=== PATIENT | female | born 1950 | race Caucasian/White ===

== ENCOUNTER 2019-01-27 13:35 | Inpatient (IN) | payer MEDICARE ==
[2019-01-27] MEDS ORDERED: SODIUM CHLORIDE 0.9% 1,000 ML IV STA (14:01)
[2019-01-27 14:17] LABS: Basophils # (A) 0.1 k/uL (0-0.2); Basophils % (A) 1 %; Eosinophils # (A) 0.4 k/uL (0-0.7); Eosinophils % (A) 3 %; HCT 45.7 % (34.0-46.0); HGB 14.5 gm/dL (11.4-16.0); Lymphocytes # (A) 3.1 k/uL (1.0-4.8); Lymphocytes % (A) 22 %; MCH 29.6 pg (25.0-35.0); MCHC 31.6 g/dL (31.0-37.0); MCV 93.7 fL (80.0-100.0); Mean Platelet Volume 7.3; Monocytes # (A) 0.9 k/uL (0-1.0); Monocytes % (A) 6 %; Neutrophils # (A) 9.3 k/uL (1.3-7.7); Neutrophils % (A) 65 %; Platelet Count 278 k/uL (150-450); RBC 4.88 m/uL (3.80-5.40); RDW 12.4 % (11.5-15.5); WBC 14.2 k/uL (3.8-10.6)
[2019-01-27 14:27] LABS: INR 0.9 (<1.2); Partial Thromboplastin Time 24.7 sec (22.0-30.0); Prothrombin Time 9.7 sec (9.0-12.0)
[2019-01-27 14:30] LABS: Calcium 9.7 mg/dL (8.4-10.2); Potassium 4.4 mmol/L (3.5-5.1); Total Bilirubin 0.5 mg/dL (0.2-1.3); Total Protein 6.7 g/dL (6.3-8.2)
--- NOTE | 2019-01-27 15:03 | CT ---
EXAMINATION TYPE: CT brain katty vázquez DATE OF EXAM: 01/27/2019 COMPARISON: None HISTORY: 68-year-old female fall with blow to head CT DLP: 2597.5 mGycm Automated exposure control for dose reduction was used. Technique: Examination of the head was done in axial plane without intravenous contrast. Coronal and sagittal reconstructions performed. CT of the cervical spine was obtained in axial plane without intravenous injection of contrast mater ial. Coronal and sagittal reformatted images were obtained from the axial views for evaluation of f ractures, spinal alignment and canal. FINDINGS: Head: There is no evidence of acute intracranial hemorrhage, acute ischemic changes, mass effect, or extra -axial fluid collection. There is no effacement of cerebral sulci or basal subarachnoid cisterns. T here is no hydrocephalus. There is no midline shift. Stanford-white matter distinction is preserved. 9 mm calcified extra-axial lesion anterior left frontal convexity, either inner table osteoma versus meningioma. Mild generalized supratentorial volume loss. Paranasal sinuses and mastoid air cells are well pneumatized. Orbits and globes are intact. Cervical spine: No craniocervical junction abnormality, predental space widening, or prevertebral soft tissue swellin g. Degenerative changes at the C1 dens articulation. Multilevel hypertrophic facet and uncovertebral joint arthropathy. Reversal of the normal cervical lordosis. Grade 1 anterolisthesis at C4-C5 and grade 1 retrolisthesis at C5-C6 and C6-C7. Disc osteophyte complex may result in moderate spinal canal stenosis at C6-C7. Assessment limited due to artifact from the patient's shoulders. Moderate to advanced discogenic degenerative change from C5 through C7 levels. No acute fracture seen of the cervical spine. Severe left neuroforaminal stenosis at C2-C3 and moderate to severe on the right at C3-C4. Moderate o n both sides at C5-C6 and severe on both sides at C6-C7. Sagittal and coronal reformatted images confirm above findings. COMBINED IMPRESSION: 1. Mild generalized atrophy. Either a 9 mm inner table calvarial osteoma versus a small meningioma al jillian the anterior left frontal convexity. No acute intracranial abnormality seen. 2. No acute fracture of the cervical spine. Moderate to advanced spondylotic change with grade 1 list hesis at C4-C7 levels. 3. Possible moderate spinal canal stenosis at C6-C7. Variable moderate to severe bilateral neuroforam inal stenoses as outlined above.
--- NOTE | 2019-01-27 15:03 | XR ---
EXAMINATION TYPE: XR chest 2V DATE OF EXAM: 01/27/2019 COMPARISON: NONE TECHNIQUE: PA and lateral views submitted. HISTORY: Pain FINDINGS: The lungs are clear and there is no pneumothorax, pleural effusion, or focal pneumonia. Previous rot ator cuff surgery in the right noted. Arthropathy of the shoulders. No overt failure. Surgical clips in the abdomen. Degenerative change of the spine. IMPRESSION: 1. No acute process.
--- NOTE | 2019-01-27 15:15 | CT ---
EXAMINATION TYPE: CT abdomen pelvis wo con DATE OF EXAM: 01/27/2019 COMPARISON: None HISTORY: 68-year-old female dysuria, recent fall CT DLP: 1391 mGycm. Automated exposure control for dose reduction was used. TECHNIQUE: Contiguous axial scanning of the abdomen and pelvis without IV contrast. Coronal and sagit freddie reconstructions performed. FINDINGS: Heart normal size without pericardial effusion. Mild dependent atelectasis posterior lung bases witho ut pleural effusion. Liver enlarged at 20.0 cm with low-attenuation ingesting underlying fatty infiltration. Cholecystectomy clips. Right adrenal gland, left kidney, spleen, and pancreas appear within normal limits. 1.2 cm nodularity left adrenal gland is indeterminate. 3.1 cm cyst partially exophytic lateral right kidney. No dilated small bowel, free fluid, or free air. No mesenteric or retroperitoneal lymphadenopathy. Sigmoid diverticulosis. No pericolic inflammatory change. Bladder is completely collapsed. Uterus surgically absent. No abnormal fluid collection in the pelvis or pelvic lymphadenopathy seen. Bones: Moderate degenerative change of both hips. Degenerated levoconvex scoliosis of the lumbar spin e. IMPRESSION: 1. Hepatomegaly (20.0 cm) with suggestion of underlying mild fatty infiltration. 2. 1.2 cm indeterminate nodularity left adrenal gland. Statistically, this represents a benign adren al adenoma. Consider one-year follow-up to reassess. 3. Sigmoid diverticulosis without acute diverticulitis. 4. Degenerated levoconvex scoliosis of the lumbar spine.
--- NOTE | 2019-01-27 15:18 | ED ---
General Adult HPI - General Chief complaint: Abdominal Pain Stated complaint: Trouble urinating Time Seen by Provider: 01/27/19 13:40 Source: patient Mode of arrival: wheelchair Limitations: no limitations - History of Present Illness Initial comments: The patient is a 68-year-old female who presents to the emergency room with reported difficulty urinating. Patient reports that she sustained a fall on Thursday. Reports that it was a mechanical fall where she fell backwards into her bathtub. She had a prolonged downtime of greater than 36 hours. Reports that she screamed loud enough to where someone heard her. They did perform a lift assist and the patient refused to be seen. She does report to blunt head trauma. Has been complaining of neck pain. She followed up in her primary care office yesterday. They performed laboratory studies and a urine. Today the patient got a call stating that her labs are markedly abnormal. She also stoppe d urinating and therefore came into the emergency room for evaluation. Upon review of the patient's blood work at bedside does report that her kidney function was previously normal earlier this year and is now 2.5. She reports that she's had multiple episodes of loose, watery, black stool. No history of peptic ulcer disease, NSAID use or alcohol use. Denies any extremity pain secondary to her fall. No headaches or visual changes. Denies any chest pain or shortness of breath. No recent fevers or chills. She does think that she may have taken an extra dose of her blood pressure medication today. There are no other alleviating, precipitating or modifying factors - Related Data Home Medications Medication Instructions Recorded Confirmed Anastrozole [Arimidex] 1 mg PO DAILY 01/27/19 01/27/19 Aspirin EC [Ecotrin Low Dose] 81 mg PO HS 01/27/19 01/27/19 Calcium/Magnesium/Zinc 1 tab PO BID 01/27/19 01/27/19 [Rlirhwz-Expivnngi-Gjsb Tablet] Cholecalciferol (Vitamin D3) 2,000 unit PO BID 01/27/19 01/27/19 [Vitamin D3] Cinnamon Bark [Cinnamon] 1,000 mg PO BID 01/27/19 01/27/19 Cranberry 4,200 mg PO BID 01/27/19 01/27/19 Glucosamine/Chondr [place] A Sod [Osteo 1 tab PO BID 01/27/19 01/27/19 Bi-Flex Caplet] Pantoprazole Sodium [Protonix] 40 mg PO BID 01/27/19 01/27/19 Vit C/E/Zn/Coppr/Lutein/Zeaxan 1 cap PO BID 01/27/19 01/27/19 [Preservision Areds 2 Softgel] Previous Rx's Medication Instructions Recorded sitaGLIPtin PHOSPHATE [Januvia] 50 mg PO DAILY #30 tab 01/30/19 Gabapentin 300 mg PO BID 30 Days #60 tab 01/31/19 Metoprolol Succinate (ER) [Toprol 12.5 mg PO DAILY 30 Days #30 01/31/19 XL] tab.er.24h Allergies Allergy/AdvReac Type Severity Reaction Status Date / Time No Known Allergies Allergy Verified 01/27/19 14:26 Review of Systems ROS Statement: Those systems with pertinent positive or pertinent negative responses have been documented in the HPI. ROS Other: All systems not noted in ROS Statement are negative. Past Medical History Past Medical History: Hypertension History of Any Multi-Drug Resistant Organisms: None Reported Past Surgical History: Cholecystectomy, Hysterectomy Additional Past Surgical History / Comment(s): Intestinal Past Psychological History: No Psychological Hx Reported Smoking Status: Never smoker Past Alcohol Use History: Occasional Past Drug Use History: None Reported - Past Family History Father Additional Family Medical History / Comment(s): aneurysm Mother Family Medical History: CVA/TIA General Exam Limitations: no limitations General appearance: alert, in no apparent distress Head exam: Present: atraumatic, normocephalic, normal inspection Eye exam: Present: normal appearance, PERRL, EOMI. Absent: scleral icterus, conjunctival injection, periorbital swelling ENT exam: Present: normal exam, mucous membranes moist Neck exam: Present: normal inspection, tenderness. Absent: meningismus, lymphadenopathy Respiratory exam: Present: normal lung sounds bilaterally. Absent: respiratory distress, wheezes, rales, rhonchi, stridor Cardiovascular Exam: Present: regular rate, normal rhythm, normal heart sounds. Absent: systolic murmur, diastolic murmur, rubs, gallop, clicks GI/Abdominal exam: Present: soft, normal bowel sounds. Absent: distended, tenderness, guarding, rebound, rigid Extremities exam: Present: normal inspection, full ROM, normal capillary refill. Absent: tenderness, pedal edema, joint swelling, calf tenderness Back exam: Present: normal inspection, full ROM Neurological exam: Present: alert, oriented X3, CN II-XII intact Psychiatric exam: Present: normal affect, normal mood Skin exam: Present: warm, dry, intact, normal color. Absent: rash Course Vital Signs 01/27/19 01/27/19 01/27/19 13:39 13:55 14:00 Temperature 97.4 F L Pulse Rate 67 62 Respiratory 22 17 Rate Blood Pressure 82/28 111/84 111/84 O2 Sat by Pulse 96 94 L 96 Oximetry 01/27/19 01/27/19 01/27/19 14:15 14:30 14:45 Temperature Pulse Rate 61 Respiratory 34 H 26 H Rate Blood Pressure 44/27 113/68 114/59 O2 Sat by Pulse 95 98 Oximetry 01/27/19 01/27/19 01/27/19 15:00 15:15 15:30 Temperature Pulse Rate 69 Respiratory Rate Blood Pressure 104/91 121/66 O2 Sat by Pulse 54 L 100 98 Oximetry 01/27/19 01/27/19 01/27/19 15:45 16:00 16:30 Temperature Pulse Rate 64 60 Respiratory Rate Blood Pressure 100/87 129/95 133/77 O2 Sat by Pulse 93 L 98 98 Oximetry 01/27/19 01/27/19 17:30 18:00 Temperature Pulse Rate 58 L 62 Respiratory Rate Blood Pressure 105/93 107/55 O2 Sat by Pulse 100 97 Oximetry EKG Findings - EKG Comments: EKG Findings:: EKG demonstrates a sinus bradycardia with a ventricular rate of 59. HI interval 152. QRS 114. QTC 455. There are no acute ST segment elevations or depressions concerning for ischemic changes Medical Decision Making - Medical Decision Making Upon arrival the patient is placed into room 2. She is hooked up to continuous pulse ox and cardiac monitoring. A 12-lead EKG is performed on the patient. We did establish peripheral IV. The patient was given a liter bolus of normal saline. Bladder scan was performed and demonstrated 138 in the patient's bladder. She was straight cathed and it revealed no urine. I did recommend laboratory studies and a CT of the patient's brain and cervical spine. I also recommended a CT without contrast of the patient's abdomen. With blood cell count is 14.2. Glucose of 120, AST 91, ALT 86, CK of 966, lipase 330. Fecal occult is positive. Chest x-ray is negative. CT of the brain and cervical spine demonstrates mild generalized atrophy. 9 mm inner table calvarial osteoma versus a small meningioma. No acute fractures of the cervical spine area possible moderate spinal canal stenosis at C6-C7. CT of the abdomen and pelvis without contrast demonstrates hepatomegaly, left adrenal gland nodularity, sigmoid diverticulosis and degenerative scoliosis of the lumbar spine. I discussed these results with the patient. I did recommend hospital admission for which the patient did agree. I called and discussed the case with Dr. Gandhi who accepted admission for the patient. I did call and discuss the case with Dr. Cao who recommended a bicarb drip. I am currently awaiting a urinalysis. The patient will receive fluids at 120 mL per hour. I ordered a myoglobin. The patient remained in stable condition and was transported to the floor. Upon reevaluation of the patient's studies, it does reveal that she had a urinalysis that was sent to lab. Does note multiple blood cells and white blood cell clumps. Therefore I ordered a gram of Rocephin on the patient - Lab Data Result diagrams: 01/28/19 07:27 01/31/19 06:34 Lab Results 01/27/19 01/27/19 01/27/19 Range/Units 14:03 14:03 14:03 WBC 14.2 H (3.8-10.6) k/uL RBC 4.88 (3.80-5.40) m/uL Hgb 14.5 (11.4-16.0) gm/dL Hct 45.7 (34.0-46.0) % MCV 93.7 (80.0-100.0) fL MCH 29.6 (25.0-35.0) pg MCHC 31.6 (31.0-37.0) g/dL RDW 12.4 (11.5-15.5) % Plt Count 278 (150-450) k/uL Neutrophils % 65 % Lymphocytes % 22 % Monocytes % 6 % Eosinophils % 3 % Basophils % 1 % Neutrophils # 9.3 H (1.3-7.7) k/uL Lymphocytes # 3.1 (1.0-4.8) k/uL Monocytes # 0.9 (0-1.0) k/uL Eosinophils # 0.4 (0-0.7) k/uL Basophils # 0.1 (0-0.2) k/uL PT (9.0-12.0) sec INR (<1.2) APTT (22.0-30.0) sec Sodium 133 L (137-145) mmol/L Potassium 4.4 (3.5-5.1) mmol/L Chloride 96 L (98-107) mmol/L Carbon Dioxide 20 L (22-30) mmol/L Anion Gap 17 mmol/L BUN 63 H (7-17) mg/dL Creatinine 4.73 H (0.52-1.04) mg/dL Est GFR (CKD-EPI)AfAm 10 (>60 ml/min/1.73 sqM) Est GFR (CKD-EPI)NonAf 9 (>60 ml/min/1.73 sqM) Glucose 120 H (74-99) mg/dL Plasma Lactic Acid Irvin 2.0 (0.7-2.0) mmol/L Calcium 9.7 (8.4-10.2) mg/dL Total Bilirubin 0.5 (0.2-1.3) mg/dL AST 91 H (14-36) U/L ALT 86 H (9-52) U/L Alkaline Phosphatase 96 (38-126) U/L Creatine Kinase 966 H (30-135) U/L Myoglobin (25-58) ng/mL Total Protein 6.7 (6.3-8.2) g/dL Albumin 4.0 (3.5-5.0) g/dL Lipase 333 H (23-300) U/L Stool Occult Blood (Negative) 01/27/19 01/27/19 01/27/19 Range/Units 14:03 14:03 15:30 WBC (3.8-10.6) k/uL RBC (3.80-5.40) m/uL Hgb (11.4-16.0) gm/dL Hct (34.0-46.0) % MCV (80.0-100.0) fL MCH (25.0-35.0) pg MCHC (31.0-37.0) g/dL RDW (11.5-15.5) % Plt Count (150-450) k/uL Neutrophils % % Lymphocytes % % Monocytes % % Eosinophils % % Basophils % % Neutrophils # (1.3-7.7) k/uL Lymphocytes # (1.0-4.8) k/uL Monocytes # (0-1.0) k/uL Eosinophils # (0-0.7) k/uL Basophils # (0-0.2) k/uL PT 9.7 (9.0-12.0) sec INR 0.9 (<1.2) APTT 24.7 (22.0-30.0) sec Sodium (137-145) mmol/L Potassium (3.5-5.1) mmol/L Chloride (98-107) mmol/L Carbon Dioxide (22-30) mmol/L Anion Gap mmol/L BUN (7-17) mg/dL Creatinine (0.52-1.04) mg/dL Est GFR (CKD-EPI)AfAm (>60 ml/min/1.73 sqM) Est GFR (CKD-EPI)NonAf (>60 ml/min/1.73 sqM) Glucose (74-99) mg/dL Plasma Lactic Acid Irvin (0.7-2.0) mmol/L Calcium (8.4-10.2) mg/dL Total Bilirubin (0.2-1.3) mg/dL AST (14-36) U/L ALT (9-52) U/L Alkaline Phosphatase (38-126) U/L Creatine Kinase (30-135) U/L Myoglobin 2028 H (25-58) ng/mL Total Protein (6.3-8.2) g/dL Albumin (3.5-5.0) g/dL Lipase (23-300) U/L Stool Occult Blood Positive H (Negative) Disposition Clinical Impression: Acute kidney injury, Fall, Blunt head trauma Disposition: ADMITTED IP TO THIS [facility] Condition: Fair Is patient prescribed a controlled substance at d/c from ED?: No Decision to Admit Reason: Admit from EC Decision Date: 01/27/19 Decision Time: 16:54
[2019-01-27] MEDS ORDERED: NALOXONE 0.4 MG/ML 1 ML VIAL IV PRN (16:04)
[2019-01-27] MEDS ORDERED: SODIUM CHLORIDE 0.9% 1,000 ML IV SCH (16:15)
[2019-01-27 17:00] LABS: Amorphous Sediment,Urine Moderate /hpf; Appearance,Urine Turbid (Clear); Bilirubin,Urine Negative (Negative); Blood,Urine Moderate (Negative); Color,Urine Yellow; Glucose,Urine (UA) Negative (Negative); Granular Casts,Urine 194 /lpf (0); Ketones,Urine Negative (Negative); Leukocyte Esterase,Urine Large (Negative); Nitrite,Urine Negative (Negative); Protein,Urine 2+ (Negative); RBC,Urine 46 /hpf (0-5); Specific Gravity,Urine 1.014 (1.001-1.035); Urobilinogen,Urine <2.0 mg/dL (<2.0); WBC,Urine >182 /hpf (0-5)
[2019-01-27] MEDS ORDERED: DEXTROSE 5% IN WATER 1,000 ML with SODIUM BICARB (1 MEQ/ML) 150 ML IV ONE (17:30)
[2019-01-27] MEDS: INSULIN ASPART (NovoLOG) 100 UNIT/ML VIAL SQ SCH ×2 (18:06→21:16)
[2019-01-27 18:08] LABS: Glucose,Whole Blood 97 mg/dL (75-99)
[2019-01-27 20:08] VITALS: BMI 44.2
[2019-01-27 20:43] LABS: Glucose,Whole Blood 171 mg/dL (75-99)
[2019-01-27] MEDS ORDERED: ATORVASTATIN 40 MG TAB PO SCH (21:00)
[2019-01-27] MEDS: PANTOPRAZOLE 40 MG TABLET PO SCH (21:16)
[2019-01-27] MEDS: ASPIRIN 81 MG PO SCH (21:16)
[2019-01-27] MEDS: NON FORMULARY DRUG (Calcium/Magnesium/Zinc [Calcium-Magnesium-Zinc Tablet] 1 TAB) PO SCH (21:25)
[2019-01-27] MEDS ORDERED: cefTRIAXone IN SWFI 1,000 MG/10 ML SYRINGE IVP STA (23:37)
[2019-01-28] MEDS: DEXTROSE 5% IN WATER 1,000 ML with SODIUM BICARB (1 MEQ/ML) 150 ML IV SCH ×2 (05:52→17:10)
[2019-01-28 07:47] LABS: Glucose,Whole Blood 181 mg/dL (75-99)
[2019-01-28] MEDS: PANTOPRAZOLE 40 MG TABLET PO SCH ×2 (07:49→22:48)
[2019-01-28] MEDS: ANASTROZOLE 1 MG TAB PO SCH (07:49)
[2019-01-28] MEDS: INSULIN ASPART (NovoLOG) 100 UNIT/ML VIAL SQ SCH ×4 (07:50→22:53)
[2019-01-28] MEDS: NON FORMULARY DRUG (Calcium/Magnesium/Zinc [Calcium-Magnesium-Zinc Tablet] 1 TAB) PO SCH (07:50)
[2019-01-28 08:37] LABS: Basophils # (A) 0.1 k/uL (0-0.2); Basophils % (A) 1 %; Eosinophils # (A) 0.4 k/uL (0-0.7); Eosinophils % (A) 4 %; HCT 40.2 % (34.0-46.0); HGB 13.5 gm/dL (11.4-16.0); Lymphocytes # (A) 1.9 k/uL (1.0-4.8); Lymphocytes % (A) 20 %; MCH 31.5 pg (25.0-35.0); MCHC 33.5 g/dL (31.0-37.0); MCV 94.1 fL (80.0-100.0); Mean Platelet Volume 6.9; Monocytes # (A) 0.7 k/uL (0-1.0); Monocytes % (A) 7 %; Neutrophils # (A) 6.3 k/uL (1.3-7.7); Neutrophils % (A) 66 %; Platelet Count 203 k/uL (150-450); RBC 4.28 m/uL (3.80-5.40); RDW 12.2 % (11.5-15.5); WBC 9.6 k/uL (3.8-10.6)
[2019-01-28 08:54] LABS: Calcium 8.5 mg/dL (8.4-10.2); Potassium 4.3 mmol/L (3.5-5.1)
[2019-01-28] MEDS ORDERED: METOPROLOL SUCCINATE (ER) 25 MG TAB.ER.24H PO SCH (09:00)
[2019-01-28] MEDS ORDERED: SODIUM CHLORIDE 0.9% 500 ML 500 ML IV ONE (10:24)
[2019-01-28 11:56] LABS: Glucose,Whole Blood 124 mg/dL (75-99)
--- NOTE | 2019-01-28 15:36 | P.HPIM ---
History of Present Illness Patient is a pleasant 68-year-old female came in because she was sent in from PCPs office because of elevated serum creatinine. Patient has decreased urine output for last to 3 days. Patient had a fall in the bathtub about 34 days ago and was in the bathtub by herself for about 30 hours. After that patient started having: Probably related and then many brown urine which is typical of acute urinary necrosis from myoglobinuria. Patient's serum creatinine is within normal limits at baseline now around 5. Patient denied any fever chills nausea vomiting. Patient had bowel movements as well in the past. But patient is on multiple medications that can affect the kidney including lisinopril, meloxicam, metformin all of which are being held presently. Nephrology evaluated the patient and they're obtaining urine is now for levels and patient was started on IV fluids to being continued at this time. Patient still remains oliguric with clear urine at this time. Abdominal and pelvic CT and had cervicals spine CTand abnormality was appreciated except for possible adrenal adenoma for which patient will need a repeat CAT scan in about a year Review of Systems REVIEW OF SYSTEMS: CONSTITUTIONAL: No fever, no malaise, no fatigue. HEENT: No recent visual problems or hearing problems. Denied any sore throat. CARDIOVASCULAR: No chest pain, orthopnea, PND, no palpitations, no syncope. PULMONARY: No shortness of breath, no cough, no hemoptysis. GASTROINTESTINAL: No diarrhea, no nausea, no vomiting, no abdominal pain. NEUROLOGICAL: No headaches, no weakness, no numbness. HEMATOLOGICAL: Denies any bleeding or petechiae. GENITOURINARY: Denies any burning micturition, frequency, or urgency. MUSCULOSKELETAL/RHEUMATOLOGICAL: Denies any joint pain, swelling, or any muscle pain. ENDOCRINE: Denies any polyuria or polydipsia. The rest of the 14-point review of systems is negative. Past Medical History Past Medical History: Hypertension Additional Past Medical History / Comment(s): states cancer of left breast 2016. lumpectomy 2016. DM type 2 2007. History of Any Multi-Drug Resistant Organisms: None Reported Past Surgical History: Cholecystectomy, Hysterectomy Additional Past Surgical History / Comment(s): Intestinal Past Anesthesia/Blood Transfusion Reactions: No Reported Reaction Past Psychological History: No Psychological Hx Reported Smoking Status: Never smoker Past Alcohol Use History: Occasional Past Drug Use History: None Reported - Past Family History Father Additional Family Medical History / Comment(s): aneurysm Mother Family Medical History: CVA/TIA Medications and Allergies Home Medications Medication Instructions Recorded Confirmed Type Anastrozole [Arimidex] 1 mg PO DAILY 01/27/19 01/27/19 History Aspirin EC [Ecotrin Low Dose] 81 mg PO HS 01/27/19 01/27/19 History Atorvastatin [Lipitor] 40 mg PO HS 01/27/19 01/27/19 History Calcium/Magnesium/Zinc 1 tab PO BID 01/27/19 01/27/19 History [Igwgikw-Bwrjvdsbg-Nfmz Tablet] Cholecalciferol (Vitamin D3) 2,000 unit PO BID 01/27/19 01/27/19 History [Vitamin D3] Cinnamon Bark [Cinnamon] 1,000 mg PO BID 01/27/19 01/27/19 History Cranberry 4,200 mg PO BID 01/27/19 01/27/19 History Gabapentin 600 mg PO BID 01/27/19 01/27/19 History Glucosamine/Chondr [place] A Sod [Osteo 1 tab PO BID 01/27/19 01/27/19 History Bi-Flex Caplet] Lisinopril 30 mg PO DAILY 01/27/19 01/27/19 History Meloxicam [Mobic] 15 mg PO DAILY 01/27/19 01/27/19 History Metoprolol Succinate [Toprol XL] 25 mg PO DAILY 01/27/19 01/27/19 History Pantoprazole Sodium [Protonix] 40 mg PO BID 01/27/19 01/27/19 History Vit C/E/Zn/Coppr/Lutein/Zeaxan 1 cap PO BID 01/27/19 01/27/19 History [Preservision Areds 2 Softgel] metFORMIN HCL 1,000 mg PO BID 01/27/19 01/27/19 History Allergies Allergy/AdvReac Type Severity Reaction Status Date / Time No Known Allergies Allergy Verified 01/27/19 14:26 Physical Exam Vitals: Vital Signs Temp Pulse Pulse Resp BP BP Pulse Ox 01/28/19 15:00 98.0 F 73 20 137/68 93 L 01/28/19 08:00 20 01/28/19 07:00 97.9 F 69 20 107/64 96 01/28/19 01:30 97.8 F 66 15 96/62 92 L 01/28/19 00:00 16 01/27/19 19:18 97.7 F 69 15 119/64 96 01/27/19 18:00 62 107/55 97 01/27/19 17:30 58 L 105/93 100 01/27/19 16:30 60 133/77 98 01/27/19 16:00 64 129/95 98 01/27/19 15:45 100/87 93 L 01/27/19 15:30 69 121/66 98 Intake and Output 01/28/19 01/28/19 01/28/19 06:59 14:59 22:59 Intake Total 200 Output Total 15 Balance -15 200 Intake: Oral 200 Output: Urine 15 Other: Voiding Method Indwelling Catheter PHYSICAL EXAMINATION: GENERAL: The patient is alert and oriented x3, not in any acute distress. Well developed, well nourished. HEENT: Pupils are round and equally reacting to light. EOMI. No scleral icterus. No conjunctival pallor. Normocephalic, atraumatic. No pharyngeal erythema. No thyromegaly. CARDIOVASCULAR: S1 and S2 present. No murmurs, rubs, or gallops. PULMONARY: Chest is clear to auscultation, no wheezing or crackles. ABDOMEN: Soft, nontender, nondistended, normoactive bowel sounds. No palpable organomegaly. MUSCULOSKELETAL: No joint swelling or deformity. EXTREMITIES: No cyanosis, clubbing, or pedal edema. NEUROLOGICAL: Gross neurological examination did not reveal any focal deficits. SKIN: No rashes. Results CBC & Chem 7: 01/28/19 07:27 01/28/19 07:27 Labs: Abnormal Lab Results - Last 24 Hours (Table) 01/27/19 01/27/19 01/27/19 Range/Units 15:30 16:47 20:32 Sodium (137-145) mmol/L Chloride (98-107) mmol/L Carbon Dioxide (22-30) mmol/L BUN (7-17) mg/dL Creatinine (0.52-1.04) mg/dL Glucose (74-99) mg/dL POC Glucose (mg/dL) 171 H (75-99) mg/dL Creatine Kinase (30-135) U/L Urine Appearance Turbid H (Clear) Urine Protein 2+ H (Negative) Urine Blood Moderate H (Negative) Ur Leukocyte Esterase Large H (Negative) Urine RBC 46 H (0-5) /hpf Urine WBC >182 H (0-5) /hpf Amorphous Sediment Moderate H (None) /hpf Stool Occult Blood Positive H (Negative) 01/28/19 01/28/19 01/28/19 Range/Units 07:27 07:27 07:45 Sodium 132 L (137-145) mmol/L Chloride 93 L (98-107) mmol/L Carbon Dioxide 21 L (22-30) mmol/L BUN 78 H (7-17) mg/dL Creatinine 5.46 H (0.52-1.04) mg/dL Glucose 146 H (74-99) mg/dL POC Glucose (mg/dL) 181 H (75-99) mg/dL Creatine Kinase 478 H (30-135) U/L Urine Appearance (Clear) Urine Protein (Negative) Urine Blood (Negative) Ur Leukocyte Esterase (Negative) Urine RBC (0-5) /hpf Urine WBC (0-5) /hpf Amorphous Sediment (None) /hpf Stool Occult Blood (Negative) 01/28/19 Range/Units 11:45 Sodium (137-145) mmol/L Chloride (98-107) mmol/L Carbon Dioxide (22-30) mmol/L BUN (7-17) mg/dL Creatinine (0.52-1.04) mg/dL Glucose (74-99) mg/dL POC Glucose (mg/dL) 124 H (75-99) mg/dL Creatine Kinase (30-135) U/L Urine Appearance (Clear) Urine Protein (Negative) Urine Blood (Negative) Ur Leukocyte Esterase (Negative) Urine RBC (0-5) /hpf Urine WBC (0-5) /hpf Amorphous Sediment (None) /hpf Stool Occult Blood (Negative) Thrombosis Risk Factor Assmnt - Choose All That Apply Any of the Below Risk Factors Present?: No Assessment and Plan Plan: -Acute renal failure: Possibly multifactorial along with prerenal azotemia i ntravascularly depletion contributing to her acute renal failure patient is being continued on IV fluids patient most probably has myoglobin-induced acute tubular necrosis or ALLERGIC interstitial nephritis urine is now arteaga are being obtained. Nephrology evaluated the patient. Repeat basic metabolic profile tomorrow -Hyponatremia hypervolemic hyponatremia any with IV fluids as mentioned above -Metabolic acidosis secondary to uremia patient is on bicarbonate as per nephrology -Hypertension hold off on lisinopril because of above-mentioned reasons -History of breast cancer with lumpectomy in 2016 -Type 2 diabetes mellitus hold off on metformin due to acute renal failure. continue with sliding scale. Hyperlipidemia, neuropathy: Gabapentin is being held because of acute renal failure -Hyperlipidemia -DVT prophylaxis with subcutaneous heparin
[2019-01-28 17:03] LABS: Glucose,Whole Blood 206 mg/dL (75-99)
--- NOTE | 2019-01-28 21:50 | CONS ---
CONSULTATION REASON FOR CONSULT: Renal failure. HISTORY OF PRESENT ILLNESS: Patient is a 68-year-old female who was admitted to the hospital post fall. She fell in her bathtub but was there for more than 36 hours. She did hit her head; it was blunt trauma. Patient saw her primary care physician and had labs drawn. She was called and asked to go to the ER, as her serum creatinine was significantly elevated. Patient did admit to having loose watery stools for a few days prior to admission. Her CK was elevated at 900 on admission and serum creatinine was 4.73. Supposedly a previous creatinine was about 1 mg/dL, but I do not have that in the system here. Patient has an indwelling Medina catheter which was placed in the ER. Urine output since this morning was documented at about 200 mL. Patient is maintained on bicarb drip at about 100 mL/hour. Blood pressure remains on the lower side. Currently she is not on any nephrotoxic medications. Patient was on RHONDA inhibitors at home, which is currently on hold. She was also taking Mobic regularly, and patient is advised to avoid that as well. PAST MEDICAL HISTORY: 1. Hypertension. 2. Osteoarthritis. 3. Gastroesophageal reflux disease. 4. Type 2 diabetes. PAST SURGICAL HISTORY: 1. Cholecystectomy. 2. Hysterectomy. SOCIAL HISTORY: Negative for smoking, drug abuse or alcohol abuse. MEDICATIONS: Medications prior to admission included: 1. Arimidex. 2. Lipitor. 3. Aspirin. 4. Zinc. 5. Vitamin D3. 6. Gabapentin. 7. Lisinopril. 8. Mobic. 9. Toprol. 10.Protonix. 11.Metformin. ALLERGIES: NONE. REVIEW OF SYSTEMS: As per HPI. Other systems negative. PHYSICAL EXAMINATION: Patient is currently comfortable, awake, alert, oriented x3, not in any acute distress. Blood pressure is 107/64, heart rate 69 per minute. She is afebrile. EXAMINATION OF THE HEART: S1 and S2. EXAMINATION OF LUNGS: Bilateral breath sounds are heard. ABDOMEN: Soft, non-tender, obese. Examination of lower extremities shows no significant edema. LABS: Sodium 132, potassium 4.3, BUN of 78, serum creatinine 5.46, hemoglobin 13.5 g/dL. UA shows 2+ protein, large leukocyte esterase, WBCs more than 182. Granular casts were seen. Moderate blood was noted. Stool for occult blood was positive. Hemoglobin was 13.5. ASSESSMENT: 1. Acute kidney injury, acute tubular necrosis, currently nonoliguric; however, urine output is slightly on the lower side. Continue with indwelling Medina catheter. Continue with IV hydration. If urine output drops, we will try a dose of Lasix. Repeat CK level today. Continue to hold off on NSAIDs and RHONDA inhibitors. I will check urine for eosinophiles as well. Rule out underlying acute interstitial nephritis. 2. Rhabdomyolysis, currently improving, secondary to fall. 3. Dyslipidemia, maintained on Lipitor, which I will discontinue, given the rhabdomyolysis. 4. Hypertension. Blood pressure is low. Hold off on the RHONDA inhibitors. Decrease metoprolol to 12.5 mg. PLAN: Discontinue Lipitor. Continue bicarb. Repeat labs in a.m. and use Lasix if urine output drops. Check urine for eosinophiles. Thank you for this consultation. Will continue to follow the patient with you during her hospitalization. MMODL / IJN: [id number] /
[2019-01-28] MEDS: HEPARIN SODIUM,PORCINE 5,000 UNIT/ML 1 ML VIAL SQ SCH (22:48)
[2019-01-28] MEDS: ASPIRIN 81 MG PO SCH (22:48)
[2019-01-28 23:03] LABS: Glucose,Whole Blood 115 mg/dL (75-99)
[2019-01-29] MEDS: DEXTROSE 5% IN WATER 1,000 ML with SODIUM BICARB (1 MEQ/ML) 150 ML IV SCH ×2 (01:13→07:04)
[2019-01-29] MEDS: NON FORMULARY DRUG (Calcium/Magnesium/Zinc [Calcium-Magnesium-Zinc Tablet] 1 TAB) PO SCH ×3 (01:13→20:38)
[2019-01-29 07:29] LABS: Glucose,Whole Blood 161 mg/dL (75-99)
[2019-01-29] MEDS: INSULIN ASPART (NovoLOG) 100 UNIT/ML VIAL SQ SCH ×4 (07:59→20:41)
[2019-01-29] MEDS: HEPARIN SODIUM,PORCINE 5,000 UNIT/ML 1 ML VIAL SQ SCH ×2 (07:59→20:41)
[2019-01-29] MEDS: METOPROLOL SUCCINATE (ER) 25 MG TAB.ER.24H PO SCH (08:02)
[2019-01-29] MEDS: ANASTROZOLE 1 MG TAB PO SCH (08:03)
--- NOTE | 2019-01-29 09:18 | P.PN ---
Subjective 68-year-old female was admitted for possible myoglobinuria induced or ALLERGIC interstitial nephritis or acute tubular necrosis. Patient urine output improved. He is to be in polyuric phase. Cutdown the IV FLUIDS TO 75 ML PER HOUR PATIENT IS ON IV SODIUM BICARBONATE DRIP. DO NOT HAVE ANY REPEAT BASIC METABOLIC PROFILE AVAILABLE FOR TODAY. Patient was advised to ambulate. Constitutional: Denied any fatigue denied any fever. Cardio vascular: denied any chest pain, palpitations Gastrointestinal denied any nausea vomiting Pulmonary: Denied any shortness of breath cough Neurologic denied any new focal deficits All inpatient medications were reviewed and appropriate changes in these medications as dictated in the interval history and assessment and plan. Objective - Vital Signs Vital signs: Vital Signs Temp 97.4 F L 01/29/19 07:00 Pulse 63 01/29/19 07:00 Resp 16 01/29/19 07:00 BP 119/67 01/29/19 07:00 Pulse Ox 90 L 01/29/19 07:00 Intake & Output 01/28/19 01/29/19 01/29/19 18:59 06:59 18:59 Intake Total 200 Output Total 350 3600 Balance -150 -3600 Intake: Oral 200 Output: Urine 350 3600 Other: Voiding Method Indwelling Catheter Indwelling Catheter # Bowel Movements 1 - Exam PHYSICAL EXAMINATION: GENERAL: The patient is alert and oriented x3, not in any acute distress. Well developed, well nourished. HEENT: Pupils are round and equally reacting to light. EOMI. No scleral icterus. No conjunctival pallor. Normocephalic, atraumatic. No pharyngeal erythema. No thyromegaly. CARDIOVASCULAR: S1 and S2 present. No murmurs, rubs, or gallops. PULMONARY: Chest is clear to auscultation, no wheezing or crackles. ABDOMEN: Soft, nontender, nondistended, normoactive bowel sounds. No palpable organomegaly. MUSCULOSKELETAL: No joint swelling or deformity. EXTREMITIES: No cyanosis, clubbing, or pedal edema. NEUROLOGICAL: Gross neurological examination did not reveal any focal deficits. SKIN: No rashes. - Labs CBC & Chem 7: 01/28/19 07:27 01/28/19 07:27 Labs: Abnormal Lab Results - Last 24 Hours (Table) 01/28/19 01/28/19 01/28/19 Range/Units 07:27 11:45 16:49 POC Glucose (mg/dL) 124 H 206 H (75-99) mg/dL Creatine Kinase 478 H (30-135) U/L 01/28/19 01/29/19 Range/Units 22:52 07:01 POC Glucose (mg/dL) 115 H 161 H (75-99) mg/dL Creatine Kinase (30-135) U/L Assessment and Plan Plan: -Acute renal failure: Possibly multifactorial along with prerenal azotemia intravascularly depletion contributing to her acute renal failure patient is being continued on IV fluids patient most probably has myoglobin-induced acute tubular necrosis or ALLERGIC interstitial nephritis urine is now arteaga are being obtained. Nephrology evaluated the patient. It is significant for increased white blood cell count urine is now arteaga are still not available at this time urine output is improving -Hyponatremia hypervolemic hyponatremia any with IV fluids as mentioned above, repeat basic metabolic profile is pending -Metabolic acidosis secondary to uremia patient is on bicarbonate as per nephro logy -Hypertension hold off on lisinopril because of above-mentioned reasons -History of breast cancer with lumpectomy in 2016 -Type 2 diabetes mellitus hold off on metformin due to acute renal failure. continue with sliding scale. Blood sugars are fairly controlled Hyperlipidemia, neuropathy: Gabapentin is being held because of acute renal failure -Hyperlipidemia -DVT prophylaxis with subcutaneous heparin
[2019-01-29 10:29] LABS: Calcium 8.5 mg/dL (8.4-10.2); Potassium 3.8 mmol/L (3.5-5.1)
[2019-01-29] MEDS: PANTOPRAZOLE 40 MG TABLET PO SCH ×2 (11:32→20:41)
[2019-01-29 12:31] LABS: Glucose,Whole Blood 124 mg/dL (75-99)
--- NOTE | 2019-01-29 14:36 | PN ---
PROGRESS NOTE The patient is seen for followup for acute kidney injury. She was admitted to the hospital after a fall. The patient is maintained on IV fluids. She had rhabdomyolysis. Creatinine had gone up to 5.4 from 4.7 on initial admission. Urine output had been on the lower side currently significantly improved. Creatinine is also improved to 4.2 this morning. Overall, patient states she is feeling better. PHYSICAL EXAMINATION: On examination this morning, blood pressure was 119/67, heart rate 63 per minute. She is afebrile. EXAMINATION OF THE HEART: S1, S2. EXAMINATION OF THE LUNGS: Bilateral breath sounds are heard. Abdomen is soft, nontender, obese. Examination of lower extremities shows no evidence of edema. 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 LABS: Labs show sodium 135, potassium 3.8, BUN 81, creatinine 4.2. Calcium 8.5 mg/dL. ASSESSMENT: 1. Acute kidney injury, acute tubular necrosis, secondary to hypotension hypoperfusion as well as rhabdomyolysis, currently improving. Continue with indwelling Medina catheter for one more day. Continue IV fluids. 2. Mild metabolic acidosis secondary to renal failure, maintained on bicarb drip. We can switch to saline. 3. Rhabdomyolysis, improving. 4. Status post fall. 5. Hypertension, controlled. 6. Gastroesophageal reflux disease, maintained on proton pump inhibitors. PLAN: Discontinue IV bicarb, switch to normal saline. Repeat labs in a.m. MMODL / IJN: [id number] /
[2019-01-29] MEDS: SODIUM CHLORIDE 0.9% 1,000 ML IV SCH (15:30)
[2019-01-29 17:23] LABS: Glucose,Whole Blood 192 mg/dL (75-99)
[2019-01-29 20:29] LABS: Glucose,Whole Blood 182 mg/dL (75-99)
[2019-01-29] MEDS: ASPIRIN 81 MG PO SCH (20:41)
[2019-01-30] MEDS: SODIUM CHLORIDE 0.9% 1,000 ML IV SCH ×3 (03:56→16:17)
[2019-01-30 07:00] LABS: Glucose,Whole Blood 147 mg/dL (75-99)
[2019-01-30 07:13] LABS: Calcium 8.7 mg/dL (8.4-10.2); Potassium 4.4 mmol/L (3.5-5.1)
[2019-01-30] MEDS: INSULIN ASPART (NovoLOG) 100 UNIT/ML VIAL SQ SCH ×4 (07:51→20:37)
[2019-01-30] MEDS: ANASTROZOLE 1 MG TAB PO SCH (07:52)
[2019-01-30] MEDS: HEPARIN SODIUM,PORCINE 5,000 UNIT/ML 1 ML VIAL SQ SCH ×2 (07:52→20:37)
[2019-01-30] MEDS: METOPROLOL SUCCINATE (ER) 25 MG TAB.ER.24H PO SCH (07:52)
[2019-01-30] MEDS: PANTOPRAZOLE 40 MG TABLET PO SCH ×2 (07:52→20:37)
[2019-01-30] MEDS: NON FORMULARY DRUG (Calcium/Magnesium/Zinc [Calcium-Magnesium-Zinc Tablet] 1 TAB) PO SCH ×2 (07:53→20:26)
[2019-01-30 11:55] LABS: Glucose,Whole Blood 189 mg/dL (75-99)
--- NOTE | 2019-01-30 14:25 | P.PN ---
Subjective 68-year-old female was admitted for possible myoglobinuria induced or ALLERGIC interstitial nephritis or acute tubular necrosis. Patient urine output improved. He is to be in polyuric phase. Cutdown the IV FLUIDS TO 75 ML PER HOUR PATIENT IS ON IV SODIUM BICARBONATE DRIP. DO NOT HAVE ANY REPEAT BASIC METABOLIC PROFILE AVAILABLE FOR TODAY. Patient was advised to ambulate. 01/30/2019 Patient is doing much better her creatinine Has come down to 3.11 from 5.46. Patient probably can be discharged tomorrow. Patient cannot take lisinopril, m etformin, meloxicam Constitutional: Denied any fatigue denied any fever. Cardio vascular: denied any chest pain, palpitations Gastrointestinal denied any nausea vomiting Pulmonary: Denied any shortness of breath cough Neurologic denied any new focal deficits All inpatient medications were reviewed and appropriate changes in these medications as dictated in the interval history and assessment and plan. Objective - Vital Signs Vital signs: Vital Signs Temp 98.7 F 01/30/19 07:47 Pulse 61 01/30/19 07:47 Resp 16 01/30/19 07:47 BP 120/80 01/30/19 07:47 Pulse Ox 92 L 01/30/19 07:47 Intake & Output 01/29/19 01/30/19 01/30/19 18:59 06:59 18:59 Intake Total 600 1250 300 Output Total 2500 1225 1600 Balance -1900 25 -1300 Intake: Intake, IV Titration 600 750 300 Amount Dextrose 5% in Water 1, 600 000 ml @ 75 mls/hr IV . [id number] MARILIN with Sodium Bicarb (1 Meq/ml) 150 ml Rx#:[id number] Sodium Chloride 0.9% 1, 750 300 000 ml @ 75 mls/hr IV . [id number] MARILIN Rx#:[id number] Oral 500 Output: Urine 2500 1225 1600 Uretheral (Medina) 1225 400 Other: Voiding Method Indwelling Catheter Indwelling Catheter Indwelling Catheter # Bowel Movements 1 - Exam PHYSICAL EXAMINATION: GENERAL: The patient is alert and oriented x3, not in any acute distress. Well developed, well nourished. HEENT: Pupils are round and equally reacting to light. EOMI. No scleral icterus. No conjunctival pallor. Normocephalic, atraumatic. No pharyngeal erythema. No thyromegaly. CARDIOVASCULAR: S1 and S2 present. No murmurs, rubs, or gallops. PULMONARY: Chest is clear to auscultation, no wheezing or crackles. ABDOMEN: Soft, nontender, nondistended, normoactive bowel sounds. No palpable organomegaly. MUSCULOSKELETAL: No joint swelling or deformity. EXTREMITIES: No cyanosis, clubbing, or pedal edema. NEUROLOGICAL: Gross neurological examination did not reveal any focal deficits. SKIN: No rashes. - Labs CBC & Chem 7: 01/28/19 07:27 01/30/19 06:28 Labs: Abnormal Lab Results - Last 24 Hours (Table) 01/29/19 01/29/19 01/30/19 Range/Units 17:11 20:17 06:28 Chloride 97 L (98-107) mmol/L Carbon Dioxide 37 H (22-30) mmol/L BUN 67 H (7-17) mg/dL Creatinine 3.11 H (0.52-1.04) mg/dL Glucose 145 H (74-99) mg/dL POC Glucose (mg/dL) 192 H 182 H (75-99) mg/dL 01/30/19 01/30/19 Range/Units 06:57 11:51 Chloride (98-107) mmol/L Carbon Dioxide (22-30) mmol/L BUN (7-17) mg/dL Creatinine (0.52-1.04) mg/dL Glucose (74-99) mg/dL POC Glucose (mg/dL) 147 H 189 H (75-99) mg/dL Assessment and Plan Plan: -Acute renal failure: Possibly multifactorial along with prerenal azotemia intravascularly depletion contributing to her acute renal failure patient is being continued on IV fluids patient most probably has myoglobin-induced acute tubular necrosis or ALLERGIC interstitial nephritis urine is now arteaga are being obtained. Nephrology evaluated the patient. It doesn't continue to improve -Hyponatremia hypervolemic hyponatremia improved with IV fluids -Metabolic acidosis secondary to uremia patient is on bicarbonate as per nephrology -Hypertension hold off on lisinopril because of above-mentioned reasons -History of breast cancer with lumpectomy in 2016 -Type 2 diabetes mellitus hold off on metformin due to acute renal failure. continue with sliding scale. Blood sugars are fairly controlled Hyperlipidemia, neuropathy: Gabapentin is being held because of acute renal failure -Hyperlipidemia -DVT prophylaxis with subcutaneous heparin
[2019-01-30 17:15] LABS: Glucose,Whole Blood 117 mg/dL (75-99)
--- NOTE | 2019-01-30 18:54 | PN ---
PROGRESS NOTE Patient is seen for followup for acute kidney injury secondary to hypotension, hypovolemia and rhabdomyolysis. Renal function has improved. Serum creatinine is down to 3.1 from 5.4 on 01/28/2019. Patient continues to have good urine output. 24 hour output was 3.7 L. Currently patient is maintained on IV fluids. PHYSICAL EXAMINATION: On examination, blood pressure is 120/80, heart rate 61 per minute, patient is afebrile. Examination of the heart S1, S2. Examination of the lungs, bilateral breath sounds are heard. Abdomen is soft, nontender. 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 LABS: Show sodium of 140, potassium 4.4, chloride 97, CO2 is 37, BUN 67, serum creatinine 3.1, calcium 8.7 mg/dL. ASSESSMENT: 1. Acute kidney injury associated with hypovolemia, hypotension as well as rhabdomyolysis and use of NSAIDs, currently improving. We can decrease the IV fluids. Patient is encouraged to increase her oral intake. We will repeat labs in a.m. 2. Status post fall. 3. Gastroesophageal reflux disease. 4. Mild metabolic acidosis, status post bicarb drip. PLAN: Decrease IV fluids. Encourage increased oral intake. Repeat labs in a.m. Repeat CK level. Continue off of Lipitor. The patient can be discharged by tomorrow with followup as outpatient with repeat labs as outpatient post discharge. She is advised to continue to avoid use of NSAIDs and continue to hold off on the RHONDA inhibitor/angiotensin receptor blockers as well as the metformin for now. MMODL / IJN: [id number] /
[2019-01-30 20:35] LABS: Glucose,Whole Blood 239 mg/dL (75-99)
[2019-01-30] MEDS: ASPIRIN 81 MG PO SCH (20:37)
[2019-01-31 07:03] LABS: Glucose,Whole Blood 171 mg/dL (75-99)
[2019-01-31] MEDS: ANASTROZOLE 1 MG TAB PO SCH (07:42)
[2019-01-31] MEDS: HEPARIN SODIUM,PORCINE 5,000 UNIT/ML 1 ML VIAL SQ SCH (07:42)
[2019-01-31] MEDS: METOPROLOL SUCCINATE (ER) 25 MG TAB.ER.24H PO SCH (07:42)
[2019-01-31] MEDS: PANTOPRAZOLE 40 MG TABLET PO SCH (07:43)
[2019-01-31] MEDS: INSULIN ASPART (NovoLOG) 100 UNIT/ML VIAL SQ SCH ×2 (07:43→12:46)
[2019-01-31 07:54] LABS: Calcium 8.4 mg/dL (8.4-10.2); Potassium 3.9 mmol/L (3.5-5.1)
[2019-01-31] MEDS: NON FORMULARY DRUG (Calcium/Magnesium/Zinc [Calcium-Magnesium-Zinc Tablet] 1 TAB) PO SCH (08:01)
[2019-01-31 08:05] VITALS: BP 148/74; PULSE 61; RESP 17; TEMP 97.7
[2019-01-31 11:55] LABS: Glucose,Whole Blood 138 mg/dL (75-99)
--- NOTE | 2019-01-31 14:04 | PN ---
PROGRESS NOTE Patient is seen for followup for acute kidney injury. Her renal function continues to improve. Patient wants to go home. She denies any complaints. Creatinine is down to 1.87 from a peak of about 5.4. PHYSICAL EXAMINATION: On examination today, blood pressure was 137/76, heart rate 64 per minute, she is afebrile. Examination of the heart S1, S2. Examination of the lungs, bilateral breath sounds are heard. Abdomen is soft, non-tender. Examination of lower extremities shows no significant edema. LABS: Show sodium 142, potassium 3.9, BUN 40, creatinine 1.87. ASSESSMENT: 1. Acute kidney injury, ATN currently improved. Patient can be discharged from nephrology standpoint. 2. Hypertension, stable. 3. Status post fall, mild rhabdomyolysis, now improved. 4. Neuropathy. 5. Mild metabolic acidosis, now resolved. PLAN: Patient can be discharged from nephrology standpoint. Follow up as outpatient with PCP and continue to avoid NSAIDs and RHONDA inhibitor/angiotensin receptor blockers for now. MMODL / IJN: [id number] /
--- NOTE | 2019-01-31 14:22 | P.DS ---
Providers Date of admission: 01/27/19 16:04 Expected date of discharge: 01/31/19 Attending physician: Kieran Gandhi Consults: 01/27/19 16:05 Consult Physician Urgent Consulting Provider: Carmela Cao Consult Reason/Comments: acute renal failure Do you want consulting provider notified?: Yes Primary care physician: [facility] Hospital Course: Final Diagnosis Acute renal failure, possibly multifactorial along with prerenal azotemia due to intravascular depletion Hyponatremia, hypovolemic hyponatremia Metabolic acidosis secondary to uremia Hypertension History of breast cancer with lumpectomy in 2016 Diabetes mellitus type 2 Hyperlipidemia, neuropathy DVT prophylaxis Discharge disposition Patient is being discharged in a stable condition with guarded prognosis to home and will follow-up with primary care provider Dr. Johnson as well as Dr. Cao nephrology in 1-2 weeks. Patient will need repeat labs upon discharge. Total time taken is 35 minutes. History of present illness This is a 68-year-old female who was admitted for possible myoglobinuria or interstitial nephritis or acute tubular necrosis and was being monitored closely. Nephrology was following closely. During hospitalization patient's creatinine was 5.46 upon admission and had improved and is currently 1.87. Per nephrology recommendations patient is to continue holding her RHONDA inhibitor, metformin, and any NSAIDs until follow-up. Patient denies any chest pain, shortness of breath, or palpitations at this time. Patient has been afebrile. Patient denies any nausea or vomiting and is tolerating diet. Patient encouraged to drink more water. Currently patient's condition is stable with much improvement like to go home today. Patient will follow-up with nephrology in the outpatient setting in 1-2 weeks. Guarded prognosis. On exam vital signs are stable. Temp is 97.7F, pulse is 61, respirations are 17, blood pressure is 148/74, oxygen saturation is 94% on room air. Cardio S1 and S2 are muffled. Respiratory system shows clear to auscultation. Abdomen is soft, obese, nontender. Nervous system shows no focal deficits. Please refer to medication reconciliation sheet for a list of medications. Patient Condition at Discharge: Fair Plan - Discharge Summary Discharge Rx Participant: Yes New Discharge Prescriptions: New sitaGLIPtin PHOSPHATE [Januvia] 50 mg PO DAILY #30 tab Metoprolol Succinate (ER) [Toprol XL] 12.5 mg PO DAILY 30 Days #30 tab.er.24h Continue Cranberry 4,200 mg PO BID Pantoprazole Sodium [Protonix] 40 mg PO BID Cinnamon Bark [Cinnamon] 1,000 mg PO BID Calcium/Magnesium/Zinc [Hgvlgtl-Rgfrpvaxs-Dogl Tablet] 1 tab PO BID Aspirin EC [Ecotrin Low Dose] 81 mg PO HS Anastrozole [Arimidex] 1 mg PO DAILY Glucosamine/Chondr [place] A Sod [Osteo Bi-Flex Caplet] 1 tab PO BID Cholecalciferol (Vitamin D3) [Vitamin D3] 2,000 unit PO BID Vit C/E/Zn/Coppr/Lutein/Zeaxan [Preservision Areds 2 Softgel] 1 cap PO BID Gabapentin 300 mg PO BID 30 Days #60 tab Discontinued Metoprolol Succinate [Toprol XL] 25 mg PO DAILY metFORMIN HCL 1,000 mg PO BID Meloxicam [Mobic] 15 mg PO DAILY Lisinopril 30 mg PO DAILY Gabapentin 600 mg PO BID Atorvastatin [Lipitor] 40 mg PO HS Discharge Medication List Anastrozole [Arimidex] 1 mg PO DAILY 01/27/19 [History] Aspirin EC [Ecotrin Low Dose] 81 mg PO HS 01/27/19 [History] Calcium/Magnesium/Zinc [Zhtorsg-Ilibssluq-Mstd Tablet] 1 tab PO BID 01/27/19 [History] Cholecalciferol (Vitamin D3) [Vitamin D3] 2,000 unit PO BID 01/27/19 [History] Cinnamon Bark [Cinnamon] 1,000 mg PO BID 01/27/19 [History] Cranberry 4,200 mg PO BID 01/27/19 [History] Glucosamine/Chondr [place] A Sod [Osteo Bi-Flex Caplet] 1 tab PO BID 01/27/19 [History] Pantoprazole Sodium [Protonix] 40 mg PO BID 01/27/19 [History] Vit C/E/Zn/Coppr/Lutein/Zeaxan [Preservision Areds 2 Softgel] 1 cap PO BID 01/27/19 [History] sitaGLIPtin PHOSPHATE [Januvia] 50 mg PO DAILY #30 tab 01/30/19 [Rx] Gabapentin 300 mg PO BID 30 Days #60 tab 01/31/19 [Rx] Metoprolol Succinate (ER) [Toprol XL] 12.5 mg PO DAILY 30 Days #30 tab.er.24h 01/31/19 [Rx] Follow up Appointment(s)/Referral(s): Carmela Cao MD [STAFF PHYSICIAN] - 03/11/19 9:00 am (New Patient paperwork will be sent out in the mail prior to appointment) Sheila Ba MD [Primary Care Provider] - 02/07/19 2:15 pm Ambulatory/Diagnostic Orders: Basic Metabolic Panel [LAB.AMB] Time Frame: 2 Days, Location: None Selected Activity/Diet/Wound Care/Special Instructions: Activity Limited until follow-up Follow-up with PCP upon discharge Follow-up with nephrology in 2 weeks Repeat labs in 2-3 days Continue current diet Discharge Disposition: HOME SELF-CARE
[2019-01-31 22:39] LABS: Hemoglobin A1C 7.5 % (4.0-6.0)
== END 2019-01-31 13:11 | disposition home or self-care (01) | DRG 683 ==
LOC: EC 13:35 → 4SSUR 16:04
PROVIDERS: ADMIT Internal Medicine; ATTEND Internal Medicine
DX: N17.0 Acute kidney failure with tubular necrosis (principal); R82.1 Myoglobinuria; E87.1 Hypo-osmolality and hyponatremia; E87.2 Acidosis; Z68.41 Body mass index [BMI] 40.0-44.9, adult; N12 Tubulo-interstitial nephritis, not specified as acute or chronic; I95.9 Hypotension, unspecified; E11.40 Type 2 diabetes mellitus with diabetic neuropathy, unspecified; E27.8 Other specified disorders of adrenal gland; S09.90XA Unspecified injury of head, initial encounter; M41.56 Other secondary scoliosis, lumbar region; R16.0 Hepatomegaly, not elsewhere classified; T39.395A Adverse effect of other nonsteroidal anti-inflammatory drugs [NSAID], initial encounter; E66.9 Obesity, unspecified; E78.5 Hyperlipidemia, unspecified; E86.1 Hypovolemia; I10 Essential (primary) hypertension; K21.9 Gastro-esophageal reflux disease without esophagitis; K57.30 Diverticulosis of large intestine without perforation or abscess without bleeding; M19.90 Unspecified osteoarthritis, unspecified site; M54.2 Cervicalgia; Z79.1 Long term (current) use of non-steroidal anti-inflammatories (NSAID); Z79.811 Long term (current) use of aromatase inhibitors; Z79.84 Long term (current) use of oral hypoglycemic drugs; Z79.899 Other long term (current) drug therapy; Z79.82 Long term (current) use of aspirin; Z90.710 Acquired absence of both cervix and uterus; Z85.3 Personal history of malignant neoplasm of breast; Z90.49 Acquired absence of other specified parts of digestive tract; Z82.3 Family history of stroke; Z82.49 Family history of ischemic heart disease and other diseases of the circulatory system; W18.2XXA Fall in (into) shower or empty bathtub, initial encounter; Y92.002 Bathroom of unspecified non-institutional (private) residence as the place of occurrence of the external cause
CPT/HCPCS: 36415; 51702; 51798; 70450; 71046; 72125; 74176; 80048; 80053; 81001; 82272; 82550; 83036; 83605; 83690; 83874; 85025; 85610; 85730; 87205; 93005; 96361; 96365; 99285

== ENCOUNTER 2019-09-07 15:33 | Observation (INO) | payer MEDICARE ==
[2019-09-07] MEDS ORDERED: ACET/COD 300 MG/30 MG STARTER PACK 6 TAB BTL PO STA (16:19)
[2019-09-07] MEDS ORDERED: MORPHINE SULFATE 4 MG/ML SYRINGE IV STA (16:19)
--- NOTE | 2019-09-07 16:21 | ED ---
General Adult HPI - General Chief complaint: Fall Stated complaint: Fever Time Seen by Provider: 09/07/19 15:33 Source: patient, EMS Mode of arrival: EMS Limitations: physical limitation - History of Present Illness Initial comments: Dictation was produced using [employer] dictation software. please excuse any grammatical, word or spelling errors. This patient was cared for during a federal and state declared state of emergency secondary to Covid 19 Chief Complaint: 69-year-old female presents after fall. History of Present Illness: 69-year-old female is brought in by EMS. Patient states she got out of bed when she fell out of bed. She landed on her left side. Since the fall she does have some mild worsening of her left knee pain. She states she has history of arthritis of the left knee. Patient states she has some minimal shortness of breath. She does however complain of several hours of suprapubic, right lower quadrant abdominal pain. Patient has any diarrhea but she does feel constipated. Feels mildly nauseous. No emesis. Denies any cough. No chest pain. No back pain. Denies any rash. She does report mild dysuria. The ROS documented in this emergency department record has been reviewed and confirmed by me. Those systems with pertinent positive or negative responses have been documented in the HPI. All other systems are other negative and/or noncontributory. PHYSICAL EXAM: General Impression: Alert and oriented x3, not in acute distress HEENT: Normocephalic atraumatic, extra-ocular movements intact, pupils equal and reactive to light bilaterally, mucous membranes moist. Cardiovascular: Heart regular rate and rhythm Chest: Able to complete full sentences, no retractions, no tachypnea Abdomen: abdomen soft, suprapubic tenderness, pain in McBurney's, negative Rovsing's, negative rebound tenderness Musculoskeletal: Pulses present and equal in all extremities, no peripheral edema Motor: no focal deficits noted Neurological: CN II-XII grossly intact, no focal motor or sensory deficits noted Skin: Intact with no visualized rashes Psych: Normal affect and mood ED course: 69-year-old female presents with knee pain after fall. Signs upon arrival shows tachycardia 12.6, 93% on room air. Laboratory evaluation obtained. Leukocytosis of 11.0, platelet count of 147. Neutrophil predilection. Coag panel unremarkable. Metabolic panel is grossly unremarkable. There is a CRP of 174. Urinalysis positive for urinary tract infection. CT abdomen and pelvis, head and C-spine is unremarkable. Knee x-ray and pelvis x-ray and chest x-rays are negative for any acute processes. Patient has pending coronavirus PCR test. Considering patient's age and comorbidities believe it's reasonable for patient be admitted for observation for UTI sepsis. At this point patient does not have any evidence to suggest end organ dysfunction. Patient be admitted. She'll be admitted to [facility]. EKG interpretation: Ventricular rate 83, sinus rhythm,. Interval 152, QRS 106, QTC 455, sinus arrhythmia. No [place] prolongation, no QTC prolongation, no ST or T- wave changes noted. EKG compared to 01/27/2019 showing no changes. Overall, this EKG is unremarkable - Related Data Home Medications Medication Instructions Recorded Confirmed Anastrozole [Arimidex] 1 mg PO DAILY 01/27/19 09/07/19 Aspirin EC [Ecotrin Low Dose] 81 mg PO HS 01/27/19 09/07/19 Calcium/Magnesium/Zinc 1 tab PO BID 01/27/19 09/07/19 [Jqzmpdh-Yioppsveg-Qbhi Tablet] Cinnamon Bark [Cinnamon] 500 mg PO BID 01/27/19 09/07/19 Glucosamine/Chondr [place] A Sod [Osteo 1 tab PO DAILY 01/27/19 09/07/19 Bi-Flex Caplet] Pantoprazole Sodium [Protonix] 40 mg PO DAILY 01/27/19 09/07/19 Vit C/E/Zn/Coppr/Lutein/Zeaxan 1 cap PO DAILY 01/27/19 09/07/19 [Preservision Areds 2 Softgel] Cranberry 425mg 425 mg PO BID 09/07/19 09/07/19 Gabapentin 60 mg PO BID 09/07/19 09/07/19 Metoprolol Succinate (ER) [Toprol 25 mg PO DAILY 09/07/19 09/07/19 XL] Previous Rx's Medication Instructions Recorded sitaGLIPtin PHOSPHATE [Januvia] 50 mg PO DAILY #30 tab 01/30/19 Allergies Allergy/AdvReac Type Severity Reaction Status Date / Time No Known Allergies Allergy Verified 09/07/19 17:20 Review of Systems ROS Statement: Those systems with pertinent positive or pertinent negative responses have been documented in the HPI. ROS Other: All systems not noted in ROS Statement are negative. Past Medical History Past Medical History: Diabetes Mellitus, Hypertension, Renal Disease Additional Past Medical History / Comment(s): states cancer of left breast 2016. lumpectomy 2016. DM type 2 2007. History of Any Multi-Drug Resistant Organisms: None Reported Past Surgical History: Cholecystectomy, Hysterectomy Additional Past Surgical History / Comment(s): Intestinal Past Anesthesia/Blood Transfusion Reactions: No Reported Reaction Past Psychological History: No Psychological Hx Reported Smoking Status: Former smoker Past Alcohol Use History: Rare Past Drug Use History: None Reported - Past Family History Father Additional Family Medical History / Comment(s): aneurysm Mother Family Medical History: CVA/TIA General Exam Limitations: physical limitation Course Vital Signs 09/07/19 09/07/19 09/07/19 15:37 16:36 17:34 Temperature 102.6 F H Pulse Rate 80 77 75 Respiratory 18 18 18 Rate Blood Pressure 166/52 139/84 124/53 O2 Sat by Pulse 93 L 95 95 Oximetry 09/07/19 09/07/19 18:05 19:32 Temperature 98.4 F Pulse Rate 73 62 Respiratory 18 18 Rate Blood Pressure 105/67 125/68 O2 Sat by Pulse 94 L 95 Oximetry Medical Decision Making - Lab Data Result diagrams: 09/07/19 16:16 09/07/19 16:16 Lab Results 09/07/19 09/07/19 09/07/19 Range/Units 16:16 16:16 16:16 WBC 11.0 H (3.8-10.6) k/uL RBC 4.88 (3.80-5.40) m/uL Hgb 14.9 (11.4-16.0) gm/dL Hct 46.0 (34.0-46.0) % MCV 94.4 (80.0-100.0) fL MCH 30.6 (25.0-35.0) pg MCHC 32.5 (31.0-37.0) g/dL RDW 12.5 (11.5-15.5) % Plt Count 147 L (150-450) k/uL Neutrophils % 84 % Lymphocytes % 6 % Monocytes % 7 % Eosinophils % 0 % Basophils % 0 % Neutrophils # 9.3 H (1.3-7.7) k/uL Lymphocytes # 0.6 L (1.0-4.8) k/uL Monocytes # 0.7 (0-1.0) k/uL Eosinophils # 0.0 (0-0.7) k/uL Basophils # 0.0 (0-0.2) k/uL PT 10.3 (9.0-12.0) sec INR 1.0 (<1.2) APTT 27.1 (22.0-30.0) sec Sodium 134 L (137-145) mmol/L Potassium 4.0 (3.5-5.1) mmol/L Chloride 98 (98-107) mmol/L Carbon Dioxide 26 (22-30) mmol/L Anion Gap 10 mmol/L BUN 13 (7-17) mg/dL Creatinine 0.72 (0.52-1.04) mg/dL Est GFR (CKD-EPI)AfAm >90 (>60 ml/min/1.73 sqM) Est GFR (CKD-EPI)NonAf 87 (>60 ml/min/1.73 sqM) Glucose 194 H (74-99) mg/dL Plasma Lactic Acid Irvin (0.7-2.0) mmol/L Calcium 9.5 (8.4-10.2) mg/dL Magnesium 1.8 (1.6-2.3) mg/dL Total Bilirubin 1.0 (0.2-1.3) mg/dL AST 44 H (14-36) U/L ALT 36 H (4-34) U/L Alkaline Phosphatase 109 (38-126) U/L Troponin I (0.000-0.034) ng/mL C-Reactive Protein 174.0 H (<10.0) mg/L Total Protein 7.2 (6.3-8.2) g/dL Albumin 4.1 (3.5-5.0) g/dL Urine Color Urine Appearance (Clear) Urine pH (5.0-8.0) Ur Specific Mccoll (1.001-1.035) Urine Protein (Negative) Urine Glucose (UA) (Negative) Urine Ketones (Negative) Urine Blood (Negative) Urine Nitrite (Negative) Urine Bilirubin (Negative) Urine Urobilinogen (<2.0) mg/dL Ur Leukocyte Esterase (Negative) Urine RBC (0-5) /hpf Urine WBC (0-5) /hpf Urine WBC Clumps (None) /hpf Ur Squamous Epith Cells (0-4) /hpf Amorphous Sediment (None) /hpf Urine Bacteria (None) /hpf Urine Mucus (None) /hpf 09/07/19 09/07/19 09/07/19 Range/Units 16:16 16:16 16:58 WBC (3.8-10.6) k/uL RBC (3.80-5.40) m/uL Hgb (11.4-16.0) gm/dL Hct (34.0-46.0) % MCV (80.0-100.0) fL MCH (25.0-35.0) pg MCHC (31.0-37.0) g/dL RDW (11.5-15.5) % Plt Count (150-450) k/uL Neutrophils % % Lymphocytes % % Monocytes % % Eosinophils % % Basophils % % Neutrophils # (1.3-7.7) k/uL Lymphocytes # (1.0-4.8) k/uL Monocytes # (0-1.0) k/uL Eosinophils # (0-0.7) k/uL Basophils # (0-0.2) k/uL PT (9.0-12.0) sec INR (<1.2) APTT (22.0-30.0) sec Sodium (137-145) mmol/L Potassium (3.5-5.1) mmol/L Chloride (98-107) mmol/L Carbon Dioxide (22-30) mmol/L Anion Gap mmol/L BUN (7-17) mg/dL Creatinine (0.52-1.04) mg/dL Est GFR (CKD-EPI)AfAm (>60 ml/min/1.73 sqM) Est GFR (CKD-EPI)NonAf (>60 ml/min/1.73 sqM) Glucose (74-99) mg/dL Plasma Lactic Acid Irvin 1.3 (0.7-2.0) mmol/L Calcium (8.4-10.2) mg/dL Magnesium (1.6-2.3) mg/dL Total Bilirubin (0.2-1.3) mg/dL AST (14-36) U/L ALT (4-34) U/L Alkaline Phosphatase (38-126) U/L Troponin I 0.023 (0.000-0.034) ng/mL C-Reactive Protein (<10.0) mg/L Total Protein (6.3-8.2) g/dL Albumin (3.5-5.0) g/dL Urine Color Yellow Urine Appearance Cloudy H (Clear) Urine pH 5.5 (5.0-8.0) Ur Specific Mccoll 1.012 (1.001-1.035) Urine Protein 1+ H (Negative) Urine Glucose (UA) Negative (Negative) Urine Ketones Trace H (Negative) Urine Blood Trace H (Negative) Urine Nitrite Positive H (Negative) Urine Bilirubin Negative (Negative) Urine Urobilinogen <2.0 (<2.0) mg/dL Ur Leukocyte Esterase Large H (Negative) Urine RBC 13 H (0-5) /hpf Urine WBC 170 H (0-5) /hpf Urine WBC Clumps Few H (None) /hpf Ur Squamous Epith Cells 16 H (0-4) /hpf Amorphous Sediment Occasional H (None) /hpf Urine Bacteria Few H (None) /hpf Urine Mucus Occasional H (None) /hpf Disposition Clinical Impression: Fall, UTI (urinary tract infection) Disposition: ADMITTED IP TO THIS [facility] Condition: Fair Referrals: Sheila Ba MD [Primary Care Provider] - 1-2 days Decision Time: 19:58
--- NOTE | 2019-09-07 16:26 | XR ---
EXAMINATION TYPE: XR chest 1V portable DATE OF EXAM: 09/07/2019 COMPARISON: Chest x-ray January 27, 2019 HISTORY: Fever. Fall injury today with pain. TECHNIQUE: Single AP portable frontal upright view of the chest is obtained. FINDINGS: Overlying EKG leads are redemonstrated. There is no focal air space opacity, pleural effus ion, or pneumothorax seen. The cardiac silhouette size remains within normal limits. Metallic anchor right humeral head from prior rotator cuff surgery again seen. IMPRESSION: No acute process. No significant change from prior.
--- NOTE | 2019-09-07 16:27 | XR ---
EXAMINATION TYPE: XR pelvis AP view DATE OF EXAM: 09/07/2019 CLINICAL HISTORY: Fall injury with pain TECHNIQUE: A single AP view of the pelvis is obtained. COMPARISON: CT abdomen and pelvis January 27, 2019 FINDINGS: There is no acute fracture/dislocation evident in the pelvis. The sacroiliac joints appea r symmetric and unremarkable. Mild to moderate axial joint space loss and acetabular spurring of both hips is redemonstrated. Pubic symphysis is intact. The overlying soft tissue appears unremarkable. IMPRESSION: There is no acute fracture or dislocation in the pelvis.
[2019-09-07] MEDS ORDERED: ACETAMINOPHEN TAB 500 MG TAB PO STA (16:37)
--- NOTE | 2019-09-07 16:53 | XR ---
EXAMINATION TYPE: XR knee complete LT DATE OF EXAM: 09/07/2019 CLINICAL HISTORY: Fall injury yesterday with pain TECHNIQUE: Three views of the left knee are obtained. COMPARISON: None. FINDINGS: There is no acute fracture/dislocation evident in the left knee. Genu varum positioning. M oderate to severe narrowing medial tibiofemoral compartment with mild spurring. Moderate narrowing wi th severe spurring patellofemoral compartment . Relative sparing lateral tibiofemoral compartment wit h mild spurring. Posterior fabellae. The overlying soft tissue appears unremarkable. IMPRESSION: As above.
[2019-09-07 17:15] LABS: Amorphous Sediment,Urine Occasional /hpf; Appearance,Urine Cloudy (Clear); Bacteria,Urine Few /hpf; Bilirubin,Urine Negative (Negative); Blood,Urine Trace (Negative); Color,Urine Yellow; Glucose,Urine (UA) Negative (Negative); Ketones,Urine Trace (Negative); Leukocyte Esterase,Urine Large (Negative); Mucus,Urine Occasional /hpf; Nitrite,Urine Positive (Negative); PH, Urine 5.5 (5.0-8.0); Protein,Urine 1+ (Negative); RBC,Urine 13 /hpf (0-5); Specific Gravity,Urine 1.012 (1.001-1.035); Squamous Epithelial Cell,Urine 16 /hpf (0-4); Urobilinogen,Urine <2.0 mg/dL (<2.0); WBC,Urine 170 /hpf (0-5)
[2019-09-07 17:40] LABS: Basophils % (A) 0 %; Eosinophils % (A) 0 %; HGB 14.9 gm/dL (11.4-16.0); Lymphocytes # (A) 0.6 k/uL (1.0-4.8); Lymphocytes % (A) 6 %; MCH 30.6 pg (25.0-35.0); MCHC 32.5 g/dL (31.0-37.0); MCV 94.4 fL (80.0-100.0); Mean Platelet Volume 8.7; Monocytes # (A) 0.7 k/uL (0-1.0); Monocytes % (A) 7 %; Neutrophils # (A) 9.3 k/uL (1.3-7.7); Neutrophils % (A) 84 %; Platelet Count 147 k/uL (150-450); RBC 4.88 m/uL (3.80-5.40); RDW 12.5 % (11.5-15.5)
[2019-09-07 17:50] LABS: ALT 36 U/L (4-34); AST 44 U/L (14-36); African American GFR (CKD) >90 (>60 ml/min/1.73 sqM); Albumin 4.1 g/dL (3.5-5.0); Alkaline Phosphatase 109 U/L (38-126); Anion Gap 10 mmol/L; Blood Urea Nitrogen 13 mg/dL (7-17); Calcium 9.5 mg/dL (8.4-10.2); Carbon Dioxide 26 mmol/L (22-30); Chloride 98 mmol/L (98-107); Glucose 194 mg/dL (74-99); Magnesium 1.8 mg/dL (1.6-2.3); Non-African American GFR(CKD) 87 (>60 ml/min/1.73 sqM); Sodium 134 mmol/L (137-145); Total Protein 7.2 g/dL (6.3-8.2)
[2019-09-07 17:52] LABS: Partial Thromboplastin Time 27.1 sec (22.0-30.0); Prothrombin Time 10.3 sec (9.0-12.0)
[2019-09-07] MEDS ORDERED: cefTRIAXone IN SWFI 1,000 MG/10 ML SYRINGE IVP STA (18:15)
--- NOTE | 2019-09-07 19:14 | CT ---
EXAMINATION TYPE: CT brain cspine wo con DATE OF EXAM: 09/07/2019 COMPARISON: CT brain and cervical spine January 27, 2019 HISTORY: Fall injury, headache and neck pain CT DLP: 1624.9 mGycm. Automated Exposure Control for Dose Reduction was Utilized. TECHNIQUE: CT scan of the head and cervical spine are performed without contrast. FINDINGS: There is no acute intracranial hemorrhage or midline shift identified. Ventricular and suárez lcal prominence. Low attenuation in the periventricular white matter. Calvarium is intact. The globes are intact and the visualized sinuses are clear. Cervical spine is visualized in its entirety from C1 through upper thoracic levels and redemonstrate reversal of normal cervical curvature centered C5-C6 level on sagittal images and levoconvex scolioti c curvature centered upper thoracic spine on coronal images without evidence of acute fracture or dis location. Prevertebral soft tissue appears within normal limits. The C1-C2 articulation remains wit hin normal limits on coronal images. Vertebral body heights are maintained. Moderate to severe spurr ing and disc space narrowing C5-C6 and C6-C7 levels is again seen. Axial images show multilevel uncov ertebral facet degenerative changes contributing to multilevel bilateral neural foraminal narrowing g reatest right C3-C4 and left C4-C5 levels for reference. Thyroid gland is normal in size. Lung apices show no pneumothorax. IMPRESSION: 1. There is no acute fracture or dislocation evident in the cervical spine. 2. No acute intracranial hemorrhage or midline shift is seen. No significant change from prior CT.
--- NOTE | 2019-09-07 19:18 | CT ---
EXAMINATION TYPE: CT abdomen pelvis w con DATE OF EXAM: 09/07/2019 HISTORY: fall injury, fever and pain. CT DLP: 2822.1mGycm Automated Exposure Control for Dose Reduction was Utilized. CONTRAST: CT scan of the abdomen and pelvis is performed without oral but with IV Contrast, patient injected wi th 100 mL of Isovue 300. COMPARISON: CT abdomen and pelvis January 27, 2019 FINDINGS: LUNG BASES: Dependent atelectasis right lung base. LIVER/GB: Cholecystectomy clip redemonstrated. Liver size stable upper limits of normal. PANCREAS: No significant abnormality is seen. SPLEEN: Spleen upper limits of normal at 13.0 cm long axis X image 30. ADRENALS: Stable 1.2 cm nodular thickening left adrenal gland posteriorly maximum is 32 favored benig n. KIDNEYS: Symmetric cortical medullary uptake and excretion from both kidneys with simple parapelvic c yst centrally in the left kidney and exophytic 2.6 cm thin-walled cyst lower pole level laterally rig ht kidney. No hydronephrosis seen bilaterally. BOWEL: Suboptimal evaluation without enteric contrast. Stomach suboptimally evaluated due to incomple te distention, suggestion of moderate diffuse gastric wall thickening. No suspicious small or large b owel dilatation. Diverticula in the left and sigmoid colon without CT evidence for acute diverticulit is. UTERUS/ADNEXA: Uterus surgically absent or markedly atrophic. LYMPH NODES: No greater than 1cm abdominal or pelvic lymph nodes are appreciated. OSSEOUS STRUCTURES: S-shaped scoliotic curvature with multilevel spurring and disc space narrowing th roughout the thoracolumbar spine. Moderate narrowing of both hip joints. OTHER: No significant additional abnormality is seen. IMPRESSION: No significant new or acute finding is seen to account for patient's clinical symptoms.
[2019-09-07] MEDS ORDERED: NALOXONE 0.4 MG/ML 1 ML VIAL IV PRN (19:58)
[2019-09-07] MEDS ORDERED: ONDANSETRON 4 MG/2 ML VIAL IVP PRN (19:58)
[2019-09-07] MEDS: ACETAMINOPHEN TAB 325 MG TAB PO PRN (22:07)
[2019-09-08 06:57] LABS: Glucose,Whole Blood 145 mg/dL (75-99)
[2019-09-08] MEDS: ACETAMINOPHEN TAB 325 MG TAB PO PRN ×3 (07:03→22:26)
[2019-09-08] MEDS: SODIUM CHLORIDE 0.9% 1,000 ML IV SCH ×2 (07:04→20:36)
[2019-09-08] MEDS: INSULIN ASPART (NovoLOG) 100 UNIT/ML VIAL SQ SCH ×4 (08:28→20:36)
[2019-09-08] MEDS: GABAPENTIN 300 MG CAP PO SCH ×2 (08:30→20:36)
[2019-09-08] MEDS: PANTOPRAZOLE 40 MG TABLET PO SCH (08:30)
[2019-09-08] MEDS: METOPROLOL SUCCINATE (ER) 25 MG TAB.ER.24H PO SCH (08:30)
[2019-09-08] MEDS: LINAGLIPTIN 5 MG TABLET PO SCH (08:31)
[2019-09-08] MEDS: ANASTROZOLE 1 MG TAB PO SCH (08:31)
[2019-09-08 09:09] LABS: Basophils % (A) 0 %; Eosinophils % (A) 0 %; HCT 44.3 % (34.0-46.0); HGB 14.7 gm/dL (11.4-16.0); Lymphocytes % (A) 10 %; MCH 31.3 pg (25.0-35.0); MCHC 33.1 g/dL (31.0-37.0); MCV 94.4 fL (80.0-100.0); Mean Platelet Volume 8.8; Monocytes # (A) 0.8 k/uL (0-1.0); Monocytes % (A) 8 %; Neutrophils # (A) 7.3 k/uL (1.3-7.7); Neutrophils % (A) 77 %; Platelet Count 172 k/uL (150-450); RBC 4.69 m/uL (3.80-5.40); RDW 12.8 % (11.5-15.5); WBC 9.4 k/uL (3.8-10.6)
[2019-09-08 09:20] LABS: African American GFR (CKD) >90 (>60 ml/min/1.73 sqM); Anion Gap 11 mmol/L; Blood Urea Nitrogen 13 mg/dL (7-17); Calcium 9.1 mg/dL (8.4-10.2); Carbon Dioxide 25 mmol/L (22-30); Chloride 99 mmol/L (98-107); Glucose 162 mg/dL (74-99); Non-African American GFR(CKD) 88 (>60 ml/min/1.73 sqM); Potassium 3.6 mmol/L (3.5-5.1); Sodium 135 mmol/L (137-145)
[2019-09-08] MEDS: LORATADINE 10 MG TAB PO SCH (10:52)
[2019-09-08 11:53] LABS: Glucose,Whole Blood 158 mg/dL (75-99)
[2019-09-08 16:45] LABS: Glucose,Whole Blood 154 mg/dL (75-99)
[2019-09-08] MEDS: FLUTICASONE 50MCG/SPRAY NASAL 16GM EA NOSTRIL PRN (18:30)
[2019-09-08 20:32] LABS: Glucose,Whole Blood 202 mg/dL (75-99)
[2019-09-08] MEDS: ASPIRIN 81 MG PO SCH (20:36)
--- NOTE | 2019-09-08 21:53 | P.HPIM ---
History of Present Illness H&P Date: 09/08/19 Chief Complaint: Fall. Patient is a 69-year-old female with a known history of hypertension, diabetes type 2 [id number], history of left breast cancer status post lumpectomy, previous history of smoking and morbid obesity was brought to the ER after she fell out of bed. Patient states that she has not been feeling well for the past 2 to 4 days. Patient did not seek medical attention due to bandemia going on. Patient also fell 6 months ago in the bathtub. Yesterday she felt very weak and when she fell from bed EMS was called. Patient landed on her left side. Since the fall she has some worsening left knee pain. Patient is also complaining of several hours of suprapubic and right lower quadrant abdominal pain/discomfort. No nausea vomiting or diarrhea. Denies any dysuria or hematuria. Patient felt feverish at home. T-max was 102.6 on admission. Chest x-ray showed no acute process. Pelvic x-ray showed there is no acute fracture or dislocation. X-ray of the left knee showed there is no acute fracture or dislocation. Moderate to severe narrowing medial tibiofemoral compartment with mild spurring. CT of the head and cervical spine showed no acute fracture or dislocation evident in the cervical spine. No acute intracranial hemorrhage or midline shift is noted. CT of the abdomen pelvis was done which showed no significant new or acute finding is seen to account for patient's clinical symptoms. EKG showed sinus rhythm with premature atrial complexes. Heart rate 83 and QTc 455 Leukocytosis of 11.0, platelet count of 147. Neutrophil predilection. Coag panel unremarkable. Metabolic panel is grossly unremarkable. There is a CRP of 174. Review of Systems Constitutional: fever and chills.. generalized weakness . no weight loss. Abdomen: Patient denied nausea vomiting and diarrhea . rl abdominal pain. Cardiovascular: Patient denies any chest pain or short of breath no palpitations. Respiratory: patient denied any cough is from production. No shortness of breath Neurologic: Patient denied any numbness or tingling headache. Musculoskeletal: Patient denies any complaints of joint swelling or deformity. Skin: Itching. Psychiatric: negative Endocrine: No heat or cold intolerance. No recent weight gain. Genitourinary: No dysuria or hematuria. All other 14 point ROS negative except the above Past Medical History Past Medical History: Diabetes Mellitus, Hypertension, Renal Disease Additional Past Medical History / Comment(s): states cancer of left breast 2016. lumpectomy 2016. DM type 2 2007. History of Any Multi-Drug Resistant Organisms: None Reported Past Surgical History: Appendectomy, Cholecystectomy, Hysterectomy Additional Past Surgical History / Comment(s): rotator cuff surgery Past Anesthesia/Blood Transfusion Reactions: No Reported Reaction Past Psychological History: No Psychological Hx Reported Additional Psychological History / Comment(s): states depression previously 2012 but no longer needed Smoking Status: Former smoker Past Alcohol Use History: Rare Past Drug Use History: None Reported - Past Family History Father Additional Family Medical History / Comment(s): aneurysm Mother Family Medical History: CVA/TIA Medications and Allergies Home Medications Medication Instructions Recorded Confirmed Type Anastrozole [Arimidex] 1 mg PO DAILY 01/27/19 09/07/19 History Aspirin EC [Ecotrin Low Dose] 81 mg PO HS 01/27/19 09/07/19 History Calcium/Magnesium/Zinc 1 tab PO BID 01/27/19 09/07/19 History [Ujdpsmq-Nibhsizuu-Yfly Tablet] Cinnamon Bark [Cinnamon] 500 mg PO BID 01/27/19 09/07/19 History Glucosamine/Chondr [place] A Sod [Osteo 1 tab PO DAILY 01/27/19 09/07/19 History Bi-Flex Caplet] Pantoprazole Sodium [Protonix] 40 mg PO DAILY 01/27/19 09/07/19 History Vit C/E/Zn/Coppr/Lutein/Zeaxan 1 cap PO DAILY 01/27/19 09/07/19 History [Preservision Areds 2 Softgel] sitaGLIPtin PHOSPHATE [Januvia] 50 mg PO DAILY #30 tab 01/30/19 09/07/19 Rx Cranberry 425mg 425 mg PO BID 09/07/19 09/07/19 History Gabapentin 600 mg PO BID 09/07/19 09/08/19 History Metoprolol Succinate (ER) [Toprol 25 mg PO DAILY 09/07/19 09/07/19 History XL] Allergies Allergy/AdvReac Type Severity Reaction Status Date / Time No Known Allergies Allergy Verified 09/07/19 17:20 Physical Exam Vitals: Vital Signs Temp Pulse Pulse Resp BP BP Pulse Ox 09/08/19 07:39 99.0 F 71 18 118/74 94 L 09/08/19 01:20 98.7 F 83 16 113/69 95 09/07/19 21:15 97.8 F 61 14 139/80 97 09/07/19 19:32 62 18 125/68 95 09/07/19 18:05 98.4 F 73 18 105/67 94 L 09/07/19 17:34 75 18 124/53 95 09/07/19 16:36 77 18 139/84 95 09/07/19 15:37 102.6 F H 80 18 166/52 93 L Intake and Output 09/07/19 09/08/19 09/08/19 22:59 06:59 14:59 Intake Total 120 Balance 120 Intake: Oral 120 Other: Voiding Method Toilet # Voids 5 2 Weight 104.326 kg PHYSICAL EXAMINATION: Patient is lying in the bed comfortably, no acute distress, awake alert and oriented.. HEENT: Normocephalic. Neck is supple. Pupils reactive. Nostrils clear. Oral cavity is moist. Ears reveal no drainage. Neck reveals no JVD, carotid bruits, or thyromegaly. CHEST EXAMINATION: Trachea is central. Symmetrical expansion. Lung arteaga clear to auscultation and percussion. CARDIAC: Normal S1, S2 with no gallops. No murmurs ABDOMEN: Soft. Bowel sounds normal. No organomegaly. No abdominal bruits. Extremities: reveal no edema. No clubbing or cyanosis Neurologically awake, alert, oriented x3 with well-coordinated movements. No focal deficits noted Skin: No rash or skin lesions. Psychiatric: Coperative. non suicidal. Musculoskeletal: No joint swelling or deformity. Normal range of motion. Results CBC & Chem 7: 09/08/19 08:18 09/08/19 08:18 Labs: Abnormal Lab Results - Last 24 Hours (Table) 09/07/19 09/07/19 09/07/19 Range/Units 16:16 16:16 16:58 WBC 11.0 H (3.8-10.6) k/uL Plt Count 147 L (150-450) k/uL Neutrophils # 9.3 H (1.3-7.7) k/uL Lymphocytes # 0.6 L (1.0-4.8) k/uL Sodium 134 L (137-145) mmol/L Glucose 194 H (74-99) mg/dL POC Glucose (mg/dL) (75-99) mg/dL AST 44 H (14-36) U/L ALT 36 H (4-34) U/L C-Reactive Protein 174.0 H (<10.0) mg/L Urine Appearance Cloudy H (Clear) Urine Protein 1+ H (Negative) Urine Ketones Trace H (Negative) Urine Blood Trace H (Negative) Urine Nitrite Positive H (Negative) Ur Leukocyte Esterase Large H (Negative) Urine RBC 13 H (0-5) /hpf Urine WBC 170 H (0-5) /hpf Urine WBC Clumps Few H (None) /hpf Ur Squamous Epith Cells 16 H (0-4) /hpf Amorphous Sediment Occasional H (None) /hpf Urine Bacteria Few H (None) /hpf Urine Mucus Occasional H (None) /hpf 09/08/19 09/08/19 Range/Units 06:55 08:18 WBC (3.8-10.6) k/uL Plt Count (150-450) k/uL Neutrophils # (1.3-7.7) k/uL Lymphocytes # (1.0-4.8) k/uL Sodium 135 L (137-145) mmol/L Glucose 162 H (74-99) mg/dL POC Glucose (mg/dL) 145 H (75-99) mg/dL AST (14-36) U/L ALT (4-34) U/L C-Reactive Protein (<10.0) mg/L Urine Appearance (Clear) Urine Protein (Negative) Urine Ketones (Negative) Urine Blood (Negative) Urine Nitrite (Negative) Ur Leukocyte Esterase (Negative) Urine RBC (0-5) /hpf Urine WBC (0-5) /hpf Urine WBC Clumps (None) /hpf Ur Squamous Epith Cells (0-4) /hpf Amorphous Sediment (None) /hpf Urine Bacteria (None) /hpf Urine Mucus (None) /hpf Microbiology - Last 24 Hours (Table) 09/07/19 16:58 Urine Culture - Preliminary Urine,Voided Thrombosis Risk Factor Assmnt - DVT/VTE Prophylaxis DVT/VTE Prophylaxis: Pharmacologic Prophylaxis ordered - Choose All That Apply Each Risk Factor Represents 2 Points: Age 61-74 years Thrombosis Risk Factor Assessment Total Risk Factor Score: 2 Thrombosis Risk Factor Assessment Level: Low Risk Assessment and Plan Assessment: Acute urinary tract infection with possible sepsis Generalized weakness and fall at home. No loss of consciousness. Diabetes type 2 [id number] Hypertension History of breast cancer status post lumpectomy Previous history of smoking Morbid obesity with a BMI 38.3 DVT prophylaxis with heparin subcu Plan: Patient will be continued on gentle hydration and antibiotics in the form of ceftriaxone. Follow-up urine culture report. Continue with home medications and GI, DVT prophylaxis. Insulin sliding scale for better blood sugar control Breathing treatments as needed. Further recommendations based on the clinical course. Time with Patient: Greater than 30
[2019-09-08] MEDS: HEPARIN SODIUM,PORCINE 5,000 UNIT/ML 1 ML VIAL SQ SCH (23:59)
[2019-09-09 07:54] LABS: Glucose,Whole Blood 140 mg/dL (75-99)
[2019-09-09] MEDS: GABAPENTIN 300 MG CAP PO SCH ×2 (08:05→21:44)
[2019-09-09] MEDS: LORATADINE 10 MG TAB PO SCH (08:05)
[2019-09-09] MEDS: ANASTROZOLE 1 MG TAB PO SCH (08:05)
[2019-09-09] MEDS: PANTOPRAZOLE 40 MG TABLET PO SCH (08:05)
[2019-09-09] MEDS: INSULIN ASPART (NovoLOG) 100 UNIT/ML VIAL SQ SCH ×4 (08:05→21:43)
[2019-09-09] MEDS: METOPROLOL SUCCINATE (ER) 25 MG TAB.ER.24H PO SCH (08:05)
[2019-09-09] MEDS: HEPARIN SODIUM,PORCINE 5,000 UNIT/ML 1 ML VIAL SQ SCH ×3 (08:05→23:55)
[2019-09-09] MEDS: LINAGLIPTIN 5 MG TABLET PO SCH (08:05)
[2019-09-09 08:59] LABS: HCT 45.5 % (34.0-46.0); HGB 15.1 gm/dL (11.4-16.0); MCH 31.4 pg (25.0-35.0); MCHC 33.1 g/dL (31.0-37.0); MCV 94.8 fL (80.0-100.0); Mean Platelet Volume 8.9; Platelet Count 161 k/uL (150-450); RDW 12.5 % (11.5-15.5); WBC 9.4 k/uL (3.8-10.6)
[2019-09-09 09:04] LABS: African American GFR (CKD) >90 (>60 ml/min/1.73 sqM); Anion Gap 14 mmol/L; Blood Urea Nitrogen 16 mg/dL (7-17); Carbon Dioxide 18 mmol/L (22-30); Chloride 102 mmol/L (98-107); Glucose 162 mg/dL (74-99); Non-African American GFR(CKD) 88 (>60 ml/min/1.73 sqM); Potassium 3.9 mmol/L (3.5-5.1); Sodium 134 mmol/L (137-145)
[2019-09-09 10:47] LABS: Eosinophils # (M) 0.28 k/uL (0-0.7); Lymphocytes # (M) 1.32 k/uL (1.0-4.8); Monocytes # (M) 0.56 k/uL (0-1.0); Neutrophils # (M) 7.24 k/uL (1.3-7.7); Neutrophils % (M) 77 %; Nucleated Red Blood Cells 0 /100 WBC (0-0); Total Cells Counted 100
[2019-09-09 11:49] LABS: Glucose,Whole Blood 126 mg/dL (75-99)
[2019-09-09 16:40] LABS: Glucose,Whole Blood 150 mg/dL (75-99)
[2019-09-09] MEDS: FLUTICASONE 50MCG/SPRAY NASAL 16GM EA NOSTRIL PRN (17:16)
--- NOTE | 2019-09-09 19:02 | P.PN ---
Subjective Progress Note Date: 09/09/19 69-year-old female with a known history of hypertension, diabetes type 2 [id number], history of left breast cancer status post lumpectomy, previous history of smoking and morbid obesity was brought to the ER after she fell out of bed. Patient states that she has not been feeling well for the past 2 to 4 days. Patient did not seek medical attention due to bandemia going on. Patient also fell 6 months ago in the bathtub. Yesterday she felt very weak and when she fell from bed EMS was called. Patient landed on her left side. Since the fall she has some worsening left knee pain. Patient is also complaining of several hours of suprapubic and right lower quadrant abdominal pain/discomfort. No nausea vomiting or diarrhea. Denies any dysuria or hematuria. Patient felt feverish at home. T-max was 102.6 on admission. Objective - Vital Signs Vital signs: Vital Signs Temp 98.6 F 09/09/19 07:00 Pulse 67 09/09/19 08:00 Resp 19 09/09/19 08:00 BP 130/88 09/09/19 07:00 Pulse Ox 92 L 09/09/19 07:00 Intake & Output 09/08/19 09/09/19 09/09/19 18:59 06:59 18:59 Intake Total 360 Balance 360 Intake: Oral 360 Other: Voiding Method Toilet Toilet # Voids 1 4 - Exam PHYSICAL EXAMINATION: GENERAL: The patient is alert and oriented x3, not in any acute distress. Well developed, well nourished. HEENT: Pupils are round and equally reacting to light. EOMI. No scleral icterus. No conjunctival pallor. Normocephalic, atraumatic. No pharyngeal erythema. No thyromegaly. CARDIOVASCULAR: S1 and S2 present. No murmurs, rubs, or gallops. PULMONARY: Chest is clear to auscultation, no wheezing or crackles. ABDOMEN: Soft, nontender, nondistended, normoactive bowel sounds. No palpable organomegaly. MUSCULOSKELETAL: No joint swelling or deformity. EXTREMITIES: No cyanosis, clubbing, or pedal edema. NEUROLOGICAL: Gross neurological examination did not reveal any focal deficits. SKIN: No rashes. - Labs CBC & Chem 7: 09/09/19 08:15 09/09/19 08:15 Labs: Abnormal Lab Results - Last 24 Hours (Table) 09/08/19 09/08/19 09/09/19 Range/Units 16:43 20:31 07:53 Sodium (137-145) mmol/L Carbon Dioxide (22-30) mmol/L Glucose (74-99) mg/dL POC Glucose (mg/dL) 154 H 202 H 140 H (75-99) mg/dL 09/09/19 09/09/19 Range/Units 08:15 11:47 Sodium 134 L (137-145) mmol/L Carbon Dioxide 18 L (22-30) mmol/L Glucose 162 H (74-99) mg/dL POC Glucose (mg/dL) 126 H (75-99) mg/dL Microbiology - Last 24 Hours (Table) 09/07/19 16:16 Blood Culture - Preliminary Blood No Growth after 24 hours Assessment and Plan Assessment: Acute urinary tract infection with possible sepsis Generalized weakness and fall at home. No loss of consciousness. Diabetes type 2 nps-fgnqcou-azcctaicz Hypertension History of breast cancer status post lumpectomy Previous history of smoking Morbid obesity with a BMI 38.3 DVT prophylaxis with heparin subcu Plan: Patient will be continued on gentle hydration and antibiotics in the form of ceftriaxone. Follow-up urine culture report. Continue with home medications and GI, DVT prophylaxis. Insulin sliding scale for better blood sugar control Breathing treatments as needed. Further recommendations based on the clinical course.
[2019-09-09 20:54] LABS: Glucose,Whole Blood 158 mg/dL (75-99)
[2019-09-09] MEDS: ACETAMINOPHEN TAB 325 MG TAB PO PRN (21:44)
[2019-09-09] MEDS: ASPIRIN 81 MG PO SCH (21:44)
[2019-09-09] MEDS: SODIUM CHLORIDE 0.9% 1,000 ML IV SCH (23:54)
[2019-09-10 07:18] LABS: Glucose,Whole Blood 128 mg/dL (75-99)
[2019-09-10 08:06] LABS: Basophils % (A) 0 %; Eosinophils # (A) 0.1 k/uL (0-0.7); Eosinophils % (A) 2 %; HGB 13.7 gm/dL (11.4-16.0); Lymphocytes % (A) 14 %; MCH 29.8 pg (25.0-35.0); MCV 96.1 fL (80.0-100.0); Mean Platelet Volume 8.5; Monocytes # (A) 0.4 k/uL (0-1.0); Monocytes % (A) 6 %; Neutrophils # (A) 5.3 k/uL (1.3-7.7); Neutrophils % (A) 74 %; Platelet Count 160 k/uL (150-450); RBC 4.58 m/uL (3.80-5.40); RDW 12.8 % (11.5-15.5); WBC 7.2 k/uL (3.8-10.6)
[2019-09-10] MEDS: INSULIN ASPART (NovoLOG) 100 UNIT/ML VIAL SQ SCH ×3 (08:06→17:47)
[2019-09-10] MEDS: HEPARIN SODIUM,PORCINE 5,000 UNIT/ML 1 ML VIAL SQ SCH ×2 (08:11→17:20)
[2019-09-10] MEDS: ANASTROZOLE 1 MG TAB PO SCH (08:12)
[2019-09-10] MEDS: LORATADINE 10 MG TAB PO SCH (08:12)
[2019-09-10] MEDS: GABAPENTIN 300 MG CAP PO SCH (08:12)
[2019-09-10] MEDS: METOPROLOL SUCCINATE (ER) 25 MG TAB.ER.24H PO SCH (08:12)
[2019-09-10] MEDS: LINAGLIPTIN 5 MG TABLET PO SCH (08:12)
[2019-09-10] MEDS: PANTOPRAZOLE 40 MG TABLET PO SCH (08:12)
[2019-09-10 08:13] LABS: African American GFR (CKD) >90 (>60 ml/min/1.73 sqM); Anion Gap 7 mmol/L; Blood Urea Nitrogen 16 mg/dL (7-17); Calcium 8.8 mg/dL (8.4-10.2); Carbon Dioxide 24 mmol/L (22-30); Chloride 106 mmol/L (98-107); Glucose 142 mg/dL (74-99); Non-African American GFR(CKD) >90 (>60 ml/min/1.73 sqM); Potassium 3.8 mmol/L (3.5-5.1); Sodium 137 mmol/L (137-145)
[2019-09-10 09:57] VITALS: RESP 16
[2019-09-10 11:55] LABS: Glucose,Whole Blood 144 mg/dL (75-99)
[2019-09-10 17:26] LABS: Glucose,Whole Blood 120 mg/dL (75-99)
[2019-09-10 19:09] VITALS: BP 122/76; PULSE 71; TEMP 98
--- NOTE | 2019-09-21 13:58 | P.DS ---
Providers Date of admission: 09/10/19 09:21 Expected date of discharge: 09/10/19 Attending physician: Cristina Akins Primary care physician: [facility] Hospital Course: 69-year-old female with a known history of hypertension, diabetes type 2 wyf-smweuxi-piucdffup, history of left breast cancer status post lumpectomy, previous history of smoking and morbid obesity was brought to the ER after she fell out of bed. Patient states that she has not been feeling well for the past 2 to 4 days. Patient did not seek medical attention due to bandemia going on. Patient also fell 6 months ago in the bathtub. Yesterday she felt very weak and when she fell from bed EMS was called. Patient landed on her left side. Since the fall she has some worsening left knee pain. Patient is also complaining of several hours of suprapubic and right lower quadrant abdominal pain/discomfort. No nausea vomiting or diarrhea. Denies any dysuria or hematuria. Patient felt feverish at home. T-max was 102.6 on admission. Acute urinary tract infection with possible sepsis Generalized weakness and fall at home. No loss of consciousness. Diabetes type 2 rqy-edacezf-ssgsjwjhc Hypertension History of breast cancer status post lumpectomy Previous history of smoking Morbid obesity with a BMI 38.3 DVT prophylaxis with heparin subcu Plan: Patient will be continued on gentle hydration and antibiotics in the form of ceftriaxone. Follow-up urine culture report. Continue with home medications and GI, DVT prophylaxis. Insulin sliding scale for better blood sugar control Breathing treatments as needed. Further recommendations based on the clinical course. patient responded well to IV antibiotics; antibiotics were switched to oral based on final UC&S and patient was la'ed home in a stable condition Patient Condition at Discharge: Fair Plan - Discharge Summary Discharge Rx Participant: Yes New Discharge Prescriptions: New Ciprofloxacin HCl [Cipro] 250 mg PO Q12HR 7 Days #14 tab Loratadine [Claritin] 10 mg PO DAILY tab Continue Pantoprazole Sodium [Protonix] 40 mg PO DAILY Cinnamon Bark [Cinnamon] 500 mg PO BID Calcium/Magnesium/Zinc [Hdtvzem-Cmzvmgqeb-Nqbx Tablet] 1 tab PO BID Aspirin EC [Ecotrin Low Dose] 81 mg PO HS Anastrozole [Arimidex] 1 mg PO DAILY Glucosamine/Chondr [place] A Sod [Osteo Bi-Flex Caplet] 1 tab PO DAILY Vit C/E/Zn/Coppr/Lutein/Zeaxan [Preservision Areds 2 Softgel] 1 cap PO DAILY sitaGLIPtin PHOSPHATE [Januvia] 50 mg PO DAILY #30 tab Cranberry 425mg 425 mg PO BID Gabapentin 600 mg PO BID Metoprolol Succinate (ER) [Toprol XL] 25 mg PO DAILY Discharge Medication List Anastrozole [Arimidex] 1 mg PO DAILY 01/27/19 [History] Aspirin EC [Ecotrin Low Dose] 81 mg PO HS 01/27/19 [History] Calcium/Magnesium/Zinc [Qlhtccj-Wjhbzugqn-Mwut Tablet] 1 tab PO BID 01/27/19 [History] Cinnamon Bark [Cinnamon] 500 mg PO BID 01/27/19 [History] Glucosamine/Chondr [place] A Sod [Osteo Bi-Flex Caplet] 1 tab PO DAILY 01/27/19 [History] Pantoprazole Sodium [Protonix] 40 mg PO DAILY 01/27/19 [History] Vit C/E/Zn/Coppr/Lutein/Zeaxan [Preservision Areds 2 Softgel] 1 cap PO DAILY 01/27/19 [History] sitaGLIPtin PHOSPHATE [Januvia] 50 mg PO DAILY #30 tab 01/30/19 [Rx] Cranberry 425mg 425 mg PO BID 09/07/19 [History] Gabapentin 600 mg PO BID 09/07/19 [History] Metoprolol Succinate (ER) [Toprol XL] 25 mg PO DAILY 09/07/19 [History] Ciprofloxacin HCl [Cipro] 250 mg PO Q12HR 7 Days #14 tab 09/10/19 [Rx] Loratadine [Claritin] 10 mg PO DAILY tab 09/10/19 [Rx] Follow up Appointment(s)/Referral(s): Sheila Ba MD [Primary Care Provider] - 1-2 days Discharge Disposition: HOME SELF-CARE
== END 2019-09-10 19:02 | disposition home or self-care (01) ==
LOC: EC 15:33 → 4SSUR 19:59 → INTOOBSV 09-10 09:21 → OBSVTOIN 09-10 09:21 → UNDODISIN 09-10 19:02
PROVIDERS: ADMIT Hospitalist; ATTEND Hospitalist
DX: N39.0 Urinary tract infection, site not specified (principal); M17.12 Unilateral primary osteoarthritis, left knee; E11.9 Type 2 diabetes mellitus without complications; R53.1 Weakness; I49.1 Atrial premature depolarization; I10 Essential (primary) hypertension; N28.9 Disorder of kidney and ureter, unspecified; K59.00 Constipation, unspecified; E66.01 Morbid (severe) obesity due to excess calories; Z68.38 Body mass index [BMI] 38.0-38.9, adult; W06.XXXA Fall from bed, initial encounter; Z79.82 Long term (current) use of aspirin; Z79.811 Long term (current) use of aromatase inhibitors; Z79.84 Long term (current) use of oral hypoglycemic drugs; Z79.899 Other long term (current) drug therapy; Z85.3 Personal history of malignant neoplasm of breast; Z87.891 Personal history of nicotine dependence; Z90.710 Acquired absence of both cervix and uterus; Z90.49 Acquired absence of other specified parts of digestive tract; Z91.81 History of falling; Z86.59 Personal history of other mental and behavioral disorders; Z82.49 Family history of ischemic heart disease and other diseases of the circulatory system; Z82.3 Family history of stroke; Z03.818 Encounter for observation for suspected exposure to other biological agents ruled out
CPT/HCPCS: 96361 ×2; 96365; 96372 ×3; 96375 ×2; 99285; 36415; 93005; 80053; 80048 ×3; 83605; 83735; 84484; 85025 ×4; 85610; 85730; 86140; 81001; 87040; 87086; 87077; 87186; 87635; 72170; 73562; 71045; 72125; 70450; 74177; G0378 ×4; J2270; J1644 ×3; J2405; J0696 ×4; S0170 ×3; Q9967; 96374

== ENCOUNTER → 2020-01-30 | Outpatient (CLI) | payer MEDICARE ==
--- NOTE | 2020-01-30 08:20 | US ---
EXAMINATION TYPE: US abdomen complete DATE OF EXAM: 01/30/2020 COMPARISON: Elevated liver enzymes CLINICAL HISTORY: R74.8 Elevated Liver Enzyme, Z85.3 HX of breast ca. abn labs. GB removed. EXAM MEASUREMENTS: Liver Length: 19.0 cm CBD: 0.6 cm Spleen: 12.2 cm Right Kidney: 9.4 x 4.3 x 5.4 cm Left Kidney: 10.3 x 4.0 x 4.5 cm Pancreas: Echogenic in appearance. Liver: appears enlarged in size and coarse. Echogenic in appearance. Gallbladder: Surgically absent Evidence for sonographic Flores's sign: neg CBD: wnl Spleen: wnl Right Kidney: No hydronephrosis or masses seen Left Kidney: No hydronephrosis or masses seen Upper IVC: wnl Abd Aorta: No AAA visualized IMPRESSION: 1. Nonspecific pattern of liver can be associated with hepatitis or diffuse hepatocellular disease.
== END | disposition home or self-care (01) ==
LOC: RADUSWWP 07:38
PROVIDERS: ATTEND Family Medicine
DX: R74.8 Abnormal levels of other serum enzymes (principal); Z85.3 Personal history of malignant neoplasm of breast
CPT/HCPCS: 76700

== ENCOUNTER → 2020-03-14 | Outpatient (CLI) | payer MEDICARE ==
--- NOTE | 2020-03-15 23:00 | CT ---
EXAMINATION TYPE: CT abdomen pelvis wo/w con DATE OF EXAM: 03/14/2020 COMPARISON: 09/07/2019 INDICATION: Rt renal mass, Lt adrenal nodule. DLP: 2950 mGycm, Automated exposure control for dose reduction was used. CONTRAST: 100 mL of Isovue 300. Study performed with Oral Contrast TECHNIQUE: Axial images were obtained from above the diaphragm to the pubic rami in the axial plane a t 5 mm thick sections. Reconstructed images are reviewed on the computer in the coronal plane. FINDINGS: Limited CT sections are obtained the lung bases. The lung bases are clear. Coronary artery calcific ation is present. CT ABDOMEN: Liver: Normal Spleen: Normal Pancreas: Normal Adrenal glands: Left adrenal gland is minimally thickened at 1.0 cm. Left adrenal gland nodule precon trast measures 10 Hounsfield units. Postcontrast measures 57 Hounsfield units. Delayed images measure s 34 Hounsfield units. The absolute washout 49% is indeterminant. However, the relative washout of 40 % can be consistent with an adenoma. This is not enlarged from the comparison study. Monitoring can b e performed. Gallbladder: Surgically absent Kidneys: No masses are evident. No hydronephrosis is present. There is a 2.4 cm cyst measuring -2 H ounsfield units extending from the lateral right kidney. Delayed images were obtained through the ki dneys, which remain unremarkable. Aorta: Normal Inferior vena cava: Normal. CT PELVIS: Loops of bowel within the abdomen and pelvis are normal. Fecal debris is within the colon. There a re loops of bowel which are incompletely distended or lack oral contrast limiting their evaluation. Appendix: Not identified. No suspicious inflammatory changes or dilated tubular structures are eviden t. Urinary bladder: Normal. Genitourinary structures: Uterus and ovaries are not identified. Osseous structures: No suspicious lytic or sclerotic lesions. IMPRESSIONS: 1. Stable appearance of the left adrenal gland mild thickening. Monitoring can be performed. 2. Right renal cyst
== END | disposition home or self-care (01) ==
LOC: RADCTMAIN 15:01
PROVIDERS: ATTEND Internal Medicine
DX: N28.1 Cyst of kidney, acquired (principal); E27.8 Other specified disorders of adrenal gland; N18.2 Chronic kidney disease, stage 2 (mild)
CPT/HCPCS: 82565; 84520; 74178; 36415; Q9967

== ENCOUNTER 2020-03-25 17:46 | Observation (INO) | payer MEDICARE ==
--- NOTE | 2020-03-25 18:38 | ED ---
General Adult HPI - General Chief complaint: Headache Stated complaint: Fever, sent by PCP Time Seen by Provider: 03/25/20 18:13 Source: patient Mode of arrival: ambulatory Limitations: no limitations - History of Present Illness Initial comments: 69-year-old female presenting to emergency Department with multiple chief complaints. Patient reports all her symptoms began today in the morning. States she developed a dry cough along with general body aches. Patient states she is also felt chills and had a fever but only had a temperature of 99.5. She also reports sore throat, sinus congestion and rhinorrhea but no otalgia. She also reports a mild, generalized headache. Patient states she is also been voiding more than usual but denies increased urgency or dysuria. Denies hematuria, hematochezia or melena. Denies any abdominal or back pain. States that about 2 weeks ago she was treated for UTI. she denies any chest pain or shortness of breath. She denies visual disturbances, one-sided weakness or paresthesias. Denies photophobia. - Related Data Home Medications Medication Instructions Recorded Confirmed Anastrozole [Arimidex] 1 mg PO DAILY 01/27/19 09/07/19 Aspirin EC [Ecotrin Low Dose] 81 mg PO HS 01/27/19 09/07/19 Calcium/Magnesium/Zinc 1 tab PO BID 01/27/19 09/07/19 [Smbaujb-Llcgizvws-Gnco Tablet] Cinnamon Bark [Cinnamon] 500 mg PO BID 01/27/19 09/07/19 Glucosamine/Chondr [place] A Sod [Osteo 1 tab PO DAILY 01/27/19 09/07/19 Bi-Flex Caplet] Pantoprazole Sodium [Protonix] 40 mg PO DAILY 01/27/19 09/07/19 Vit C/E/Zn/Coppr/Lutein/Zeaxan 1 cap PO DAILY 01/27/19 09/07/19 [Preservision Areds 2 Softgel] Cranberry 425mg 425 mg PO BID 09/07/19 09/07/19 Gabapentin 600 mg PO BID 09/07/19 09/08/19 Metoprolol Succinate (ER) [Toprol 25 mg PO DAILY 09/07/19 09/07/19 XL] Previous Rx's Medication Instructions Recorded sitaGLIPtin PHOSPHATE [Januvia] 50 mg PO DAILY #30 tab 01/30/19 Ciprofloxacin HCl [Cipro] 250 mg PO Q12HR 7 Days #14 tab 09/10/19 Loratadine [Claritin] 10 mg PO DAILY tab 09/10/19 Allergies Allergy/AdvReac Type Severity Reaction Status Date / Time No Known Allergies Allergy Verified 03/25/20 17:57 Review of Systems ROS Statement: Those systems with pertinent positive or pertinent negative responses have been documented in the HPI. ROS Other: All systems not noted in ROS Statement are negative. Past Medical History Past Medical History: Diabetes Mellitus, Hypertension, Renal Disease Additional Past Medical History / Comment(s): states cancer of left breast 2016. lumpectomy 2016. DM type 2 2007. History of Any Multi-Drug Resistant Organisms: None Reported Past Surgical History: Appendectomy, Cholecystectomy, Hysterectomy Additional Past Surgical History / Comment(s): rotator cuff surgery Past Anesthesia/Blood Transfusion Reactions: No Reported Reaction Past Psychological History: No Psychological Hx Reported Smoking Status: Former smoker Past Alcohol Use History: Rare Past Drug Use History: None Reported - Past Family History Father Additional Family Medical History / Comment(s): aneurysm Mother Family Medical History: CVA/TIA General Exam Limitations: no limitations General appearance: alert, in no apparent distress, obese Head exam: Present: atraumatic, normocephalic, normal inspection Eye exam: Present: normal appearance, PERRL, EOMI Pupils: Present: normal accommodation ENT exam: Present: normal exam, normal oropharynx, mucous membranes moist, TM's normal bilaterally, normal external ear exam Neck exam: Present: normal inspection, full ROM. Absent: tenderness Respiratory exam: Present: normal lung sounds bilaterally. Absent: respiratory distress, wheezes, rales Cardiovascular Exam: Present: regular rate, normal rhythm, normal heart sounds. Absent: systolic murmur, diastolic murmur GI/Abdominal exam: Present: soft, tenderness (Suprapubic tenderness). Absent: distended, guarding, rebound, rigid Extremities exam: Present: normal inspection, full ROM, normal capillary refill. Absent: tenderness, pedal edema, joint swelling, calf tenderness Back exam: Present: normal inspection, full ROM, CVA tenderness (R). Absent: tenderness, CVA tenderness (L) Neurological exam: Present: alert, oriented X3 Psychiatric exam: Present: normal affect, normal mood Skin exam: Present: warm, dry, intact, normal color Course Vital Signs 03/25/20 03/25/20 03/25/20 17:53 20:50 21:47 Temperature 98.9 F Pulse Rate 72 54 L Respiratory 20 Rate Blood Pressure 150/83 144/85 O2 Sat by Pulse 94 L 95 92 L Oximetry EKG Findings - EKG Comments: EKG Findings:: Sinus rhythm with occasional PAC. Ventricular rate 63, W[place] 158, QRS 108, QTC 444. Medical Decision Making - Medical Decision Making 69-year-old female presenting to emergency Department with multiple chief complaints. Physical examination is unremarkable. CBC is unremarkable. CMP r eveals slight elevation BUN. Patient also has elevated liver enzymes.UA and influenza negative. covid-19 PCR pending. She was at 92% O2 saturation at rest, on arrival. Patient was placed on oxygen, 2 L and she was saturating up to 97%. Ambulatory O2 was obtained and patient drops down to 9192 percent. She also appears to be out of breath on exertion. Although, she's not complaining of any shortness of breath or chest pain. Patient does have constitutional symptoms that would suggest viral syndrome. Patient will be admitted for observation. Strict return parameters were thoroughly discussed with patient is understanding ago. Case discussed with physician. - Lab Data Result diagrams: 03/25/20 19:03 03/25/20 19:03 Lab Results 03/25/20 03/25/20 03/25/20 Range/Units 19:03 19:03 19:03 WBC 5.5 (3.8-10.6) k/uL RBC 4.84 (3.80-5.40) m/uL Hgb 14.8 (11.4-16.0) gm/dL Hct 45.6 (34.0-46.0) % MCV 94.3 (80.0-100.0) fL MCH 30.7 (25.0-35.0) pg MCHC 32.5 (31.0-37.0) g/dL RDW 12.6 (11.5-15.5) % Plt Count 144 L (150-450) k/uL MPV 8.8 Neutrophils % 67 % Lymphocytes % 12 % Monocytes % 14 % Eosinophils % 2 % Basophils % 1 % Neutrophils # 3.7 (1.3-7.7) k/uL Lymphocytes # 0.7 L (1.0-4.8) k/uL Monocytes # 0.8 (0-1.0) k/uL Eosinophils # 0.1 (0-0.7) k/uL Basophils # 0.1 (0-0.2) k/uL Sodium 135 L (137-145) mmol/L Potassium 4.1 (3.5-5.1) mmol/L Chloride 102 (98-107) mmol/L Carbon Dioxide 25 (22-30) mmol/L Anion Gap 8 mmol/L BUN 21 H (7-17) mg/dL Creatinine 0.75 (0.52-1.04) mg/dL Est GFR (CKD-EPI)AfAm >90 (>60 ml/min/1.73 sqM) Est GFR (CKD-EPI)NonAf 82 (>60 ml/min/1.73 sqM) Glucose 152 H (74-99) mg/dL Plasma Lactic Acid Irvin 1.1 (0.7-2.0) mmol/L Calcium 9.9 (8.4-10.2) mg/dL Magnesium 1.8 (1.6-2.3) mg/dL Total Bilirubin 0.5 (0.2-1.3) mg/dL AST 86 H (14-36) U/L ALT 54 H (4-34) U/L Alkaline Phosphatase 91 (38-126) U/L Total Protein 7.3 (6.3-8.2) g/dL Albumin 4.1 (3.5-5.0) g/dL Urine Color Urine Appearance (Clear) Urine pH (5.0-8.0) Ur Specific Atkins (1.001-1.035) Urine Protein (Negative) Urine Glucose (UA) (Negative) Urine Ketones (Negative) Urine Blood (Negative) Urine Nitrite (Negative) Urine Bilirubin (Negative) Urine Urobilinogen (<2.0) mg/dL Ur Leukocyte Esterase (Negative) Influenza Type A RNA (Not Detectd) Influenza Type B (PCR) (Not Detectd) 03/25/20 03/25/20 Range/Units 19:03 19:03 WBC (3.8-10.6) k/uL RBC (3.80-5.40) m/uL Hgb (11.4-16.0) gm/dL Hct (34.0-46.0) % MCV (80.0-100.0) fL MCH (25.0-35.0) pg MCHC (31.0-37.0) g/dL RDW (11.5-15.5) % Plt Count (150-450) k/uL MPV Neutrophils % % Lymphocytes % % Monocytes % % Eosinophils % % Basophils % % Neutrophils # (1.3-7.7) k/uL Lymphocytes # (1.0-4.8) k/uL Monocytes # (0-1.0) k/uL Eosinophils # (0-0.7) k/uL Basophils # (0-0.2) k/uL Sodium (137-145) mmol/L Potassium (3.5-5.1) mmol/L Chloride (98-107) mmol/L Carbon Dioxide (22-30) mmol/L Anion Gap mmol/L BUN (7-17) mg/dL Creatinine (0.52-1.04) mg/dL Est GFR (CKD-EPI)AfAm (>60 ml/min/1.73 sqM) Est GFR (CKD-EPI)NonAf (>60 ml/min/1.73 sqM) Glucose (74-99) mg/dL Plasma Lactic Acid Irvin (0.7-2.0) mmol/L Calcium (8.4-10.2) mg/dL Magnesium (1.6-2.3) mg/dL Total Bilirubin (0.2-1.3) mg/dL AST (14-36) U/L ALT (4-34) U/L Alkaline Phosphatase (38-126) U/L Total Protein (6.3-8.2) g/dL Albumin (3.5-5.0) g/dL Urine Color Yellow Urine Appearance Clear (Clear) Urine pH 5.5 (5.0-8.0) Ur Specific Atkins 1.018 (1.001-1.035) Urine Protein Negative (Negative) Urine Glucose (UA) Negative (Negative) Urine Ketones Negative (Negative) Urine Blood Negative (Negative) Urine Nitrite Negative (Negative) Urine Bilirubin Negative (Negative) Urine Urobilinogen <2.0 (<2.0) mg/dL Ur Leukocyte Esterase Negative (Negative) Influenza Type A RNA Not Detected (Not Detectd) Influenza Type B (PCR) Not Detected (Not Detectd) Disposition Clinical Impression: Generalized body aches, Headache, Cough, Elevated liver enzymes Disposition: ADMITTED IP TO THIS HOSP Condition: Good Is patient prescribed a controlled substance at d/c from ED?: No Referrals: Sheila Ba MD [Primary Care Provider] - 1-2 days Time of Disposition: 20:35
[2020-03-25 19:25] LABS: Appearance,Urine Clear (Clear); Bilirubin,Urine Negative (Negative); Blood,Urine Negative (Negative); Color,Urine Yellow; Glucose,Urine (UA) Negative (Negative); Ketones,Urine Negative (Negative); Leukocyte Esterase,Urine Negative (Negative); Nitrite,Urine Negative (Negative); PH, Urine 5.5 (5.0-8.0); Protein,Urine Negative (Negative); Specific Gravity,Urine 1.018 (1.001-1.035); Urobilinogen,Urine <2.0 mg/dL (<2.0)
--- NOTE | 2020-03-25 19:27 | XR ---
EXAMINATION TYPE: XR chest 1V portable DATE OF EXAM: 03/25/2020 COMPARISON: 09/07/2019 HISTORY: Fever and cough TECHNIQUE: FINDINGS: Heart and mediastinum are normal. Lungs are clear. Diaphragm is normal. Bony thorax appears normal. IMPRESSION: Normal chest. No change.
[2020-03-25 19:39] LABS: ALT 54 U/L (4-34); AST 86 U/L (14-36); African American GFR (CKD) >90 (>60 ml/min/1.73 sqM); Albumin 4.1 g/dL (3.5-5.0); Alkaline Phosphatase 91 U/L (38-126); Anion Gap 8 mmol/L; Blood Urea Nitrogen 21 mg/dL (7-17); Calcium 9.9 mg/dL (8.4-10.2); Carbon Dioxide 25 mmol/L (22-30); Chloride 102 mmol/L (98-107); Glucose 152 mg/dL (74-99); Magnesium 1.8 mg/dL (1.6-2.3); Non-African American GFR(CKD) 82 (>60 ml/min/1.73 sqM); Potassium 4.1 mmol/L (3.5-5.1); Sodium 135 mmol/L (137-145); Total Bilirubin 0.5 mg/dL (0.2-1.3); Total Protein 7.3 g/dL (6.3-8.2)
[2020-03-25 19:55] LABS: Basophils # (A) 0.1 k/uL (0-0.2); Basophils % (A) 1 %; Eosinophils # (A) 0.1 k/uL (0-0.7); Eosinophils % (A) 2 %; HCT 45.6 % (34.0-46.0); HGB 14.8 gm/dL (11.4-16.0); Lymphocytes # (A) 0.7 k/uL (1.0-4.8); Lymphocytes % (A) 12 %; MCH 30.7 pg (25.0-35.0); MCHC 32.5 g/dL (31.0-37.0); MCV 94.3 fL (80.0-100.0); Mean Platelet Volume 8.8; Monocytes # (A) 0.8 k/uL (0-1.0); Monocytes % (A) 14 %; Neutrophils # (A) 3.7 k/uL (1.3-7.7); Neutrophils % (A) 67 %; Platelet Count 144 k/uL (150-450); RBC 4.84 m/uL (3.80-5.40); RDW 12.6 % (11.5-15.5); WBC 5.5 k/uL (3.8-10.6)
[2020-03-25] MEDS ORDERED: ACETAMINOPHEN TAB 500 MG TAB PO STA (20:07)
[2020-03-25] MEDS ORDERED: ACET/COD 300 MG/30 MG STARTER PACK 6 TAB BTL PO STA (20:37)
[2020-03-25] MEDS ORDERED: Acetaminophen-Codeine 300-30mg TAB PO STA (21:10)
[2020-03-25] MEDS ORDERED: MORPHINE SULFATE 4 MG/ML SYRINGE IV PRN (22:02)
[2020-03-25] MEDS ORDERED: LORazepam 2 MG/ML INJ IV PRN (22:02)
[2020-03-25] MEDS ORDERED: NALOXONE 0.4 MG/ML 1 ML VIAL IV PRN (22:02)
[2020-03-25] MEDS ORDERED: ACETAMINOPHEN TAB 325 MG TAB PO PRN (22:02)
[2020-03-26] MEDS: SODIUM CHLORIDE 0.9% 1,000 ML IV SCH (02:13)
[2020-03-26] MEDS: HYDROcodone/APAP 5-325MG 1 EACH TAB PO PRN ×2 (02:56→09:51)
[2020-03-26 07:45] VITALS: TEMP 98.3
[2020-03-26 13:03] LABS: C Reactive Protein 16.5 mg/L (<10.0)
[2020-03-26] MEDS: ZINC SULFATE 220 MG CAP PO SCH (18:02)
[2020-03-26 19:02] LABS: Ferritin 295.1 ng/mL (10.0-291.0)
[2020-03-26] MEDS: CHOLECALCIFEROL 1,000 UNIT TAB PO SCH (20:10)
[2020-03-26] MEDS: GABAPENTIN 300 MG CAP PO SCH (20:10)
--- NOTE | 2020-03-26 20:35 | HP ---
HISTORY AND PHYSICAL DATE OF SERVICE: 03/26/2020 CHIEF COMPLAINT: Fever, headache. HISTORY OF PRESENT ILLNESS: This 69-year-old woman with a past medical history of multiple medical problems including hypertension, diabetes, history of renal disease, history of breast cancer , being followed by Dr. Sheila Ba in the outpatient setting was not feeling well for the last couple days. Patient had cough, chills, fever up to 99.5. Patient came to [facility] and was admitted to the hospital for further evaluation and treatment. Chest x-ray which was personally reviewed by me showed evidence of overall increase in infiltrate. The patient had inflammatory markers of Covid including D- dimer 1.93. The patient admitted for further evaluation and treatment. There is no history any rigors, chills, no history of headache, loss of consciousness, seizures at this time. PAST MEDICAL HISTORY: History of diabetes type 2, hypertension, renal disease, appendectomy, breast cancer. MEDICATIONS: Vitamin E, zinc, PreserVision. Osteo Bi-Flex. Cranberry. Cinnamon. Vitamin D3. Januvia, lisinopril, Protonix and Toprol-XL. Gabapentin. Ecotrin. Arimidex. ALLERGIES: None. FAMILY HISTORY: Family history of CVA/TIA in the family. SOCIAL HISTORY: Previous history of smoking. No history of current smoking. No alcohol intake. REVIEW OF SYSTEMS: ENT: No diminished vision. No diminished hearing. CARDIOVASCULAR: No angina or palpitations. RESPIRATIONS: As mentioned earlier. GI: No nausea or vomiting. no dysuria. NERVOUS SYSTEM: No numbness or weakness. ALLERGY/IMMUNOLOGY: No asthma, hayfever. MUSCULOSKELETAL: As mentioned earlier. HEMATOLOGY/ONCOLOGY: No anemia. ENDOCRINE: No history of hypothyroidism. CONSTITUTIONAL: As mentioned earlier. DERMATOLOGY: Negative. RHEUMATOLOGY negative. PSYCHIATRY as mentioned. PHYSICAL EXAMINATION: Alert and oriented x3. The pulse is 64. Blood pressure is 157/70, respirations 18, temp 98.2, pulse ox 98% on 2 L. HEENT: Conjunctivae normal. NECK: No JVD. CARDIOVASCULAR: S1, S2 muffled. RESPIRATORY: Breath sounds diminished in the bases. A few scattered rhonchi. ABDOMEN: Soft, nontender. LEGS are no edema. No swelling. NERVOUS SYSTEM: Higher functions as mentioned earlier. Moves all 4 limbs. No focal motor or sensory deficits. LYMPHATICS: No lymph nodes palpable in the neck, axillae or groin. SKIN: No ulcer, rash or bleeding. JOINTS: No active deforming arthropathy. LABS: WBC 5.2, hemoglobin 14.4, platelets 443. Sodium 135. ASSESSMENT: 1. Acute COVID-19 infection with possible bilateral pneumonia early. 2. Hyponatremia. 3. Elevated AST/ALT. 4. Thrombocytopenia. 5. Diabetes mellitus type 2. 6. Hypertension. 7. History of renal disease. 8. History of left breast cancer. 9. History of cholecystectomy. 10.FULL CODE. 11.Obesity with body mass of 42.5. RECOMMENDATIONS AND DISCUSSION: This 69-year-old woman who presented with multiple complex medical issues. We will monitor the patient closely. Order D-dimer. If the D-dimer is high, I would recommend a CT angio of the chest and if the D-dimer is low I would also recommend a CT angio with iodinated contrast. Otherwise, prognosis guarded because of multiple complex medical issues. See orders for details. We will also initiate conservative line of management of Covid and as well as consult Infectious Disease Dr. Alberto also. MMODL / IJN: [id number] /
[2020-03-26] MEDS ORDERED: ASPIRIN 81 MG PO SCH (21:00)
[2020-03-26] MEDS ORDERED: ANASTROZOLE 1 MG TAB PO SCH (21:00)
[2020-03-26] MEDS: NON FORMULARY DRUG (Calcium/Magnesium/Zinc [Calcium-Magnesium-Zinc Tablet] 1 EACH Tablet) PO SCH (21:26)
[2020-03-26] MEDS: NON FORMULARY DRUG (Cranberry Fruit Extract [Cranberry] 500 MG Tablet) PO SCH (21:26)
[2020-03-26] MEDS: NON FORMULARY DRUG (Glucosamine/Chondr Su A Sod [Osteo Bi-Flex Caplet] 1 EACH Tablet) PO SCH (21:26)
[2020-03-26] MEDS: NON FORMULARY DRUG (Cinnamon Bark [Cinnamon] 500 MG Capsule) PO SCH (21:26)
[2020-03-27] MEDS: SODIUM CHLORIDE 0.9% 1,000 ML IV SCH (00:46)
[2020-03-27 04:31] VITALS: RESP 20
[2020-03-27 06:04] LABS: African American GFR (CKD) >90 (>60 ml/min/1.73 sqM); Anion Gap 8 mmol/L; Blood Urea Nitrogen 20 mg/dL (7-17); Calcium 9.4 mg/dL (8.4-10.2); Carbon Dioxide 27 mmol/L (22-30); Chloride 99 mmol/L (98-107); Glucose 164 mg/dL (74-99); Non-African American GFR(CKD) 78 (>60 ml/min/1.73 sqM); Potassium 4.4 mmol/L (3.5-5.1); Sodium 134 mmol/L (137-145)
[2020-03-27 06:07] LABS: HCT 46.7 % (34.0-46.0); MCH 30.8 pg (25.0-35.0); MCHC 32.2 g/dL (31.0-37.0); MCV 95.5 fL (80.0-100.0); Mean Platelet Volume 8.3; Platelet Count 138 k/uL (150-450); RBC 4.89 m/uL (3.80-5.40); RDW 12.9 % (11.5-15.5); WBC 4.7 k/uL (3.8-10.6)
[2020-03-27 07:10] LABS: Band Neutrophils % 6 %; Eosinophils # (M) 0.05 k/uL (0-0.7); Lymphocytes # (M) 1.08 k/uL (1.0-4.8); Metamyelocytes # (M) 0.05 k/uL (0); Metamyelocytes % 1 %; Monocytes # (M) 0.85 k/uL (0-1.0); Neutrophils % (M) 53 %; Nucleated Red Blood Cells 0 /100 WBC (0-0); Total Cells Counted 200
[2020-03-27] MEDS ORDERED: PANTOPRAZOLE 40 MG TABLET PO SCH (07:30)
[2020-03-27] MEDS ORDERED: LINAGLIPTIN 5 MG TABLET PO SCH (09:00)
[2020-03-27] MEDS ORDERED: METOPROLOL SUCCINATE (ER) 25 MG TAB.ER.24H PO SCH (09:00)
[2020-03-27] MEDS ORDERED: lisinopriL 20 MG TAB PO SCH (09:00)
[2020-03-27] MEDS ORDERED: dexAMETHasone 2 MG TAB PO SCH (09:00)
[2020-03-27] MEDS ORDERED: NON FORMULARY DRUG (Vit C/E/Zn/Coppr/Lutein/Zeaxan [Preservision Areds 2 Softgel] 1 EACH C PO SCH (09:00)
[2020-03-27] MEDS: GABAPENTIN 300 MG CAP PO SCH (10:03)
[2020-03-27] MEDS: CHOLECALCIFEROL 1,000 UNIT TAB PO SCH (10:04)
[2020-03-27] MEDS: ZINC SULFATE 220 MG CAP PO SCH (10:04)
[2020-03-27] MEDS: NON FORMULARY DRUG (Glucosamine/Chondr Su A Sod [Osteo Bi-Flex Caplet] 1 EACH Tablet) PO SCH (10:06)
[2020-03-27] MEDS: NON FORMULARY DRUG (Calcium/Magnesium/Zinc [Calcium-Magnesium-Zinc Tablet] 1 EACH Tablet) PO SCH (10:06)
[2020-03-27] MEDS: NON FORMULARY DRUG (Cranberry Fruit Extract [Cranberry] 500 MG Tablet) PO SCH (10:06)
[2020-03-27] MEDS: NON FORMULARY DRUG (Cinnamon Bark [Cinnamon] 500 MG Capsule) PO SCH (10:06)
[2020-03-27 13:08] VITALS: BP 103/55; PULSE 72
--- NOTE | 2020-03-27 14:47 | CT ---
EXAMINATION TYPE: CT angio chest DATE OF EXAM: 03/27/2020 2:38 PM COMPARISON: Chest x-ray 2 days ago HISTORY: PE CT DLP: 580.2 mGycm Automated exposure control for dose reduction was used. CONTRAST: CTA scan of the thorax is performed without and with IV Contrast, patient injected with 100 ml mL of Isovue 370, pulmonary embolism protocol. MIP images are created and reviewed. FINDINGS: LUNGS: There is mild peripheral reticulation and fibrotic changes in both lungs. No suspicious focal consolidation or groundglass opacity. No pleural effusion or pneumothorax seen bilaterally. No suspic ious masses MEDIASTINUM: There is satisfactory enhancement of the pulmonary artery and its branches, there is no CT evidence for pulmonary embolism. There is prominent 1.5 x 1.0 cm right hilar lymph node axial scotty ge 68. Borderline enlarged left hilar lymph node image 60. Borderline-enlarged subcarinal 1.9 x 1.0 c m axial image 57 No cardiomegaly or pericardial effusion is seen. Some reflux of contrast into IVC a nd hepatic veins noted. OTHER: Cholecystectomy clips. Poorly distended stomach makes evaluation at this level suboptimal. Mi [id number]-[id number] multilevel spurring the spine. Surgical changes right humeral head noted. Dystrophic c alcifications in the left breast partially imaged presumed product of prior surgery, correlate clinic ally. IMPRESSION: No CT evidence for acute pulmonary embolism. Nonspecific prominent thoracic lymph nodes. Mild chronic parenchymal changes without acute pulmonary process.
--- NOTE | 2020-03-28 04:51 | DS ---
DISCHARGE SUMMARY FINAL DIAGNOSES: 1. Acute COVID-19 infection with possible bilateral early pneumonia. 2. Hyponatremia. 3. Increased AST, ALT. 4. Thrombocytopenia. 5. Diabetes mellitus type 2. 6. Hypertension. 7. History of renal disease. 8. History of left breast cancer. 9. History of cholecystectomy. 10.FULL CODE. 11.Obesity with body mass index of 42.5. DISCHARGE DISPOSITION: The patient will be discharged in stable condition with guarded prognosis. The patient is extremely keen on going home. Dr. Alberto cleared the patient for discharge. HISTORY OF PRESENT ILLNESS: This 69-year-old woman with past medical history of multiple medical problems admitted with acute COVID-19 possibly very early bibasilar pneumonia, treated symptomatically. CTA showed no evidence of pulmonary embolism. The D-dimer was 1.93. Patient is extremely keen on going home so the patient will be discharged in stable condition with guarded prognosis with following advice and medications. Recommend incentive spirometry at home. On exam, vitals are stable. CARDIOVASCULAR: S1, S2 muffled. ABDOMEN: Soft. NERVOUS SYSTEM: No focal deficits. DISCHARGE ADVICE: 1. Diet is cardiac. 2. Activity limited until followup. 3. Follow up with Dr. Sheila Ba in 2-3 days with labs, CBC, BMP. 4. Follow up with Dr. Alberto as advised. MEDICATIONS: 1. Arimidex 1 mg at bedtime. 2. Calcium with zinc 1 p.o. b.i.d. 3. Cinnamon 500 mg p.o. b.i.d. 4. Cranberry extract 500 mg p.o. b.i.d. 5. Aspirin 81 mg at bedtime. 6. Gabapentin 600 mg p.o. b.i.d. 7. Lisinopril 20 mg p.o. daily. 8. Osteo Bi-Flex 1 p.o. b.i.d. 9. mvi1 p.o. daily. 10.Protonix 40 mg daily. 11.Toprol XL 25 mg daily. 12.Vitamin D3, 1000 b.i.d. 13.Hexadrol 6 mg p.o. daily for 10 days. 14.Januvia 50 mg p.o. daily. 15.Orazinc 220 mg p.o. daily. 16.Tylenol p.r.n. Once again, the patient will be discharged in stable condition with guarded prognosis. Total time taken 35 minutes. FIORDALIZA / ANDREW: [id number] / MTDD
== END 2020-03-27 16:40 ==
LOC: EC 17:46 → 1SOBS 21:50 → 6NMEDSUR 03-27 14:47
PROVIDERS: ADMIT Hospitalist; ATTEND Hospitalist
DX: U07.1 COVID-19 (principal); E87.1 Hypo-osmolality and hyponatremia; R91.8 Other nonspecific abnormal finding of lung field; D69.6 Thrombocytopenia, unspecified; E11.9 Type 2 diabetes mellitus without complications; R74.01 Elevation of levels of liver transaminase levels; I10 Essential (primary) hypertension; N28.9 Disorder of kidney and ureter, unspecified; E66.9 Obesity, unspecified; Z68.41 Body mass index [BMI] 40.0-44.9, adult; Z85.3 Personal history of malignant neoplasm of breast; Z90.49 Acquired absence of other specified parts of digestive tract; Z79.811 Long term (current) use of aromatase inhibitors; Z79.82 Long term (current) use of aspirin; Z79.899 Other long term (current) drug therapy; Z79.84 Long term (current) use of oral hypoglycemic drugs; Z90.710 Acquired absence of both cervix and uterus; Z87.891 Personal history of nicotine dependence; Z98.890 Other specified postprocedural states; Z82.49 Family history of ischemic heart disease and other diseases of the circulatory system; Z82.3 Family history of stroke
CPT/HCPCS: 96374; 99285; 36415; 93005; 85379; 80053; 80048; 82728; 83605; 83615; 83735; 85025 ×2; 86140; 81003; 87502; 84145; 87635; 71045; 71275; G0378 ×4; U0003; J2270; S0170; J8540; Q9967

== ENCOUNTER 2020-03-31 18:28 | Inpatient (IN) | payer MEDICARE ==
[2020-03-31] MEDS ORDERED: DEXAMETHASONE SOD PHOSPHATE 10 MG/ML 1 ML VIAL IV STA (18:48)
[2020-03-31] MEDS ORDERED: ACETAMINOPHEN TAB 325 MG TAB PO STA (18:48)
[2020-03-31] MEDS ORDERED: ALBUTEROL HFA INHALER INHALATION STA (18:48)
--- NOTE | 2020-03-31 19:40 | ED ---
General Adult HPI - General Chief complaint: Shortness of Breath Stated complaint: Covid Time Seen by Provider: 03/31/20 18:48 Source: patient, RN notes reviewed, old records reviewed Mode of arrival: wheelchair Limitations: no limitations - History of Present Illness Initial comments: 69-year-old female presenting for evaluation of cough and dyspnea. Patient was diagnosed with coronavirus and had been admitted to this hospital for several days. She had been feeling better and was discharged home. She states that she has had worsening cough and dyspnea she's had poor appetite, has been unable to eat or drink much of anything. She denies central chest pain. She does report a productive cough as well as fever. - Related Data Home Medications Medication Instructions Recorded Confirmed Anastrozole [Arimidex] 1 mg PO HS 01/27/19 03/31/20 Aspirin EC [Ecotrin Low Dose] 81 mg PO HS 01/27/19 03/31/20 Calcium/Magnesium/Zinc 1 tab PO BID 01/27/19 03/31/20 [Vfivggz-Mjalqvhkb-Nrtg Tablet] Cinnamon Bark [Cinnamon] 500 mg PO BID 01/27/19 03/31/20 Glucosamine/Chondr [place] A Sod [Osteo 1 tab PO BID 01/27/19 03/31/20 Bi-Flex Caplet] Pantoprazole Sodium [Protonix] 40 mg PO DAILY 01/27/19 03/31/20 Vit C/E/Zn/Coppr/Lutein/Zeaxan 1 cap PO DAILY 01/27/19 03/31/20 [Preservision Areds 2 Softgel] Gabapentin 600 mg PO BID 09/07/19 03/31/20 Metoprolol Succinate (ER) [Toprol 25 mg PO DAILY 09/07/19 03/31/20 XL] Cholecalciferol [Vitamin D3 (25 1,000 unit PO BID 03/25/20 03/31/20 Mcg = 1000 Iu)] Cranberry Fruit Extract [Cranberry] 500 mg PO BID 03/25/20 03/31/20 lisinopriL 20 mg PO DAILY 03/25/20 03/31/20 Previous Rx's Medication Instructions Recorded sitaGLIPtin PHOSPHATE [Januvia] 50 mg PO DAILY #30 tab 01/30/19 Acetaminophen Tab [Tylenol] 650 mg PO Q6HR PRN tab 03/27/20 Zinc Sulfate [Orazinc] 220 mg PO DAILY #30 cap 03/27/20 dexAMETHasone [Hexadrol] 6 mg PO DAILY #10 tab 03/27/20 Allergies Allergy/AdvReac Type Severity Reaction Status Date / Time No Known Allergies Allergy Verified 03/31/20 20:09 Review of Systems ROS Statement: Those systems with pertinent positive or pertinent negative responses have been documented in the HPI. ROS Other: All systems not noted in ROS Statement are negative. Past Medical History Past Medical History: Diabetes Mellitus, Hypertension, Renal Disease Additional Past Medical History / Comment(s): states cancer of left breast 2016. lumpectomy 2016. DM type 2 2007. History of Any Multi-Drug Resistant Organisms: None Reported Past Surgical History: Appendectomy, Cholecystectomy, Hysterectomy Additional Past Surgical History / Comment(s): rotator cuff surgery Past Anesthesia/Blood Transfusion Reactions: No Reported Reaction Past Psychological History: No Psychological Hx Reported Smoking Status: Former smoker Past Alcohol Use History: Rare Past Drug Use History: None Reported - Past Family History Father Additional Family Medical History / Comment(s): aneurysm Mother Family Medical History: CVA/TIA General Exam Limitations: no limitations General appearance: alert, in distress (Mild respiratory distress) Head exam: Present: atraumatic, normocephalic Eye exam: Present: normal appearance, PERRL ENT exam: Present: normal exam Neck exam: Present: normal inspection. Absent: tenderness, meningismus Respiratory exam: Present: respiratory distress, wheezes, rhonchi, decreased breath sounds Cardiovascular Exam: Present: regular rate, normal rhythm GI/Abdominal exam: Present: soft. Absent: distended, tenderness, guarding Extremities exam: Present: normal inspection, normal capillary refill. Absent: pedal edema, calf tenderness Neurological exam: Present: alert, oriented X3 Psychiatric exam: Present: normal affect, normal mood Skin exam: Present: warm, dry, intact. Absent: cyanosis, diaphoretic Course Vital Signs 03/31/20 03/31/20 18:37 20:00 Temperature 99.5 F Pulse Rate 101 H 71 Respiratory 24 20 Rate Blood Pressure 161/87 O2 Sat by Pulse 90 L 93 L Oximetry EKG Findings - EKG Comments: EKG Findings:: EKG: Normal sinus rhythm, left axis, incomplete left bundle branch block, no ST segment elevation. Rate of 84, [place] interval 152, QRS duration 112, QTC 463. Medical Decision Making - Medical Decision Making 69-year-old female with coronavirus presenting for reevaluation after recent admission. Persistent dyspnea, patient is hypoxic on initial evaluation, mild to moderate respiratory distress. Chest x-ray, negative for focal pneumonia, no acute findings. Patient does require supplemental oxygen. She's placed again on Decadron, given a dose of Lovenox, albuterol. She has been admitted to [facility], case discussed with Dr. Akins. Pulmonology is placed on consult. Patient has an elevated d-dimer although this is down trending from prior. She did have CT angiography on previous admission which was negative for pulmonary embolism. She is given a dose of Lovenox. - Lab Data Result diagrams: 03/31/20 19: Lab Results 03/31/20 03/31/20 03/31/20 Range/Units 19:22 19:22 19:22 WBC 10.4 (3.8-10.6) k/uL RBC 5.01 (3.80-5.40) m/uL Hgb 15.3 (11.4-16.0) gm/dL Hct 45.3 (34.0-46.0) % MCV 90.5 D (80.0-100.0) fL MCH 30.5 (25.0-35.0) pg MCHC 33.7 (31.0-37.0) g/dL RDW 12.5 (11.5-15.5) % Plt Count 154 (150-450) k/uL MPV 8.4 Neutrophils % 90 % Lymphocytes % 5 % Monocytes % 4 % Eosinophils % 1 % Basophils % 0 % Neutrophils # 9.3 H (1.3-7.7) k/uL Lymphocytes # 0.5 L (1.0-4.8) k/uL Monocytes # 0.4 (0-1.0) k/uL Eosinophils # 0.1 (0-0.7) k/uL Basophils # 0.0 (0-0.2) k/uL PT 10.2 (9.0-12.0) sec INR 1.0 (<1.2) APTT 28.9 (22.0-30.0) sec D-Dimer 1.27 H (<0.60) mg/L FEU Plasma Lactic Acid Irvin 0.9 (0.7-2.0) mmol/L Disposition Clinical Impression: COVID-19 Disposition: ADMITTED IP TO THIS [facility] Condition: Stable Is patient prescribed a controlled substance at d/c from ED?: No Referrals: Sheila Ba MD [Primary Care Provider] - 1-2 days Decision to Admit Reason: Admit from EC Decision Date: 03/31/20
[2020-03-31 19:52] LABS: Basophils % (A) 0 %; Eosinophils # (A) 0.1 k/uL (0-0.7); Eosinophils % (A) 1 %; HCT 45.3 % (34.0-46.0); HGB 15.3 gm/dL (11.4-16.0); Lymphocytes # (A) 0.5 k/uL (1.0-4.8); Lymphocytes % (A) 5 %; MCH 30.5 pg (25.0-35.0); MCHC 33.7 g/dL (31.0-37.0); Mean Platelet Volume 8.4; Monocytes # (A) 0.4 k/uL (0-1.0); Monocytes % (A) 4 %; Neutrophils # (A) 9.3 k/uL (1.3-7.7); Neutrophils % (A) 90 %; Platelet Count 154 k/uL (150-450); RBC 5.01 m/uL (3.80-5.40); RDW 12.5 % (11.5-15.5); WBC 10.4 k/uL (3.8-10.6)
--- NOTE | 2020-03-31 19:55 | XR ---
EXAMINATION TYPE: XR chest 1V portable DATE OF EXAM: 03/31/2020 COMPARISON: 03/25/2020 HISTORY: Fever and cough TECHNIQUE: Single view FINDINGS: There is no heart failure nor confluent pneumonic infiltrate. There are chest leads. Costop hrenic angles are clear. Bony thorax is intact. IMPRESSION: No active cardiopulmonary disease. Inspiration decreased compared to old exam.
[2020-03-31] MEDS ORDERED: ALBUTEROL NEBULIZED 2.5 MG/3 ML INHALATION PRN (19:59)
[2020-03-31] MEDS ORDERED: NALOXONE 0.4 MG/ML 1 ML VIAL IV PRN (19:59)
[2020-03-31 20:02] LABS: MCV 90.5 fL (80.0-100.0)
[2020-03-31 20:07] LABS: Partial Thromboplastin Time 28.9 sec (22.0-30.0); Prothrombin Time 10.2 sec (9.0-12.0)
[2020-03-31 20:10] LABS: D-Dimer 1.27 mg/L FEU (<0.60)
[2020-03-31 20:14] LABS: ALT 41 U/L (4-34); AST 53 U/L (14-36); African American GFR (CKD) >90 (>60 ml/min/1.73 sqM); Albumin 3.6 g/dL (3.5-5.0); Alkaline Phosphatase 85 U/L (38-126); Anion Gap 10 mmol/L; Blood Urea Nitrogen 11 mg/dL (7-17); Calcium 8.9 mg/dL (8.4-10.2); Carbon Dioxide 21 mmol/L (22-30); Chloride 96 mmol/L (98-107); Glucose 224 mg/dL (74-99); LDH 605 U/L (313-618); Magnesium 1.6 mg/dL (1.6-2.3); Non-African American GFR(CKD) >90 (>60 ml/min/1.73 sqM); Potassium 3.5 mmol/L (3.5-5.1); Sodium 127 mmol/L (137-145); Total Bilirubin 0.8 mg/dL (0.2-1.3); Total Protein 6.8 g/dL (6.3-8.2)
[2020-03-31] MEDS ORDERED: ENOXAPARIN 40 MG/0.4 ML SYRINGE SQ STA (20:14)
[2020-03-31 20:28] LABS: C Reactive Protein 167.3 mg/L (<10.0)
[2020-03-31] MEDS: SODIUM CHLORIDE 0.9% 1,000 ML IV SCH (21:33)
[2020-03-31 23:55] LABS: Ferritin 501.3 ng/mL (10.0-291.0)
[2020-04-01 01:40] LABS: Glucose,Whole Blood 279 mg/dL (75-99)
[2020-04-01] MEDS: ALBUTEROL HFA INHALER INHALATION PRN ×4 (07:25→19:28)
--- NOTE | 2020-04-01 08:02 | P.CNPUL ---
History of Present Illness Consult date: 04/01/20 Requesting physician: Cristina Akins Reason for consult: dyspnea, abnormal CXR/CT Chief complaint: Shortness of breath, cough, congestion History of present illness: This is a 69-year-old female patient who follows with Jael Johnson as her primary care provider. She has history of diabetes mellitus, hypertension, kidney disease. She was recently here from 03/25 of 03/27/2020 with complaints of increasing shortness of breath cough congestion and was tested positive for CoVID 19. She was discharged home on dexamethasone. She had not been seen by our group on that admission. She represented to the emergency room yesterday with worsening shortness of breath cough and congestion. Chest x-ray reveals no acute pulmonary process. She is seen today in consultation in the emergency room. She is currently sitting up on the stretcher. Awake and alert in no acute distress. She states she is breathing a bit better today compared to yesterday. She is on 4 L nasal cannula to maintain O2 saturation the 90s. 0.9 normal saline at 75 ML's per hour. White count 10.4. Hemoglobin 15.3. D-dimer 1.27. Sodium 127. Potassium 3.5. Bicarb 21. Creatinine 0.58. Ferritin 501. LDH 605. C-reactive protein 167. Pro Calcitonin 0.15. She did receive dexamethasone and Lovenox yesterday. Review of Systems REVIEW OF SYSTEMS: CONSTITUTIONAL: Denies any recent significant weight loss or weight gain. EYES: Denies change in vision. EARS, NOSE, MOUTH, THROAT: Denies headaches, denies sore throat. CARDIOVASCULAR: Denies chest pain, palpitations or syncopal episodes. RESPIRATORY: Positive for shortness of breath, cough, congestion no hemoptysis. GASTROINTESTINAL: Denies change in appetite, denies abdominal pain GENITOURINARY: Denies hematuria, denies infections. MUSKULOSKELETAL: Denies pain, denies swelling. INTEGUMENTARY: Denies rash, denies eczema. NEUROLOGICAL: Denies recent memory loss, no recent seizure activity. PSYCHIATRIC: Denies anxiety, denies depression. HEMATOLOGIC/LYMPHATIC: Denies anemia, denies enlarged lymph nodes. Past Medical History Past Medical History: Diabetes Mellitus, Hypertension, Renal Disease Additional Past Medical History / Comment(s): states cancer of left breast 2015. lumpectomy 2015. DM type 2 2007. History of Any Multi-Drug Resistant Organisms: None Reported Past Surgical History: Appendectomy, Cholecystectomy, Hysterectomy Additional Past Surgical History / Comment(s): rotator cuff surgery Past Anesthesia/Blood Transfusion Reactions: No Reported Reaction Past Psychological History: No Psychological Hx Reported Smoking Status: Former smoker Past Alcohol Use History: Rare Past Drug Use History: None Reported - Past Family History Father Additional Family Medical History / Comment(s): aneurysm Mother Family Medical History: CVA/TIA Medications and Allergies Home Medications Medication Instructions Recorded Confirmed Type Anastrozole [Arimidex] 1 mg PO HS 01/27/19 03/31/20 History Aspirin EC [Ecotrin Low Dose] 81 mg PO HS 01/27/19 03/31/20 History Calcium/Magnesium/Zinc 1 tab PO BID 01/27/19 03/31/20 History [Xscitaz-Rhcsndnwe-Pnsx Tablet] Cinnamon Bark [Cinnamon] 500 mg PO BID 01/27/19 03/31/20 History Glucosamine/Chondr [place] A Sod [Osteo 1 tab PO BID 01/27/19 03/31/20 History Bi-Flex Caplet] Pantoprazole Sodium [Protonix] 40 mg PO DAILY 01/27/19 03/31/20 History Vit C/E/Zn/Coppr/Lutein/Zeaxan 1 cap PO DAILY 01/27/19 03/31/20 History [Preservision Areds 2 Softgel] sitaGLIPtin PHOSPHATE [Januvia] 50 mg PO DAILY #30 tab 01/30/19 03/31/20 Rx Gabapentin 600 mg PO BID 09/07/19 03/31/20 History Metoprolol Succinate (ER) [Toprol 25 mg PO DAILY 09/07/19 03/31/20 History XL] Cholecalciferol [Vitamin D3 (25 1,000 unit PO BID 03/25/20 03/31/20 History Mcg = 1000 Iu)] Cranberry Fruit Extract [Cranberry] 500 mg PO BID 03/25/20 03/31/20 History lisinopriL 20 mg PO DAILY 03/25/20 03/31/20 History Acetaminophen Tab [Tylenol] 650 mg PO Q6HR PRN tab 03/27/20 03/31/20 Rx Zinc Sulfate [Orazinc] 220 mg PO DAILY #30 cap 03/27/20 03/31/20 Rx dexAMETHasone [Hexadrol] 6 mg PO DAILY #10 tab 03/27/20 03/31/20 Rx Allergies Allergy/AdvReac Type Severity Reaction Status Date / Time No Known Allergies Allergy Verified 03/31/20 20:09 Physical Exam Vitals: Vital Signs Temp Pulse Resp BP Pulse Ox 04/01/20 04:31 98 F 71 20 144/86 90 L 04/01/20 01:42 97.9 F 78 20 146/68 92 L 04/01/20 00:34 76 18 153/87 93 L 03/31/20 21:38 82 22 145/66 93 L 03/31/20 21:28 86 23 153/60 94 L 03/31/20 20:00 71 20 93 L 03/31/20 18:37 99.5 F 101 H 24 161/87 90 L Intake and Output 03/31/20 04/01/20 04/01/20 22:59 06:59 14:59 Other: Weight 107.048 kg GENERAL EXAM: Alert, pleasant 69-year-old female patient, on 4 L nasal cannula comfortable in no apparent distress. HEAD: Normocephalic. EYES: Normal reaction of pupils, equal size. NOSE: Clear with pink turbinates. THROAT: No erythema or exudates. NECK: No masses, no JVD. CHEST: No chest wall deformity. LUNGS: Equal air entry with diffuse scattered rhonchi. CVS: S1 and S2 normal with no audible murmur, regular rhythm. ABDOMEN: No hepatosplenomegaly, normal bowel sounds, no guarding or rigidity. SPINE: No scoliosis or deformity SKIN: No rashes CENTRAL NERVOUS SYSTEM: No focal deficits, tone is normal in all 4 extremities. EXTREMITIES: There is no peripheral edema. No clubbing, no cyanosis. Peripheral pulses are intact. Results - Laboratory Findings CBC and BMP: 03/31/20 19:22 03/31/20 19:22 PT/INR, D-dimer PT 10.2 sec (9.0-12.0) 03/31/20 19: INR 1.0 (<1.2) 03/31/20 19:22 D-Dimer 1.27 mg/L FEU (<0.60) H 03/31/20 19:22 Abnormal lab findings: Abnormal Labs 03/31/20 03/31/20 03/31/20 19:22 19:22 19:22 Neutrophils # 9.3 H Lymphocytes # 0.5 L D-Dimer 1.27 H Sodium 127 L Chloride 96 L Carbon Dioxide 21 L Glucose 224 H POC Glucose (mg/dL) Ferritin 501.3 H AST 53 H ALT 41 H C-Reactive Protein 167.3 H Procalcitonin 03/31/20 04/01/20 19:22 01:37 Neutrophils # Lymphocytes # D-Dimer Sodium Chloride Carbon Dioxide Glucose POC Glucose (mg/dL) 279 H Ferritin AST ALT C-Reactive Protein Procalcitonin 0.15 H - Diagnostic Findings Chest x-ray: image reviewed Assessment and Plan Assessment: 1 Acute hypoxemic respiratory failure secondary to acute CoVID 19 pneumonitis 2 Recent admission for the same discharged home on 03/27/2020 3 Diabetes mellitus 4 Hypertension 5 Chronic kidney disease 6 History of left breast cancer in 2016 status post lumpectomy 7 Former smoker Plan: The patient was seen and evaluated by Dr. Mtz Chest x-ray and labs reviewed We will initiate Remdesivir Continue dexamethasone to complete 10 days Add vitamin C, vitamin D, Pepcid, melatonin, zinc We will continue to follow and make further recommendations based on her clinical status I, the cosigning physician, performed a history & physical examination of the patient. Lungs sounds with bilateral scattered rhonchi. Maintaining good O2 saturations in the 90s on 4 L/m per nasal cannula. I discussed the assessment and plan of care with my nurse practitioner, Danna Jackson. I attest to the above consultation as dictated by her. Time with Patient: Greater than 30
[2020-04-01 08:50] LABS: Glucose,Whole Blood 247 mg/dL (75-99)
[2020-04-01] MEDS ORDERED: REMDESIVIR 200 MG in SODIUM CHLORIDE 0.9% 250 ML IVPB ONE (09:00)
[2020-04-01] MEDS: dexAMETHasone 2 MG TAB PO SCH (09:13)
[2020-04-01] MEDS: ASCORBIC ACID 500 MG TAB PO SCH (09:13)
[2020-04-01] MEDS: ZINC SULFATE 220 MG CAP PO SCH (09:13)
[2020-04-01] MEDS: FAMOTIDINE 20 MG TAB PO SCH ×2 (09:14→23:06)
[2020-04-01] MEDS: CHOLECALCIFEROL 1,000 UNIT TAB PO SCH (09:14)
[2020-04-01] MEDS: INSULIN ASPART (NovoLOG) 100 UNIT/ML VIAL SQ SCH ×3 (09:14→17:07)
[2020-04-01] MEDS: ACETAMINOPHEN TAB 325 MG TAB PO PRN (10:35)
[2020-04-01] MEDS: METOPROLOL SUCCINATE (ER) 25 MG TAB.ER.24H PO SCH (12:09)
[2020-04-01] MEDS: LINAGLIPTIN 5 MG TABLET PO SCH (12:10)
[2020-04-01] MEDS: VIT A,C & E-LUTEIN-MINERALS 1 EACH TAB PO SCH (12:10)
[2020-04-01] MEDS: lisinopriL 20 MG TAB PO SCH (12:10)
[2020-04-01] MEDS: PANTOPRAZOLE 40 MG TABLET PO SCH (12:10)
[2020-04-01 12:22] LABS: Glucose,Whole Blood 234 mg/dL (75-99)
[2020-04-01] MEDS: SODIUM CHLORIDE 0.9% 1,000 ML IV SCH (16:56)
[2020-04-01 17:03] LABS: Glucose,Whole Blood 215 mg/dL (75-99)
--- NOTE | 2020-04-01 18:26 | P.HPIM ---
History of Present Illness H&P Date: 04/01/20 Chief Complaint: Cough and difficulty in breathing Ms. Doshi is a 69-year-old female with a past medical history of hypertension, diabetes mellitus, CKD who was recently admitted from 03/25 to 03/27/20 for COVID 19 infection and discharged home on dexamethasone coming in with worsening shortness of breath cough and difficulty in breathing. Patient states that she was discharged home but continued to have difficulty in breathing and so coming back. She also complains of fevers, myalgia. Patient also having nausea but did not throw up. She states that she feels too weak to do any of her daily activities at home. In the ER at the time of admission patient was found to have a temperature of 99.5 heart rate of 101, blood pressure 1 61 x 87 and saturating at 90% on room air she had a chest x-ray done showing no acute cardiopulmonary disease. In the yard she had a white count of 10.4 hemoglobin 15.3 platelets 154. D-dimer 1.27. Sodium 127, progression 3.5, BNP 9, creatinine 0.58, ferritin 501.3, LDH 605, C-reactive protein 167.3. Review of Systems REVIEW OF SYSTEMS: CONSTITUTIONAL: no weight loss or weight gain. EYES: Denies change in vision. EARS, NOSE, MOUTH, THROAT: Denies headaches, denies sore throat. CARDIOVASCULAR: Denies chest pain, palpitations or syncopal episodes. RESPIRATORY: As per HPI GASTROINTESTINAL: Denies change in appetite, denies abdominal pain GENITOURINARY: Denies hematuria, denies infections. MUSKULOSKELETAL: Generalized weakness and myalgia INTEGUMENTARY: Denies rash, denies eczema. NEUROLOGICAL: Denies recent memory loss, no recent seizure activity. PSYCHIATRIC: Denies anxiety, denies depression. HEMATOLOGIC/LYMPHATIC: Denies anemia, denies enlarged lymph nodes. All 13 review of systems done and are as mentioned above Past Medical History Past Medical History: Diabetes Mellitus, Hypertension, Renal Disease Additional Past Medical History / Comment(s): states cancer of left breast 2016. lumpectomy 2016. DM type 2 2007. History of Any Multi-Drug Resistant Organisms: None Reported Past Surgical History: Appendectomy, Cholecystectomy, Hysterectomy Additional Past Surgical History / Comment(s): rotator cuff surgery Past Anesthesia/Blood Transfusion Reactions: No Reported Reaction Past Psychological History: No Psychological Hx Reported Smoking Status: Former smoker Past Alcohol Use History: Rare Past Drug Use History: None Reported - Past Family History Father Additional Family Medical History / Comment(s): aneurysm Mother Family Medical History: CVA/TIA Medications and Allergies Home Medications Medication Instructions Recorded Confirmed Type Anastrozole [Arimidex] 1 mg PO HS 01/27/19 03/31/20 History Aspirin EC [Ecotrin Low Dose] 81 mg PO HS 01/27/19 03/31/20 History Calcium/Magnesium/Zinc 1 tab PO BID 01/27/19 03/31/20 History [Suodvaa-Syslcyfqh-Aqho Tablet] Cinnamon Bark [Cinnamon] 500 mg PO BID 01/27/19 03/31/20 History Glucosamine/Chondr [place] A Sod [Osteo 1 tab PO BID 01/27/19 03/31/20 History Bi-Flex Caplet] Pantoprazole Sodium [Protonix] 40 mg PO DAILY 01/27/19 03/31/20 History Vit C/E/Zn/Coppr/Lutein/Zeaxan 1 cap PO DAILY 01/27/19 03/31/20 History [Preservision Areds 2 Softgel] sitaGLIPtin PHOSPHATE [Januvia] 50 mg PO DAILY #30 tab 01/30/19 03/31/20 Rx Gabapentin 600 mg PO BID 09/07/19 03/31/20 History Metoprolol Succinate (ER) [Toprol 25 mg PO DAILY 09/07/19 03/31/20 History XL] Cholecalciferol [Vitamin D3 (25 1,000 unit PO BID 03/25/20 03/31/20 History Mcg = 1000 Iu)] Cranberry Fruit Extract [Cranberry] 500 mg PO BID 03/25/20 03/31/20 History lisinopriL 20 mg PO DAILY 03/25/20 03/31/20 History Acetaminophen Tab [Tylenol] 650 mg PO Q6HR PRN tab 03/27/20 03/31/20 Rx Zinc Sulfate [Orazinc] 220 mg PO DAILY #30 cap 03/27/20 03/31/20 Rx dexAMETHasone [Hexadrol] 6 mg PO DAILY #10 tab 03/27/20 03/31/20 Rx Allergies Allergy/AdvReac Type Severity Reaction Status Date / Time No Known Allergies Allergy Verified 03/31/20 20:09 Physical Exam Vitals: Vital Signs Temp Pulse Resp BP Pulse Ox 04/01/20 11:39 98.1 F 67 22 153/99 92 L 04/01/20 07:52 97.8 F 71 20 155/86 91 L 04/01/20 04:31 98 F 71 20 144/86 90 L 04/01/20 01:42 97.9 F 78 20 146/68 92 L 04/01/20 00:34 76 18 153/87 93 L 03/31/20 21:38 82 22 145/66 93 L 03/31/20 21:28 86 23 153/60 94 L 03/31/20 20:00 71 20 93 L 03/31/20 18:37 99.5 F 101 H 24 161/87 90 L Intake and Output 03/31/20 04/01/20 04/01/20 22:59 06:59 14:59 Other: Weight 107.048 kg PHYSICAL EXAM GEN. APPEARANCE: alert, in no apparent distress HEAD EXAM: atraumatic, normocephalic, normal inspection EYE EXAM: No pallor or icterus. ENT EXAM: normal exam, mucous membranes moist NECK EXAM: normal inspection. No thyromegaly or JVD RESPIRATORY EXAM: Diffuse coarse breath sounds in all lung arteaga. No wheezes. CARDIOVASCULAR EXAM: Tachycardia S1-S2 heard GI/ABDOMINAL EXAM: soft, normal bowel sounds. No guarding or rigidity EXTREMITIES EXAM: No edema NEUROLOGICAL EXAM: alert, oriented X3, no focal deficits PSYCHIATRIC EXAM: normal affect, normal mood SKIN EXAM: No rash Results CBC & Chem 7: 03/31/20 19:22 03/31/20 19:22 Labs: Abnormal Lab Results - Last 24 Hours (Table) 03/31/20 03/31/20 03/31/20 Range/Units 19:22 19:22 19:22 Neutrophils # 9.3 H (1.3-7.7) k/uL Lymphocytes # 0.5 L (1.0-4.8) k/uL D-Dimer 1.27 H (<0.60) mg/L FEU Sodium 127 L (137-145) mmol/L Chloride 96 L (98-107) mmol/L Carbon Dioxide 21 L (22-30) mmol/L Glucose 224 H (74-99) mg/dL POC Glucose (mg/dL) (75-99) mg/dL Ferritin 501.3 H (10.0-291.0) ng/mL AST 53 H (14-36) U/L ALT 41 H (4-34) U/L C-Reactive Protein 167.3 H (<10.0) mg/L Procalcitonin (0.02-0.09) ng/mL 03/31/20 04/01/20 04/01/20 Range/Units 19:22 01:37 08:49 Neutrophils # (1.3-7.7) k/uL Lymphocytes # (1.0-4.8) k/uL D-Dimer (<0.60) mg/L FEU Sodium (137-145) mmol/L Chloride (98-107) mmol/L Carbon Dioxide (22-30) mmol/L Glucose (74-99) mg/dL POC Glucose (mg/dL) 279 H 247 H (75-99) mg/dL Ferritin (10.0-291.0) ng/mL AST (14-36) U/L ALT (4-34) U/L C-Reactive Protein (<10.0) mg/L Procalcitonin 0.15 H (0.02-0.09) ng/mL Assessment and Plan Assessment: ASSESSMENT Acute hypoxic respiratory failure secondary to COVID pneumonia Hypertension CK D stage unspecified Type 2 diabetes mellitus History of breast cancer status post lumpectomy in 2016 Former smoker PLAN: Patient has been started on primary survey by pulmonary team today will continue with dexamethasone to complete 10 day course, continue with multivitamin supplementation. Lovenox for DVT prophylaxis. Protonix for GI prophylaxis. Continue with the rest of her home medication regimen. Further recommendations to follow depending on the progress of the patient.
[2020-04-01] MEDS: GABAPENTIN 300 MG CAP PO SCH (23:06)
[2020-04-01] MEDS: MELATONIN 5 MG TABLET PO SCH (23:06)
[2020-04-01] MEDS: ASPIRIN 81 MG PO SCH (23:06)
[2020-04-01] MEDS: ENOXAPARIN 40 MG/0.4 ML SYRINGE SQ SCH (23:06)
[2020-04-01] MEDS: ANASTROZOLE 1 MG TAB PO SCH (23:07)
[2020-04-02 00:49] LABS: Glucose,Whole Blood 199 mg/dL (75-99)
[2020-04-02] MEDS: INSULIN ASPART (NovoLOG) 100 UNIT/ML VIAL SQ SCH ×5 (00:54→22:28)
[2020-04-02 07:04] LABS: Basophils # (A) 0.1 k/uL (0-0.2); Basophils % (A) 0 %; Eosinophils % (A) 0 %; HCT 44.7 % (34.0-46.0); HGB 15.4 gm/dL (11.4-16.0); Lymphocytes # (A) 0.6 k/uL (1.0-4.8); Lymphocytes % (A) 4 %; MCHC 34.4 g/dL (31.0-37.0); Mean Platelet Volume 7.9; Monocytes # (A) 0.6 k/uL (0-1.0); Monocytes % (A) 4 %; Neutrophils # (A) 12.6 k/uL (1.3-7.7); Neutrophils % (A) 90 %; Platelet Count 157 k/uL (150-450); RBC 4.81 m/uL (3.80-5.40); RDW 12.3 % (11.5-15.5); WBC 14.1 k/uL (3.8-10.6)
[2020-04-02 08:15] LABS: Glucose,Whole Blood 141 mg/dL (75-99)
[2020-04-02] MEDS: ASCORBIC ACID 500 MG TAB PO SCH (08:19)
[2020-04-02] MEDS: dexAMETHasone 2 MG TAB PO SCH (08:19)
[2020-04-02] MEDS: GABAPENTIN 300 MG CAP PO SCH ×2 (08:19→22:28)
[2020-04-02] MEDS: lisinopriL 20 MG TAB PO SCH (08:20)
[2020-04-02] MEDS: PANTOPRAZOLE 40 MG TABLET PO SCH (08:20)
[2020-04-02] MEDS: CHOLECALCIFEROL 1,000 UNIT TAB PO SCH (08:20)
[2020-04-02] MEDS: FAMOTIDINE 20 MG TAB PO SCH ×2 (08:20→22:28)
[2020-04-02] MEDS: ZINC SULFATE 220 MG CAP PO SCH (08:20)
[2020-04-02] MEDS: METOPROLOL SUCCINATE (ER) 25 MG TAB.ER.24H PO SCH (08:20)
[2020-04-02] MEDS: VIT A,C & E-LUTEIN-MINERALS 1 EACH TAB PO SCH (08:20)
[2020-04-02] MEDS: ALBUTEROL HFA INHALER INHALATION PRN ×3 (08:53→16:18)
[2020-04-02] MEDS: LINAGLIPTIN 5 MG TABLET PO SCH (09:17)
[2020-04-02] MEDS: REMDESIVIR 100 MG in SODIUM CHLORIDE 0.9% 250 ML IVPB SCH (09:17)
[2020-04-02 09:28] LABS: African American GFR (CKD) 107.8 (60.0-200.0); Anion Gap 10.1 mmol/L (4.00-12.00); C Reactive Protein 7.8 mg/dL (0.0-0.8); Calcium 8.9 mg/dL (8.7-10.3); Carbon Dioxide 23.9 mmol/L (21.6-31.8); Potassium 3.7 mmol/L (3.5-5.5)
[2020-04-02 11:57] LABS: Glucose,Whole Blood 218 mg/dL (75-99)
[2020-04-02] MEDS: SENNOSIDES 8.6 MG TAB PO SCH ×2 (12:39→22:29)
[2020-04-02] MEDS: SODIUM CHLORIDE 0.9% 1,000 ML IV SCH (12:40)
--- NOTE | 2020-04-02 13:25 | P.PN ---
Subjective Progress Note Date: 04/02/20 69-year-old female patient, known history of diabetes mellitus and hypertension chronic kidney disease who was in the hospital between 03/25/2020 and 03/27/2024 shortness of breath and she tested positive for COVID 19. The patient was discharged home on oral Decadron. She presented emergency department yesterday because of worsening shortness of breath and cough and congestion. Chest x-ray showed no acute abnormalities. The patient was placed on oxygen at 4 L per minute nasal cannula and she felt better. Her d-dimer is at 1.27. That hemoglobin was 15.3. Sodium level was 127. Cholecalciferol level was 0.15. LDH was 605 with a CRP of 167. The patient was started on a combination of Decadron and Lovenox. She is currently on 2 L of oxygen by nasal cannula with a pulse of 72% and she is afebrile. The sodium level normalized and is 138. Objective - Vital Signs Vital signs: Vital Signs Temp 98.1 F 04/02/20 08:00 Pulse 60 04/02/20 08:00 Resp 17 04/02/20 08:00 BP 128/62 04/02/20 08:00 Pulse Ox 92 L 04/02/20 08:00 Intake & Output 04/01/20 04/02/20 04/02/20 18:59 06:59 18:59 Other: # Voids 2 # Bowel Movements 0 - Exam GENERAL EXAM: Alert, pleasant 69-year-old female patient, on 2 L nasal cannula comfortable in no apparent distress. HEAD: Normocephalic. EYES: Normal reaction of pupils, equal size. NOSE: Clear with pink turbinates. THROAT: No erythema or exudates. NECK: No masses, no JVD. CHEST: No chest wall deformity. LUNGS: Equal air entry with diffuse scattered rhonchi. CVS: S1 and S2 normal with no audible murmur, regular rhythm. ABDOMEN: No hepatosplenomegaly, normal bowel sounds, no guarding or rigidity. SPINE: No scoliosis or deformity SKIN: No rashes CENTRAL NERVOUS SYSTEM: No focal deficits, tone is normal in all 4 extremities. EXTREMITIES: There is no peripheral edema. No clubbing, no cyanosis. Peripheral pulses are intact. - Labs CBC & Chem 7: 04/02/20 06:35 04/02/20 06:35 Labs: Abnormal Lab Results - Last 24 Hours (Table) 04/01/20 04/02/20 04/02/20 Range/Units 17:01 00:47 06:35 WBC 14.1 H (3.8-10.6) k/uL Neutrophils # 12.6 H (1.3-7.7) k/uL Lymphocytes # 0.6 L (1.0-4.8) k/uL D-Dimer (<0.60) mg/L FEU BUN/Creatinine Ratio (.00-20.00) Ratio Glucose (70-110) mg/dL POC Glucose (mg/dL) 215 H 199 H (75-99) mg/dL C-Reactive Protein (0.0-0.8) mg/dL 04/02/20 04/02/20 04/02/20 Range/Units 06:35 06:35 08:03 WBC (3.8-10.6) k/uL Neutrophils # (1.3-7.7) k/uL Lymphocytes # (1.0-4.8) k/uL D-Dimer 1.08 H (<0.60) mg/L FEU BUN/Creatinine Ratio 30.00 H (12.00-20.00) Ratio Glucose 165 H (70-110) mg/dL POC Glucose (mg/dL) 141 H (75-99) mg/dL C-Reactive Protein 7.8 H (0.0-0.8) mg/dL 04/02/20 Range/Units 11:56 WBC (3.8-10.6) k/uL Neutrophils # (1.3-7.7) k/uL Lymphocytes # (1.0-4.8) k/uL D-Dimer (<0.60) mg/L FEU BUN/Creatinine Ratio (.00-20.00) Ratio Glucose (70-110) mg/dL POC Glucose (mg/dL) 218 H (75-99) mg/dL C-Reactive Protein (0.0-0.8) mg/dL Microbiology - Last 24 Hours (Table) 03/31/20 19:22 Blood Culture - Preliminary Blood No Growth after 24 hours Assessment and Plan Plan: 1 Acute hypoxemic respiratory failure secondary to acute CoVID 19 pneumonitis, currently on 2 L of oxygen by nasal cannula. The patient is on a combination of Decadron and Remdesivir. The patient has still some congested cough. Minimal amount of yellowish sputum. 2 Recent admission for the same discharged home on 03/27/2020 3 Diabetes mellitus 4 Hypertension 5 Chronic kidney disease 6 History of left breast cancer in 2016 status post lumpectomy 7 Former smoker Plan: Continue Remdesivir and dexamethasone to complete 10 days Add vitamin C, vitamin D, Pepcid, melatonin, zinc sputum Gram stain and culture Monitor blood sugar and the patient on sliding scale coverage We will continue to follow and make further recommendations based on her clinical status
[2020-04-02 16:42] LABS: Glucose,Whole Blood 262 mg/dL (75-99)
--- NOTE | 2020-04-02 16:43 | P.PN ---
Subjective Progress Note Date: 04/02/20 Ms. Doshi is a 69-year-old female with a past medical history of hypertension, diabetes mellitus, CKD who was recently admitted from 03/25 to 03/27/20 for COVID 19 infection and discharged home on dexamethasone coming in with worsening shortness of breath cough and difficulty in breathing. Patient states that she was discharged home but continued to have difficulty in breathing and so coming back. She also complains of fevers, myalgia. Patient also having nausea but did not throw up. She states that she feels too weak to do any of her daily activities at home. In the ER at the time of admission patient was found to have a temperature of 99.5 heart rate of 101, blood pressure 1 61 x 87 and saturating at 90% on room air she had a chest x-ray done showing no acute cardiopulmonary disease. In the yard she had a white count of 10.4 hemoglobin 15.3 platelets 154. D-dimer 1.27. Sodium 127, progression 3.5, BNP 9, creatinine 0.58, ferritin 501.3, LDH 605, C-reactive protein 167.3. 04/02/2020 Patient is seen and evaluated in follow-up with no acute overnight issues. Patient is currently maintained on dexamethasone along with Lovenox, vit c & D, zinc, and has been started on Remdesivir. Patient is currently on 4-5 L of oxygen via nasal cannula although upon exam patient was on room air at 92%. Patient was in no acute respiratory distress. He should is afebrile. CRP is down to 7.8 and lactate dehydrogenase is 246. Blood sugars are being monitored and patient is maintained on sliding scale and will continue at this time. Review of systems: Constitutional: No reports of fatigue, fever, or chills Cardiovascular: No reports of chest pain or palpitations Respiratory: No reports of shortness of breath or cough GI: No reports of nausea, vomiting, or diarrhea, reports of constipation : No reports of dysuria or retention Neurovascular: Reports mild weakness All medications have been reviewed Objective - Vital Signs Vital signs: Vital Signs Temp 98.1 F 04/02/20 08:00 Pulse 60 04/02/20 08:00 Resp 17 04/02/20 08:00 BP 128/62 04/02/20 08:00 Pulse Ox 92 L 04/02/20 08:00 Intake & Output 04/01/20 04/02/20 04/02/20 18:59 06:59 18:59 Other: # Voids 2 # Bowel Movements 0 - Exam Gen: This is a 69-year-old female currently sitting up in the chair, awake, alert and oriented 3, well-developed, well-nourished. HEENT: Head is atraumatic, normocephalic. Pupils equal, round. Sclerae is anicteric. NECK: Supple. No JVD. No lymphadenopathy. No thyromegaly. LUNGS: Diminished breath sounds bilaterally with no wheezes or rhonchi. No intercostal retractions. HEART: S1, S2 are muffled ABDOMEN: Soft. Obese. Bowel sounds are present. No masses. No tenderness. EXTREMITIES: No pedal edema. No calf tenderness. NEUROLOGICAL: Patient is awake, alert and oriented x3. Cranial nerves 2 through 12 are grossly intact. - Labs CBC & Chem 7: 04/02/20 06:35 04/02/20 06:35 Labs: Abnormal Lab Results - Last 24 Hours (Table) 04/01/20 04/02/20 04/02/20 Range/Units 17:01 00:47 06:35 WBC 14.1 H (3.8-10.6) k/uL Neutrophils # 12.6 H (1.3-7.7) k/uL Lymphocytes # 0.6 L (1.0-4.8) k/uL D-Dimer (<0.60) mg/L FEU BUN/Creatinine Ratio (12.00-20.00) Ratio Glucose (70-110) mg/dL POC Glucose (mg/dL) 215 H 199 H (75-99) mg/dL C-Reactive Protein (0.0-0.8) mg/dL 04/02/20 04/02/20 04/02/20 Range/Units 06:35 06:35 08:03 WBC (3.8-10.6) k/uL Neutrophils # (1.3-7.7) k/uL Lymphocytes # (1.0-4.8) k/uL D-Dimer 1.08 H (<0.60) mg/L FEU BUN/Creatinine Ratio 30.00 H (12.00-20.00) Ratio Glucose 165 H (70-110) mg/dL POC Glucose (mg/dL) 141 H (75-99) mg/dL C-Reactive Protein 7.8 H (0.0-0.8) mg/dL 04/02/20 Range/Units 11:56 WBC (3.8-10.6) k/uL Neutrophils # (1.3-7.7) k/uL Lymphocytes # (1.0-4.8) k/uL D-Dimer (<0.60) mg/L FEU BUN/Creatinine Ratio (12.00-20.00) Ratio Glucose (70-110) mg/dL POC Glucose (mg/dL) 218 H (75-99) mg/dL C-Reactive Protein (0.0-0.8) mg/dL Microbiology - Last 24 Hours (Table) 03/31/20 19:22 Blood Culture - Preliminary Blood No Growth after 24 hours Assessment and Plan Assessment: Acute hypoxic respiratory failure secondary to COVID pneumonia Hypertension CKD stage unspecified Type 2 diabetes mellitus History of breast cancer status post lumpectomy in 2016 Former smoker PLAN: Patient has been started on Remdesivir by pulmonary team. will continue with dexamethasone to complete 10 day course, continue with multivitamin supplementation. Lovenox for DVT prophylaxis. Protonix for GI prophylaxis. Continue with the rest of her home medication regimen. Discussed with nursing staff about weaning FiO2 as tolerated as patient was found to be on room air during examination. Further recommendations to follow depending on the progress of the patient.
[2020-04-02 20:27] LABS: Glucose,Whole Blood 224 mg/dL (75-99)
[2020-04-02] MEDS: ANASTROZOLE 1 MG TAB PO SCH (22:27)
[2020-04-02] MEDS: ASPIRIN 81 MG PO SCH (22:28)
[2020-04-02] MEDS: ENOXAPARIN 40 MG/0.4 ML SYRINGE SQ SCH (22:28)
[2020-04-02] MEDS: MELATONIN 5 MG TABLET PO SCH (22:29)
[2020-04-03 05:50] LABS: Basophils % (A) 0 %; Eosinophils % (A) 0 %; HCT 41.7 % (34.0-46.0); HGB 13.7 gm/dL (11.4-16.0); Lymphocytes # (A) 0.8 k/uL (1.0-4.8); Lymphocytes % (A) 8 %; MCH 30.8 pg (25.0-35.0); MCHC 32.9 g/dL (31.0-37.0); MCV 93.6 fL (80.0-100.0); Mean Platelet Volume 8.1; Monocytes # (A) 0.6 k/uL (0-1.0); Monocytes % (A) 6 %; Neutrophils # (A) 8.3 k/uL (1.3-7.7); Neutrophils % (A) 84 %; Platelet Count 158 k/uL (150-450); RBC 4.45 m/uL (3.80-5.40); RDW 12.4 % (11.5-15.5); WBC 9.9 k/uL (3.8-10.6)
[2020-04-03 07:20] LABS: Glucose,Whole Blood 121 mg/dL (75-99)
[2020-04-03] MEDS: INSULIN ASPART (NovoLOG) 100 UNIT/ML VIAL SQ SCH ×4 (07:25→21:38)
[2020-04-03] MEDS: dexAMETHasone 2 MG TAB PO SCH (07:45)
[2020-04-03] MEDS: CHOLECALCIFEROL 1,000 UNIT TAB PO SCH (07:45)
[2020-04-03] MEDS: GABAPENTIN 300 MG CAP PO SCH ×2 (07:45→21:37)
[2020-04-03] MEDS: LINAGLIPTIN 5 MG TABLET PO SCH (07:46)
[2020-04-03] MEDS: ZINC SULFATE 220 MG CAP PO SCH (07:46)
[2020-04-03] MEDS: FAMOTIDINE 20 MG TAB PO SCH ×2 (07:46→21:37)
[2020-04-03] MEDS: ASCORBIC ACID 500 MG TAB PO SCH (07:46)
[2020-04-03] MEDS: SENNOSIDES 8.6 MG TAB PO SCH ×2 (07:46→21:37)
[2020-04-03] MEDS: VIT A,C & E-LUTEIN-MINERALS 1 EACH TAB PO SCH (07:46)
[2020-04-03] MEDS: PANTOPRAZOLE 40 MG TABLET PO SCH (07:47)
[2020-04-03] MEDS: lisinopriL 20 MG TAB PO SCH (07:47)
[2020-04-03] MEDS: REMDESIVIR 100 MG in SODIUM CHLORIDE 0.9% 250 ML IVPB SCH (08:12)
[2020-04-03] MEDS: METOPROLOL SUCCINATE (ER) 25 MG TAB.ER.24H PO SCH (08:13)
[2020-04-03] MEDS: ALBUTEROL HFA INHALER INHALATION PRN ×4 (08:48→19:36)
[2020-04-03 09:36] LABS: African American GFR (CKD) 107.8 (60.0-200.0); Anion Gap 7.8 mmol/L (4.00-12.00); BUN/Creat Ratio 33.33 Ratio (12.00-20.00); Calcium 8.4 mg/dL (8.7-10.3); Carbon Dioxide 22.2 mmol/L (21.6-31.8); Potassium 3.4 mmol/L (3.5-5.5)
[2020-04-03] MEDS: SODIUM CHLORIDE 0.9% 1,000 ML IV SCH ×2 (10:52→14:37)
[2020-04-03 11:19] LABS: Glucose,Whole Blood 189 mg/dL (75-99)
[2020-04-03] MEDS ORDERED: polyethylene glycoL 3350 17 GM POWD.PACK PO PRN (12:29)
--- NOTE | 2020-04-03 12:38 | P.PN ---
Subjective Progress Note Date: 04/03/20 69-year-old female patient, known history of diabetes mellitus and hypertension chronic kidney disease who was in the hospital between 03/25/2020 and 03/27/2024 shortness of breath and she tested positive for COVID 19. The patient was discharged home on oral Decadron. She presented emergency department yesterday because of worsening shortness of breath and cough and congestion. on today's evaluation of 04/03/2020, the patient is doing well and she has no specific new complaints. She is currently on 4 L of oxygen by nasal cannula. The patient is going through her second hospitalization. The first hospitalization was in February. For now, she is on a combination of Lovenox and Decadron and Remdesivir. Her oxygen flows ranging between 2 and 4 L per minute nasal cannula. No significant leukocytosis. Rest of the blood will resolve within normal limits. Hemoglobin is 13.7. She is currently on Lovenox 40 mg subcu every 12 hours. She is also on Remdesivir and decadron Objective - Vital Signs Vital signs: Vital Signs Temp 97.6 F 04/03/20 10:54 Pulse 65 04/03/20 10:54 Resp 16 04/03/20 10:54 BP 96/55 04/03/20 10:54 Pulse Ox 92 L 04/03/20 10:54 Intake & Output 04/02/20 04/03/20 04/03/20 18:59 06:59 18:59 Intake Total 1075 800 Balance 1075 800 Intake: Intake, IV Titration 1075 800 Amount Remdesivir 100 mg In 250 Sodium Chloride 0.9% 250 ml @ 250 mls/hr IVPB DAILY [facility]IN Rx#:[id number] Sodium Chloride 0.9% 1, 825 800 000 ml @ 75 mls/hr IV . [id number] [facility]IN Rx#:[id number] Other: # Voids 3 - Exam GENERAL EXAM: Alert, pleasant 69-year-old female patient, on 2 L nasal cannula comfortable in no apparent distress. HEAD: Normocephalic. EYES: Normal reaction of pupils, equal size. NOSE: Clear with pink turbinates. THROAT: No erythema or exudates. NECK: No masses, no JVD. CHEST: No chest wall deformity. LUNGS: Equal air entry with diffuse scattered rhonchi. CVS: S1 and S2 normal with no audible murmur, regular rhythm. ABDOMEN: No hepatosplenomegaly, normal bowel sounds, no guarding or rigidity. SPINE: No scoliosis or deformity SKIN: No rashes CENTRAL NERVOUS SYSTEM: No focal deficits, tone is normal in all 4 extremities. EXTREMITIES: There is no peripheral edema. No clubbing, no cyanosis. Peripheral pulses are intact. - Labs CBC & Chem 7: 04/03/20 05:20 04/03/20 05:20 Labs: Abnormal Lab Results - Last 24 Hours (Table) 04/02/20 04/02/20 04/03/20 Range/Units 16:41 20:15 05:20 Neutrophils # 8.3 H (1.3-7.7) k/uL Lymphocytes # 0.8 L (1.0-4.8) k/uL Potassium (3.5-5.5) mmol/L BUN/Creatinine Ratio (12.00-20.00) Ratio Glucose (70-110) mg/dL POC Glucose (mg/dL) 262 H 224 H (75-99) mg/dL Calcium (8.7-10.3) mg/dL 04/03/20 04/03/20 04/03/20 Range/Units 05:20 07:18 11:18 Neutrophils # (1.3-7.7) k/uL Lymphocytes # (1.0-4.8) k/uL Potassium 3.4 L (3.5-5.5) mmol/L BUN/Creatinine Ratio 33.33 H (12.00-20.00) Ratio Glucose 140 H (70-110) mg/dL POC Glucose (mg/dL) 121 H 189 H (75-99) mg/dL Calcium 8.4 L (8.7-10.3) mg/dL Microbiology - Last 24 Hours (Table) 03/31/20 19:22 Blood Culture - Preliminary Blood No Growth after 48 hours Assessment and Plan Plan: 1 Acute hypoxemic respiratory failure secondary to acute CoVID 19 pneumonitis, currently on 2 -4 L of oxygen by nasal cannula. The patient is on a combination of Decadron and Remdesivir. The patient has still some congested cough. Minima l amount of yellowish sputum. 2 Recent admission for the same discharged home on 03/27/2020 3 Diabetes mellitus 4 Hypertension 5 Chronic kidney disease 6 History of left breast cancer in 2016 status post lumpectomy 7 Former smoker Plan: Continue Remdesivir and today she is on day 3 of treatmentand dexamethasone Add vitamin C, vitamin D, Pepcid, melatonin, zinc awaiting sputum Gram stain and culture IV Fluids to KVO. Monitor blood sugar and the patient on sliding scale coverage We will continue to follow and make further recommendations based on her clinical status
[2020-04-03 17:01] LABS: Glucose,Whole Blood 269 mg/dL (75-99)
[2020-04-03 20:51] LABS: Glucose,Whole Blood 219 mg/dL (75-99)
[2020-04-03] MEDS: ASPIRIN 81 MG PO SCH (21:37)
[2020-04-03] MEDS: MELATONIN 5 MG TABLET PO SCH (21:37)
[2020-04-03] MEDS: ENOXAPARIN 40 MG/0.4 ML SYRINGE SQ SCH (21:37)
--- NOTE | 2020-04-03 21:50 | P.PN ---
Subjective From records: Ms. Doshi is a 69-year-old female with a past medical history of hypertension, diabetes mellitus, CKD who was recently admitted from 03/25 to 03/27/20 for COVID 19 infection and discharged home on dexamethasone coming in with worsening shortness of breath cough and difficulty in breathing. Patient states that she was discharged home but continued to have difficulty in breathing and so coming back. She also complains of fevers, myalgia. Patient also having nausea but did not throw up. She states that she feels too weak to do any of her daily activities at home. In the ER at the time of admission patient was found to have a temperature of 99.5 heart rate of 101, blood pressure 1 61 x 87 and saturating at 90% on room air she had a chest x-ray done showing no acute cardiopulmonary disease. In the yard she had a white count of 10.4 hemoglobin 15.3 platelets 154. D-dimer 1.27. Sodium 127, progression 3.5, BNP 9, creatinine 0.58, ferritin 501.3, LDH 605, C-reactive protein 167.3. 04/02/2020 Patient is seen and evaluated in follow-up with no acute overnight issues. Patient is currently maintained on dexamethasone along with Lovenox, vit c & D, zinc, and has been started on Remdesivir. Patient is currently on 4-5 L of oxygen via nasal cannula although upon exam patient was on room air at 92%. Patient was in no acute respiratory distress. He should is afebrile. CRP is down to 7.8 and lactate dehydrogenase is 246. Blood sugars are being monitored and patient is maintained on sliding scale and will continue at this time. Subjective: This is the first day I am taking care of the patient 04/03/1940 Patient is a pleasant 69 years old female with multiple medical problems as below who presents with respiratory symptoms, with dyspnea and coughing while she was found positive for covert infection over the chest x-ray did not show active fissure. Report however patient is hypoxic with oxygen requirement is 2- 4 L/m. Her labs look stable, she has mild leukocytosis due to steroids but came back to normal today. Sputum cultures collected and result is pending Patient remains on dexamethasone, remdesivir, ascorbic acid and zinc. Also prophylactic dose of Lovenox and aspirin 81 mg CONSTITUTIONAL: No fever, no malaise, no fatigue. HEENT: No recent visual problems or hearing problems. Denied any sore throat. CARDIOVASCULAR: No orthopnea, PND, no palpitations, no syncope. PULMONARY: No chest wall tenderness, no hemoptysis. GASTROINTESTINAL: No diarrhea, no nausea, no vomiting, no abdominal pain. Normoactive bowel sounds. NEUROLOGICAL: No headaches, no weakness, no numbness. Active Medications Generic Name Dose Route Start Last Admin Trade Name Freq PRN Reason Stop Dose Admin Acetaminophen 650 mg 03/31/20 19:59 04/01/20 10:35 Acetaminophen Tab 325 Mg Tab PO 650 mg Q6HR PRN Administration Mild Pain or Fever > 100.5 Albuterol Sulfate 2 puff 04/01/20 07:30 04/03/20 19:36 Albuterol Hfa Inhaler INHALATION 2 puff RT-Q2H PRN Administration Shortness Of Breath Or Wheezing Anastrozole 1 mg 04/01/20 21:00 04/02/20 22:27 Anastrozole 1 Mg Tab PO 1 mg HS MARILIN Administration Ascorbic Acid 1,000 mg 04/01/20 09:00 04/03/20 07:46 Ascorbic Acid 500 Mg Tab PO 1,000 mg DAILY MARILIN Administration Aspirin 81 mg 04/01/20 21:00 04/03/20 21:37 Aspirin 81 Mg PO 81 mg HS MARILIN Administration Cholecalciferol 1,000 unit 04/01/20 09:00 04/03/20 07:45 Cholecalciferol 1,000 Unit Tab PO 1,000 unit DAILY MARILIN Administration Dexamethasone 6 mg 04/01/20 09:00 04/03/20 07:45 Dexamethasone 2 Mg Tab PO 04/04/20 10:00 6 mg DAILY MARILIN Administration Enoxaparin Sodium 40 mg 04/01/20 21:00 04/03/20 21:37 Enoxaparin 40 Mg/0.4 Ml Syringe SQ 40 mg HS MARILIN Administration Famotidine 20 mg 04/01/20 09:00 04/03/20 21:37 Famotidine 20 Mg Tab PO 20 mg BID MRAILIN Administration Gabapentin 600 mg 04/01/20 21:00 04/03/20 21:37 Gabapentin 300 Mg Cap PO 600 mg BID MARILIN Administration Remdesivir 100 mg/ Sodium 250 mls @ 250 mls/hr 04/02/20 09:00 04/03/20 08:12 Chloride IVPB 04/05/20 09:59 250 mls/hr DAILY [facility] Administration Sodium Chloride 1,000 mls @ 20 mls/hr 04/03/20 13:00 04/03/20 14:37 Saline 0.9% IV 20 mls/hr .Q24H [facility]IN Administration Insulin Aspart 0 unit 04/01/20 07:30 04/03/20 21:38 Insulin Aspart (Novolog) 100 Unit/Ml Vial SQ 4 unit ACHS [facility]IN Administration Protocol Linagliptin 5 mg 04/01/20 12:00 04/03/20 07:46 Linagliptin 5 Mg Tablet PO 5 mg DAILY [facility] Administration Lisinopril 20 mg 04/01/20 12:00 04/03/20 07:47 Lisinopril 20 Mg Tab PO 20 mg DAILY MAIRLIN Administration Melatonin 5 mg 04/01/20 21:00 04/03/20 21:37 Melatonin 5 Mg Tablet PO 5 mg HS [facility]ILIN Administration Metoprolol Succinate 25 mg 04/01/20 12:00 04/03/20 08:13 Metoprolol Succinate (Er) 25 Mg Tab.Er.24h PO 25 mg DAILY [facility]IN Administration Multivitamins/Minerals 1 each 04/01/20 12:00 04/03/20 07:46 Vit A,C & E-[id number] 1 Each Tab PO 1 each DAILY [facility]IN Administration Naloxone HCl 0.2 mg 03/31/20 19:59 Naloxone 0.4 Mg/Ml 1 Ml Vial IV Q2M PRN Opioid Reversal Ondansetron HCl 4 mg 03/31/20 19:59 Ondansetron 4 Mg/2 Ml Vial IVP Q8HR PRN Nausea And Vomiting Pantoprazole Sodium 40 mg 04/01/20 12:00 04/03/20 07:47 Pantoprazole 40 Mg Tablet PO 40 mg [id number] MARILIN Administration Polyethylene Glycol 17 gm 04/03/20 12:29 Polyethylene Glycol 3350 17 Gm Powd.Pack PO DAILY PRN Constipation Senna 8.6 mg 04/02/20 12:30 04/03/20 21:37 Sennosides 8.6 Mg Tab PO 8.6 mg BID [facility]IN Administration Zinc Sulfate 220 mg 04/01/20 09:00 04/03/20 07:46 Zinc Sulfate 220 Mg Cap PO 220 mg DAILY [facility] Administration Objective - Vital Signs Vital signs: Vital Signs Temp 97.6 F 04/03/20 10:54 Pulse 65 04/03/20 10:54 Resp 16 04/03/20 10:54 BP 96/55 04/03/20 10:54 Pulse Ox 92 L 04/03/20 10:54 Intake & Output 04/02/20 04/03/20 04/03/20 18:59 06:59 18:59 Intake Total 1075 800 Balance 1075 800 Intake: Intake, IV Titration 1075 800 Amount Remdesivir 100 mg In 250 Sodium Chloride 0.9% 250 ml @ 250 mls/hr IVPB DAILY [facility] Rx#:[id number] Sodium Chloride 0.9% 1, 825 800 000 ml @ 75 mls/hr IV . [id number] [facility] Rx#:[id number] Other: # Voids 3 - Exam GENERAL: The patient is alert and oriented x3, not in any acute distress. Well developed, well nourished. HEENT: Pupils are round and equally reacting to light. EOMI. No scleral icterus. No conjunctival pallor. Normocephalic, atraumatic. No pharyngeal erythema. No thyromegaly. CARDIOVASCULAR: S1 and S2 present. No murmurs, rubs, or gallops. PULMONARY: Chest is clear to auscultation, no wheezing or crackles. ABDOMEN: Soft, nontender, nondistended, normoactive bowel sounds. No palpable organomegaly. MUSCULOSKELETAL: No joint swelling or deformity. EXTREMITIES: No cyanosis, clubbing, or pedal edema. NEUROLOGICAL: Gross neurological examination did not reveal any focal deficits. SKIN: No rashes. no petechiae. - Labs CBC & Chem 7: 04/03/20 05:20 04/03/20 05:20 Labs: Abnormal Lab Results - Last 24 Hours (Table) 04/02/20 04/02/20 04/03/20 Range/Units 16:41 20:15 05:20 Neutrophils # 8.3 H (1.3-7.7) k/uL Lymphocytes # 0.8 L (1.0-4.8) k/uL Potassium (3.5-5.5) mmol/L BUN/Creatinine Ratio (12.00-20.00) Ratio Glucose (70-110) mg/dL POC Glucose (mg/dL) 262 H 224 H (75-99) mg/dL Calcium (8.7-10.3) mg/dL 04/03/20 04/03/20 04/03/20 Range/Units 05:20 07:18 11:18 Neutrophils # (1.3-7.7) k/uL Lymphocytes # (1.0-4.8) k/uL Potassium 3.4 L (3.5-5.5) mmol/L BUN/Creatinine Ratio 33.33 H (12.00-20.00) Ratio Glucose 140 H (70-110) mg/dL POC Glucose (mg/dL) 121 H 189 H (75-99) mg/dL Calcium 8.4 L (8.7-10.3) mg/dL Microbiology - Last 24 Hours (Table) 03/31/20 19:22 Blood Culture - Preliminary Blood No Growth after 48 hours Assessment and Plan Assessment: COVID pneumonia, versus Covid tracheobronchitis Acute hypoxic respiratory failure secondary to above Hypertension CKD stage unspecified Type 2 diabetes mellitus History of breast cancer status post lumpectomy in 2016 Former smoker Plan: This is a pleasant 69 years old female who presents with covert respiratory infection. Pulmonary team on the case. Continue with Remdesivir by pulmonary team. Continue with dexamethasone and zinc and vitamin C and Lovenox. Continue with oxygen as needed Labs and medication were reviewed.. Continue same treatment. Continue with symptomatic treatment. Resume home medication. Monitor lytes and vitals. DVT and GI prophylaxis. Further recommendationsas per clinical course of the patient DVT prophylaxis: Subcutaneous Lovenox GI Prophylaxis: Ppi Prognosis is guarded
[2020-04-03] MEDS: ANASTROZOLE 1 MG TAB PO SCH (21:57)
[2020-04-04 07:15] LABS: Glucose,Whole Blood 118 mg/dL (75-99)
[2020-04-04] MEDS: INSULIN ASPART (NovoLOG) 100 UNIT/ML VIAL SQ SCH ×4 (07:18→20:34)
[2020-04-04] MEDS: PANTOPRAZOLE 40 MG TABLET PO SCH (07:51)
[2020-04-04] MEDS: ALBUTEROL HFA INHALER INHALATION PRN ×4 (08:04→19:12)
[2020-04-04] MEDS: FAMOTIDINE 20 MG TAB PO SCH ×2 (08:44→20:34)
[2020-04-04] MEDS: LINAGLIPTIN 5 MG TABLET PO SCH (08:44)
[2020-04-04] MEDS: GABAPENTIN 300 MG CAP PO SCH ×2 (08:44→20:34)
[2020-04-04] MEDS: CHOLECALCIFEROL 1,000 UNIT TAB PO SCH (08:44)
[2020-04-04] MEDS: dexAMETHasone 2 MG TAB PO SCH (08:44)
[2020-04-04] MEDS: ASCORBIC ACID 500 MG TAB PO SCH (08:44)
[2020-04-04] MEDS: METOPROLOL SUCCINATE (ER) 25 MG TAB.ER.24H PO SCH ×2 (08:45→10:16)
[2020-04-04] MEDS: ZINC SULFATE 220 MG CAP PO SCH (08:45)
[2020-04-04] MEDS: lisinopriL 20 MG TAB PO SCH ×2 (08:45→10:19)
[2020-04-04] MEDS: REMDESIVIR 100 MG in SODIUM CHLORIDE 0.9% 250 ML IVPB SCH (08:45)
[2020-04-04] MEDS: SENNOSIDES 8.6 MG TAB PO SCH ×2 (08:45→20:34)
[2020-04-04] MEDS: VIT A,C & E-LUTEIN-MINERALS 1 EACH TAB PO SCH (08:45)
[2020-04-04 11:04] LABS: HCT 43.8 % (34.0-46.0); HGB 14.7 gm/dL (11.4-16.0); MCH 31.6 pg (25.0-35.0); MCHC 33.5 g/dL (31.0-37.0); MCV 94.3 fL (80.0-100.0); Mean Platelet Volume 8.2; Platelet Count 204 k/uL (150-450); RBC 4.64 m/uL (3.80-5.40); RDW 12.5 % (11.5-15.5); WBC 10.2 k/uL (3.8-10.6)
[2020-04-04 11:15] LABS: Glucose,Whole Blood 212 mg/dL (75-99)
[2020-04-04 11:48] LABS: ALT 27 U/L (4-34); AST 31 U/L (14-36); African American GFR (CKD) >90 (>60 ml/min/1.73 sqM); Albumin 2.7 g/dL (3.5-5.0); Alkaline Phosphatase 58 U/L (38-126); Anion Gap 5 mmol/L; Blood Urea Nitrogen 20 mg/dL (7-17); Calcium 8.1 mg/dL (8.4-10.2); Carbon Dioxide 27 mmol/L (22-30); Chloride 103 mmol/L (98-107); Globulin 2.7 g/dL; Glucose 226 mg/dL (74-99); Non-African American GFR(CKD) >90 (>60 ml/min/1.73 sqM); Potassium 3.1 mmol/L (3.5-5.1); Sodium 135 mmol/L (137-145); Total Bilirubin 0.4 mg/dL (0.2-1.3); Total Protein 5.4 g/dL (6.3-8.2)
--- NOTE | 2020-04-04 11:51 | P.PN ---
Subjective Progress Note Date: 04/04/20 69-year-old female patient, known history of diabetes mellitus and hypertension chronic kidney disease who was in the hospital between 03/25/2020 and 03/27/2024 shortness of breath and she tested positive for COVID 19. The patient was discharged home on oral Decadron. She presented emergency department yesterday because of worsening shortness of breath and cough and congestion. on today's evaluation of 04/03/2020, the patient is doing well and she has no specific new complaints. She is currently on 4 L of oxygen by nasal cannula. The patient is going through her second hospitalization. The first hospitalization was in February. For now, she is on a combination of Lovenox and Decadron and Remdesivir. Her oxygen flows ranging between 2 and 4 L per minute nasal cannula. No significant leukocytosis. Rest of the blood will resolve within normal limits. Hemoglobin is 13.7. She is currently on Lovenox 40 mg subcu every 12 hours. She is also on Remdesivir and decadron on today's evaluation of 04/04/2020 the patient is feeling okay. She is on 4 L. I checked her pulse ox and was 97%. Upper down to 2 L. She has completed her treatment. She is on Decadron still. She is also on Lovenox. No fever. No chills. No nausea or vomiting. She was having some constipation and she was given stool softeners. No fever. Objective - Vital Signs Vital signs: Vital Signs Temp 97.4 F L 04/04/20 10:01 Pulse 53 L 04/04/20 10:01 Resp 17 04/04/20 10:01 BP 151/67 04/04/20 10:01 Pulse Ox 93 L 04/04/20 10:01 Intake & Output 04/03/20 04/04/20 04/04/20 18:59 06:59 18:59 Intake Total 480 Balance 480 Intake: Oral 480 Other: Voiding Method Toilet # Voids 3 3 # Bowel Movements 0 - Exam GENERAL EXAM: Alert, pleasant 69-year-old female patient, on 2 L nasal cannula comfortable in no apparent distress. HEAD: Normocephalic. EYES: Normal reaction of pupils, equal size. NOSE: Clear with pink turbinates. THROAT: No erythema or exudates. NECK: No masses, no JVD. CHEST: No chest wall deformity. LUNGS: Equal air entry with diffuse scattered rhonchi. CVS: S1 and S2 normal with no audible murmur, regular rhythm. ABDOMEN: No hepatosplenomegaly, normal bowel sounds, no guarding or rigidity. SPINE: No scoliosis or deformity SKIN: No rashes CENTRAL NERVOUS SYSTEM: No focal deficits, tone is normal in all 4 extremities. EXTREMITIES: There is no peripheral edema. No clubbing, no cyanosis. Peripheral pulses are intact. - Labs CBC & Chem 7: 04/04/20 10:38 04/03/20 05:20 Labs: Abnormal Lab Results - Last 24 Hours (Table) 04/03/20 04/03/20 04/04/20 Range/Units 16:59 20:20 07:13 POC Glucose (mg/dL) 269 H 219 H 118 H (75-99) mg/dL 04/04/20 Range/Units 11:13 POC Glucose (mg/dL) 212 H (75-99) mg/dL Microbiology - Last 24 Hours (Table) 04/03/20 13:11 Gram Stain - Preliminary Sputum Sputum Culture - Preliminary 03/31/20 19:22 Blood Culture - Preliminary Blood No Growth after 72 hours Assessment and Plan Plan: 1 Acute hypoxemic respiratory failure secondary to acute CoVID 19 pneumonitis, currently on 2 -4 L of oxygen by nasal cannula. The patient is on a combination of Decadron and Remdesivir. The patient has still some congested cough. Minimal amount of yellowish sputum. 2 Recent admission for the same discharged home on 03/27/2020 3 Diabetes mellitus 4 Hypertension 5 Chronic kidney disease 6 History of left breast cancer in 2016 status post lumpectomy 7 Former smoker Plan: Continue Remdesivir and today she is on day 4 of treatment and dexamethasone oxygenation is improving and the patient was weaned down to 2 L Add vitamin C, vitamin D, Pepcid, melatonin, zinc awaiting sputum Gram stain and culture IV Fluids to KVO. Monitor blood sugar and the patient on sliding scale coverage We will continue to follow and make further recommendations based on her clinical status. she may need another 24 hours of inpatient treatment and following that she can go home possibly with her home oxygen concentrator see still continues to be hypoxic.
[2020-04-04] MEDS ORDERED: POTASSIUM CHLORIDE ER 20 MEQ TAB.ER PO STA (12:39)
--- NOTE | 2020-04-04 13:20 | XR ---
EXAMINATION TYPE: XR KUB DATE OF EXAM: 04/04/2020 COMPARISON: None INDICATION: Suprapubic pain TECHNIQUE: Single view abdomen supine view FINDINGS: Nonspecific bowel gas is present with air within small bowel loops as well as the colon. No mass effe ct is evident. Psoas margins are normal. Scoliosis is through the lumbar spine. Degenerative disc lissette nges are noted. Organomegaly is not evident. IMPRESSION: 1. Nonspecific abdomen
[2020-04-04] MEDS: SODIUM CHLORIDE 0.9% 1,000 ML IV SCH (17:01)
[2020-04-04 17:07] LABS: Glucose,Whole Blood 290 mg/dL (75-99)
[2020-04-04 18:22] LABS: Appearance,Urine Clear (Clear); Bilirubin,Urine Negative (Negative); Blood,Urine Negative (Negative); Color,Urine Yellow; Glucose,Urine (UA) Negative (Negative); Ketones,Urine Negative (Negative); Leukocyte Esterase,Urine Negative (Negative); Nitrite,Urine Negative (Negative); PH, Urine 5.5 (5.0-8.0); Protein,Urine Negative (Negative); Specific Gravity,Urine 1.015 (1.001-1.035); Urobilinogen,Urine <2.0 mg/dL (<2.0)
--- NOTE | 2020-04-04 20:05 | P.PN ---
Subjective From records: Ms. Doshi is a 69-year-old female with a past medical history of hypertension, diabetes mellitus, CKD who was recently admitted from 03/25 to 03/27/20 for COVID 19 infection and discharged home on dexamethasone coming in with worsening shortness of breath cough and difficulty in breathing. Patient states that she was discharged home but continued to have difficulty in breathing and so coming back. She also complains of fevers, myalgia. Patient also having nausea but did not throw up. She states that she feels too weak to do any of her daily activities at home. In the ER at the time of admission patient was found to have a temperature of 99.5 heart rate of 101, blood pressure 1 61 x 87 and saturating at 90% on room air she had a chest x-ray done showing no acute cardiopulmonary disease. In the yard she had a white count of 10.4 hemoglobin 15.3 platelets 154. D-dimer 1.27. Sodium 127, progression 3.5, BNP 9, creatinine 0.58, ferritin 501.3, LDH 605, C-reactive protein 167.3. 04/02/2020 Patient is seen and evaluated in follow-up with no acute overnight issues. Patient is currently maintained on dexamethasone along with Lovenox, vit c & D, zinc, and has been started on Remdesivir. Patient is currently on 4-5 L of oxygen via nasal cannula although upon exam patient was on room air at 92%. Patient was in no acute respiratory distress. He should is afebrile. CRP is down to 7.8 and lactate dehydrogenase is 246. Blood sugars are being monitored and patient is maintained on sliding scale and will continue at this time. Subjective: 04/03/2020 Patient is a pleasant 69 years old female with multiple medical problems as below who presents with respiratory symptoms, with dyspnea and coughing while she was found positive for covert infection over the chest x-ray did not show active fissure. Report however patient is hypoxic with oxygen requirement is 2- 4 L/m. Her labs look stable, she has mild leukocytosis due to steroids but came back to normal today. Sputum cultures collected and result is pending Patient remains on dexamethasone, remdesivir, ascorbic acid and zinc. Also prophylactic dose of Lovenox and aspirin 81 mg 04/04/2020 Patient still with mild tachypnea, with coughing but no chest pain. She has a right lower quadrant abdominal pain for 3-4 days on and off, she reported about it for the first A today. Associated with some tenderness but no rebound tenderness. I offered CT of the abdomen but patient declined stating she had recently had CT and she agrees to KUB which shows nonspecific gas. Her oxygen requirements down to 2 L. Labs look stable except for mild h ypokalemia been replaced She remains on vitamin C, zinc,Remdesivir, . IV fluid was a stop, and dex amethasone was discontinued by pulmonary team Gram stain still pending CONSTITUTIONAL: No fever, no malaise, no fatigue. HEENT: No recent visual problems or hearing problems. Denied any sore throat. CARDIOVASCULAR: No orthopnea, PND, no palpitations, no syncope. PULMONARY: No chest wall tenderness, no hemoptysis. GASTROINTESTINAL: No diarrhea, no nausea, no vomiting, no abdominal pain. Normo active bowel sounds. NEUROLOGICAL: No headaches, no weakness, no numbness. Active Medications Generic Name Dose Route Start Last Admin Trade Name Michealq PRN Reason Stop Dose Admin Acetaminophen 650 mg 03/31/20 19:59 04/01/20 10:35 Acetaminophen Tab 325 Mg Tab PO 650 mg Q6HR PRN Administration Mild Pain or Fever > 100.5 Albuterol Sulfate 2 puff 04/01/20 07:30 04/04/20 19:12 Albuterol Hfa Inhaler INHALATION 2 puff RT-Q2H PRN Administration Shortness Of Breath Or Wheezing Anastrozole 1 mg 04/01/20 21:00 04/03/20 21:57 Anastrozole 1 Mg Tab PO 1 mg HS [facility]IL[facility] Administration Ascorbic Acid 1,000 mg 04/01/20 09:00 04/04/20 08:44 Ascorbic Acid 500 Mg Tab PO 1,000 mg DAILY [facility] Administration Aspirin 81 mg 04/01/20 21:00 04/03/20 21:37 Aspirin 81 Mg PO 81 mg HS [facility] Administration Cholecalciferol 1,000 unit 04/01/20 09:00 04/04/20 08:44 Cholecalciferol 1,000 Unit Tab PO 1,000 unit DAILY [facility] Administration Enoxaparin Sodium 40 mg 04/01/20 21:00 04/03/20 21:37 Enoxaparin 40 Mg/0.4 Ml Syringe SQ 40 mg HS [facility] Administration Famotidine 20 mg 04/01/20 09:00 04/04/20 08:44 Famotidine 20 Mg Tab PO 20 mg BID [facility] Administration Gabapentin 600 mg 04/01/20 21:00 04/04/20 08:44 Gabapentin 300 Mg Cap PO 600 mg BID [facility] Administration Remdesivir 100 mg/ Sodium 250 mls @ 250 mls/hr 04/02/20 09:00 04/04/20 08:45 Chloride IVPB 04/05/20 09:59 250 mls/hr DAILY [facility] Administration Sodium Chloride 1,000 mls @ 20 mls/hr 04/03/20 13:00 04/04/20 17:01 Saline 0.9% IV Not Given .Q24H [facility] Insulin Aspart 0 unit 04/01/20 07:30 04/04/20 17:45 Insulin Aspart (Novolog) 100 Unit/Ml Vial SQ 7 unit ACHS [facility] Administration Protocol Linagliptin 5 mg 04/01/20 12:00 04/04/20 08:44 Linagliptin 5 Mg Tablet PO 5 mg DAILY [facility] Administration Lisinopril 20 mg 04/01/20 12:00 04/04/20 10:19 Lisinopril 20 Mg Tab PO 20 mg DAILY [facility] Administration Melatonin 5 mg 04/01/20 21:00 04/03/20 21:37 Melatonin 5 Mg Tablet PO 5 mg HS [facility] Administration Metoprolol Succinate 25 mg 04/01/20 12:00 04/04/20 10:16 Metoprolol Succinate (Er) 25 Mg Tab.Er.24h PO Not Given DAILY [facility] Multivitamins/Minerals 1 each 04/01/20 12:00 04/04/20 08:45 Vit A,C & Q-Dncbog-Lwfwhvzz 1 Each Tab PO 1 each DAILY [facility] Administration Naloxone HCl 0.2 mg 03/31/20 19:59 Naloxone 0.4 Mg/Ml 1 Ml Vial IV Q2M PRN Opioid Reversal Ondansetron HCl 4 mg 03/31/20 19:59 Ondansetron 4 Mg/2 Ml Vial IVP Q8HR PRN Nausea And Vomiting Pantoprazole Sodium 40 mg 04/01/20 12:00 04/04/20 07:51 Pantoprazole 40 Mg Tablet PO 40 mg AC-[id number] [facility] Administration Polyethylene Glycol 17 gm 04/03/20 12:29 Polyethylene Glycol 3350 17 Gm Powd.Pack PO DAILY PRN Constipation Senna 8.6 mg 04/02/20 12:30 04/04/20 08:45 Sennosides 8.6 Mg Tab PO 8.6 mg BID [facility] Administration Zinc Sulfate 220 mg 04/01/20 09:00 04/04/20 08:45 Zinc Sulfate 220 Mg Cap PO 220 mg DAILY [facility] Administration Objective - Vital Signs Vital signs: Vital Signs Temp 97.9 F 04/04/20 16:24 Pulse 74 04/04/20 16:24 Resp 18 04/04/20 16:24 BP 154/85 04/04/20 16:24 Pulse Ox 95 04/04/20 16:24 Intake & Output 04/04/20 04/04/20 04/05/20 06:59 18:59 06:59 Intake Total 480 250 Balance 480 250 Intake: Intake, IV Titration 250 Amount Remdesivir 100 mg In 250 Sodium Chloride 0.9% 250 ml @ 250 mls/hr IVPB DAILY [facility] Rx#:[id number] Oral 480 Other: Voiding Method Toilet Toilet # Voids 3 2 # Bowel Movements 0 - Exam GENERAL: The patient is alert and oriented x3, not in any acute distress. Well developed, well nourished. HEENT: Pupils are round and equally reacting to light. EOMI. No scleral icterus. No conjunctival pallor. Normocephalic, atraumatic. No pharyngeal erythema. No thyromegaly. CARDIOVASCULAR: S1 and S2 present. No murmurs, rubs, or gallops. PULMONARY: Chest is clear to auscultation, no wheezing or crackles. ABDOMEN: Soft, nontender, nondistended, normoactive bowel sounds. No palpable organomegaly. MUSCULOSKELETAL: No joint swelling or deformity. EXTREMITIES: No cyanosis, clubbing, or pedal edema. NEUROLOGICAL: Gross neurological examination did not reveal any focal deficits. SKIN: No rashes. no petechiae. - Labs CBC & Chem 7: 04/04/20 10:38 04/04/20 10:38 Labs: Abnormal Lab Results - Last 24 Hours (Table) 04/03/20 04/04/20 04/04/20 Range/Units 20:20 07:13 10:38 Sodium 135 L (137-145) mmol/L Potassium 3.1 L (3.5-5.1) mmol/L BUN 20 H (7-17) mg/dL Glucose 226 H (74-99) mg/dL POC Glucose (mg/dL) 219 H 118 H (75-99) mg/dL Calcium 8.1 L (8.4-10.2) mg/dL Total Protein 5.4 L (6.3-8.2) g/dL Albumin 2.7 L (3.5-5.0) g/dL 04/04/20 04/04/20 Range/Units 11:13 17:06 Sodium (137-145) mmol/L Potassium (3.5-5.1) mmol/L BUN (7-17) mg/dL Glucose (74-99) mg/dL POC Glucose (mg/dL) 212 H 290 H (75-99) mg/dL Calcium (8.4-10.2) mg/dL Total Protein (6.3-8.2) g/dL Albumin (3.5-5.0) g/dL Microbiology - Last 24 Hours (Table) 04/03/20 13:11 Gram Stain - Preliminary Sputum Sputum Culture - Preliminary 03/31/20 19:22 Blood Culture - Preliminary Blood No Growth after 72 hours Assessment and Plan Assessment: COVID pneumonia, versus Covid tracheobronchitis Acute hypoxic respiratory failure secondary to above Hypertension CKD stage unspecified Type 2 diabetes mellitus History of breast cancer status post lumpectomy in 2016 Former smoker Plan: This is a pleasant 69 years old female who presents with covert respiratory infection. Pulmonary team on the case. Continue with Remdesivir by pulmonary team. Continue with dexamethasone and zinc and vitamin C and Lovenox. Continue with oxygen as needed Labs and medication were reviewed.. Continue same treatment. Continue with symptomatic treatment. Resume home medication. Monitor lytes and vitals. DVT and GI prophylaxis. Further recommendationsas per clinical course of the patient DVT prophylaxis: Subcutaneous Lovenox GI Prophylaxis: Ppi Prognosis is guarded
[2020-04-04 20:09] LABS: Glucose,Whole Blood 272 mg/dL (75-99)
[2020-04-04] MEDS: ASPIRIN 81 MG PO SCH (20:34)
[2020-04-04] MEDS: ENOXAPARIN 40 MG/0.4 ML SYRINGE SQ SCH (20:34)
[2020-04-04] MEDS: MELATONIN 5 MG TABLET PO SCH (20:34)
[2020-04-04] MEDS: ANASTROZOLE 1 MG TAB PO SCH (20:34)
[2020-04-05 07:18] LABS: Glucose,Whole Blood 100 mg/dL (75-99)
[2020-04-05] MEDS: INSULIN ASPART (NovoLOG) 100 UNIT/ML VIAL SQ SCH ×4 (07:19→20:55)
[2020-04-05] MEDS: ALBUTEROL HFA INHALER INHALATION PRN ×2 (07:55→16:51)
[2020-04-05] MEDS: REMDESIVIR 100 MG in SODIUM CHLORIDE 0.9% 250 ML IVPB SCH (07:57)
[2020-04-05] MEDS: GABAPENTIN 300 MG CAP PO SCH ×2 (07:58→20:34)
[2020-04-05] MEDS: ASCORBIC ACID 500 MG TAB PO SCH (07:58)
[2020-04-05] MEDS: ZINC SULFATE 220 MG CAP PO SCH (07:58)
[2020-04-05] MEDS: PANTOPRAZOLE 40 MG TABLET PO SCH (07:58)
[2020-04-05] MEDS: SENNOSIDES 8.6 MG TAB PO SCH ×2 (07:58→20:35)
[2020-04-05] MEDS: FAMOTIDINE 20 MG TAB PO SCH ×2 (07:58→20:34)
[2020-04-05] MEDS: LINAGLIPTIN 5 MG TABLET PO SCH (07:59)
[2020-04-05] MEDS: lisinopriL 20 MG TAB PO SCH (07:59)
[2020-04-05] MEDS: METOPROLOL SUCCINATE (ER) 25 MG TAB.ER.24H PO SCH (07:59)
[2020-04-05] MEDS: VIT A,C & E-LUTEIN-MINERALS 1 EACH TAB PO SCH (08:00)
[2020-04-05] MEDS: CHOLECALCIFEROL 1,000 UNIT TAB PO SCH (08:11)
[2020-04-05 09:37] LABS: African American GFR (CKD) 102.5 (60.0-200.0); Anion Gap 5.6 mmol/L (4.00-12.00); BUN/Creat Ratio 22.86 Ratio (12.00-20.00); Calcium 8.9 mg/dL (8.7-10.3); Carbon Dioxide 31.4 mmol/L (21.6-31.8); Magnesium 1.8 mg/dL (1.5-2.4); Non-African American GFR(CKD) 88.4 (60.0-200.0); Potassium 4.3 mmol/L (3.5-5.5)
[2020-04-05] MEDS: ONDANSETRON 4 MG/2 ML VIAL IVP PRN (09:59)
[2020-04-05 11:39] LABS: Glucose,Whole Blood 135 mg/dL (75-99)
[2020-04-05] MEDS: SODIUM CHLORIDE 0.9% 1,000 ML IV SCH (11:41)
[2020-04-05 13:21] VITALS: BMI 43.1
--- NOTE | 2020-04-05 14:52 | P.PN ---
Subjective Progress Note Date: 04/05/20 69-year-old female patient, known history of diabetes mellitus and hypertension chronic kidney disease who was in the hospital between 03/25/2020 and 03/27/2024 shortness of breath and she tested positive for COVID 19. The patient was discharged home on oral Decadron. She presented emergency department yesterday because of worsening shortness of breath and cough and congestion. on today's evaluation of 04/03/2020, the patient is doing well and she has no specific new complaints. She is currently on 4 L of oxygen by nasal cannula. The patient is going through her second hospitalization. The first hospitalization was in February. For now, she is on a combination of Lovenox and Decadron and Remdesivir. Her oxygen flows ranging between 2 and 4 L per minute nasal cannula. No significant leukocytosis. Rest of the blood will resolve within normal limits. Hemoglobin is 13.7. She is currently on Lovenox 40 mg subcu every 12 hours. She is also on Remdesivir and decadron on today's evaluation of 04/04/2020 the patient is feeling okay. She is on 4 L. I checked her pulse ox and was 97%. Upper down to 2 L. She has completed her treatment. She is on Decadron still. She is also on Lovenox. No fever. No chills. No nausea or vomiting. She was having some constipation and she was given stool softeners. No fever. On 04/05/2020, the patient on 2 L of oxygen by nasal cannula. Her main complaint some fatigue. No nausea or vomiting. No diarrhea or abdominal pain. No chest pain. She is on Decadron. She completed Remdesivir and she has been on Lovenox Objective - Vital Signs Vital signs: Vital Signs Temp 97.6 F 04/05/20 10:15 Pulse 53 L 04/05/20 10:15 Resp 18 04/05/20 10:15 BP 113/74 04/05/20 10:15 Pulse Ox 96 04/05/20 10:15 Intake & Output 04/04/20 04/05/20 04/05/20 18:59 06:59 18:59 Intake Total 250 300 Balance 250 300 Weight 107.048 kg Intake: Intake, IV Titration 250 Amount Remdesivir 100 mg In 250 Sodium Chloride 0.9% 250 ml @ 250 mls/hr IVPB DAILY [facility] Rx#:[id number] Oral 300 Other: Voiding Method Toilet Toilet Toilet # Voids 2 1 - Exam GENERAL EXAM: Alert, pleasant 69-year-old female patient, on 2 L nasal cannula comfortable in no apparent distress. HEAD: Normocephalic. EYES: Normal reaction of pupils, equal size. NOSE: Clear with pink turbinates. THROAT: No erythema or exudates. NECK: No masses, no JVD. CHEST: No chest wall deformity. LUNGS: Equal air entry with diffuse scattered rhonchi. CVS: S1 and S2 normal with no audible murmur, regular rhythm. ABDOMEN: No hepatosplenomegaly, normal bowel sounds, no guarding or rigidity. SPINE: No scoliosis or deformity SKIN: No rashes CENTRAL NERVOUS SYSTEM: No focal deficits, tone is normal in all 4 extremities. EXTREMITIES: There is no peripheral edema. No clubbing, no cyanosis. Peripher al pulses are intact. - Labs CBC & Chem 7: 04/04/20 10:38 04/05/20 06:13 Labs: Abnormal Lab Results - Last 24 Hours (Table) 04/04/20 04/04/20 04/05/20 Range/Units 17:06 20:08 06:13 BUN/Creatinine Ratio 22.86 H (12.00-20.00) Ratio Glucose 119 H (70-110) mg/dL POC Glucose (mg/dL) 290 H 272 H (75-99) mg/dL 04/05/20 04/05/20 Range/Units 07:11 11:17 BUN/Creatinine Ratio (12.00-20.00) Ratio Glucose (70-110) mg/dL POC Glucose (mg/dL) 100 H 135 H (75-99) mg/dL Microbiology - Last 24 Hours (Table) 04/03/20 13:11 Gram Stain - Final Sputum Sputum Culture - Final 03/31/20 19:22 Blood Culture - Preliminary Blood No Growth after 96 hours Assessment and Plan Plan: 1 Acute hypoxemic respiratory failure secondary to acute CoVID 19 pneumonitis, currently on 2L of oxygen by nasal cannula. The patient is on a combination of Decadron and Remdesivir. The patient has still some congested cough. Minimal amount of yellowish sputum. 2 Recent admission for the same discharged home on 03/27/2020 3 Diabetes mellitus 4 Hypertension 5 Chronic kidney disease 6 History of left breast cancer in 2016 status post lumpectomy 7 Former smoker Plan: Continue Remdesivir and today she is on day 5 of treatment and dexamethasone oxygenation is improving and the patient was weaned down to 2 L Add vitamin C, vitamin D, Pepcid, melatonin, zinc awaiting sputum Gram stain and culture IV Fluids to KVO. Monitor blood sugar and the patient on sliding scale coverage On the room air oxygen, the patient's pulse ox was 89% and she dropped down to 82% with activity. I think she may be able to go home within next 24 hours on home oxygen if needed. Condition is stable for now.
[2020-04-05] MEDS: dexAMETHasone 2 MG TAB PO SCH (15:55)
[2020-04-05 17:01] LABS: Glucose,Whole Blood 162 mg/dL (75-99)
[2020-04-05] MEDS: ASPIRIN 81 MG PO SCH (20:34)
[2020-04-05] MEDS: ENOXAPARIN 40 MG/0.4 ML SYRINGE SQ SCH (20:35)
[2020-04-05] MEDS: MELATONIN 5 MG TABLET PO SCH (20:35)
[2020-04-05] MEDS: ANASTROZOLE 1 MG TAB PO SCH (20:35)
[2020-04-05 20:46] LABS: Glucose,Whole Blood 292 mg/dL (75-99)
--- NOTE | 2020-04-05 23:12 | P.PN ---
Subjective From records: Ms. Doshi is a 69-year-old female with a past medical history of hypertension, diabetes mellitus, CKD who was recently admitted from 03/25 to 03/27/20 for COVID 19 infection and discharged home on dexamethasone coming in with worsening shortness of breath cough and difficulty in breathing. Patient states that she was discharged home but continued to have difficulty in breathing and so coming back. She also complains of fevers, myalgia. Patient also having nausea but did not throw up. She states that she feels too weak to do any of her daily activities at home. In the ER at the time of admission patient was found to have a temperature of 99.5 heart rate of 101, blood pressure 1 61 x 87 and saturating at 90% on room air she had a chest x-ray done showing no acute cardiopulmonary disease. In the yard she had a white count of 10.4 hemoglobin 15.3 platelets 154. D-dimer 1.27. Sodium 127, progression 3.5, BNP 9, creatinine 0.58, ferritin 501.3, LDH 605, C-reactive protein 167.3. 04/02/2020 Patient is seen and evaluated in follow-up with no acute overnight issues. Patient is currently maintained on dexamethasone along with Lovenox, vit c & D, zinc, and has been started on Remdesivir. Patient is currently on 4-5 L of oxygen via nasal cannula although upon exam patient was on room air at 92%. Patient was in no acute respiratory distress. He should is afebrile. CRP is down to 7.8 and lactate dehydrogenase is 246. Blood sugars are being monitored and patient is maintained on sliding scale and will continue at this time. Subjective: 04/03/2020 Patient is a pleasant 69 years old female with multiple medical problems as below who presents with respiratory symptoms, with dyspnea and coughing while she was found positive for covert infection over the chest x-ray did not show active fissure. Report however patient is hypoxic with oxygen requirement is 2- 4 L/m. Her labs look stable, she has mild leukocytosis due to steroids but came back to normal today. Sputum cultures collected and result is pending Patient remains on dexamethasone, remdesivir, ascorbic acid and zinc. Also prophylactic dose of Lovenox and aspirin 81 mg 04/04/2020 Patient still with mild tachypnea, with coughing but no chest pain. She has a right lower quadrant abdominal pain for 3-4 days on and off, she reported about it for the first A today. Associated with some tenderness but no rebound tenderness. I offered CT of the abdomen but patient declined stating she had recently had CT and she agrees to KUB which shows nonspecific gas. Her oxygen requirements down to 2 L. Labs look stable except for mild h ypokalemia been replaced She remains on vitamin C, zinc,Remdesivir, . IV fluid was a stop, and dex amethasone was discontinued by pulmonary team Gram stain still pending 04/05/2020 patient is breathing quietly, she is saturating 95% 2 L oxygen via nasal cannula, however on room air she drops to 89 at rest and 82 at exertion. Pulmonary team input. She is slightly bradycardic and heart rate 49, similar to her metoprolol 25 down to 12.5 mg. She still have mild right lower quadrant abdominal pain for a few days with no change in bowel habits. Patient refused any workup for now. Looks mild and stable and she can follow-up as an outpatient Sputum culture is growing normal yuli Possible discharge in 24-48 hours if she keeps improvement and once cleared by pulmonary service CONSTITUTIONAL: No fever, no malaise, no fatigue. HEENT: No recent visual problems or hearing problems. Denied any sore throat. CARDIOVASCULAR: No orthopnea, PND, no palpitations, no syncope. PULMONARY: No chest wall tenderness, no hemoptysis. GASTROINTESTINAL: No diarrhea, no nausea, no vomiting, no abdominal pain. Normoactive bowel sounds. NEUROLOGICAL: No headaches, no weakness, no numbness. Active Medications Generic Name Dose Route Start Last Admin Trade Name Eugenie PRN Reason Stop Dose Admin Acetaminophen 650 mg 03/31/20 19:59 04/01/20 10:35 Acetaminophen Tab 325 Mg Tab PO 650 mg Q6HR PRN Administration Mild Pain or Fever > 100.5 Albuterol Sulfate 2 puff 04/01/20 07:30 04/05/20 16:51 Albuterol Hfa Inhaler INHALATION 2 puff RT-Q2H PRN Administration Shortness Of Breath Or Wheezing Anastrozole 1 mg 04/01/20 21:00 04/05/20 20:35 Anastrozole 1 Mg Tab PO 1 mg HS MARILIN Administration Ascorbic Acid 1,000 mg 04/01/20 09:00 04/05/20 07:58 Ascorbic Acid 500 Mg Tab PO 1,000 mg DAILY MARILIN Administration Aspirin 81 mg 04/01/20 21:00 04/05/20 20:34 Aspirin 81 Mg PO 81 mg HS MARILIN Administration Cholecalciferol 1,000 unit 04/01/20 09:00 04/05/20 08:11 Cholecalciferol 1,000 Unit Tab PO 1,000 unit DAILY MARILIN Administration Dexamethasone 6 mg 04/05/20 15:00 04/05/20 15:55 Dexamethasone 2 Mg Tab PO 6 mg DAILY MARILIN Administration Enoxaparin Sodium 40 mg 04/01/20 21:00 04/05/20 20:35 Enoxaparin 40 Mg/0.4 Ml Syringe SQ 40 mg HS MARILIN Administration Famotidine 20 mg 04/01/20 09:00 04/05/20 20:34 Famotidine 20 Mg Tab PO 20 mg BID MARILIN Administration Gabapentin 600 mg 04/01/20 21:00 04/05/20 20:34 Gabapentin 300 Mg Cap PO 600 mg BID MARILIN Administration Sodium Chloride 1,000 mls @ 20 mls/hr 04/03/20 13:00 04/05/20 11:41 Saline 0.9% IV Not Given .Q24H MARILIN Insulin Aspart 0 unit 04/01/20 07:30 04/05/20 20:55 Insulin Aspart (Novolog) 100 Unit/Ml Vial SQ 7 unit ACHS MARILIN Administration Protocol Linagliptin 5 mg 04/01/20 12:00 04/05/20 07:59 Linagliptin 5 Mg Tablet PO 5 mg DAILY MARILIN Administration Lisinopril 20 mg 04/01/20 12:00 04/05/20 07:59 Lisinopril 20 Mg Tab PO 20 mg DAILY MARILIN Administration Melatonin 5 mg 04/01/20 21:00 04/05/20 20:35 Melatonin 5 Mg Tablet PO 5 mg HS MARILIN Administration Metoprolol Succinate 12.5 mg 04/06/20 09:00 Metoprolol Succinate (Er) 25 Mg Tab.Er.24h PO DAILY MARILIN Multivitamins/Minerals 1 each 04/01/20 12:00 04/05/20 08:00 Vit A,C & Y-Yjsmig-Qheeunba 1 Each Tab PO 1 each DAILY MARILIN Administration Naloxone HCl 0.2 mg 03/31/20 19:59 Naloxone 0.4 Mg/Ml 1 Ml Vial IV Q2M PRN Opioid Reversal Ondansetron HCl 4 mg 03/31/20 19:59 04/05/20 09:59 Ondansetron 4 Mg/2 Ml Vial IVP 4 mg Q8HR PRN Administration Nausea And Vomiting Pantoprazole Sodium 40 mg 04/01/20 12:00 04/05/20 07:58 Pantoprazole 40 Mg Tablet PO 40 mg AC-BRKFST MARILIN Administration Polyethylene Glycol 17 gm 04/03/20 12:29 Polyethylene Glycol 3350 17 Gm Powd.Pack PO DAILY PRN Constipation Senna 8.6 mg 04/02/20 12:30 04/05/20 20:35 Sennosides 8.6 Mg Tab PO 8.6 mg BID MARILIN Administration Zinc Sulfate 220 mg 04/01/20 09:00 04/05/20 07:58 Zinc Sulfate 220 Mg Cap PO 220 mg DAILY MARILIN Administration Objective - Vital Signs Vital signs: Vital Signs Temp 98 F 04/05/20 17:00 Pulse 49 L 04/05/20 17:00 Resp 17 04/05/20 17:00 BP 125/65 04/05/20 17:00 Pulse Ox 95 04/05/20 17:00 Intake & Output 04/05/20 04/05/20 04/06/20 06:59 18:59 06:59 Intake Total 300 270 Balance 300 270 Weight 107.048 kg Intake: IV 20 Sodium Chloride 0.9% 1, 20 000 ml @ 20 mls/hr IV . Q24H MARILIN Rx#:[id number] Intake, IV Titration 250 Amount Remdesivir 100 mg In 250 Sodium Chloride 0.9% 250 ml @ 250 mls/hr IVPB DAILY COUNT INCLUDES THE [facility] Rx#:[id number] Oral 300 Other: Voiding Method Toilet Toilet # Voids 1 3 - Exam GENERAL: The patient is alert and oriented x3, not in any acute distress. Well developed, well nourished. HEENT: Pupils are round and equally reacting to light. EOMI. No scleral icterus. No conjunctival pallor. Normocephalic, atraumatic. No pharyngeal erythema. No thyromegaly. CARDIOVASCULAR: S1 and S2 present. No murmurs, rubs, or gallops. PULMONARY: Chest is clear to auscultation, no wheezing or crackles. ABDOMEN: Soft, nontender, nondistended, normoactive bowel sounds. No palpable organomegaly. MUSCULOSKELETAL: No joint swelling or deformity. EXTREMITIES: No cyanosis, clubbing, or pedal edema. NEUROLOGICAL: Gross neurological examination did not reveal any focal deficits. SKIN: No rashes. no petechiae. - Labs CBC & Chem 7: 04/04/20 10:38 04/05/20 06:13 Labs: Abnormal Lab Results - Last 24 Hours (Table) 04/05/20 04/05/20 04/05/20 Range/Units 06:13 07:11 11:17 BUN/Creatinine Ratio 22.86 H (12.00-20.00) Ratio Glucose 119 H (70-110) mg/dL POC Glucose (mg/dL) 100 H 135 H (75-99) mg/dL 04/05/20 04/05/20 Range/Units 16:59 20:41 BUN/Creatinine Ratio (12.00-20.00) Ratio Glucose (70-110) mg/dL POC Glucose (mg/dL) 162 H 292 H (75-99) mg/dL Microbiology - Last 24 Hours (Table) 04/03/20 13:11 Gram Stain - Final Sputum Sputum Culture - Final 03/31/20 19:22 Blood Culture - Preliminary Blood No Growth after 96 hours Assessment and Plan Assessment: COVID pneumonia, versus Covid tracheobronchitis Acute hypoxic respiratory failure secondary to above Hypertension CKD stage unspecified Type 2 diabetes mellitus History of breast cancer status post lumpectomy in 2016 Former smoker Plan: This is a pleasant 69 years old female who presents with covert respiratory infection. Pulmonary team on the case. Continue with Remdesivir by pulmonary team. Continue with dexamethasone and zinc and vitamin C and Lovenox. Continue with oxygen as needed Labs and medication were reviewed.. Continue same treatment. Continue with symptomatic treatment. Resume home medication. Monitor lytes and vitals. DVT and GI prophylaxis. Further recommendationsas per clinical course of the patient DVT prophylaxis: Subcutaneous Lovenox GI Prophylaxis: Ppi Prognosis is guarded
[2020-04-06] MEDS: ACETAMINOPHEN TAB 325 MG TAB PO PRN (03:33)
[2020-04-06 07:13] LABS: Glucose,Whole Blood 159 mg/dL (75-99)
[2020-04-06] MEDS: ALBUTEROL HFA INHALER INHALATION PRN ×3 (07:32→15:23)
[2020-04-06] MEDS: ASCORBIC ACID 500 MG TAB PO SCH (08:27)
[2020-04-06] MEDS: ZINC SULFATE 220 MG CAP PO SCH (08:27)
[2020-04-06] MEDS: FAMOTIDINE 20 MG TAB PO SCH (08:27)
[2020-04-06] MEDS: INSULIN ASPART (NovoLOG) 100 UNIT/ML VIAL SQ SCH ×2 (08:27→12:53)
[2020-04-06] MEDS: lisinopriL 20 MG TAB PO SCH (08:27)
[2020-04-06] MEDS: CHOLECALCIFEROL 1,000 UNIT TAB PO SCH (08:27)
[2020-04-06] MEDS: PANTOPRAZOLE 40 MG TABLET PO SCH (08:28)
[2020-04-06] MEDS: GABAPENTIN 300 MG CAP PO SCH (08:28)
[2020-04-06] MEDS: SENNOSIDES 8.6 MG TAB PO SCH (08:28)
[2020-04-06] MEDS: VIT A,C & E-LUTEIN-MINERALS 1 EACH TAB PO SCH (08:28)
[2020-04-06] MEDS: dexAMETHasone 2 MG TAB PO SCH (08:28)
[2020-04-06] MEDS: LINAGLIPTIN 5 MG TABLET PO SCH (08:29)
[2020-04-06] MEDS: ONDANSETRON 4 MG/2 ML VIAL IVP PRN (08:52)
[2020-04-06] MEDS ORDERED: METOPROLOL SUCCINATE (ER) 25 MG TAB.ER.24H PO SCH (09:00)
[2020-04-06 11:03] LABS: African American GFR (CKD) 102.5 (60.0-200.0); Anion Gap 5.8 mmol/L (4.00-12.00); BUN/Creat Ratio 25.71 Ratio (12.00-20.00); Calcium 8.9 mg/dL (8.7-10.3); Carbon Dioxide 32.2 mmol/L (21.6-31.8); Magnesium 1.8 mg/dL (1.5-2.4); Non-African American GFR(CKD) 88.4 (60.0-200.0); Potassium 4.8 mmol/L (3.5-5.5)
[2020-04-06 11:14] VITALS: BP 146/72; RESP 17; TEMP 98.2
[2020-04-06 11:28] LABS: Glucose,Whole Blood 186 mg/dL (75-99)
[2020-04-06] MEDS: SODIUM CHLORIDE 0.9% 1,000 ML IV SCH (12:41)
[2020-04-06] MEDS ORDERED: amLODIPine 5 MG TAB PO SCH (13:45)
--- NOTE | 2020-04-06 18:45 | P.PN ---
Subjective Progress Note Date: 04/06/20 Principal diagnosis: CoVID 19 pneumonitis The patient is seen today 04/06/2020 in follow-up on the regular medical floor. She is improved. She is down to 2 L nasal cannula. She denies any worsening shortness of breath cough or congestion. No fever chills or night sweats. No nausea vomiting or diarrhea. Sodium 138. Potassium 4.8. Creatinine 0.7. Objective - Vital Signs Vital signs: Vital Signs Temp 98.2 F 04/06/20 11:00 Pulse 50 L 04/06/20 11:00 Resp 17 04/06/20 11:00 BP 146/72 04/06/20 11:00 Pulse Ox 87 L 04/06/20 11:39 Intake & Output 04/05/20 04/06/20 04/06/20 18:59 06:59 18:59 Intake Total 270 500 Balance 270 500 Weight 107.048 kg Intake: IV 20 Sodium Chloride 0.9% 1, 20 000 ml @ 20 mls/hr IV . Q24H MARILIN Rx#:[id number] Intake, IV Titration 250 Amount Remdesivir 100 mg In 250 Sodium Chloride 0.9% 250 ml @ 250 mls/hr IVPB DAILY MARILIN Rx#:[id number] Oral 500 Other: Voiding Method Toilet Toilet Toilet # Voids 3 3 - Exam GENERAL EXAM: Alert, pleasant 69-year-old female patient, on 2 L nasal cannula, comfortable in no apparent distress. HEAD: Normocephalic. EYES: Normal reaction of pupils, equal size. NOSE: Clear with pink turbinates. THROAT: No erythema or exudates. NECK: No masses, no JVD. CHEST: No chest wall deformity. LUNGS: Equal air entry with no crackles, wheeze, rhonchi or dullness. CVS: S1 and S2 normal with no audible murmur, regular rhythm. ABDOMEN: No hepatosplenomegaly, normal bowel sounds, no guarding or rigidity. SPINE: No scoliosis or deformity SKIN: No rashes CENTRAL NERVOUS SYSTEM: No focal deficits, tone is normal in all 4 extremities. EXTREMITIES: There is no peripheral edema. No clubbing, no cyanosis. Peripheral pulses are intact. - Labs CBC & Chem 7: 04/04/20 10:38 04/06/20 07:02 Labs: Abnormal Lab Results - Last 24 Hours (Table) 12/10/20 12/11/20 12/11/20 Range/Units 20:41 07:02 07:10 Carbon Dioxide 32.2 H (21.6-31.8) mmol/L BUN/Creatinine Ratio 25.71 H (12.00-20.00) Ratio Glucose 159 H (70-110) mg/dL POC Glucose (mg/dL) 292 H 159 H (75-99) mg/dL 04/06/20 Range/Units 11:24 Carbon Dioxide (21.6-31.8) mmol/L BUN/Creatinine Ratio (12.00-20.00) Ratio Glucose (70-110) mg/dL POC Glucose (mg/dL) 186 H (75-99) mg/dL Microbiology - Last 24 Hours (Table) 03/31/20 19:22 Blood Culture - Preliminary Blood No Growth after 120 hours Assessment and Plan Assessment: 1 Acute hypoxemic respiratory failure secondary to acute CoVID 19 pneumonitis 2 Recent admission for the same discharged home on 03/27/2020 3 Diabetes mellitus 4 Hypertension 5 Chronic kidney disease 6 History of left breast cancer in 2016 status post lumpectomy 7 Former smoker Plan: The patient was seen and evaluated by Dr. Loja She is cleared for discharge from the pulmonary standpoint May require home oxygen Complete a 10 day course of dexamethasone Close follow-up with her PCP I, the cosigning physician, performed a history & physical examination of the patient. Lungs sounds clear. Maintaining good O2 saturations in the 90s on 2 L/m per nasal cannula. I discussed the assessment and plan of care with my nurse practitioner, Danna Jackson. I attest to the above consultation as dictated by her.
--- NOTE | 2020-04-07 01:07 | P.DS ---
Providers Date of admission: 03/31/20 19:59 Attending physician: Cristina Akins Consults: 03/31/20 20:00 Consult Physician Routine Consulting Provider: Jorge Mtz Consult Reason/Comments: COVID Do you want consulting provider notified?: Yes Primary care physician: Sheila Ba Hospital Course: Diagnoses: COVID pneumonia, versus Covid tracheobronchitis Acute hypoxic respiratory failure secondary to above Hypertension CKD stage unspecified Type 2 diabetes mellitus History of breast cancer status post lumpectomy in 2016 Former smoker Hospital course: Ms. Doshi is a 69-year-old female with a past medical history of hypertension, diabetes mellitus, CKD who was recently admitted from 03/25 to 03/27/20 for COVID 19 infection and discharged home on dexamethasone coming in with worsening shortness of breath cough and difficulty in breathing. Patient was then admitted for bilateral Covid pneumonia and she was treated per protocol with pulmonary team are following her closely to receive dexamethasone,remdesivir, ascorbic acid and zinc. Also prophylactic dose of Lovenox and aspirin 81 mg. Patient showed interval improvement and her symptoms significantly improved and her oxygen requirement decreased to 2 L/m via nasal cannula upon discharge, patient evaluated and she will was found to be qualified for home oxygen which is provided for her upon discharge. Also she was discha rged on zinc, vitamin C and a few more days of dexamethasone to finish total of 10 days Also patient was complaining of from right lower quadrant abdominal pain which was nonspecific with no change in bowel habits. She was tolerating diet, she refused workup however she reports improvement of abdominal pain prior to discharge. Also metoprolol. 4 bradycardia and she was started on Norvasc and instructed to follow up as an outpatient and she agrees Patient was cleared for discharge by disk and tape machine tender Problems and management plan were discussed with the patient and he verbalized understanding and acceptance Patient was found stable and can be discharged home however he needs follow-up as an outpatient. Patient was instructed to follow up with PCP Dr. malagon within one week and patient agrees, also patient was instructed to follow-up with disk and tape machine tender Dr. Gomez 3-4 weeks and she agrees. Gen: patient is a AAOx3, no distress CVS: S1-S2, RRR, no murmur Lungs: B/L CTA, no wheezing Abdomen: soft, no distention, no tenderness, positive bowel sounds Extremity: no leg edema or induration Time spent more than 35 minutes Patient Condition at Discharge: Stable Plan - Discharge Summary Discharge Rx Participant: No New Discharge Prescriptions: New dexAMETHasone [Hexadrol] 6 mg PO DAILY 4 Days #12 tab polyethylene glycoL 3350 [Miralax] 17 gm PO DAILY PRN #3 powd.pack PRN Reason: Constipation amLODIPine [Norvasc] 5 mg PO DAILY #30 tab Sennosides [Senokot] 8.6 mg PO BID PRN #30 tab PRN Reason: Constipation Albuterol Inhaler [Ventolin Hfa Inhaler] 2 puff INHALATION RT-Q2H PRN #1 puff PRN Reason: Shortness Of Breath Or Wheezing Ascorbic Acid [Vitamin C] 1,000 mg PO DAILY #60 tab Cholecalciferol [Vitamin D3 (25 Mcg = 1000 Iu)] 1,000 unit PO DAILY #30 tab Continue Pantoprazole Sodium [Protonix] 40 mg PO DAILY Cinnamon Bark [Cinnamon] 500 mg PO BID Calcium/Magnesium/Zinc [Eepurts-Ncbzpuehn-Lnkc Tablet] 1 tab PO BID Aspirin EC [Ecotrin Low Dose] 81 mg PO HS Anastrozole [Arimidex] 1 mg PO HS Glucosamine/Chondr [place] A Sod [Osteo Bi-Flex Caplet] 1 tab PO BID Vit C/E/Zn/Coppr/Lutein/Zeaxan [Preservision Areds 2 Softgel] 1 cap PO DAILY sitaGLIPtin PHOSPHATE [Januvia] 50 mg PO DAILY #30 tab Gabapentin 600 mg PO BID Cranberry Fruit Extract [Cranberry] 500 mg PO BID Cholecalciferol [Vitamin D3 (25 Mcg = 1000 Iu)] 1,000 unit PO BID lisinopriL 20 mg PO DAILY Acetaminophen Tab [Tylenol] 650 mg PO Q6HR PRN tab PRN Reason: Mild Pain Or Fever > 100.5 Zinc Sulfate [Orazinc] 220 mg PO DAILY #30 cap Discontinued Metoprolol Succinate (ER) [Toprol XL] 25 mg PO DAILY dexAMETHasone [Hexadrol] 6 mg PO DAILY #10 tab Discharge Medication List Anastrozole [Arimidex] 1 mg PO HS 01/27/19 [History] Aspirin EC [Ecotrin Low Dose] 81 mg PO HS 01/27/19 [History] Calcium/Magnesium/Zinc [Pmgstgi-Uighwopmh-Mpxb Tablet] 1 tab PO BID 01/27/19 [History] Cinnamon Bark [Cinnamon] 500 mg PO BID 01/27/19 [History] Glucosamine/Chondr [place] A Sod [Osteo Bi-Flex Caplet] 1 tab PO BID 01/27/19 [History] Pantoprazole Sodium [Protonix] 40 mg PO DAILY 01/27/19 [History] Vit C/E/Zn/Coppr/Lutein/Zeaxan [Preservision Areds 2 Softgel] 1 cap PO DAILY 01/27/19 [History] sitaGLIPtin PHOSPHATE [Januvia] 50 mg PO DAILY #30 tab 01/30/19 [Rx] Gabapentin 600 mg PO BID 09/07/19 [History] Cholecalciferol [Vitamin D3 (25 Mcg = 1000 Iu)] 1,000 unit PO BID 03/25/20 [History] Cranberry Fruit Extract [Cranberry] 500 mg PO BID 03/25/20 [History] lisinopriL 20 mg PO DAILY 03/25/20 [History] Acetaminophen Tab [Tylenol] 650 mg PO Q6HR PRN tab 03/27/20 [Rx] Albuterol Inhaler [Ventolin Hfa Inhaler] 2 puff INHALATION RT-Q2H PRN #1 puff 04/06/20 [Rx] Ascorbic Acid [Vitamin C] 1,000 mg PO DAILY #60 tab 04/06/20 [Rx] Cholecalciferol [Vitamin D3 (25 Mcg = 1000 Iu)] 1,000 unit PO DAILY #30 tab 04/06/20 [Rx] Sennosides [Senokot] 8.6 mg PO BID PRN #30 tab 04/06/20 [Rx] Zinc Sulfate [Orazinc] 220 mg PO DAILY #30 cap 04/06/20 [Rx] amLODIPine [Norvasc] 5 mg PO DAILY #30 tab 04/06/20 [Rx] dexAMETHasone [Hexadrol] 6 mg PO DAILY 4 Days #12 tab 04/06/20 [Rx] polyethylene glycoL 3350 [Miralax] 17 gm PO DAILY PRN #3 powd.pack 04/06/20 [Rx] Follow up Appointment(s)/Referral(s): [facility] [NON-STAFF] - Jorge Mtz DO [Doctor of Osteopathic Medicine] - 05/16/20 8:45 am (patient to come in 15-20 min early to fill out paperwork.patient must wear a mask to appt.) Sheila Ba MD [Primary Care Provider] - 04/13/20 10:15 am Patient Instructions/Handouts: Albuterol (By breathing), Zinc Sulfate (By mouth), Ascorbic Acid (By mouth), Amlodipine (By mouth), Dexamethasone (By mouth), Polyethylene Glycol 3350 (By mouth), Cholecalciferol (By mouth), Senna (By mouth), Viral Pneumonia (DC), Hypoxia (GEN) Discharge Disposition: HOME SELF-CARE
== END 2020-04-06 17:15 | disposition home or self-care (01) | DRG 177 ==
LOC: EC 18:28 → 6NMEDSUR 19:59
PROVIDERS: ADMIT Hospitalist; ATTEND Hospitalist
PROC: XW033E5 Introduction of Remdesivir Anti-infective into Peripheral Vein, Percutaneous Approach, New Technology Group 5 (ICD-10-PCS; principal; 2020-04-01)
DX: U07.1 COVID-19 (principal); J96.01 Acute respiratory failure with hypoxia; J12.89 Other viral pneumonia; T38.0X5A Adverse effect of glucocorticoids and synthetic analogues, initial encounter; N18.2 Chronic kidney disease, stage 2 (mild); I12.9 Hypertensive chronic kidney disease with stage 1 through stage 4 chronic kidney disease, or unspecified chronic kidney disease; J40 Bronchitis, not specified as acute or chronic; E87.6 Hypokalemia; E11.22 Type 2 diabetes mellitus with diabetic chronic kidney disease; Z79.01 Long term (current) use of anticoagulants; Z79.899 Other long term (current) drug therapy; Z79.84 Long term (current) use of oral hypoglycemic drugs; Z85.3 Personal history of malignant neoplasm of breast; Z87.891 Personal history of nicotine dependence; Z90.710 Acquired absence of both cervix and uterus; Z90.49 Acquired absence of other specified parts of digestive tract; Z98.890 Other specified postprocedural states; Z82.3 Family history of stroke
CPT/HCPCS: 36415; 71045; 74018; 80048; 80053; 81003; 82728; 83605; 83615; 83735; 84145; 85025; 85027; 85379; 85610; 85730; 86140; 87040; 87070; 87205; 93005; 94640; 94760; 96361; 96365; 96372; 96375; 99285

== ENCOUNTER 2020-04-10 19:02 | Inpatient (IN) | payer MEDICARE ==
[2020-04-10] MEDS ORDERED: SODIUM CHLORIDE 0.9% 500 ML 500 ML IV STA (19:28)
--- NOTE | 2020-04-10 19:37 | ED ---
SOB HPI <Jorge Rocha - Last Filed: 04/10/20 21:48> - General Source: EMS Mode of arrival: EMS <Zoey Vee - Last Filed: 04/10/20 22:09> - General Chief Complaint: Shortness of Breath Stated Complaint: SOB,Covid+ Time Seen by Provider: 04/10/20 19:04 - History of Present Illness Initial Comments: 69-year-old female patient presents to the emergency department today for evaluation of increased shortness of breath and constipation. Patient states that she was diagnosed with Coban on 03/26/2020. Patient states she's been having difficulty with breathing since. States she does wear 2 L of oxygen at home but states it doesn't seem to be helping. States that she still has intermittent mild cough. Reports chest pain with deep inspiration. Denies any fever or chills. States she has occasional nausea no vomiting. States she is eating and drinking well. States that she has not had a bowel movement for the last week. She has been taking oral stool softeners and drinking lots of fruit juice. States that she did try to disimpact herself but states that the stool is very soft. She states that she does have some rectal discomfort. Patient denies any recent rash, abdominal pain, diarrhea, constipation, back pain, numbness, tingling, dizziness, weakness, hematuria, dysuria, urinary urgency, urinary frequency, headache, visual changes, or any other complaints. (Zoey Vee) - Related Data Home Medications Medication Instructions Recorded Confirmed Anastrozole [Arimidex] 1 mg PO HS 01/27/19 03/31/20 Aspirin EC [Ecotrin Low Dose] 81 mg PO HS 01/27/19 03/31/20 Calcium/Magnesium/Zinc 1 tab PO BID 01/27/19 03/31/20 [Ijwuwcn-Pddoefrlb-Sjhp Tablet] Cinnamon Bark [Cinnamon] 500 mg PO BID 01/27/19 03/31/20 Glucosamine/Chondr [place] A Sod [Osteo 1 tab PO BID 01/27/19 03/31/20 Bi-Flex Caplet] Pantoprazole Sodium [Protonix] 40 mg PO DAILY 01/27/19 03/31/20 Vit C/E/Zn/Coppr/Lutein/Zeaxan 1 cap PO DAILY 10/03/19 12/05/20 [Preservision Areds 2 Softgel] Gabapentin 600 mg PO BID 09/07/19 03/31/20 Cholecalciferol [Vitamin D3 (25 1,000 unit PO BID 03/25/20 03/31/20 Mcg = 1000 Iu)] Cranberry Fruit Extract [Cranberry] 500 mg PO BID 03/25/20 03/31/20 lisinopriL 20 mg PO DAILY 03/25/20 03/31/20 Previous Rx's Medication Instructions Recorded sitaGLIPtin PHOSPHATE [Januvia] 50 mg PO DAILY #30 tab 01/30/19 Acetaminophen Tab [Tylenol] 650 mg PO Q6HR PRN tab 03/27/20 Albuterol Inhaler [Ventolin Hfa 2 puff INHALATION RT-Q2H PRN #1 04/06/20 Inhaler] puff Ascorbic Acid [Vitamin C] 1,000 mg PO DAILY #60 tab 04/06/20 Cholecalciferol [Vitamin D3 (25 1,000 unit PO DAILY #30 tab 04/06/20 Mcg = 1000 Iu)] Sennosides [Senokot] 8.6 mg PO BID PRN #30 tab 04/06/20 Zinc Sulfate [Orazinc] 220 mg PO DAILY #30 cap 04/06/20 amLODIPine [Norvasc] 5 mg PO DAILY #30 tab 04/06/20 dexAMETHasone [Hexadrol] 6 mg PO DAILY 4 Days #12 tab 04/06/20 polyethylene glycoL 3350 [Miralax] 17 gm PO DAILY PRN #3 powd.pack 04/06/20 Allergies Allergy/AdvReac Type Severity Reaction Status Date / Time No Known Allergies Allergy Verified 03/31/20 20:09 Review of Systems ROS Other: All systems not noted in ROS Statement are negative. <Jorge Rocha - Last Filed: 04/10/20 21:48> ROS Other: All systems not noted in ROS Statement are negative. <Zoey Vee - Last Filed: 04/10/20 22:09> ROS Statement: Those systems with pertinent positive or pertinent negative responses have been documented in the HPI. Past Medical History Past Medical History: Diabetes Mellitus, Hypertension, Renal Disease Additional Past Medical History / Comment(s): states cancer of left breast 2015. lumpectomy 2015. DM type 2 2007. History of Any Multi-Drug Resistant Organisms: None Reported Past Surgical History: Appendectomy, Cholecystectomy, Hysterectomy Additional Past Surgical History / Comment(s): rotator cuff surgery Past Anesthesia/Blood Transfusion Reactions: No Reported Reaction Past Psychological History: No Psychological Hx Reported Smoking Status: Former smoker Past Alcohol Use History: Rare Past Drug Use History: None Reported - Past Family History Father Additional Family Medical History / Comment(s): aneurysm Mother Family Medical History: CVA/TIA <Zoey Vee - Last Filed: 04/10/20 22:09> General Exam General appearance: alert, in no apparent distress, other (Physical well- developed well-developed well-nourished adult female patient in no acute distress. Vital signs upon presentation are temperature 98.4F, pulse 72, respirations 24, blood pressure 153/78, pulse ox 96% on 4 L per nasal cannula) ENT exam: Present: normal exam, normal oropharynx, mucous membranes moist Respiratory exam: Present: normal lung sounds bilaterally, other (Tachypnea). Absent: respiratory distress, wheezes, rales, rhonchi, stridor Cardiovascular Exam: Present: regular rate, normal rhythm, normal heart sounds. Absent: systolic murmur, diastolic murmur, rubs, gallop, clicks GI/Abdominal exam: Present: soft, normal bowel sounds. Absent: distended, tenderness, guarding, rebound, rigid Neurological exam: Present: alert, oriented X3, CN II-XII intact Psychiatric exam: Present: normal affect, normal mood Skin exam: Present: warm, dry, intact, normal color. 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 She was diagnosed with Covid 19 and not persistent shortness of breath exertional dyspnea. He patient will require inpatient evaluation and treatment. I do agree with the assessment and plan. The case is discussed with Dr. Armas (Jorge Rocha) Medical Decision Making - Lab Data Result diagrams: 04/10/20 19:37 04/10/20 19:37 <Jorge Rocha - Last Filed: 04/10/20 21:48> - Lab Data Result diagrams: 04/10/20 19:37 04/10/20 19:37 - EKG Data -: EKG Interpreted by Wa - Radiology Data Radiology results: report reviewed, image reviewed <Zoey Vee - Last Filed: 04/10/20 22:09> - Medical Decision Making 69 year old female patient presents to the emergency department today for evaluation of increased shortness of breath and constipation. Patient is diagnosed with Covid on 03/26/2020. Patient states that she has had to increase her home O2 from 2 L to 4 L. States that she is short of breath at rest. She is also reporting no bowel movement for the last 7 days despite taking stool softeners and increasing fruit juices. Physical examination did reveal clear equal lung sounds. She was tachypneic with labored breathing, 2-3 word sentences only. Chest x-ray showed new infiltrate on the left lung. Labs are unremarkable. She'll be admitted to the hospital for further monitoring and oxy gen administration. She is agreeable. (Zoey Vee) - Lab Data Lab Results 04/10/20 04/10/20 04/10/20 Range/Units 19:37 19:37 19:37 WBC 10.0 (3.8-10.6) k/uL RBC 4.96 (3.80-5.40) m/uL Hgb 15.3 (11.4-16.0) gm/dL Hct 46.4 H (34.0-46.0) % MCV 93.6 (80.0-100.0) fL MCH 30.9 (25.0-35.0) pg MCHC 33.0 (31.0-37.0) g/dL RDW 12.4 (11.5-15.5) % Plt Count 279 (150-450) k/uL MPV 7.6 Neutrophils % 89 % Lymphocytes % 5 % Monocytes % 5 % Eosinophils % 0 % Basophils % 1 % Neutrophils # 8.8 H (1.3-7.7) k/uL Lymphocytes # 0.5 L (1.0-4.8) k/uL Monocytes # 0.5 (0-1.0) k/uL Eosinophils # 0.0 (0-0.7) k/uL Basophils # 0.1 (0-0.2) k/uL PT 10.2 (9.0-12.0) sec INR 1.0 (<1.2) APTT 22.1 (22.0-30.0) sec Sodium 132 L (137-145) mmol/L Potassium 4.8 (3.5-5.1) mmol/L Chloride 100 (98-107) mmol/L Carbon Dioxide 23 (22-30) mmol/L Anion Gap 9 mmol/L BUN 22 H (7-17) mg/dL Creatinine 0.61 (0.52-1.04) mg/dL Est GFR (CKD-EPI)AfAm >90 (>60 ml/min/1.73 sqM) Est GFR (CKD-EPI)NonAf >90 (>60 ml/min/1.73 sqM) Glucose 356 H (74-99) mg/dL POC Glucose (mg/dL) (75-99) mg/dL POC Glu Leather Cartridge Belt Maker ID Calcium 9.6 (8.4-10.2) mg/dL Magnesium 1.9 (1.6-2.3) mg/dL Total Bilirubin 0.7 (0.2-1.3) mg/dL AST 58 H (14-36) U/L ALT 54 H (4-34) U/L Alkaline Phosphatase 72 (38-126) U/L Troponin I (0.000-0.034) ng/mL Total Protein 6.5 (6.3-8.2) g/dL Albumin 3.5 (3.5-5.0) g/dL 04/10/20 04/10/20 Range/Units 19:37 19:53 WBC (3.8-10.6) k/uL RBC (3.80-5.40) m/uL Hgb (11.4-16.0) gm/dL Hct (34.0-46.0) % MCV (80.0-100.0) fL MCH (25.0-35.0) pg MCHC (31.0-37.0) g/dL RDW (11.5-15.5) % Plt Count (150-450) k/uL MPV Neutrophils % % Lymphocytes % % Monocytes % % Eosinophils % % Basophils % % Neutrophils # (1.3-7.7) k/uL Lymphocytes # (1.0-4.8) k/uL Monocytes # (0-1.0) k/uL Eosinophils # (0-0.7) k/uL Basophils # (0-0.2) k/uL PT (9.0-12.0) sec INR (<1.2) APTT (22.0-30.0) sec Sodium (137-145) mmol/L Potassium (3.5-5.1) mmol/L Chloride (98-107) mmol/L Carbon Dioxide (22-30) mmol/L Anion Gap mmol/L BUN (7-17) mg/dL Creatinine (0.52-1.04) mg/dL Est GFR (CKD-EPI)AfAm (>60 ml/min/1.73 sqM) Est GFR (CKD-EPI)NonAf (>60 ml/min/1.73 sqM) Glucose (74-99) mg/dL POC Glucose (mg/dL) 315 H (75-99) mg/dL POC Glu Leather Cartridge Belt Maker ID Donna Hassan Calcium (8.4-10.2) mg/dL Magnesium (1.6-2.3) mg/dL Total Bilirubin (0.2-1.3) mg/dL AST (14-36) U/L ALT (4-34) U/L Alkaline Phosphatase (38-126) U/L Troponin I <0.012 (0.000-0.034) ng/mL Total Protein (6.3-8.2) g/dL Albumin (3.5-5.0) g/dL - EKG Data EKG Comments: EKG obtained at 1937 shows normal sinus rhythm with a ventricular rate of 60, OR interval 134, QRS duration 106, QT 440, QTC 440. No evidence of ST elevation or depression. (Zoey Vee) - Radiology Data Two-view x-ray of the chest is obtained. Report was reviewed in its entirety. Impression by Dr. Mauricio Hoskins shows chronic changes with suggestion of new infiltrates in the left mid to lower lung. (Zoey Vee) Disposition <Jorge Rocha - Last Filed: 04/10/20 21:48> Decision to Admit Reason: Admit from EC Decision Date: 04/10/20 Decision Time: 22:07 <Zoey Vee - Last Filed: 04/10/20 22:09> Clinical Impression: Shortness of breath, Hypoxia, Left pulmonary infiltrate on CXR Disposition: ADMITTED IP TO THIS [facility] Condition: Serious Referrals: Sheila Ba MD [Primary Care Provider] - 1-2 days
[2020-04-10 19:55] LABS: Glucose,Whole Blood 315 mg/dL (75-99)
[2020-04-10 20:12] LABS: Basophils # (A) 0.1 k/uL (0-0.2); Basophils % (A) 1 %; Eosinophils % (A) 0 %; HCT 46.4 % (34.0-46.0); HGB 15.3 gm/dL (11.4-16.0); Lymphocytes # (A) 0.5 k/uL (1.0-4.8); Lymphocytes % (A) 5 %; MCH 30.9 pg (25.0-35.0); MCV 93.6 fL (80.0-100.0); Mean Platelet Volume 7.6; Monocytes # (A) 0.5 k/uL (0-1.0); Monocytes % (A) 5 %; Neutrophils # (A) 8.8 k/uL (1.3-7.7); Neutrophils % (A) 89 %; Platelet Count 279 k/uL (150-450); RBC 4.96 m/uL (3.80-5.40); RDW 12.4 % (11.5-15.5)
[2020-04-10 20:20] LABS: ALT 54 U/L (4-34); AST 58 U/L (14-36); African American GFR (CKD) >90 (>60 ml/min/1.73 sqM); Albumin 3.5 g/dL (3.5-5.0); Alkaline Phosphatase 72 U/L (38-126); Anion Gap 9 mmol/L; Blood Urea Nitrogen 22 mg/dL (7-17); Calcium 9.6 mg/dL (8.4-10.2); Carbon Dioxide 23 mmol/L (22-30); Chloride 100 mmol/L (98-107); Glucose 356 mg/dL (74-99); Magnesium 1.9 mg/dL (1.6-2.3); Non-African American GFR(CKD) >90 (>60 ml/min/1.73 sqM); Potassium 4.8 mmol/L (3.5-5.1); Sodium 132 mmol/L (137-145); Total Bilirubin 0.7 mg/dL (0.2-1.3); Total Protein 6.5 g/dL (6.3-8.2)
[2020-04-10 20:45] LABS: Partial Thromboplastin Time 22.1 sec (22.0-30.0); Prothrombin Time 10.2 sec (9.0-12.0)
--- NOTE | 2020-04-10 21:12 | XR ---
EXAMINATION TYPE: XR chest 2V DATE OF EXAM: 04/10/2020 COMPARISON: Chest x-ray 10 days ago. CTA chest 14 days ago. HISTORY: Covid positive March 26 with shortness of breath TECHNIQUE: Frontal and lateral views of the chest are obtained. FINDINGS: Persistent low lung volumes and mild chronic parenchymal changes with some faint left mid lung and basilar opacities currently. The cardiac silhouette size is stable and upper limits of norm al. Metallic anchor right humeral head redemonstrated. IMPRESSION: Chronic changes with suggestion of some new acute infiltrates in the left mid to lower l radha.
[2020-04-10] MEDS ORDERED: NALOXONE 0.4 MG/ML 1 ML VIAL IV PRN (22:05)
[2020-04-10] MEDS ORDERED: ALBUTEROL HFA INHALER INHALATION PRN (22:07)
[2020-04-10] MEDS ORDERED: ACETAMINOPHEN TAB 325 MG TAB PO PRN (23:07)
[2020-04-10] MEDS ORDERED: SENNOSIDES 8.6 MG TAB PO PRN (23:07)
[2020-04-10] MEDS ORDERED: polyethylene glycoL 3350 17 GM POWD.PACK PO PRN (23:07)
[2020-04-10] MEDS ORDERED: HEPARIN SODIUM,PORCINE 5,000 UNIT/ML 1 ML VIAL SQ STA (23:09)
[2020-04-10] MEDS ORDERED: ASPIRIN 81 MG PO SCH (23:15)
[2020-04-10] MEDS ORDERED: ANASTROZOLE 1 MG TAB PO SCH (23:15)
[2020-04-11 00:39] VITALS: PULSE 50; RESP 24
[2020-04-11 00:47] LABS: Glucose,Whole Blood 182 mg/dL (75-99)
[2020-04-11] MEDS: INSULIN ASPART (NovoLOG) 100 UNIT/ML VIAL SQ SCH ×3 (00:49→12:11)
[2020-04-11] MEDS: GABAPENTIN 300 MG CAP PO SCH ×2 (00:49→09:49)
--- NOTE | 2020-04-11 02:44 | P.HPIM ---
History of Present Illness H&P Date: 04/10/20 Chief Complaint: shortness of breath 52 year old female with DM , hypertension patient presented with worsening SOB, despite being on 2 L O2 NC,. patient was diagnosed with COIVD 19 on 03/26/2020 she was released early in march then presented again due to worsening SOB, then released again with oxygen , she finished a course of 10 day decadrone. today coming in due to worsening SOB, despite supplemental oxygen , she report dyspnea even at rest, she cant finish full sentences. she reports persistent cough productive of whitish clear sputum , no hemoptysis, no leg swelling or franklin tenderness, no fever, no chills. but she does report some peluritic type chest pain with coughing. she also report constipation of 1 week duration . she felt better after passing a bowel movement , reports seeing some blood, but this is not new to her, due to hemorrhoids, and manually trying to disampact herself at home, where she thinks she might hurt her anus CXR shoed infilterates in left mid and lower lung. EKG NSR no fever in the ED, no leukocytosis blood work overall unremarkable except for hyperglycemia , and slightly elevated liver enzymes Review of Systems Pertinent positives as noted in HPI. All other systems were reviewed and are negative Past Medical History Past Medical History: Diabetes Mellitus, Hypertension, Renal Disease Additional Past Medical History / Comment(s): states cancer of left breast 2016. lumpectomy 2016. DM type 2 2007. History of Any Multi-Drug Resistant Organisms: None Reported Past Surgical History: Appendectomy, Cholecystectomy, Hysterectomy Additional Past Surgical History / Comment(s): rotator cuff surgery Past Anesthesia/Blood Transfusion Reactions: No Reported Reaction Past Psychological History: No Psychological Hx Reported Smoking Status: Former smoker Past Alcohol Use History: Rare Past Drug Use History: None Reported - Past Family History Father Additional Family Medical History / Comment(s): aneurysm Mother Family Medical History: CVA/TIA Medications and Allergies Home Medications Medication Instructions Recorded Confirmed Type Anastrozole [Arimidex] 1 mg PO HS 01/27/19 04/10/20 History Aspirin EC [Ecotrin Low Dose] 81 mg PO HS 01/27/19 04/10/20 History Calcium/Magnesium/Zinc 1 tab PO BID 01/27/19 04/10/20 History [Uppheyp-Engwvbubu-Nprs Tablet] Vit C/E/Zn/Coppr/Lutein/Zeaxan 1 cap PO DAILY 01/27/19 04/10/20 History [Preservision Areds 2 Softgel] sitaGLIPtin PHOSPHATE [Januvia] 50 mg PO DAILY #30 tab 01/30/19 04/10/20 Rx Gabapentin 600 mg PO BID 09/07/19 04/10/20 History lisinopriL 20 mg PO DAILY 03/25/20 04/10/20 History Acetaminophen Tab [Tylenol] 650 mg PO Q6HR PRN tab 03/27/20 04/10/20 Rx Albuterol Inhaler [Ventolin Hfa 2 puff INHALATION RT-Q2H PRN #1 04/06/20 04/10/20 Rx Inhaler] puff Ascorbic Acid [Vitamin C] 1,000 mg PO DAILY #60 tab 04/06/20 04/10/20 Rx Cholecalciferol [Vitamin D3 (25 1,000 unit PO DAILY #30 tab 04/06/20 04/10/20 Rx Mcg = 1000 Iu)] Sennosides [Senokot] 8.6 mg PO BID PRN #30 tab 04/06/20 04/10/20 Rx Zinc Sulfate [Orazinc] 220 mg PO DAILY #30 cap 04/06/20 04/10/20 Rx amLODIPine [Norvasc] 5 mg PO DAILY #30 tab 04/06/20 04/10/20 Rx polyethylene glycoL 3350 [Miralax] 17 gm PO DAILY PRN #3 powd.pack 04/06/20 04/10/20 Rx Allergies Allergy/AdvReac Type Severity Reaction Status Date / Time shellfish derived [Crab] AdvReac Itching Verified 04/10/20 23:18 shrimp AdvReac Itching Verified 04/10/20 23:18 Physical Exam Vitals: Vital Signs Temp Pulse Resp BP Pulse Ox 04/10/20 19:04 98.4 F 72 24 153/78 96 Intake and Output 04/10/20 04/10/20 04/11/20 14:59 22:59 06:59 Other: Weight 104.326 kg Constitutional: No acute distress, conversant, pleasant Eyes: Anicteric sclerae, moist conjunctiva, Pupils equal round reactive to light ENMT: NC/AT Oropharynx clear, no erythema, or exudates Neck: Supple, FROM, no masses, or JVD No carotid bruits No thyromegaly Lungs: Clear to auscultation Clear to percussion Normal respiratory effort, no accessory muscle use Cardiovascular: Heart regular in rate and rhythm, No murmurs, gallops, or rubs No peripheral edema Abdominal: Soft Nontender, no guarding, rebound or rigidity Abdomen moving with respiration Normoactive bowel sounds No hepatomegaly, No splenomegaly No palpable mass No abdominal wall hernia noted Skin: Normal temperature, tone, texture, turgor No induration No subcutaneous nodules No rash, lesions No ulcers Extremities: No digital cyanosis No clubbing Pedal pulses intact and symmetrical Radial pulses intact and symmetrical No calf tenderness Psychiatric: Alert and oriented to person, place and time Appropriate affect fair judgement Neuro Muscles Strength 4/5 in all 4 extremities Sensation to light touch grossly present throughout Cranial nerves II-XII grossly intact, hard of hearing No focal sensory deficits Lymphatics: no palpable cervical or supraclavicular , or inguinal lymph nodes Results CBC & Chem 7: 04/10/20 19:37 04/10/20 19:37 Labs: Abnormal Lab Results - Last 24 Hours (Table) 04/10/20 04/10/20 04/10/20 Range/Units 19:37 19:37 19:53 Hct 46.4 H (34.0-46.0) % Neutrophils # 8.8 H (1.3-7.7) k/uL Lymphocytes # 0.5 L (1.0-4.8) k/uL Sodium 132 L (137-145) mmol/L BUN 22 H (7-17) mg/dL Glucose 356 H (74-99) mg/dL POC Glucose (mg/dL) 315 H (75-99) mg/dL AST 58 H (14-36) U/L ALT 54 H (4-34) U/L Assessment and Plan Assessment: acute hypoxic respiratory failure due to covid pneumonitis supplemental oxygen as needed check D dimer supportive care continue zinc and vit c patient finished a course of decadrone pulmonary consult chronic condition s DM , insulin sliding scale , A1C 7.5 HTN resume home meds Preformed a thorough record review from recent hospitalization early in march , as summarized in HPI CODE STATUS:full code DVT prophylaxis: heparin sc Discussed with: Patient, ER, RN Anticipated length of stay > than [address]: home A total of 75 minutes was spent on the care of this complex patient more than 50% of the time was spent in counseling and care coordination.
[2020-04-11 04:44] VITALS: BP 130/79; TEMP 97.4
[2020-04-11 07:28] LABS: Glucose,Whole Blood 131 mg/dL (75-99)
[2020-04-11] MEDS: ALBUTEROL HFA INHALER INHALATION SCH ×3 (08:37→16:05)
[2020-04-11] MEDS ORDERED: ASCORBIC ACID 500 MG TAB PO SCH (09:00)
[2020-04-11] MEDS ORDERED: amLODIPine 5 MG TAB PO SCH (09:00)
[2020-04-11] MEDS ORDERED: lisinopriL 20 MG TAB PO SCH (09:00)
[2020-04-11] MEDS ORDERED: CLOTRIMAZOLE 1% CREAM 15 GM TUBE TOPICAL SCH (09:00)
[2020-04-11] MEDS ORDERED: ZINC SULFATE 220 MG CAP PO SCH (09:00)
[2020-04-11] MEDS ORDERED: PANTOPRAZOLE 40 MG TABLET PO SCH (09:00)
[2020-04-11 12:06] LABS: Glucose,Whole Blood 158 mg/dL (75-99)
--- NOTE | 2020-04-11 12:10 | CONS ---
CONSULTATION PULMONARY/CRITICAL CARE CONSULTATION: DATE OF SERVICE: 04/11/2020 This is a 69-year-old female who has now been in the hospital 3 different times. She initially tested positive for COVID 19 back on March 26, 2020. She was in the hospital and discharged on March 27, 2020. She was back in the hospital between March 31 and April 06 with an episode of COVID-19 pneumonitis with hypoxemic respiratory failure. More recently, she was readmitted to the hospital on April 10, 2020 primarily because of slight increasing shortness of breath and more so, constipation. The patient apparently did have a bowel movement last night and feels much better. The nurses seem to think that the patient is just very lonely and that is why she has come into the hospital so many different times. Currently, she does not appear to be in any distress. She has been on home O2 all along. Currently on 3 L by nasal cannula. Not receiving any IV fluids. As I mentioned, she was tested positive for COVID 19 back on March 26. Again her major reason for coming into the hospital was constipation. She denies any worsening shortness of breath, cough, wheezing, phlegm production, fever, chills, chest pain, chest discomfort, nausea, vomiting, diarrhea, or abdominal pain. She also denies all genitourinary complaints. . MEDICATIONS: Reviewed. She is on quite a few things including Arimidex, low-dose aspirin, calcium, magnesium, zinc tablet, cinnamon bark, Osteo Bi-Flex caplets, Protonix, PreserVision tablets, gabapentin vitamin D3, cranberry fruit extract, lisinopril, Januvia, Tylenol, Ventolin inhaler, vitamin C, vitamin D3, Senokot, zinc, amlodipine, Decadron, and propylene glycol tablets. ALLERGIES: Denied. MEDICAL HISTORY: Positive for diabetes mellitus, hypertension, previous COVID-19 pneumonitis with admission, left breast cancer, status post lumpectomy, DJD, and osteoporosis. SURGICAL HISTORY: Includes left breast lumpectomy 2016 for breast cancer, appendectomy, cholecystectomy, hysterectomy, and rotator cuff surgery. SOCIAL HISTORY: Positive for previous tobacco use. She drinks alcohol rarely. No illicit drug use. FAMILY HISTORY: Positive for mother with stroke and father with an aneurysm. REVIEW OF SYSTEMS: CONSTITUTIONAL: Chronic weakness and fatigue, at baseline. NEUROLOGIC: Negative. HEENT: Negative. CARDIOVASCULAR: Negative. PULMONARY: Mild shortness of breath, unchanged. GI: Constipation. : Negative. RHEUMATOLOGIC: Negative. IMMUNOLOGIC: Negative. ENDOCRINOLOGIC: Negative. DERMATOLOGIC: Negative. Vital signs are reviewed, temperature is 97.4, heart rate 50, respiratory rate 20, blood pressure 130/79 mean 96 and 3 L saturations between 94% and 96%. Appears in no acute distress. HEENT: Examination is grossly unremarkable. Nasal cannula noted. NECK: Supple, full range of motion. No adenopathy. Neck veins are flat. CARDIOVASCULAR: Examination reveals regular rhythm and rate. S1, S2 normal. No S3, S4, or murmur. Heart rate about 50 beats per minute. LUNGS: Reveal mostly clear breath sounds. A few scattered rhonchi. No wheezes or crackles. Breath sounds equal. ABDOMEN: Soft, bowel sounds are noted. EXTREMITIES: Intact. There is no edema. SKIN: Without rash. NEUROLOGIC: Examination is nonfocal. LABS: Reviewed. White count 10.0, hemoglobin 15.3, hematocrit 46.4, platelet count 379,000. PT is 10.2, INR 1, PTT is 22.1. Sodium 132, potassium 4.8, chloride 100, CO2 is 23, anion gap is 9. BUN and creatinine were 22 and 0.61. AST was 58, ALT was 54. Microbiologic studies are negative or pending. A chest x-ray was done. It shows some very minimal infiltrative changes bilaterally, maybe more left lung than right. Current medications are reviewed. She is currently on Tylenol, albuterol inhaler, amlodipine, Arimidex, vitamin C, aspirin, Lotrimin cream, gabapentin, subcu heparin, insulin, lisinopril, Narcan, Protonix, MiraLAX, Senokot, saline IV, and zinc. ASSESSMENT: 1. Recent history of COVID-19 pneumonia/pneumonitis with hypoxemic respiratory failure requiring hospitalization March 31 through April 06, 2020. 2. Constipation. 3. Chronic hypoxemic respiratory failure. 4. History of breast cancer, status post lumpectomy 2016. 5. History of diabetes mellitus. 6. History of hypertension. 7. History of chronic kidney disease. PLAN: Currently, the patient seems to be doing relatively well. It appears that she is pretty much at baseline. Her breathing is about the same as it has been. She has been on home O2 since she was discharged on April 06. She was already on vitamin C, vitamin D3, and zinc. She does not need Decadron at this time. She is not a candidate for Remdesivir at this time. The patient could in my opinion be potentially discharged home. She came in primarily for constipation. Apparently had a good bowel movement last night. She feels pretty much back to baseline. Nurses seem to think that she is pretty lonely. This may be why she has been in the hospital now 3 distinct times. MMODL / IJN: [id number] /
[2020-04-11 13:16] LABS: C Reactive Protein <5.0 mg/L (<10.0); LDH 565 U/L (313-618)
[2020-04-11] MEDS ORDERED: bisacodyL 10 MG SUPP RECTAL PRN (13:58)
--- NOTE | 2020-04-11 14:10 | P.CONS ---
History of Present Illness - Reason for Consult Consult date: 04/11/20 COVID AND HYPOXIA - History of Present Illness HISTORY OF PRESENT ILLNESS This is a 69-year-old female, this is her third admission for Covid 19 since March 25. She presented to [facility] due to feeling tired and constipated and had shortness of breath yesterday. Shortness breath has resolved. She denies having any chest pain. She's had A little cough with a little clear sputum production. She denies abdominal pain. No nausea or vomiting. No diarrhea. Chest x-ray showed infiltrates in the left mid and lower lung. EKG was a sinus rhythm. CBC was unremarkable except lymphocytes of 0.5. Patient has been started on vitamin C, vitamin D and zinc. She has previously completed a course of Decadron. REVIEW OF SYSTEMS Constitutional: No fever, no chills, no night sweats. No weight change. No weakness, fatigue or lethargy. No daytime sleepiness. EENT: No headache. No nasal drainage or congestion. No sore throat. Lungs: No shortness of breath, reports cough, reports sputum production. No wheezing. Cardiovascular: No chest pain, no lower extremity edema. No syncopal episodes. Abdominal: No abdominal pain. No nausea, vomiting. No diarrhea. Reports constipation. No bloody or tarry stools. Genitourinary: No dysuria, increased frequency, urgency. Musculoskeletal: No myalgias. No muscle weakness. Integumentary: No wounds, no lesions. No rash or pruritus. Neurologic: No aphasia. No facial droop. No change in mentation. PHYSICAL EXAMINATION Gen: This is a morbidly obese 69-year-old female. Patient is resting in a recliner and appears to be comfortable. No acute respiratory distress noted. HEENT: Head is atraumatic, normocephalic. Pupils equal, round. Sclerae is anicteric. NECK: Supple. No JVD. No lymphadenopathy. No thyromegaly. LUNGS: Clear to auscultation. No wheezes or rhonchi. No intercostal retractions. HEART: Regular rate and rhythm. No murmur. ABDOMEN: Soft. Bowel sounds are present. No masses. No tenderness. EXTREMITIES: No pedal edema. No calf tenderness. NEUROLOGICAL: Patient is awake, alert and oriented x3. ASSESSMENT Recent COVID19 pneumonia with hypoxic respiratory failure, currently stable Constipation PLAN Patient is not candidate for Remdesivir Patient has completed course of dexamethasone Continue supplements for now Obtain inflammatory markers Further recommendations based upon clinical course Thank you kindly for this consultation. The above dictated assessment and findings were discussed with Dr. Alberto. The impression and plan of care have been directed as dictated. Geraldine Combs nurse practitioner acting as scribe for Dr. Alberto. Past Medical History Past Medical History: Diabetes Mellitus, Hypertension, Renal Disease Additional Past Medical History / Comment(s): states cancer of left breast 2016. lumpectomy 2016. DM type 2 2007. History of Any Multi-Drug Resistant Organisms: None Reported Past Surgical History: Appendectomy, Cholecystectomy, Hysterectomy Additional Past Surgical History / Comment(s): rotator cuff surgery Past Anesthesia/Blood Transfusion Reactions: No Reported Reaction Past Psychological History: No Psychological Hx Reported Smoking Status: Former smoker Past Alcohol Use History: Rare Past Drug Use History: None Reported - Past Family History Father Additional Family Medical History / Comment(s): aneurysm Mother Family Medical History: CVA/TIA Medications and Allergies Home Medications Medication Instructions Recorded Confirmed Type Anastrozole [Arimidex] 1 mg PO HS 01/27/19 04/10/20 History Aspirin EC [Ecotrin Low Dose] 81 mg PO HS 01/27/19 04/10/20 History Calcium/Magnesium/Zinc 1 tab PO BID 01/27/19 04/10/20 History [Iamtrhb-Qhcsendac-Kivm Tablet] Vit C/E/Zn/Coppr/Lutein/Zeaxan 1 cap PO DAILY 01/27/19 04/10/20 History [Preservision Areds 2 Softgel] sitaGLIPtin PHOSPHATE [Januvia] 50 mg PO DAILY #30 tab 01/30/19 04/10/20 Rx Gabapentin 600 mg PO BID 09/07/19 04/10/20 History lisinopriL 20 mg PO DAILY 03/25/20 04/10/20 History Acetaminophen Tab [Tylenol] 650 mg PO Q6HR PRN tab 03/27/20 04/10/20 Rx Albuterol Inhaler [Ventolin Hfa 2 puff INHALATION RT-Q2H PRN #1 04/06/20 04/10/20 Rx Inhaler] puff Ascorbic Acid [Vitamin C] 1,000 mg PO DAILY #60 tab 04/06/20 04/10/20 Rx Cholecalciferol [Vitamin D3 (25 1,000 unit PO DAILY #30 tab 04/06/20 04/10/20 Rx Mcg = 1000 Iu)] Sennosides [Senokot] 8.6 mg PO BID PRN #30 tab 04/06/20 04/10/20 Rx Zinc Sulfate [Orazinc] 220 mg PO DAILY #30 cap 04/06/20 04/10/20 Rx amLODIPine [Norvasc] 5 mg PO DAILY #30 tab 04/06/20 04/10/20 Rx polyethylene glycoL 3350 [Miralax] 17 gm PO DAILY PRN #3 powd.pack 04/06/20 04/10/20 Rx Clotrimazole Cream [Lotrimin Cream] 1 applic TOPICAL BID applic 04/11/20 Rx bisacodyL [Dulcolax] 10 mg RECTAL DAILY PRN 10 Days #10 04/11/20 Rx supp Allergies Allergy/AdvReac Type Severity Reaction Status Date / Time shellfish derived [Crab] AdvReac Itching Verified 04/10/20 23:18 shrimp AdvReac Itching Verified 04/10/20 23:18 Physical Exam Vitals: Vital Signs Temp Pulse Pulse Resp BP BP Pulse Ox 04/11/20 08:40 50 L 24 04/11/20 04:42 97.4 F L 50 L 130/79 94 L 04/11/20 00:37 98.0 F 50 L 24 167/86 94 L 04/10/20 23:34 98.0 F 52 L 18 142/66 98 04/10/20 22:15 58 L 19 139/72 98 04/10/20 21:10 56 L 19 140/98 98 04/10/20 19:04 98.4 F 72 24 153/78 96 Intake and Output 04/10/20 04/11/20 04/11/20 22:59 06:59 14:59 Other: Voiding Method Toilet Toilet # Voids 2 Weight 104.326 kg 106 kg Results CBC & Chem 7: 04/10/20 19:37 04/10/20 19:37 Labs: Abnormal Lab Results - Last 24 Hours (Table) 04/10/20 04/10/20 04/10/20 Range/Units 19:37 19:37 19:53 Hct 46.4 H (34.0-46.0) % Neutrophils # 8.8 H (1.3-7.7) k/uL Lymphocytes # 0.5 L (1.0-4.8) k/uL Sodium 132 L (137-145) mmol/L BUN 22 H (7-17) mg/dL Glucose 356 H (74-99) mg/dL POC Glucose (mg/dL) 315 H (75-99) mg/dL AST 58 H (14-36) U/L ALT 54 H (4-34) U/L 04/11/20 04/11/20 04/11/20 Range/Units 00:40 07:25 11:56 Hct (34.0-46.0) % Neutrophils # (1.3-7.7) k/uL Lymphocytes # (1.0-4.8) k/uL Sodium (137-145) mmol/L BUN (7-17) mg/dL Glucose (74-99) mg/dL POC Glucose (mg/dL) 182 H 131 H 158 H (75-99) mg/dL AST (14-36) U/L ALT (4-34) U/L
--- NOTE | 2020-04-11 14:11 | P.DS ---
Providers Date of admission: 04/10/20 21:48 Attending physician: Dallas Appiah MD Consults: 04/10/20 22:06 Consult Physician Routine Consulting Provider: Shayan Acevedo Consult Reason/Comments: Shortness of breath; hypoxia Do you want consulting provider notified?: Yes 04/11/20 08:48 Consult Physician Routine Consulting Provider: Deena Alberto Consult Reason/Comments: COVID positive with hypoxia Do you want consulting provider notified?: Yes Primary care physician: [facility] Course: Admitting diagnoses: 1. Shortness of breath with hypoxic respiratory failure 2. COV ID19 positive Discharge diagnoses: 1. Acute hypoxic respiratory failure secondary to COV ID19 pneumonitis 2. Constipation improved 3. Diabetes mellitus 4. Hypertension 5. Debility 52 year old female with DM , hypertension. Patient presented with worsening SOB, despite being on 2 L O2 NC,. patient was diagnosed with COIVD 19 on 03/26/2020. She was released early in March then presented again due to worsening SOB, then released again with oxygen , she finished a course of 10 day decadrone. On admission patient had worsening SOB, despite supplemental oxygen , she report dyspnea even at rest, she cant finish full sentences. She reported persistent cough productive of whitish clear sputum , no hemoptysis, no leg swelling or franklin tenderness, no fever, no chills. Patient did report some peluritic type chest pain with coughing. She also reported constipation of 1 week duration. Patient was more concerned about her constipation. Patient felt better after passing a bowel movement. CXR shoed infilterates in left mid and lower lung. EKG NSR No fever in the ED, no leukocytosis Blood work overall unremarkable except for hyperglycemia , and slightly elevated liver enzymes Pulmonary did evaluate the patient during hospital stay and they deemed her appropriate for discharge today. Vitals temperature 97.4F heart rate 50 respiratory rate 24 blood pressure 130/79 oxygen 94% on 3 L nasal cannula Physical exam: General: [non toxic], [no distress], [appears at stated age] Derm: [warm], [dry] Head: [atraumatic], [normocephalic], [symmetric] Eyes: [EOMI], [no lid lag], [anicteric sclera] Mouth: [no lip lesion], [mucus membranes moist] Cardiovascular: [S1S2 reg], [no murmur], [positive posterior tibial pulse bilateral], Lungs: [CTA bilateral], [no rhonchi, no rales] , [no accessory muscle use] Abdominal: [soft], [ nontender to palpation], [no guarding], [no appreciable organomegaly] Ext: [no gross muscle atrophy], [no edema], [no contractures] Neuro: [ CN II-XI grossly intact], [no focal neuro deficits] Psych: [Alert], [oriented], [appropriate affect] Follow up with PCP in 1-2 days Condition fair Activity as tolerated Diet diabetic Patient will be discharged with home care Patient Condition at Discharge: Stable Plan - Discharge Summary Discharge Rx Participant: Yes New Discharge Prescriptions: New bisacodyL [Dulcolax] 10 mg RECTAL DAILY PRN 10 Days #10 supp PRN Reason: Constipation Clotrimazole Cream [Lotrimin Cream] 1 applic TOPICAL BID applic Continue Calcium/Magnesium/Zinc [Ufrzaei-Zfmgvupbn-Ziml Tablet] 1 tab PO BID Aspirin EC [Ecotrin Low Dose] 81 mg PO HS Anastrozole [Arimidex] 1 mg PO HS Vit C/E/Zn/Coppr/Lutein/Zeaxan [Preservision Areds 2 Softgel] 1 cap PO DAILY sitaGLIPtin PHOSPHATE [Januvia] 50 mg PO DAILY #30 tab Gabapentin 600 mg PO BID lisinopriL 20 mg PO DAILY Acetaminophen Tab [Tylenol] 650 mg PO Q6HR PRN tab PRN Reason: Mild Pain Or Fever > 100.5 polyethylene glycoL 3350 [Miralax] 17 gm PO DAILY PRN #3 powd.pack PRN Reason: Constipation amLODIPine [Norvasc] 5 mg PO DAILY #30 tab Sennosides [Senokot] 8.6 mg PO BID PRN #30 tab PRN Reason: Constipation Albuterol Inhaler [Ventolin Hfa Inhaler] 2 puff INHALATION RT-Q2H PRN #1 puff PRN Reason: Shortness Of Breath Or Wheezing Ascorbic Acid [Vitamin C] 1,000 mg PO DAILY #60 tab Cholecalciferol [Vitamin D3 (25 Mcg = 1000 Iu)] 1,000 unit PO DAILY #30 tab Zinc Sulfate [Orazinc] 220 mg PO DAILY #30 cap Discharge Medication List Anastrozole [Arimidex] 1 mg PO HS 01/27/19 [History] Aspirin EC [Ecotrin Low Dose] 81 mg PO HS 01/27/19 [History] Calcium/Magnesium/Zinc [Jiaewcb-Ubgprjozm-Nbtp Tablet] 1 tab PO BID 01/27/19 [History] Vit C/E/Zn/Coppr/Lutein/Zeaxan [Preservision Areds 2 Softgel] 1 cap PO DAILY 01/27/19 [History] sitaGLIPtin PHOSPHATE [Januvia] 50 mg PO DAILY #30 tab 01/30/19 [Rx] Gabapentin 600 mg PO BID 09/07/19 [History] lisinopriL 20 mg PO DAILY 03/25/20 [History] Acetaminophen Tab [Tylenol] 650 mg PO Q6HR PRN tab 03/27/20 [Rx] Albuterol Inhaler [Ventolin Hfa Inhaler] 2 puff INHALATION RT-Q2H PRN #1 puff 04/06/20 [Rx] Ascorbic Acid [Vitamin C] 1,000 mg PO DAILY #60 tab 04/06/20 [Rx] Cholecalciferol [Vitamin D3 (25 Mcg = 1000 Iu)] 1,000 unit PO DAILY #30 tab 04/06/20 [Rx] Sennosides [Senokot] 8.6 mg PO BID PRN #30 tab 04/06/20 [Rx] Zinc Sulfate [Orazinc] 220 mg PO DAILY #30 cap 04/06/20 [Rx] amLODIPine [Norvasc] 5 mg PO DAILY #30 tab 04/06/20 [Rx] polyethylene glycoL 3350 [Miralax] 17 gm PO DAILY PRN #3 powd.pack 04/06/20 [Rx] Clotrimazole Cream [Lotrimin Cream] 1 applic TOPICAL BID applic 04/11/20 [Rx] bisacodyL [Dulcolax] 10 mg RECTAL DAILY PRN 10 Days #10 supp 04/11/20 [Rx] Follow up Appointment(s)/Referral(s): [facility], [NON-STAFF] - Sheila Ba MD [Primary Care Provider] - 1-2 days Discharge/Stand Alone Forms: Who Do I Call? Discharge Disposition: HOME WITH HOME HEALTH SERVICES
[2020-04-11 14:39] VITALS: BMI 41.3
== END 2020-04-11 16:35 | disposition home health service (06) | DRG 177 ==
LOC: EC 19:02 → 6NMEDSUR 21:48
PROVIDERS: ADMIT Internal Medicine; ATTEND Internal Medicine
DX: U07.1 COVID-19 (principal); J96.21 Acute and chronic respiratory failure with hypoxia; J12.89 Other viral pneumonia; I12.9 Hypertensive chronic kidney disease with stage 1 through stage 4 chronic kidney disease, or unspecified chronic kidney disease; E11.65 Type 2 diabetes mellitus with hyperglycemia; E11.22 Type 2 diabetes mellitus with diabetic chronic kidney disease; M81.0 Age-related osteoporosis without current pathological fracture; K64.9 Unspecified hemorrhoids; K59.00 Constipation, unspecified; N18.9 Chronic kidney disease, unspecified; R53.81 Other malaise; Z79.84 Long term (current) use of oral hypoglycemic drugs; Z79.899 Other long term (current) drug therapy; Z82.3 Family history of stroke; Z85.3 Personal history of malignant neoplasm of breast; Z86.19 Personal history of other infectious and parasitic diseases; Z90.710 Acquired absence of both cervix and uterus; Z87.891 Personal history of nicotine dependence; Z87.01 Personal history of pneumonia (recurrent); Z90.49 Acquired absence of other specified parts of digestive tract
CPT/HCPCS: 36415; 71046; 80053; 83615; 83735; 84145; 84484; 85025; 85379; 85610; 85730; 86140; 93005; 94640; 96360; 96361; 99285

== ENCOUNTER → 2020-08-02 | Outpatient (CLI) | payer MEDICARE ==
--- NOTE | 2020-08-02 19:19 | CT ---
EXAMINATION TYPE: CT chest abdomen w con DATE OF EXAM: 08/02/2020 COMPARISON: 03/27/2020 and prior. HISTORY: right sided chest and abdominal pain CT DLP: 1831.1 mGycm. Automated Exposure Control for Dose Reduction was Utilized. CONTRAST: CT scan of the thorax and abdomen is performed with IV Contrast, patient injected with 100 mL of Isov ue 300. FINDINGS: LUNGS: There are small dependent opacities in the bilateral lower and right upper lobes. There is n o pleural effusion or pneumothorax seen. The tracheobronchial tree is patent. MEDIASTINUM: There are no greater than 1 cm hilar or mediastinal lymph nodes. No pericardial effusi on is seen. OTHER: No additional significant abnormality is seen. LIVER/GB: No acute abnormality is appreciated. Cholecystectomy. PANCREAS: No significant abnormality is seen. SPLEEN: No significant abnormality is seen. ADRENALS: No significant abnormality is seen. KIDNEYS: No bilateral hydronephrosis or nephrolithiasis. A 2.2 cm simple appearing right renal cyst. BOWEL: No significant abnormality is seen. LYMPH NODES: No greater than 1cm abdominal or pelvic lymph nodes are appreciated. OSSEOUS STRUCTURES: No acute abnormality is seen. Moderate thoracolumbar spondylosis. Moderate disc b ulge seen at T12-L1 with central canal stenosis. OTHER: No significant additional abnormality is seen. IMPRESSION: Mild bilateral dependent opacities, compatible with atelectasis. Superimposed infiltrate is better ex cluded clinically. No acute abnormality of the abdomen. Moderate thoracolumbar spondylosis with disc bulge and central canal stenosis at T12-L1, chronic appe aring.
== END | disposition home or self-care (01) ==
LOC: RADCTMAIN 17:04
PROVIDERS: ATTEND Nurse Practitioner Family
DX: R91.8 Other nonspecific abnormal finding of lung field (principal); R10.9 Unspecified abdominal pain; R07.1 Chest pain on breathing
CPT/HCPCS: 82565; 84520; 71260; 74160; 36415; Q9967

== ENCOUNTER 2020-08-30 14:23 | Observation (INO) | payer MEDICARE ==
[2020-08-30 14:30] VITALS: TEMP 98
[2020-08-30 15:59] LABS: Basophils # (A) 0.1 k/uL (0-0.2); Basophils % (A) 1 %; Eosinophils # (A) 0.3 k/uL (0-0.7); Eosinophils % (A) 5 %; HCT 42.4 % (34.0-46.0); HGB 14.5 gm/dL (11.4-16.0); Lymphocytes # (A) 1.7 k/uL (1.0-4.8); Lymphocytes % (A) 27 %; MCH 31.7 pg (25.0-35.0); MCHC 34.2 g/dL (31.0-37.0); MCV 92.8 fL (80.0-100.0); Mean Platelet Volume 7.8; Monocytes # (A) 0.4 k/uL (0-1.0); Monocytes % (A) 6 %; Neutrophils # (A) 3.7 k/uL (1.3-7.7); Neutrophils % (A) 59 %; Platelet Count 153 k/uL (150-450); RBC 4.57 m/uL (3.80-5.40); RDW 12.7 % (11.5-15.5); WBC 6.3 k/uL (3.8-10.6)
[2020-08-30 16:14] LABS: ALT 31 U/L (4-34); AST 45 U/L (14-36); African American GFR (CKD) >90 (>60 ml/min/1.73 sqM); Albumin 3.8 g/dL (3.5-5.0); Alkaline Phosphatase 85 U/L (38-126); Anion Gap 6 mmol/L; Blood Urea Nitrogen 18 mg/dL (7-17); Calcium 9.8 mg/dL (8.4-10.2); Carbon Dioxide 29 mmol/L (22-30); Chloride 104 mmol/L (98-107); Glucose 139 mg/dL (74-99); Lipase 327 U/L (23-300); Magnesium 1.9 mg/dL (1.6-2.3); Non-African American GFR(CKD) 81 (>60 ml/min/1.73 sqM); Potassium 4.2 mmol/L (3.5-5.1); Sodium 139 mmol/L (137-145); Total Bilirubin 0.3 mg/dL (0.2-1.3); Total Protein 6.6 g/dL (6.3-8.2)
[2020-08-30 16:17] LABS: Partial Thromboplastin Time 22.7 sec (22.0-30.0); Prothrombin Time 10.3 sec (9.0-12.0)
--- NOTE | 2020-08-30 16:19 | XR ---
EXAMINATION TYPE: XR chest 2V DATE OF EXAM: 08/30/2020 COMPARISON: 05/16/2020 HISTORY: Chest pain TECHNIQUE: 2 views FINDINGS: Heart and mediastinum are normal. Lungs are clear. Diaphragm is normal. Bony thorax is inta ct. There are chest leads. IMPRESSION: Normal chest. No change.
[2020-08-30 16:20] LABS: D-Dimer 1.62 mg/L FEU (<0.60)
--- NOTE | 2020-08-30 16:37 | ED ---
Chest Pain HPI - General Chief Complaint: Chest Pain Stated Complaint: Chest Pain,SOB Time Seen by Provider: 08/30/20 14:30 Source: patient Mode of arrival: ambulatory Limitations: no limitations - History of Present Illness Initial Comments: Patient is a 70-year-old female who presents emergency Department with reported chest pain. Patient states over the past couple of days she has developed a right-sided chest pain which is pleuritic in nature. It is accompanied by exertional shortness of breath. Patient denies previous history of cardiac or p ulmonary issues. She did have a cardiac catheterization around the year 1999 and states that it was normal. She denies history of DVT or PE. No recent cough, fevers or chills. Denies any calf pain or swelling. No lower extremity edema. No ripping or tearing sensation to her back. Does admit that the pain is reproducible upon palpation and movement. Patient did take her "fat cat" to the that yesterday however states that the pain existed previous to this. No other alleviating, precipitating or modifying factors - Related Data Home Medications Medication Instructions Recorded Confirmed Anastrozole [Arimidex] 1 mg PO HS 01/27/19 08/30/20 Aspirin EC [Ecotrin Low Dose] 81 mg PO HS 01/27/19 08/30/20 Calcium/Magnesium/Zinc 1 tab PO BID 01/27/19 08/30/20 [[place]huds-Umoswetjf-Zkvg Tablet] Vit C/E/Zn/Coppr/Lutein/Zeaxan 1 cap PO DAILY 01/27/19 08/30/20 [Preservision Areds 2 Softgel] Gabapentin 600 mg PO BID 09/07/19 08/30/20 lisinopriL 20 mg PO DAILY 03/25/20 08/30/20 Cinnamon Bark [Cinnamon] 500 mg PO BID 08/30/20 08/30/20 Cranberry 25,200mg 1 cap PO BID 08/30/20 08/30/20 Glucos Sul 2Kcl/MSM/Chond/C/Mn 1 cap PO BID 08/30/20 08/30/20 [Glucosamine Chondroitin Cap] Pantoprazole [Protonix] 40 mg PO HS 08/30/20 08/30/20 amLODIPine [Norvasc] 10 mg PO DAILY 08/30/20 08/30/20 Previous Rx's Medication Instructions Recorded sitaGLIPtin PHOSPHATE [Januvia] 50 mg PO DAILY #30 tab 01/30/19 Cholecalciferol [Vitamin D3 (25 1,000 unit PO DAILY #30 tab 04/06/20 Mcg = 1000 Iu)] Allergies Allergy/AdvReac Type Severity Reaction Status Date / Time shellfish derived [Crab] Allergy Rash/Hives Verified 08/30/20 16:27 shrimp Allergy Rash/Hives Verified 08/30/20 16:27 Review of Systems ROS Statement: Those systems with pertinent positive or pertinent negative responses have been documented in the HPI. ROS Other: All systems not noted in ROS Statement are negative. EKG Findings - EKG Comments: EKG Findings:: EKG demonstrates normal sinus rhythm with a ventricular rate of 69. LA interval 154. QRS 118. QTC of 465. No acute ST segment elevations or depressions Past Medical History Past Medical History: Diabetes Mellitus, Hypertension, Renal Disease Additional Past Medical History / Comment(s): states cancer of left breast 2016. lumpectomy 2016. DM type 2 2007. History of Any Multi-Drug Resistant Organisms: None Reported Past Surgical History: Appendectomy, Cholecystectomy, Hysterectomy Additional Past Surgical History / Comment(s): rotator cuff surgery Past Anesthesia/Blood Transfusion Reactions: No Reported Reaction Past Psychological History: No Psychological Hx Reported Smoking Status: Former smoker Past Alcohol Use History: Rare Past Drug Use History: None Reported - Past Family History Father Additional Family Medical History / Comment(s): aneurysm Mother Family Medical History: CVA/TIA General Exam Limitations: no limitations General appearance: alert, in no apparent distress Head exam: Present: atraumatic, normocephalic, normal inspection Eye exam: Present: normal appearance, PERRL, EOMI. Absent: scleral icterus, c onjunctival injection, periorbital swelling ENT exam: Present: normal exam, mucous membranes moist Neck exam: Present: normal inspection. Absent: tenderness, meningismus, lymphadenopathy Respiratory exam: Present: normal lung sounds bilaterally, chest wall tenderness (right sided chest wall). Absent: respiratory distress, wheezes, rales, rhonchi, stridor Cardiovascular Exam: Present: regular rate, normal rhythm, normal heart sounds. Absent: systolic murmur, diastolic murmur, rubs, gallop, clicks GI/Abdominal exam: Present: soft, normal bowel sounds. Absent: distended, tenderness, guarding, rebound, rigid Extremities exam: Present: normal inspection, full ROM, normal capillary refill. Absent: tenderness, pedal edema, joint swelling, calf tenderness Back exam: Present: normal inspection Neurological exam: Present: alert, oriented X3, CN II-XII intact Psychiatric exam: Present: normal affect, normal mood Skin exam: Present: warm, dry, intact, normal color. Absent: rash Course Vital Signs 08/30/20 08/30/20 08/30/20 14:27 16:35 18:42 Temperature 98 F Pulse Rate 74 56 L 68 Respiratory 18 18 18 Rate Blood Pressure 134/75 156/74 115/78 O2 Sat by Pulse 98 99 97 Oximetry 08/30/20 08/30/20 20:55 22:55 Temperature Pulse Rate 77 70 Respiratory 18 18 Rate Blood Pressure 119/62 139/69 O2 Sat by Pulse 99 98 Oximetry Chest Pain MDM - MDM Upon arrival patient is placed into room 21. A thorough history and physical exam was performed. Laboratory studies were conducted. D-dimer is 1.62. Troponin is negative. Lipase 327. Because of the elevated d-dimer I did recommend a CT. Chest x-ray originally demonstrated no acute findings. Follow- up CT demonstrates mild posterior subsegmental atelectasis increased compared to old. I did discuss results with the patient. Did recommend admission ordered from patient's troponins and have cardiology with the patient. Patient did agree to this. I spoke with Dr. Armas who agreed with the patient. She is currently awaiting a bed on the floor Disposition Clinical Impression: Chest pain, Acute respiratory insufficiency Disposition: ADMITTED IP TO THIS HOSP Condition: Stable Is patient prescribed a controlled substance at d/c from ED?: No Decision to Admit Reason: Admit from EC Decision Date: 08/30/20 Decision Time: 18:28
[2020-08-30] MEDS ORDERED: NALOXONE 0.4 MG/ML 1 ML VIAL IV PRN (18:28)
--- NOTE | 2020-08-30 19:13 | CT ---
EXAMINATION TYPE: CT chest angio for PE DATE OF EXAM: 08/30/2020 COMPARISON: 03/27/2020 HISTORY: Chest pain and shortness of breath. CT DLP: 553 mGycm Automated exposure control for dose reduction was used. CONTRAST: Performed with IV Contrast, patient injected with 100ml mL of Isovue 370. There are 3-D post processed images. There is mild subsegmental atelectasis in the posterior lung arteaga. There is no pleural effusion. Th ere is no pericardial effusion. Heart size is normal. There is no mediastinal adenopathy. There are no hilar masses. There is normal contrast opacification of the pulmonary arteries. There are no filling defects. Thoracic aorta is intact. There is no aneur ysm or dissection. The ascending aorta measures 3.5 cm. Upper abdominal soft tissues are intact. Thoracic vertebra appear intact. There is no compression fra cture. Sternum is intact. IMPRESSION: No evidence of pulmonary embolism. There is mild posterior subsegmental atelectasis increased compared to old exam. Normal heart.
[2020-08-30] MEDS ORDERED: NON FORMULARY DRUG (Calcium/Magnesium/Zinc [Calcium-Magnesium-Zinc Tablet] 1 EACH Tablet) PO SCH (22:30)
[2020-08-30] MEDS ORDERED: CRANBERRY 25200 MG PO SCH (22:30)
[2020-08-30] MEDS ORDERED: NON FORMULARY DRUG (Cinnamon Bark [Cinnamon] 500 MG Capsule) PO SCH (22:30)
[2020-08-30] MEDS ORDERED: ASPIRIN 81 MG PO SCH (22:30)
[2020-08-30] MEDS ORDERED: ANASTROZOLE 1 MG TAB PO SCH (22:30)
[2020-08-30] MEDS ORDERED: PANTOPRAZOLE 40 MG TABLET PO SCH (22:30)
[2020-08-30] MEDS ORDERED: NON FORMULARY DRUG (Glucos Sul 2kcl/Msm/Chond/C/Mn [Glucosamine Chondroitin Cap] 1 EACH Ca PO SCH (22:30)
[2020-08-30] MEDS: GABAPENTIN 300 MG CAP PO SCH (22:47)
[2020-08-31 06:05] LABS: Glucose,Whole Blood 103 mg/dL (75-99)
[2020-08-31] MEDS: GABAPENTIN 300 MG CAP PO SCH (08:55)
[2020-08-31] MEDS ORDERED: VIT A,C & E-LUTEIN-MINERALS 1 EACH TAB PO SCH (09:00)
[2020-08-31] MEDS ORDERED: amLODIPine 10 MG TAB PO SCH (09:00)
[2020-08-31] MEDS ORDERED: lisinopriL 20 MG TAB PO SCH (09:00)
[2020-08-31] MEDS ORDERED: CHOLECALCIFEROL 25 MCG (1000 IU) TABLET PO SCH (09:00)
[2020-08-31 09:01] VITALS: BP 135/72; PULSE 51; RESP 16
--- NOTE | 2020-08-31 09:07 | P.HPIM ---
History of Present Illness Patient is a 70-year-old female who presents emergency Department with reported chest pain. Patient states over the past couple of days she has developed a right-sided chest pain which is pleuritic in nature. It is accompanied by e xertional shortness of breath. Patient denies previous history of cardiac or pulmonary issues. She did have a cardiac catheterization around the year 1999 and states that it was normal. She denies history of DVT or PE. No recent cough, fevers or chills. Denies any calf pain or swelling. No lower extremity edema. No ripping or tearing sensation to her back. Does admit that the pain is reproducible upon palpation and movement. No other alleviating, precipitating or modifying factors Patient had a CT angios the chest did not show any significant abnormality. Patient does have any pneumonia. Patient chest pain is reproducible probably musculoskeletal in origin cardia was evaluated by cardiology. Patient had a stress test more than 10 years ago. Review of Systems REVIEW OF SYSTEMS: CONSTITUTIONAL: No fever, no malaise, no fatigue. HEENT: No recent visual problems or hearing problems. Denied any sore throat. CARDIOVASCULAR: No orthopnea, PND, no palpitations, no syncope. PULMONARY: No shortness of breath, no cough, no hemoptysis. GASTROINTESTINAL: No diarrhea, no nausea, no vomiting, no abdominal pain. NEUROLOGICAL: No headaches, no weakness, no numbness. HEMATOLOGICAL: Denies any bleeding or petechiae. GENITOURINARY: Denies any burning micturition, frequency, or urgency. MUSCULOSKELETAL/RHEUMATOLOGICAL: Denies any joint pain, swelling, or any muscle pain. ENDOCRINE: Denies any polyuria or polydipsia. The rest of the 14-point review of systems is negative. Past Medical History Past Medical History: Diabetes Mellitus, Hypertension, Renal Disease Additional Past Medical History / Comment(s): states cancer of left breast 2016. lumpectomy 2016. DM type 2 2007. History of Any Multi-Drug Resistant Organisms: None Reported Past Surgical History: Appendectomy, Cholecystectomy, Hysterectomy, Orthopedic Surgery Additional Past Surgical History / Comment(s): rotator cuff surgery, RIGHT TKA Past Anesthesia/Blood Transfusion Reactions: No Reported Reaction Past Psychological History: No Psychological Hx Reported Additional Psychological History / Comment(s): states depression previously 2011 but no longer Smoking Status: Former smoker Past Alcohol Use History: Rare Past Drug Use History: None Reported - Past Family History Father Additional Family Medical History / Comment(s): aneurysm Mother Family Medical History: CVA/TIA Medications and Allergies Home Medications Medication Instructions Recorded Confirmed Type Anastrozole [Arimidex] 1 mg PO HS 01/27/19 08/30/20 History Aspirin EC [Ecotrin Low Dose] 81 mg PO HS 01/27/19 08/30/20 History Calcium/Magnesium/Zinc 1 tab PO BID 01/27/19 08/30/20 History [Kaasefx-Ykelkbgrv-Nggg Tablet] Vit C/E/Zn/Coppr/Lutein/Zeaxan 1 cap PO DAILY 01/27/19 08/30/20 History [Preservision Areds 2 Softgel] sitaGLIPtin PHOSPHATE [Januvia] 50 mg PO DAILY #30 tab 01/30/19 08/30/20 Rx Gabapentin 600 mg PO BID 09/07/19 08/30/20 History lisinopriL 20 mg PO DAILY 03/25/20 08/30/20 History Cholecalciferol [Vitamin D3 (25 1,000 unit PO DAILY #30 tab 04/06/20 08/30/20 Rx Mcg = 1000 Iu)] Cinnamon Bark [Cinnamon] 500 mg PO BID 08/30/20 08/30/20 History Cranberry 25,200mg 1 cap PO BID 08/30/20 08/30/20 History Glucos Sul 2Kcl/MSM/Chond/C/Mn 1 cap PO BID 08/30/20 08/30/20 History [Glucosamine Chondroitin Cap] Pantoprazole [Protonix] 40 mg PO HS 08/30/20 08/30/20 History amLODIPine [Norvasc] 10 mg PO DAILY 08/30/20 08/30/20 History glipiZIDE [Glucotrol] 5 mg PO AC-BRKFST 08/30/20 08/30/20 History Allergies Allergy/AdvReac Type Severity Reaction Status Date / Time shellfish derived [Crab] Allergy Rash/Hives Verified 08/30/20 16:27 shrimp Allergy Rash/Hives Verified 08/30/20 16:27 Physical Exam Vitals: Vital Signs Temp Pulse Pulse Resp BP BP Pulse Ox 08/31/20 08:55 98 F 51 L 16 135/72 94 L 08/31/20 04:02 67 18 141/72 97 08/31/20 03:56 67 18 08/30/20 22:55 70 18 139/69 98 08/30/20 20:55 77 18 119/62 99 08/30/20 18:42 68 18 115/78 97 08/30/20 16:35 56 L 18 156/74 99 08/30/20 14:27 98 F 74 18 134/75 98 Intake and Output 08/30/20 08/31/20 08/31/20 22:59 06:59 14:59 Other: Voiding Method Toilet # Voids 1 Weight 106 kg PHYSICAL EXAMINATION: GENERAL: The patient is alert and oriented x3, not in any acute distress. Well developed, well nourished. HEENT: Pupils are round and equally reacting to light. EOMI. No scleral icterus. No conjunctival pallor. Normocephalic, atraumatic. No pharyngeal erythema. No thyromegaly. CARDIOVASCULAR: S1 and S2 present. No murmurs, rubs, or gallops. PULMONARY: Chest is clear to auscultation, no wheezing or crackles. ABDOMEN: Soft, nontender, nondistended, normoactive bowel sounds. No palpable organomegaly. MUSCULOSKELETAL: No joint swelling or deformity. EXTREMITIES: No cyanosis, clubbing, or pedal edema. NEUROLOGICAL: Gross neurological examination did not reveal any focal deficits. SKIN: No rashes. Results CBC & Chem 7: 08/30/20 15:46 08/30/20 15:46 Labs: Abnormal Lab Results - Last 24 Hours (Table) 08/30/20 08/30/20 08/31/20 Range/Units 15:46 15:46 06:03 D-Dimer 1.62 H (<0.60) mg/L FEU BUN 18 H (7-17) mg/dL Glucose 139 H (74-99) mg/dL POC Glucose (mg/dL) 103 H (75-99) mg/dL AST 45 H (14-36) U/L Lipase 327 H (23-300) U/L Thrombosis Risk Factor Assmnt - Choose All That Apply Each Factor Represents 1 point: Obesity (BMI >25) Each Risk Factor Represents 2 Points: Age 61-74 years Thrombosis Risk Factor Assessment Total Risk Factor Score: 3 Thrombosis Risk Factor Assessment Level: Moderate Risk Assessment and Plan Plan: -Chest pain: Rule out a acute coronary syndromes. Patient was evaluated by cardiology patient probably will undergo stress test if that's negative patient will be discharged. Patient chest pain is musculoskeletal clinically. -Hypertension -Type 2 diabetes mellitus patient of probably will not need glipizide and Januvia as her blood sugars are low normal at this time. Patient will be discharged on Januvia hold off on glipizide patient will check her blood sugars twice a day -Hyperlipidemia -Diabetic peripheral neuropathy -Left breast cancer in 2016 had a lumpectomy in 2016 appears to be in remission patient is on anastrozole which will be continued.
--- NOTE | 2020-08-31 09:09 | P.DS ---
Providers Date of admission: 08/30/20 18:28 Attending physician: Andrew Armas Consults: 08/30/20 18:29 Consult Physician Urgent Consulting Provider: [facility] Consult Reason/Comments: acute chest pain, possible acs Do you want consulting provider notified?: Yes Primary care physician: [facility] Course: Please refer to HPI for further details Patient Condition at Discharge: Stable Plan - Discharge Summary New Discharge Prescriptions: Continue Calcium/Magnesium/Zinc [Tpeelgx-Ebjkkavet-Ryeb Tablet] 1 tab PO BID Aspirin EC [Ecotrin Low Dose] 81 mg PO HS Anastrozole [Arimidex] 1 mg PO HS Vit C/E/Zn/Coppr/Lutein/Zeaxan [Preservision Areds 2 Softgel] 1 cap PO DAILY sitaGLIPtin PHOSPHATE [Januvia] 50 mg PO DAILY #30 tab Gabapentin 600 mg PO BID lisinopriL 20 mg PO DAILY Cholecalciferol [Vitamin D3 (25 Mcg = 1000 Iu)] 1,000 unit PO DAILY #30 tab Cranberry 25,200mg 1 cap PO BID amLODIPine [Norvasc] 10 mg PO DAILY Glucos Sul 2Kcl/MSM/Chond/C/Mn [Glucosamine Chondroitin Cap] 1 cap PO BID Pantoprazole [Protonix] 40 mg PO HS Cinnamon Bark [Cinnamon] 500 mg PO BID Discontinued glipiZIDE [Glucotrol] 5 mg PO AC-BRKFST Discharge Medication List Anastrozole [Arimidex] 1 mg PO HS 01/27/19 [History] Aspirin EC [Ecotrin Low Dose] 81 mg PO HS 01/27/19 [History] Calcium/Magnesium/Zinc [Klbnsbr-Izolnkecw-Otjt Tablet] 1 tab PO BID 01/27/19 [History] Vit C/E/Zn/Coppr/Lutein/Zeaxan [Preservision Areds 2 Softgel] 1 cap PO DAILY 01/27/19 [History] sitaGLIPtin PHOSPHATE [Januvia] 50 mg PO DAILY #30 tab 01/30/19 [Rx] Gabapentin 600 mg PO BID 09/07/19 [History] lisinopriL 20 mg PO DAILY 03/25/20 [History] Cholecalciferol [Vitamin D3 (25 Mcg = 1000 Iu)] 1,000 unit PO DAILY #30 tab 04/06/20 [Rx] Cinnamon Bark [Cinnamon] 500 mg PO BID 08/30/20 [History] Cranberry 25,200mg 1 cap PO BID 08/30/20 [History] Glucos Sul 2Kcl/MSM/Chond/C/Mn [Glucosamine Chondroitin Cap] 1 cap PO BID 08/30/20 [History] Pantoprazole [Protonix] 40 mg PO HS 08/30/20 [History] amLODIPine [Norvasc] 10 mg PO DAILY 08/30/20 [History] Follow up Appointment(s)/Referral(s): Sheila Ba MD [Primary Care Provider] - 3 Days
[2020-08-31] MEDS ORDERED: REGADENOSON 0.4 MG/5 ML SYRINGE IV PRN (09:25)
[2020-08-31] MEDS ORDERED: CAFFEINE CITRATE 60 MG/3 ML VIAL IV PRN (09:25)
[2020-08-31] MEDS ORDERED: AMINOPHYLLINE 500 MG/20 ML VIAL IV PRN (09:25)
[2020-08-31] MEDS ORDERED: ATORVASTATIN 10 MG TAB PO SCH (09:30)
[2020-08-31 09:41] LABS: Basophils # (A) 0.05 X 10*3/uL (0.00-0.10); Basophils % (A) 0.9 %; Eosinophils # (A) 0.34 X 10*3/uL (0.04-0.35); Eosinophils % (A) 5.9 %; HCT 43.6 % (37.2-46.3); HGB 13.7 g/dL (12.0-15.0); Lymphocytes # (A) 1.71 X 10*3/uL (0.90-5.00); Lymphocytes % (A) 29.8 %; MCH 29.7 pg (27.0-32.0); MCHC 31.4 g/dL (32.0-37.0); MCV 94.6 fL (80.0-97.0); Mean Platelet Volume 11.8 fL (9.5-12.2); Monocytes # (A) 0.61 X 10*3/uL (0.20-1.00); Monocytes % (A) 10.6 %; Neutrophils # (A) 3.01 X 10*3/uL (1.80-7.70); Neutrophils % (A) 52.6 %; Platelet Count 177 X 10*3/uL (140-440); RBC 4.61 X 10*6/uL (4.10-5.20); RDW 13.2 % (11.5-14.5); WBC 5.73 X 10*3/uL (4.50-10.00)
[2020-08-31 10:29] LABS: African American GFR (CKD) 86.6 (60.0-200.0); Anion Gap 10.5 mmol/L (4.00-12.00); BUN/Creat Ratio 22.5 Ratio (12.00-20.00); Calcium 9.5 mg/dL (8.7-10.3); Carbon Dioxide 25.5 mmol/L (21.6-31.8); Non-African American GFR(CKD) 74.7 (60.0-200.0); Potassium 4.3 mmol/L (3.5-5.5)
--- NOTE | 2020-08-31 12:00 | ECHOF ---
Referral Reason:chest pain MEASUREMENTS -------- HEIGHT: 160.0 cm WEIGHT: 105.7 kg BP: 141/72 RVIDd: 3.3 cm (< 3.3) IVSd: 1.0 cm (0.6 - 1.1) LVIDd: 4.3 cm (3.9 - 5.3) LVPWd: 1.3 cm (0.6 - 1.1) IVSs: 1.5 cm LVIDs: 2.8 cm LVPWs: 1.7 cm LA Diam: 4.3 cm (2.7 - 3.8) Ao Diam: 3.3 cm (2.0 - 3.7) AV Cusp: 2.3 cm (1.5 - 2.6) LA Diam: 3.4 cm (2.7 - 3.8) MV EXCURSION: 17.009 mm (> 18.000) MV EF SLOPE: 91 mm/s (70 - 150) EPSS: 0.5 cm MV E Danny: 0.64 m/s MV DecT: 160 ms MV A Danny: 0.69 m/s MV E/A Ratio: 0.93 RAP: 5.00 mmHg RVSP: 27.41 mmHg FINDINGS -------- Sinus rhythm. This was a technically adequate study. The left ventricular size is normal. There is mild concentric left ventricular hypertrophy. Overa ll left ventricular systolic function is normal with, an EF between 55 - 60 %. The diastolic fillin g pattern is normal for the age of the patient {E/E'}. The right ventricle is mildly enlarged. The left atrium is mildly dilated. The right atrial size is normal. Interatrial and interventricular septum intact. Trace amount of aortic regurgitation. There is no evidence of aortic stenosis. Mild mitral regurgitation is present. Mild tricuspid regurgitation present. There is no evidence of pulmonary hypertension. The right v entricular systolic pressure, as measured by Doppler, is 27.41mmHg. There is no pulmonic regurgitation present. The aortic root size is normal. Normal inferior vena cava with normal inspiratory collapse consistent with estimated right atrial pre ssure of 5 mmHg. There is no pericardial effusion. CONCLUSIONS -------- 1. The left ventricular size is normal. 2. There is mild concentric left ventricular hypertrophy. 3. Overall left ventricular systolic function is normal with, an EF between 55 - 60 %. 4. The diastolic filling pattern is normal for the age of the patient {E/E'} 5. The right ventricle is mildly enlarged. 6. The left atrium is mildly dilated. 7. Trace amount of aortic regurgitation. 8. Mild mitral regurgitation is present. 9. Mild tricuspid regurgitation present. MATERIAL LISTER: Ayana Crane RDCS
--- NOTE | 2020-08-31 12:16 | P.STRESS ---
- Stress Test Note Stress Test Results/Findings: Exam Performed: NM stress lexiscan cardiolite Exam Date: 08/31/20 Reason for Exam: Chest Pain Height: 5 ft 3 in Weight: 106 kg Protocol: Maritza Stage: NA Duration of Exercise: NA Resting Heart Rate: 61 Resting Blood Pressure: 146/67 Maximum Achieved Heart Rate: 75 Maximum Achieved Blood Pressure: 146/67 85% PMHR: 128 100% PMHR: 150 METS: na Technologist Comment: Stress Test Results/Findings: At baseline EKG showed normal sinus rhythm, normal axis, nonspecific interventricular conduction delay, no significant ST or T wave abnormalities. Patient recieved IV infusion of Lexiscan 0.4mg and at peak infusion EKG showed no significant change from baseline, rare PVC. Conclusions: 1. Normal EKG response to Lexiscan infusion 2. Nuclear imaging to be reported separately.
--- NOTE | 2020-08-31 12:39 | P.CRDCN ---
History of Present Illness History of present illness: HISTORY OF PRESENTING ILLNESS This is a pleasant []-year-old [] past medical history significant for hypertension and type 2 diabetes. She does not follow with a deadener. We have been asked to see in consultation for chest pain. Patient is seen and examined at bedside, no acute distress. She states Thursday she started having right sided chest pain and exertional shortness of breath when she was walking outside feeding her cats. The pain lasted longer than 5 minutes. It is sharp in nature. It worsens with deep breathing, activity, and with palpation. Her exertional shortness of breath is relieved with rest. , she woke up, and once she got up to do her daily activities her exertional shortness of breath and right sided chest pain occurred and she decided to present to the emergency department. She did not take anything for the pain. Pain is non-radiating. She denies nausea, diaphoresis, palpitations, fatigue. She did have associated lightheadeness. She denies symptoms of orthopnea or PND. She states she used to be on a statin but had side effects of muscle weakness her doctor took her off. She used to smoke ciggarrets but quit in 1997. She denies alcohol use. She denies family history of heart disease. She did have a cardiac cath years ago maybe around 1999 in [place] and was told that was normal. She has had a stress test years ago also and was told that was normal. DIAGNOSTICS EKG reveals sinus rhythm HR 69, left axis deviation, poor R wave progression. No prior EKG to compare CT chest- negative for PE Last Cardiac Catheterization 20+ years ago and was told it was normal Laboratory data reviewed, troponin negative 3, COVID-19 negative, renal function within normal limits,CBC unremarkable, D dimer 1.62. Vital signs 135/72, heart rate 51, afebrile, Current home cardiac medications include []. Telemetry tracings indicate sinus mechanism heart rate 50 to 60s Chest xray no acute cardiopulmonary process. REVIEW OF SYSTEMS At the time of my exam: CONSTITUTIONAL: Denies fever or chills. CARDIOVASCULAR: +right sided chest pain, +shortness of breath, +VITALE Denies orthopnea, PND or palpitations. RESPIRATORY: Denies cough. GASTROINTESTINAL: Denies abdominal pain, diarrhea, constipation, nausea or vomiting. MUSCULOSKELETAL: Denies myalgias. NEUROLOGIC: Denies numbness, tingling, headacbe or weakness. ENDOCRINE: Denies fatigue, weight change, polydipsia or polyurina. GENITOURINARY: Denies burning, hematuria or urgency with micturation. HEMATOLOGIC: Denies history of anemia or bleeding. PHYSICAL EXAMINATION Blood pressure 141/72 heart rate 67 afebrile and maintaining oxygen saturation on room air CONSTITUTIONAL: No apparent distress. HEENT: Head is normocephalic. Pupils are equal, round. Sclerae anicteric. Mucous membranes of the mouth are moist. No JVD. No carotid bruit. CHEST EXAMINATION: Lungs are clear to auscultation. No chest wall tenderness is noted on palpation or with deep breathing. HEART EXAMINATION: Regular rate and rhythm. S1, S2 heard. No murmurs, gallops or rub. ABDOMEN: Soft, nontender. Positive bowel sounds. EXTREMITIES: 2+ peripheral pulses, no lower extremity edema and no calf tenderness. SKIN: intact NEUROLOGIC EXAMINATION: Patient is awake, alert and oriented x3. ASSESSMENT Chest pain, atypical acute coronary syndrome has been ruled out Hypertension Type 2 Diabetes PLAN An acute coronary event has been ruled out with no EKG evidence of ischemia and negative cardiac enzymes. Obtain 2D echocardiogram and doppler study to assess cardiac structure and function. Perform Lexiscan stress test to assess for stress induced cardiac ischemia. If stress test is normal patient can be discharged home from cardiology perspective Will start low dose statin, patient can take every other day due to history of worsening musclular side effects Follow up with Dr. Amilcar rg Thank you kindly for this consultation. Nurse Practitioner note has been reviewed, I agree with a documented findings and plan of care. Patient was seen and examined. Past Medical History Past Medical History: Diabetes Mellitus, Hypertension, Renal Disease Additional Past Medical History / Comment(s): states cancer of left breast 2016. lumpectomy 2016. DM type 2 2007. History of Any Multi-Drug Resistant Organisms: None Reported Past Surgical History: Appendectomy, Cholecystectomy, Hysterectomy, Orthopedic Surgery Additional Past Surgical History / Comment(s): rotator cuff surgery, RIGHT TKA Past Anesthesia/Blood Transfusion Reactions: No Reported Reaction Past Psychological History: No Psychological Hx Reported Additional Psychological History / Comment(s): states depression previously 2011 but no longer Smoking Status: Former smoker Past Alcohol Use History: Rare Past Drug Use History: None Reported - Past Family History Father Additional Family Medical History / Comment(s): aneurysm Mother Family Medical History: CVA/TIA Medications and Allergies Home Medications Medication Instructions Recorded Confirmed Type Anastrozole [Arimidex] 1 mg PO HS 01/27/19 08/30/20 History Aspirin EC [Ecotrin Low Dose] 81 mg PO HS 01/27/19 08/30/20 History Calcium/Magnesium/Zinc 1 tab PO BID 01/27/19 08/30/20 History [Ayapkwt-Mppnygopy-Rqsb Tablet] Vit C/E/Zn/Coppr/Lutein/Zeaxan 1 cap PO DAILY 01/27/19 08/30/20 History [Preservision Areds 2 Softgel] sitaGLIPtin PHOSPHATE [Januvia] 50 mg PO DAILY #30 tab 01/30/19 08/30/20 Rx Gabapentin 600 mg PO BID 09/07/19 08/30/20 History lisinopriL 20 mg PO DAILY 03/25/20 08/30/20 History Cholecalciferol [Vitamin D3 (25 1,000 unit PO DAILY #30 tab 04/06/20 08/30/20 Rx Mcg = 1000 Iu)] Cinnamon Bark [Cinnamon] 500 mg PO BID 08/30/20 08/30/20 History Cranberry 25,200mg 1 cap PO BID 08/30/20 08/30/20 History Glucos Sul 2Kcl/MSM/Chond/C/Mn 1 cap PO BID 08/30/20 08/30/20 History [Glucosamine Chondroitin Cap] Pantoprazole [Protonix] 40 mg PO HS 08/30/20 08/30/20 History amLODIPine [Norvasc] 10 mg PO DAILY 08/30/20 08/30/20 History Allergies Allergy/AdvReac Type Severity Reaction Status Date / Time shellfish derived [Crab] Allergy Rash/Hives Verified 08/30/20 16:27 shrimp Allergy Rash/Hives Verified 08/30/20 16:27 Physical Exam Vitals: Vital Signs Temp Pulse Pulse Resp BP BP Pulse Ox 08/31/20 04:02 67 18 141/72 97 08/31/20 03:56 67 18 08/30/20 22:55 70 18 139/69 98 08/30/20 20:55 77 18 119/62 99 08/30/20 18:42 68 18 115/78 97 08/30/20 16:35 56 L 18 156/74 99 08/30/20 14:27 98 F 74 18 134/75 98 Intake and Output 08/30/20 08/31/20 08/31/20 22:59 06:59 14:59 Other: Voiding Method Toilet # Voids 1 Weight 106 kg Results 08/31/20 05:14 08/31/20 05:14 Cardiac Enzymes 08/30/20 08/30/20 08/30/20 Range/Units 15:46 15:46 21:30 AST 45 H (14-36) U/L Troponin I <0.012 <0.012 (0.000-0.034) ng/mL 08/31/20 Range/Units 00:00 AST (14-36) U/L Troponin I <0.012 (0.000-0.034) ng/mL Coagulation 08/30/20 Range/Units 15:46 PT 10.3 (9.0-12.0) sec APTT 22.7 (22.0-30.0) sec CBC 08/30/20 Range/Units 15:46 WBC 6.3 (3.8-10.6) k/uL RBC 4.57 (3.80-5.40) m/uL Hgb 14.5 (11.4-16.0) gm/dL Hct 42.4 (34.0-46.0) % Plt Count 153 (150-450) k/uL Comprehensive Metabolic Panel 08/30/20 Range/Units 15:46 Sodium 139 (137-145) mmol/L Potassium 4.2 (3.5-5.1) mmol/L Chloride 104 (98-107) mmol/L Carbon Dioxide 29 (22-30) mmol/L BUN 18 H (7-17) mg/dL Creatinine 0.75 (0.52-1.04) mg/dL Glucose 139 H (74-99) mg/dL Calcium 9.8 (8.4-10.2) mg/dL AST 45 H (14-36) U/L ALT 31 (4-34) U/L Alkaline Phosphatase 85 (38-126) U/L Total Protein 6.6 (6.3-8.2) g/dL Albumin 3.8 (3.5-5.0) g/dL Current Medications Generic Name Dose Route Start Last Admin Trade Name Freq PRN Reason Stop Dose Admin Amlodipine Besylate 10 mg 08/31/20 09:00 Amlodipine 10 Mg Tab PO DAILY [facility] Anastrozole 1 mg 08/30/20 22:30 08/30/20 23:38 Anastrozole 1 Mg Tab PO 1 mg HS MARILIN Administration Aspirin 81 mg 08/30/20 22:30 08/30/20 22:47 Aspirin 81 Mg PO 81 mg HS MARILIN Administration Cholecalciferol 25 mcg 08/31/20 09:00 Cholecalciferol 25 Mcg (1000 Iu) Tablet PO DAILY [facility] Gabapentin 600 mg 08/30/20 22:30 08/30/20 22:47 Gabapentin 300 Mg Cap PO 600 mg BID MARILIN Administration Lisinopril 20 mg 08/31/20 09:00 Lisinopril 20 Mg Tab PO DAILY [facility] Multivitamins/Minerals 1 each 08/31/20 09:00 Vit A,C & C-Bqttbb-Iuwfxyob 1 Each Tab PO DAILY [facility] Naloxone HCl 0.2 mg 08/30/20 18:28 Naloxone 0.4 Mg/Ml 1 Ml Vial IV Q2M PRN Opioid Reversal Pantoprazole Sodium 40 mg 08/30/20 22:30 08/30/20 22:47 Pantoprazole 40 Mg Tablet PO 40 mg HS [facility] Administration Intake and Output 08/30/20 08/31/20 08/31/20 22:59 06:59 14:59 Other: Voiding Method Toilet # Voids 1 Weight 106 kg 08/30/20 15:46 08/30/20 15:46
[2020-08-31 12:53] LABS: Glucose,Whole Blood 110 mg/dL (75-99)
--- NOTE | 2020-08-31 13:10 | NM ---
EXAMINATION TYPE: NM stress lexiscan cardiolite DATE OF EXAM: 08/31/2020 COMPARISON: NONE HISTORY: Chest pain exertional shortness of breath TECHNIQUE: After the intravenous administration of 10.3 mCi Tc 99m Sestamibi - Cardiolite resting SP ECT images acquired 50 minutes post injection. At peak stress 25.3 mCi Tc 99m Sestamibi - Stress images obtained 50 minutes post injection The patient was stressed with 0.4mg Lexiscan. FINDINGS: Mild fixed defects at the cardiac apex likely on the basis of cardiac thinning. No stress-induced isc hemic changes are evident. Wall motion is normal. Ejection fraction is calculated to be 56 %. IMPRESSION: 1. Cardiac thinning. 2. No stress-induced ischemic changes evident.
== END 2020-08-31 18:48 | disposition home or self-care (01) ==
LOC: EC 14:23 → 6NMEDSUR 18:28 → 3SCARD 08-31 01:48
PROVIDERS: ADMIT Internal Medicine; ATTEND Internal Medicine
DX: R07.89 Other chest pain (principal); R06.02 Shortness of breath; R79.89 Other specified abnormal findings of blood chemistry; R06.89 Other abnormalities of breathing; R07.81 Pleurodynia; R42 Dizziness and giddiness; R06.09 Other forms of dyspnea; E11.29 Type 2 diabetes mellitus with other diabetic kidney complication; N28.9 Disorder of kidney and ureter, unspecified; I10 Essential (primary) hypertension; E11.42 Type 2 diabetes mellitus with diabetic polyneuropathy; E66.9 Obesity, unspecified; Z68.41 Body mass index [BMI] 40.0-44.9, adult; E78.5 Hyperlipidemia, unspecified; Z79.899 Other long term (current) drug therapy; Z79.82 Long term (current) use of aspirin; Z79.84 Long term (current) use of oral hypoglycemic drugs; Z79.811 Long term (current) use of aromatase inhibitors; Z91.013 Allergy to seafood; Z90.49 Acquired absence of other specified parts of digestive tract; Z90.710 Acquired absence of both cervix and uterus; Z85.3 Personal history of malignant neoplasm of breast; Z87.891 Personal history of nicotine dependence; Z20.822 Contact with and (suspected) exposure to COVID-19; Z86.59 Personal history of other mental and behavioral disorders; Z96.651 Presence of right artificial knee joint; Z82.49 Family history of ischemic heart disease and other diseases of the circulatory system; Z82.3 Family history of stroke
CPT/HCPCS: 99285; 36415; 93005; 93017; 93306; 85379; 83880; 80053; 80048; 83690; 83735; 84484 ×2; 85025 ×2; 85610; 85730; 87635; 71046; 71275; 78452; G0378 ×3; A9500; S0170; J2785; Q9967

== ENCOUNTER 2021-04-08 12:57 | Emergency (ER) | payer MEDICARE ==
[2021-04-08 13:27] VITALS: PULSE 64; RESP 20; TEMP 98.5
--- NOTE | 2021-04-08 14:14 | XR ---
EXAMINATION TYPE: XR chest 2V DATE OF EXAM: 04/08/2021 COMPARISON: 08/30/2020 HISTORY: 70 year-old female with cough TECHNIQUE: PA and lateral views FINDINGS: Heart normal size. Mild interstitial prominence slightly increased. Aorta and pulmonary vasculature w ithin normal limits. No consolidation or pleural effusion. Suture anchor right femoral head from prio r cuff repair. IMPRESSION: Interstitial density is slightly increased. Consider bronchitis or asthma. No focal infiltrate seen.
--- NOTE | 2021-04-08 14:50 | ED ---
Weakness HPI - General Chief complaint: Weakness Stated complaint: sent by Jael Johnson for Covid test Time Seen by Provider: 04/08/21 13:34 Source: patient, RN notes reviewed Mode of arrival: wheelchair Limitations: no limitations - History of Present Illness Initial comments: This a 70-year-old female presents emergency Department with chief complaint cough congestion. Patient states she's been sick for last 5 days. Patient states that his though she had prior COVID-19, has prior vaccination. Patient states that she feels like she had mild wheezing patient denies any chest pain. Patient's had mild shortness breath, productive cough. Patient does admit to nasal congestion denies sore throat, ear pain - Related Data Home Medications Medication Instructions Recorded Confirmed Anastrozole [Arimidex] 1 mg PO HS 01/27/19 08/30/20 Aspirin EC [Ecotrin Low Dose] 81 mg PO HS 01/27/19 08/30/20 Calcium/Magnesium/Zinc 1 tab PO BID 01/27/19 08/30/20 [Pxxfgwi-Fciueohxf-Xywk Tablet] Vit C/E/Zn/Coppr/Lutein/Zeaxan 1 cap PO DAILY 01/27/19 08/30/20 [Preservision Areds 2 Softgel] Gabapentin 600 mg PO BID 09/07/19 08/30/20 lisinopriL 20 mg PO DAILY 03/25/20 08/30/20 Cinnamon Bark [Cinnamon] 500 mg PO BID 08/30/20 08/30/20 Cranberry 25,200mg 1 cap PO BID 08/30/20 08/30/20 Glucos Sul 2Kcl/MSM/Chond/C/Mn 1 cap PO BID 08/30/20 08/30/20 [Glucosamine Chondroitin Cap] Pantoprazole [Protonix] 40 mg PO HS 08/30/20 08/30/20 amLODIPine [Norvasc] 10 mg PO DAILY 08/30/20 08/30/20 Previous Rx's Medication Instructions Recorded sitaGLIPtin PHOSPHATE [Januvia] 50 mg PO DAILY #30 tab 01/30/19 Cholecalciferol [Vitamin D3 (25 1,000 unit PO DAILY #30 tab 04/06/20 Mcg = 1000 Iu)] Azithromycin [Zithromax Z-pack (6 0 mg PO DIRECTED #1 packet 04/08/21 tabs)] Allergies Allergy/AdvReac Type Severity Reaction Status Date / Time shellfish derived [Crab] Allergy Rash/Hives Verified 04/08/21 13:27 shrimp Allergy Rash/Hives Verified 04/08/21 13:27 Review of Systems ROS Statement: Those systems with pertinent positive or pertinent negative responses have been documented in the HPI. ROS Other: All systems not noted in ROS Statement are negative. Past Medical History Past Medical History: Diabetes Mellitus, Hypertension, Renal Disease Additional Past Medical History / Comment(s): states cancer of left breast 2016. lumpectomy 2016. DM type 2 2007. History of Any Multi-Drug Resistant Organisms: None Reported Past Surgical History: Appendectomy, Cholecystectomy, Hysterectomy Additional Past Surgical History / Comment(s): rotator cuff surgery Past Anesthesia/Blood Transfusion Reactions: No Reported Reaction Past Psychological History: No Psychological Hx Reported Smoking Status: Former smoker Past Alcohol Use History: Rare Past Drug Use History: None Reported - Past Family History Father Additional Family Medical History / Comment(s): aneurysm Mother Family Medical History: CVA/TIA General Exam Limitations: no limitations General appearance: alert, in no apparent distress Head exam: Present: atraumatic, normocephalic, normal inspection Eye exam: Present: normal appearance, PERRL, EOMI. Absent: scleral icterus, conjunctival injection, periorbital swelling ENT exam: Present: normal exam, normal oropharynx, mucous membranes moist Neck exam: Present: normal inspection. Absent: tenderness, meningismus, lymphadenopathy Respiratory exam: Present: normal lung sounds bilaterally. Absent: respiratory distress, wheezes, rales, rhonchi, stridor Cardiovascular Exam: Present: regular rate, normal rhythm, normal heart sounds. Absent: systolic murmur, diastolic murmur, rubs, gallop, clicks Course Vital Signs 04/08/21 13:21 Temperature 98.5 F Pulse Rate 64 Respiratory 20 Rate Blood Pressure 130/67 O2 Sat by Pulse 98 Oximetry Medical Decision Making - Medical Decision Making Patient's x-rays consistent with acute bronchitis. Patient was discharged in stable condition return parameters were discussed - Lab Data Lab Results 04/08/21 Range/Units 13:54 Coronavirus (PCR) Not Detected (Not Detectd) Disposition Clinical Impression: Acute bronchitis Disposition: HOME SELF-CARE Condition: Stable Instructions (If sedation given, give patient instructions): Acute Bronchitis (ED) Additional Instructions: Please return to the Emergency Department if symptoms worsen or any other concerns. Prescriptions: Azithromycin [Zithromax Z-pack (6 tabs)] 0 mg PO DIRECTED #1 packet Is patient prescribed a controlled substance at d/c from ED?: No Referrals: Sheila Ba MD [Primary Care Provider] - 1-2 days Time of Disposition: 14:50
[2021-04-08 15:06] VITALS: BP 135/70
== END 2021-04-08 15:06 | disposition home or self-care (01) ==
LOC: EC 12:57
DX: J20.9 Acute bronchitis, unspecified (principal); Z20.822 Contact with and (suspected) exposure to COVID-19; E11.9 Type 2 diabetes mellitus without complications; I10 Essential (primary) hypertension; Z87.891 Personal history of nicotine dependence; Z79.82 Long term (current) use of aspirin; Z79.84 Long term (current) use of oral hypoglycemic drugs; Z79.899 Other long term (current) drug therapy
CPT/HCPCS: 71046; 87635; 99285

== ENCOUNTER → 2021-05-31 | Day surgery (SDC) | payer MEDICARE ==
[2021-05-30 09:21] VITALS: BMI 42.5
[~2021-05-31] MED LIST: LACTATED RINGERS 1,000 ML IV SCH; LIDOCAINE 1% (10MG/ML) FOR IV START SQ ONE; LIDOCAINE 1% INJ 10MG/ML (20 ML MDV) ONE; PROPOFOL 10 MG/ML 20 ML VIAL IV ONE
[2021-05-31 08:42] LABS: Glucose,Whole Blood 140 mg/dL (75-99)
[2021-05-31 08:44] VITALS: RESP 16; TEMP 97
--- NOTE | 2021-05-31 09:26 | P.PCN ---
Date of Procedure: 05/31/21 Procedure(s) Performed: BRIEF HISTORY: Patient is a 70-year-old, pleasant, white female scheduled for an upper endoscopy as a part of evaluation of atypical chest pain for the last 2 months duration. She was started on Protonix 40 mg daily and symptoms are gradually improving. Cardiac workup was negative.. PROCEDURE PERFORMED: Esophagogastroduodenoscopy with biopsy. PREOPERATIVE DIAGNOSIS: Atypical chest pain of several months duration. IV sedation per anesthesia. PROCEDURE: After informed consent was obtained, the patient was brought into the endoscopy unit. IV sedation was administered by Anesthesia under continuous monitoring. Initially the Olympus GIF-140 video endoscope was inserted into the mouth. Esophagus intubated without any difficulty. It was gradually advanced into the stomach and duodenum and carefully examined. The bulb and the second part of the duodenum appeared normal. The scope at this time was withdrawn to the stomach, adequately insufflated with air, and upon careful examination, mucosa of the antrum, had linear areas of erythema noted which was biopsied. The body, cardia and the fundus appeared normal. The scope was then withdrawn into the esophagus. The GE junction was located at 41 cm from the incisors. It appeared regular and there were no erosions or ulcerations seen. Rest of esophagus appeared normal and the patient tolerated the procedure well. IMPRESSION: 1. Mild antral gastritis. 2. Normal-appearing esophagus with no evidence of esophagitis or esophageal. RECOMMENDATIONS: The findings of this examination were discussed with the patient as well as a family. She was advised to follow with the biopsy results..her symptoms are suggestive of gastric esophageal reflux and hence she was advised to continue with Protonix 40 mg daily and follow antireflux measures.
[2021-05-31 09:58] VITALS: BP 158/83; PULSE 56
== END | disposition home or self-care (01) ==
LOC: ORWHC2ENDO 07:52
PROVIDERS: ATTEND Internal Medicine Gastroenterology
DX: K29.50 Unspecified chronic gastritis without bleeding (principal); K21.00 Gastro-esophageal reflux disease with esophagitis, without bleeding; I10 Essential (primary) hypertension; E78.5 Hyperlipidemia, unspecified; G47.33 Obstructive sleep apnea (adult) (pediatric); N28.9 Disorder of kidney and ureter, unspecified; Z90.710 Acquired absence of both cervix and uterus; Z96.651 Presence of right artificial knee joint; Z90.49 Acquired absence of other specified parts of digestive tract; Z98.890 Other specified postprocedural states; Z85.3 Personal history of malignant neoplasm of breast; Z79.82 Long term (current) use of aspirin; Z79.899 Other long term (current) drug therapy; Z91.013 Allergy to seafood
CPT/HCPCS: 88305; 43239; J2001; J2704

== ENCOUNTER 2022-03-04 07:08 | Day surgery (SDC) | payer MEDICARE ==
[2022-02-28 09:25] VITALS: BMI 46.9
[2022-03-04] MEDS ORDERED: LACTATED RINGERS 1,000 ML IV ONE (07:27)
[2022-03-04 07:46] LABS: Glucose,Whole Blood 125 mg/dL (70-110)
[2022-03-04 07:52] VITALS: TEMP 97
[2022-03-04] MEDS ORDERED: PROPOFOL 10 MG/ML 20 ML VIAL IV ONE (08:28)
--- NOTE | 2022-03-04 08:53 | P.PCN ---
Date of Procedure: 03/04/22 Procedure(s) Performed: BRIEF HISTORY: Patient is a 71-year-old pleasant female scheduled for an elective colonoscopy as a part of screening for colorectal neoplasia. PROCEDURE PERFORMED: Colonoscopy. PREOPERATIVE DIAGNOSIS: Screening for colon cancer. IV sedation per Anesthesia. PROCEDURE: After informed consent was obtained, the patient, was brought into the endoscopy unit. IV sedation was administered by Anesthesia under continuous monitoring. Digital rectal examination was normal. Initially the Olympus CF-160 flexible video colonoscope was then inserted in the rectum, gradually advanced into the cecum without any difficulty. Careful examination was performed as the scope was gradually being withdrawn. Ileocecal valve and the appendiceal orifice were visualized and appeared normal. Prep was excellent. Mucosa of the cecum, ascending colon, transverse colon, descending colon, sigmoid colon, and rectum appeared normal. Scattered sigmoid diverticulosis. Retroflexion was performed in the rectum and small internal hemorrhoids were seen. The patient tolerated the procedure well. IMPRESSION: Normal-appearing colon from rectum to cecum with no evidence of colitis or colorectal neoplasia Scattered sigmoid diverticulosis Small internal hemorrhoids RECOMMENDATIONS: Findings of this examination were discussed with the patient as well as a family. She was advised to have a repeat screening colonoscopy in 10 years..
[2022-03-04 09:00] VITALS: RESP 12
[2022-03-04 09:31] VITALS: BP 119/63; PULSE 68
== END 2022-03-04 09:36 | disposition home or self-care (01) ==
LOC: ORWHC2ENDO 07:08
PROVIDERS: ATTEND Internal Medicine Gastroenterology
DX: Z12.11 Encounter for screening for malignant neoplasm of colon (principal); K57.30 Diverticulosis of large intestine without perforation or abscess without bleeding; K64.8 Other hemorrhoids; I10 Essential (primary) hypertension; E78.5 Hyperlipidemia, unspecified; G47.33 Obstructive sleep apnea (adult) (pediatric); E11.9 Type 2 diabetes mellitus without complications; K21.9 Gastro-esophageal reflux disease without esophagitis; Z91.013 Allergy to seafood; Z79.899 Other long term (current) drug therapy
CPT/HCPCS: J2704; G0121

== ENCOUNTER 2022-03-13 10:34 | Observation (INO) | payer MEDICARE ==
[2022-03-13 11:31] LABS: Basophils # (A) 0.1 k/uL (0-0.2); Basophils % (A) 1 %; Eosinophils # (A) 0.3 k/uL (0-0.7); Eosinophils % (A) 4 %; HCT 46.8 % (34.0-46.0); HGB 15.6 gm/dL (11.4-16.0); Lymphocytes # (A) 2.3 k/uL (1.0-4.8); Lymphocytes % (A) 30 %; MCH 31.5 pg (25.0-35.0); MCHC 33.2 g/dL (31.0-37.0); MCV 94.9 fL (80.0-100.0); Mean Platelet Volume 9.5; Monocytes # (A) 0.5 k/uL (0-1.0); Monocytes % (A) 7 %; Neutrophils # (A) 4.1 k/uL (1.3-7.7); Neutrophils % (A) 54 %; Platelet Count 211 k/uL (150-450); RBC 4.93 m/uL (3.80-5.40); RDW 12.7 % (11.5-15.5); WBC 7.6 k/uL (3.8-10.6)
--- NOTE | 2022-03-13 11:41 | XR ---
EXAMINATION TYPE: XR chest 2V DATE OF EXAM: 03/13/2022 11:31 AM COMPARISON: Chest radiographs from 04/08/2021 TECHNIQUE: XR chest 2V Frontal and lateral views of the chest. CLINICAL INDICATION:Female, 71 years old with history of dysrhythmia; FINDINGS: Lungs/Pleura: There is no evidence of pleural effusion, focal consolidation, or pneumothorax. Similar mild interstitial prominence. Heart/mediastinum: Cardiomediastinal silhouette is unremarkable. Musculoskeletal: No acute osseous pathology. IMPRESSION: Interstitial prominence redemonstrated. No focal consolidation. Consider bronchitis or asthma.
[2022-03-13 11:43] LABS: Albumin 4.5 g/dL (3.5-5.0); Calcium 9.6 mg/dL (8.4-10.2); INR 0.9 (<1.2); Partial Thromboplastin Time 24.9 sec (22.0-30.0); Potassium 4.8 mmol/L (3.5-5.1); Prothrombin Time 10.4 sec (9.0-12.0); Total Bilirubin 0.7 mg/dL (0.2-1.3); Total Protein 7.2 g/dL (6.3-8.2)
[2022-03-13] MEDS ORDERED: NALOXONE 0.4 MG/ML 1 ML VIAL IV PRN (12:56)
--- NOTE | 2022-03-13 12:56 | ED ---
Arrhythmia/Palpitations HPI - General Chief Complaint: Arrhythmia/Palpitations Stated Complaint: Afib Time Seen by Provider: 03/13/22 10:50 Source: patient Mode of arrival: wheelchair Limitations: no limitations - History of Present Illness Initial Comments: 71-year-old female past medical history of breast cancer, diabetes presents to the emergency department with palpitations. She reports that she began having some lower extremity edema which developed last week. She may not appointment with her primary care physician. She did have her appointment today. Lower extremity edema has subsequently resolved. When she was seen in office today they attempted to take her vitals. Her heart rate was noted to be low. They did an EKG and were concerned for A. fib and therefore it was recommended that the patient come into the emergency room and for evaluation of new onset A. fib. She does admit to palpitations. No history of irregular heart rhythms. Patient normally does not follow with the marine structural welder. Denies any history of pulmonary issues. No associated shortness of breath. No nausea. No history of DVT or PE. Patient is not on any anticoagulation. 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 - Related Data Home Medications Medication Instructions Recorded Confirmed Aspirin EC [Ecotrin Low Dose] 81 mg PO DAILY 01/27/19 03/13/22 Calcium/Magnesium/Zinc 1 tab PO BID 01/27/19 03/13/22 [Rstprvu-Jzvcpvdoh-Rbjz Tablet] Vit C/E/Zn/Coppr/Lutein/Zeaxan 1 cap PO BID 01/27/19 03/13/22 [Preservision Areds 2 Softgel] Gabapentin 600 mg PO BID 09/07/19 03/13/22 lisinopriL 20 mg PO DAILY 03/25/20 03/13/22 Cinnamon Bark [Cinnamon] 500 mg PO BID 08/30/20 03/13/22 Glucos Sul 2Kcl/MSM/Chond/C/Mn 1 cap PO BID 08/30/20 03/13/22 [Glucosamine Chondroitin Cap] Pantoprazole [Protonix] 40 mg PO BID-W/MEALS 08/30/20 03/13/22 Atorvastatin [Lipitor] 20 mg PO DAILY 05/30/21 03/13/22 glipiZIDE [Glucotrol] 10 mg PO BID 05/30/21 03/13/22 lisinopriL [Zestril] 10 mg PO W/SUPPER 05/30/21 03/13/22 sitaGLIPtin [Januvia] 50 mg PO DAILY 02/27/22 03/13/22 Albuterol Inhaler [Ventolin Hfa 2 puff INHALATION RT-Q6H PRN 03/13/22 03/13/22 Inhaler] Albuterol Nebulized [Ventolin 2.5 mg INHALATION RT-Q6H PRN 03/13/22 03/13/22 Nebulized] Cholecalciferol [Vitamin D3 (25 25 mcg PO BID 03/13/22 03/13/22 Mcg = 1000 Iu)] Cranberry Fruit Extract [Cranberry] 500 mg PO BID 03/13/22 03/13/22 Famotidine [Pepcid] 20 mg PO HS 03/13/22 03/13/22 Mag Hydrox/Aluminum Hyd/Simeth 30 ml PO Q6H PRN 03/13/22 03/13/22 [Mylanta Maximum Strength Liq] Allergies Allergy/AdvReac Type Severity Reaction Status Date / Time shellfish derived [Crab] Allergy Rash/Hives Verified 03/13/22 12:04 shrimp Allergy Rash/Hives Verified 03/13/22 12:04 Review of Systems ROS Statement: Those systems with pertinent positive or pertinent negative responses have been documented in the HPI. ROS Other: All systems not noted in ROS Statement are negative. Past Medical History Past Medical History: Cancer, Diabetes Mellitus, GERD/Reflux, Hyperlipidemia, Hypertension, Osteoarthritis (OA), Renal Disease, Sleep Apnea/CPAP/BIPAP Additional Past Medical History / Comment(s): left breast cancer 2016 with surgery & radiation tx., neuropathy legs, hx of covid 2020 and states sob when walking distance., sleep apnea-no machine., states scabs from picking at her skin., back and knee pain., hx of renal failure after a fall and was alone for 32 hrs- states kidney function improved. History of Any Multi-Drug Resistant Organisms: None Reported Past Surgical History: Appendectomy, Cholecystectomy, Hysterectomy, Joint Replacement, Tonsillectomy Additional Past Surgical History / Comment(s): RIGHT rotator cuff surgery, TOTAL RIGHT KNEE ., hernia repair after hysterectomy with mesh. Past Anesthesia/Blood Transfusion Reactions: Previous Problems w/ Anesthesia Additional Past Anesthesia/Blood Transfusion Reaction / Comment(s): SHORTNESS OF BREATH 2006 AFTER SHOULDER SURGERY . Past Psychological History: Depression Smoking Status: Former smoker Past Alcohol Use History: Rare Past Drug Use History: None Reported - Past Family History Father Additional Family Medical History / Comment(s): aortic aneurysm Mother Family Medical History: CVA/TIA Brother(s) Family Medical History: Cancer Additional Family Medical History / Comment(s): melanoma General Exam Limitations: no limitations General appearance: alert, in no apparent distress Head exam: Present: atraumatic, normocephalic, normal inspection Eye exam: Present: normal appearance, PERRL, EOMI. Absent: scleral icterus, conjunctival injection, periorbital swelling ENT exam: Present: normal exam, mucous membranes moist Neck exam: Present: normal inspection. Absent: tenderness, meningismus, lymphadenopathy Respiratory exam: Present: normal lung sounds bilaterally. Absent: respiratory distress, wheezes, rales, rhonchi, stridor Cardiovascular Exam: Present: normal rhythm, bradycardia, normal heart sounds. Absent: systolic murmur, diastolic murmur, rubs, gallop, clicks GI/Abdominal exam: Present: soft, normal bowel sounds. Absent: distended, te nderness, guarding, rebound, rigid Extremities exam: Present: normal inspection, full ROM, normal capillary refill. Absent: tenderness, pedal edema, joint swelling, calf tenderness Back exam: Present: normal inspection Neurological exam: Present: alert, oriented X3, CN II-XII intact Psychiatric exam: Present: normal affect, normal mood Skin exam: Present: warm, dry, intact, normal color. Absent: rash Course Vital Signs 03/13/22 03/13/22 10:42 15:48 Temperature 97.6 F Pulse Rate 45 L 44 L Respiratory 16 18 Rate Blood Pressure 130/71 133/74 O2 Sat by Pulse 99 98 Oximetry EKG Findings - EKG Comments: EKG Findings:: EKG demonstrates a junctional bradycardia with a rate of 42. PA interval 361. QRS 114. QTC of 466. No high degree block. EKG interpreted by myself and the marine structural welder Medical Decision Making - Medical Decision Making Upon arrival patient's placed into room 21. A thorough history and physical exam was performed. 12-lead EKG demonstrates a junctional bradycardia with rate of 40. Patient remains on continuous pulse ox and cardiac monitoring. Laboratory studies are conducted reviewed. I did speak with Dr. Fitzgerald in the ED in regards to the patient's EKG. Laboratory studies are within normal limits. Chest x-ray demonstrates no acute process. I did discuss results with the patient. Recommended admission for cardiac evaluation which was Dr. Jaime recommendation. Patient agreeable to this plan. Spoke with Dr. Lau who accepted admission. - Lab Data Result diagrams: 03/14/22 07:43 03/14/22 07:43 Lab Results 03/13/22 03/13/22 03/13/22 Range/Units 11:09 11:09 11:09 WBC 7.6 (3.8-10.6) k/uL RBC 4.93 (3.80-5.40) m/uL Hgb 15.6 (11.4-16.0) gm/dL Hct 46.8 H (34.0-46.0) % MCV 94.9 (80.0-100.0) fL MCH 31.5 (25.0-35.0) pg MCHC 33.2 (31.0-37.0) g/dL RDW 12.7 (11.5-15.5) % Plt Count 211 (150-450) k/uL MPV 9.5 Neutrophils % 54 % Lymphocytes % 30 % Monocytes % 7 % Eosinophils % 4 % Basophils % 1 % Neutrophils # 4.1 (1.3-7.7) k/uL Lymphocytes # 2.3 (1.0-4.8) k/uL Monocytes # 0.5 (0-1.0) k/uL Eosinophils # 0.3 (0-0.7) k/uL Basophils # 0.1 (0-0.2) k/uL PT 10.4 (9.0-12.0) sec INR 0.9 (<1.2) APTT 24.9 (22.0-30.0) sec Sodium 140 (137-145) mmol/L Potassium 4.8 (3.5-5.1) mmol/L Chloride 104 (98-107) mmol/L Carbon Dioxide 28 (22-30) mmol/L Anion Gap 8 mmol/L BUN 19 H (7-17) mg/dL Creatinine 0.86 (0.52-1.04) mg/dL Est GFR (CKD-EPI)AfAm 79 (>60 ml/min/1.73 sqM) Est GFR (CKD-EPI)NonAf 69 (>60 ml/min/1.73 sqM) Glucose 143 H (74-99) mg/dL Calcium 9.6 (8.4-10.2) mg/dL Magnesium 2.0 (1.6-2.3) mg/dL Total Bilirubin 0.7 (0.2-1.3) mg/dL AST 46 H (14-36) U/L ALT 37 H (4-34) U/L Alkaline Phosphatase 118 (38-126) U/L Troponin I (0.000-0.034) ng/mL NT-Pro-B Natriuret Pep pg/mL Total Protein 7.2 (6.3-8.2) g/dL Albumin 4.5 (3.5-5.0) g/dL TSH (0.465-4.680) mIU/L 03/13/22 03/13/22 03/13/22 Range/Units 11:09 11:09 11:09 WBC (3.8-10.6) k/uL RBC (3.80-5.40) m/uL Hgb (11.4-16.0) gm/dL Hct (34.0-46.0) % MCV (80.0-100.0) fL MCH (25.0-35.0) pg MCHC (31.0-37.0) g/dL RDW (11.5-15.5) % Plt Count (150-450) k/uL MPV Neutrophils % % Lymphocytes % % Monocytes % % Eosinophils % % Basophils % % Neutrophils # (1.3-7.7) k/uL Lymphocytes # (1.0-4.8) k/uL Monocytes # (0-1.0) k/uL Eosinophils # (0-0.7) k/uL Basophils # (0-0.2) k/uL PT (9.0-12.0) sec INR (<1.2) APTT (22.0-30.0) sec Sodium (137-145) mmol/L Potassium (3.5-5.1) mmol/L Chloride (98-107) mmol/L Carbon Dioxide (22-30) mmol/L Anion Gap mmol/L BUN (7-17) mg/dL Creatinine (0.52-1.04) mg/dL Est GFR (CKD-EPI)AfAm (>60 ml/min/1.73 sqM) Est GFR (CKD-EPI)NonAf (>60 ml/min/1.73 sqM) Glucose (74-99) mg/dL Calcium (8.4-10.2) mg/dL Magnesium (1.6-2.3) mg/dL Total Bilirubin (0.2-1.3) mg/dL AST (14-36) U/L ALT (4-34) U/L Alkaline Phosphatase (38-126) U/L Troponin I <0.012 (0.000-0.034) ng/mL NT-Pro-B Natriuret Pep 627 pg/mL Total Protein (6.3-8.2) g/dL Albumin (3.5-5.0) g/dL TSH 1.890 (0.465-4.680) mIU/L Disposition Clinical Impression: Palpitations, Junctional bradycardia Disposition: ADMITTED IP TO THIS [facility] Condition: Stable Is patient prescribed a controlled substance at d/c from ED?: No Time of Disposition: 12:55 Decision to Admit Reason: Admit from EC Decision Date: 03/13/22 Decision Time: 12:55
[2022-03-13] MEDS ORDERED: ALBUTEROL NEBULIZED 2.5 MG/3 ML INHALATION PRN (16:17)
[2022-03-13] MEDS ORDERED: lisinopriL 10 MG TAB PO SCH (17:30)
--- NOTE | 2022-03-13 18:21 | P.HPIM ---
History of Present Illness This is a pleasant 71 years old female with multiple medical problems as below. Patient went to see her PCP Dr. malagon today referred her to the hospital for abnormal heart rhythm in the emergency room there was concern for junctional rhythm therefore she was admitted with cardiology consultation. Patient states that Thursday and Thursday she started feeling swelling in her feet on her appointment today her leg swelling improved bouts of the office her EKG was concerning for abnormal rhythm and she was referred to the hospital as above. States that she has chronic right sided chest pain felt like acid reflux for more than a year nonradiating but that was more severe yesterday. Last night she took Mylanta and help her pain today. She has some dyspnea while this is looks chronic especially on walking she cannot go for before she got short of breath. She is denying palpitation to me No nausea vomiting diarrhea or abdominal pain, no dysuria or urgency but she reports increasing urinary frequency. No headache or dizziness or weakness or numbness No smoking alcohol or illicit drugs Vitals looks his stable except for bradycardia at 45 Labs reviewed showed an unremarkable CBC, INR, BMP and bilirubin. Liver enzymes only mildly elevated. Troponin is negative. TSH is normal at 1.8 EKG showing electronic atrial pacemaker at 40 to. With moderate and Ventricular conduction delay Chest x-ray: Interstitial prominence demonstration. No focal consolidation. Consider bronchitis or asthma Review of Systems Review of systems CONSTITUTIONAL: No fever, no malaise, no fatigue. HEENT: No recent visual problems or hearing problems. Denied any sore throat. CARDIOVASCULAR: No orthopnea, PND, no palpitations, no syncope. PULMONARY: no cough, no hemoptysis. GASTROINTESTINAL: No diarrhea, no nausea, no vomiting, no abdominal pain. Normoactive bowel sounds. NEUROLOGICAL: No headaches, no weakness, no numbness. HEMATOLOGICAL: Denies any bleeding or petechiae. GENITOURINARY: Denies any burning micturition, frequency, or urgency. MUSCULOSKELETAL/RHEUMATOLOGICAL: Denies any joint pain, swelling, or any muscle pain. ENDOCRINE: Denies any polyuria or polydipsia. Past Medical History Past Medical History: Cancer, Diabetes Mellitus, GERD/Reflux, Hyperlipidemia, Hypertension, Osteoarthritis (OA), Renal Disease, Sleep Apnea/CPAP/BIPAP Additional Past Medical History / Comment(s): left breast cancer 2016 with surgery & radiation tx., neuropathy legs, hx of covid 2019 and states sob when w alking distance., sleep apnea-no machine., states scabs from picking at her skin., back and knee pain., hx of renal failure after a fall and was alone for 32 hrs- states kidney function improved. History of Any Multi-Drug Resistant Organisms: None Reported Past Surgical History: Appendectomy, Cholecystectomy, Hysterectomy, Joint Replacement, Tonsillectomy Additional Past Surgical History / Comment(s): RIGHT rotator cuff surgery, TOTAL RIGHT KNEE ., hernia repair after hysterectomy with mesh. Past Anesthesia/Blood Transfusion Reactions: Previous Problems w/ Anesthesia Additional Past Anesthesia/Blood Transfusion Reaction / Comment(s): SHORTNESS OF BREATH 2006 AFTER SHOULDER SURGERY . Past Psychological History: Depression Smoking Status: Former smoker Past Alcohol Use History: Rare Past Drug Use History: None Reported - Past Family History Father Additional Family Medical History / Comment(s): aortic aneurysm Mother Family Medical History: CVA/TIA Brother(s) Family Medical History: Cancer Additional Family Medical History / Comment(s): melanoma Medications and Allergies Home Medications Medication Instructions Recorded Confirmed Type Aspirin EC [Ecotrin Low Dose] 81 mg PO DAILY 01/27/19 03/13/22 History Calcium/Magnesium/Zinc 1 tab PO BID 01/27/19 03/13/22 History [Thgdkha-Obgabugvo-Fwty Tablet] Vit C/E/Zn/Coppr/Lutein/Zeaxan 1 cap PO BID 01/27/19 03/13/22 History [Preservision Areds 2 Softgel] Gabapentin 600 mg PO BID 09/07/19 03/13/22 History lisinopriL 20 mg PO DAILY 03/25/20 03/13/22 History Cinnamon Bark [Cinnamon] 500 mg PO BID 08/30/20 03/13/22 History Glucos Sul 2Kcl/MSM/Chond/C/Mn 1 cap PO BID 08/30/20 03/13/22 History [Glucosamine Chondroitin Cap] Pantoprazole [Protonix] 40 mg PO BID-W/MEALS 08/30/20 03/13/22 History Atorvastatin [Lipitor] 20 mg PO DAILY 05/30/21 03/13/22 History glipiZIDE [Glucotrol] 10 mg PO BID 05/30/21 03/13/22 History lisinopriL [Zestril] 10 mg PO W/SUPPER 05/30/21 03/13/22 History sitaGLIPtin [Januvia] 50 mg PO DAILY 02/27/22 03/13/22 History Albuterol Inhaler [Ventolin Hfa 2 puff INHALATION RT-Q6H PRN 03/13/22 03/13/22 History Inhaler] Albuterol Nebulized [Ventolin 2.5 mg INHALATION RT-Q6H PRN 03/13/22 03/13/22 History Nebulized] Cholecalciferol [Vitamin D3 (25 25 mcg PO BID 03/13/22 03/13/22 History Mcg = 1000 Iu)] Cranberry Fruit Extract [Cranberry] 500 mg PO BID 03/13/22 03/13/22 History Famotidine [Pepcid] 20 mg PO HS 03/13/22 03/13/22 History Mag Hydrox/Aluminum Hyd/Simeth 30 ml PO Q6H PRN 03/13/22 03/13/22 History [Mylanta Maximum Strength Liq] Allergies Allergy/AdvReac Type Severity Reaction Status Date / Time shellfish derived [Crab] Allergy Rash/Hives Verified 03/13/22 12:04 shrimp Allergy Rash/Hives Verified 03/13/22 12:04 Physical Exam Vitals: Vital Signs Temp Pulse Resp BP Pulse Ox 03/13/22 10:42 97.6 F 45 L 16 130/71 99 Intake and Output 03/12/22 03/13/22 03/13/22 22:59 06:59 14:59 Other: Weight 118.841 kg -GENERAL: The patient is alert and oriented x3, not in any acute distress. Obese HEENT: Pupils are round and equally reacting to light. EOMI. No scleral icterus. No conjunctival pallor. Normocephalic, atraumatic. No pharyngeal erythema. No thyromegaly. CARDIOVASCULAR: S1 and S2 present. No murmurs, rubs, or gallops. PULMONARY: Chest is clear to auscultation, no wheezing or crackles. ABDOMEN: Soft, nontender, nondistended, normoactive bowel sounds. No palpable organomegaly. MUSCULOSKELETAL: No joint swelling or deformity. EXTREMITIES: No cyanosis, clubbing, or pedal edema. NEUROLOGICAL: Gross neurological examination did not reveal any focal deficits. SKIN: No rashes. no petechiae. Results CBC & Chem 7: 03/13/22 11:09 03/13/22 11:09 Labs: Abnormal Lab Results - Last 24 Hours (Table) 03/13/22 03/13/22 Range/Units 11: 11:09 Hct 46.8 H (34.0-46.0) % BUN 19 H (7-17) mg/dL Glucose 143 H (74-99) mg/dL AST 46 H (14-36) U/L ALT 37 H (4-34) U/L Assessment and Plan Assessment: Symptomatic Bradycardia Chronic right-sided chest pain Hypertension Hyperlipidemia History of posterior arthritis History of sleep apnea History of breast cancer in 2005 status post surgery and radiotherapy Bilateral lower extremity neuropathy history of depression Plan: Continue with telemetry Cardiology consult for possible pacemaker Labs and medication were reviewed.. Continue same treatment. Continue with symptomatic treatment. Resume home medication. Monitor lytes and vitals. DVT and GI prophylaxis. Further recommendations as per clinical course of the patient DVT prophylaxis: Subcutaneous heparin GI Prophylaxis: Pepcid PT/OT: Pending Prognosis is guarded
[2022-03-13] MEDS: PANTOPRAZOLE 40 MG TABLET PO SCH (18:49)
[2022-03-13] MEDS: glipiZIDE 10 MG TAB PO SCH (19:58)
[2022-03-13] MEDS: GABAPENTIN 300 MG CAP PO SCH (19:58)
[2022-03-13] MEDS ORDERED: MAG HYDROX/AL HYDROX/SIMETH 30 ML CUP PO ONE (20:00)
[2022-03-13] MEDS ORDERED: MAG HYDROX/AL HYDROX/SIMETH 30 ML CUP PO PRN (20:14)
[2022-03-13 20:38] LABS: Glucose,Whole Blood 194 mg/dL (70-110)
[2022-03-13] MEDS ORDERED: FAMOTIDINE 20 MG TAB PO SCH (21:00)
[2022-03-14 05:42] LABS: Glucose,Whole Blood 127 mg/dL (70-110)
[2022-03-14] MEDS: PANTOPRAZOLE 40 MG TABLET PO SCH (06:03)
[2022-03-14] MEDS ORDERED: DEXTROSE 50% SYRINGE 50 ML IVP PRN ×2 (06:06)
[2022-03-14] MEDS: GABAPENTIN 300 MG CAP PO SCH (08:06)
[2022-03-14] MEDS: glipiZIDE 10 MG TAB PO SCH (08:06)
[2022-03-14] MEDS: INSULIN ASPART (NovoLOG) 100 UNIT/ML VIAL SQ SCH ×2 (08:10→13:41)
[2022-03-14 08:46] LABS: Basophils % (A) 1 %; Eosinophils # (A) 0.2 k/uL (0-0.7); Eosinophils % (A) 4 %; HCT 46.6 % (34.0-46.0); HGB 15.2 gm/dL (11.4-16.0); Lymphocytes # (A) 1.5 k/uL (1.0-4.8); Lymphocytes % (A) 28 %; MCH 31.4 pg (25.0-35.0); MCHC 32.6 g/dL (31.0-37.0); MCV 96.3 fL (80.0-100.0); Mean Platelet Volume 9.6; Monocytes # (A) 0.4 k/uL (0-1.0); Monocytes % (A) 8 %; Neutrophils % (A) 56 %; Platelet Count 169 k/uL (150-450); RBC 4.84 m/uL (3.80-5.40); RDW 12.6 % (11.5-15.5); WBC 5.4 k/uL (3.8-10.6)
[2022-03-14 09:00] LABS: Calcium 9.3 mg/dL (8.4-10.2); Potassium 4.4 mmol/L (3.5-5.1)
[2022-03-14] MEDS ORDERED: lisinopriL 20 MG TAB PO SCH (09:00)
[2022-03-14] MEDS ORDERED: HEPARIN SODIUM,PORCINE/PF 5,000 UNIT/0.5 ML SYRINGE SQ SCH (09:00)
[2022-03-14] MEDS ORDERED: LINAGLIPTIN 5 MG TABLET PO SCH (09:00)
[2022-03-14] MEDS ORDERED: ASPIRIN 81 MG PO SCH (09:00)
[2022-03-14] MEDS ORDERED: ATORVASTATIN 20 MG TAB PO SCH (09:00)
[2022-03-14] MEDS ORDERED: SODIUM CHLORIDE 0.9% 1,000 ML IV SCH (09:00)
--- NOTE | 2022-03-14 11:39 | CONS ---
CONSULTATION HISTORY OF PRESENT ILLNESS: This is a lady with hypertension and type 2 diabetes, who came into the hospital with palpitation, sent by her PCP with possibility of this being atrial fibrillation. However, EKG suggests mostly a junctional type of rhythm with bradycardia, but now, she is in sinus, heart rate is about 60 beats per minute. She may have underlying sick sinus syndrome. She also complained of some sharp discomfort in the chest. I have evaluated this patient in the office within the last few months. She did not have any significant bradycardia. She had an echo in August of 2020, which revealed good systolic function and Lexiscan study also, which revealed no ischemia. She has hypertension, hyperlipidemia, and also type 2 diabetes mellitus. She is resting comfortably without symptoms at the time of my evaluation. PAST MEDICAL HISTORY: 1. Type 2 diabetes. 2. Hypertension. 3. Hyperlipidemia. 4. Obesity. 5. No evidence of previous bradycardia. Negative Lexiscan stress test and echo in August 2020. MEDICATIONS AT HOME: Include: 1. Januvia. 2. Lisinopril. 3. Glucotrol. 4. Lipitor 20 mg daily. 5. She also takes aspirin 81 mg daily. PHYSICAL EXAMINATION: VITAL SIGNS: On examination, blood pressure is about 128/70, pulse rate is 62 per minute. HEENT: Unremarkable. Fundus was not examined by me. NECK: Supple. No JVD. I do not hear a carotid bruit. There is no thyromegaly. HEART: Reveals S1 and S2 heard normally. There is a short systolic murmur at left sternal border. LUNGS: Clear. ABDOMEN: Distended and nontender. LOWER EXTREMITIES: Reveal palpable pulses. No edema. CENTRAL NERVOUS SYSTEM: Normal. IMPRESSION: 1. Probable sick sinus syndrome with junctional rhythm, but no evidence of any bradycardia at this time. 2. Hypertension. 3. Type 2 diabetes. 4. Hyperlipidemia. RECOMMENDATIONS: I am recommending a stress test or a stress echo just to check the chronotropic response. We will also do a 2-week event monitor, and if the patient has bradycardia on the event monitor, she may be a candidate for a pacemaker. I explained this to her in detail. We will try and do a stress test today. Her LV function about 18 months ago was unremarkable. We will consider repeating a transthoracic echo. Event monitor will be placed today. If she has a decent chronotropic response in the 90s or so, she can be discharged later on today. Discussed my thoughts in detail with the patient. Her thyroid functions are normal. EKG today revealed sinus rhythm. There is no junctional rhythm anymore. Thank you very much for the consult. FIORDALIZA / ANDREW: [id number] /
[2022-03-14 11:43] LABS: Glucose,Whole Blood 113 mg/dL (70-110)
--- NOTE | 2022-03-14 12:19 | CA ---
Stress Echo Report Yue Harden Age: 71 Gender: F : 1950 Exam Date: 03/14/2022 09:56 Exam Location: [facility] Ht (in): 63 Wt (lb): 262 Ordering Physician: Julissa Alvarez Referring Physician: [id number] Medical Manager: CORINNE Technologist Procedure CPT: Indication: junctional rhythm, assess exercise capacity and HR ICD-9 Codes: Rhythm: Patient History: Cardiac Medications: Medications in past 24 hours: Contrast: Stress Results Protocol: Wilian Total dose(mL): Exercise Duration (min:sec): 1:[address] Depression (mm): Angina Score: De La O Score: METS: 1.0 Resting HR: 82 Resting BP: 143 / 71 Peak HR: 70 Peak BP: / Max Predicted HR: 149 47 % Max Predicted HR Target HR: 127 Double Product: Stress Summary: BP Response: Reason for Termination: PATIENT COULDN'T WALK ON THE TREADMILL SAFELY Cardiac Symptoms: ECG Analysis Resting ECG: Normal sinus rhythm, normal ECG Stress ECG: No abnormal ST/T wave changes with exercise Arrhythmia: None Echo Analysis Resting Echo: Normal resting echocardiogram. Peak Echo Analysis: No wall motion changes with stress. MEASUREMENTS (Male/Female) Normal Values CONCLUSIONS 1. Poor exercise tolerance 2. Nondiagnostic stress echocardiogram secondary to the inability to achieve 85% maximum predicted heart rate. 3. If clinically indicated a pharmacological stress test will be helpful. Dr. Kaya Aguilar MD (Electronically Signed) Final Date: 14 March 2022 12:18
[2022-03-14 12:20] VITALS: BP 152/77; PULSE 74; RESP 16; TEMP 97.9
--- NOTE | 2022-03-14 12:26 | US ---
EXAMINATION TYPE: US carotid duplex BILAT DATE OF EXAM: 03/14/2022 COMPARISON: NONE CLINICAL HISTORY: r/o stenosis. TECHNIQUE: Carotid duplex ultrasound examination. Indirect Doppler criteria was utilized. Exam done portable FINDINGS: EXAM MEASUREMENTS: RIGHT: Peak Systolic Velocity (PSV) cm/sec ----- Right CCA: 67.4 ----- Right ICA: 87.5 ----- Right ECA: 67.0 ICA/CCA ratio: 1.3 RIGHT: End Diastole cm/sec ----- Right CCA: 10.4 ----- Right ICA: 19.3 ----- Right ECA: 7.7 LEFT: Peak Systolic Velocity (PSV) cm/sec ----- Left CCA: 104.3 ----- Left ICA: 76.1 ----- Left ECA: 65.1 ICA/CCA ratio: 0.7 LEFT: End Diastole cm/sec ----- Left CCA: 15.5 ----- Left ICA: 15.8 ----- Left ECA: 8.4 VERTEBRALS (direction of flow): Right Vertebral: Antegrade Left Vertebral: Antegrade Rhythm: Normal No significant stenosis IMPRESSION: No evidence for hemodynamically significant stenosis. Criteria for Assigning % of Stenosis / Diameter reduction (Estimation based on the indirect measurements of the internal carotid artery velocities (ICA PSV). 1. Normal (no stenosis)=ICA PSV < 125 cm/s: ratio < 2.0: ICA EDV<40 cm/s. 2. Less than 50% stenosis=ICA PSV < 125 cm/s: ratio < 2.0: ICA EDV<40 cm/s. 3. 50 to 69% stenosis=ICA PSV of 125 to 230 cm/s: ration 2.0 ? 4.0: ICA EDV 40-100 cm/s. 4. Greater than 70% stenosis to near occlusion= ICA PSV > 230 cm/s: ratio > 4.0: ICA EDV > 100 cm/s. 5. Near occlusion= ICA PSV velocities may be low or undetectable: variable ratio and ICA EDV. 6. Total occlusion=unable to detect flow.
--- NOTE | 2022-03-18 11:31 | P.DS ---
Providers Date of admission: 03/13/22 12:56 Attending physician: Kieran Gandhi Consults: 03/13/22 12:56 Consult Physician Urgent Consulting Provider: [facility] Consult Reason/Comments: symptomatic junction bradycardia Do you want consulting provider notified?: Yes Primary care physician: Sheila Ba [facility] Course: Diagnoses: Symptomatic Bradycardia Chronic right-sided chest pain Hypertension Hyperlipidemia History of posterior arthritis History of sleep apnea History of breast cancer in 2006 status post surgery and radiotherapy Bilateral lower extremity neuropathy history of depression Hospital course: This is a pleasant 71 years old female with multiple medical problems as below. Patient went to see her PCP Dr. malagon referred her to the hospital for abnormal heart rhythm in the emergency room there was concern for junctional rhythm therefore she was admitted with cardiology consultation. Patient is found to have junctional rhythm with bradycardia converted to sinus rhythm. Sick sinus syndrome is suspected by fourth grade teacher who recommended follow-up outpatient with event monitor and chronotropic response to stress test, explained to the patient in details and with fourth grade teacher and patient verbalized understanding and acceptance. Patient currently denies any other symptoms, no chest pain or dyspnea. Denies any genitourinary symptoms. Patient is willing to go home. Problems and management plan were discussed with the patient and he verbalized understanding and acceptance Patient was found stable and can be discharged home in guarded prognosis however he needs follow-up as an outpatient. Patient was instructed to follow up with PCP Dr. malagon within one week and patient agrees Patient was instructed to follow up with fourth grade teacher and she agrees with the appointments Physical exam Gen: patient is a AAOx3, no distress CVS: S1-S2, RRR, no murmur Lungs: B/L CTA, no wheezing Abdomen: soft, no distention, no tenderness, positive bowel sounds Extremity: no leg edema or induration Time spent more than 35 minutes Patient Condition at Discharge: Stable Plan - Discharge Summary Discharge Rx Participant: Yes New Discharge Prescriptions: Continue Calcium/Magnesium/Zinc [Ooxplub-Iqyhoxgek-Cenx Tablet] 1 tab PO BID Aspirin EC [Ecotrin Low Dose] 81 mg PO DAILY Vit C/E/Zn/Coppr/Lutein/Zeaxan [Preservision Areds 2 Softgel] 1 cap PO BID Gabapentin 600 mg PO BID lisinopriL 20 mg PO DAILY Glucos Sul 2Kcl/MSM/Chond/C/Mn [Glucosamine Chondroitin Cap] 1 cap PO BID glipiZIDE [Glucotrol] 10 mg PO BID Atorvastatin [Lipitor] 20 mg PO DAILY sitaGLIPtin [Januvia] 50 mg PO DAILY Mag Hydrox/Aluminum Hyd/Simeth [Mylanta Maximum Strength Liq] 30 ml PO Q6H PRN PRN Reason: Indigestion Albuterol Nebulized [Ventolin Nebulized] 2.5 mg INHALATION RT-Q6H PRN PRN Reason: Shortness Of Breath Pantoprazole [Protonix] 40 mg PO BID-W/MEALS Cinnamon Bark [Cinnamon] 500 mg PO BID lisinopriL [Zestril] 10 mg PO W/SUPPER Cholecalciferol [Vitamin D3 (25 Mcg = 1000 Iu)] 25 mcg PO BID Cranberry Fruit Extract [Cranberry] 500 mg PO BID Famotidine [Pepcid] 20 mg PO HS Albuterol Inhaler [Ventolin Hfa Inhaler] 2 puff INHALATION RT-Q6H PRN PRN Reason: Shortness Of Breath Discharge Medication List Aspirin EC [Ecotrin Low Dose] 81 mg PO DAILY 01/27/19 [History] Calcium/Magnesium/Zinc [Jlpamnr-Nzjtcemsm-Ufmz Tablet] 1 tab PO BID 01/27/19 [History] Vit C/E/Zn/Coppr/Lutein/Zeaxan [Preservision Areds 2 Softgel] 1 cap PO BID 01/27/19 [History] Gabapentin 600 mg PO BID 09/07/19 [History] lisinopriL 20 mg PO DAILY 03/25/20 [History] Cinnamon Bark [Cinnamon] 500 mg PO BID 08/30/20 [History] Glucos Sul 2Kcl/MSM/Chond/C/Mn [Glucosamine Chondroitin Cap] 1 cap PO BID 08/30/20 [History] Pantoprazole [Protonix] 40 mg PO BID-W/MEALS 08/30/20 [History] Atorvastatin [Lipitor] 20 mg PO DAILY 05/30/21 [History] glipiZIDE [Glucotrol] 10 mg PO BID 05/30/21 [History] lisinopriL [Zestril] 10 mg PO W/SUPPER 05/30/21 [History] sitaGLIPtin [Januvia] 50 mg PO DAILY 02/27/22 [History] Albuterol Inhaler [Ventolin Hfa Inhaler] 2 puff INHALATION RT-Q6H PRN 03/13/22 [History] Albuterol Nebulized [Ventolin Nebulized] 2.5 mg INHALATION RT-Q6H PRN 03/13/22 [History] Cholecalciferol [Vitamin D3 (25 Mcg = 1000 Iu)] 25 mcg PO BID 03/13/22 [History] Cranberry Fruit Extract [Cranberry] 500 mg PO BID 03/13/22 [History] Famotidine [Pepcid] 20 mg PO HS 03/13/22 [History] Mag Hydrox/Aluminum Hyd/Simeth [Mylanta Maximum Strength Liq] 30 ml PO Q6H PRN 03/13/22 [History] Follow up Appointment(s)/Referral(s): Daisy Fitzgerald MD [STAFF PHYSICIAN] - 03/25/22 3:45 pm (At [facility]. [address] [place] [address].) Sheila Ba MD [Primary Care Provider] - 1-2 days (Call and make appointment and make office aware that we recommend to check your liver function tests with your doctor ) Patient Instructions/Handouts: Heart Palpitations (DC), Bradycardia (DC), Sick Sinus Syndrome (DC) Activity/Diet/Wound Care/Special Instructions: heart healthy diet activity is restricted till you see your doctor follow up with the fourth grade teacher in 1-2 weeks about your event monitor and heart rate Discharge Disposition: HOME SELF-CARE
--- NOTE | 2022-04-09 08:56 | EM ---
14 day event monitor shows sinus rhythm with PACs and atrial couplets and triplets Sinus bradycardia at 40 beats a minute and 9 AM in the morning MTDD
== END 2022-03-14 16:48 | disposition home or self-care (01) ==
LOC: EC 10:34 → 3SCARD 12:56 → INTOOBSV 12:56 → 3SCARD 15:10 → UNDODISIN 03-14 16:48
PROVIDERS: ADMIT Internal Medicine; ATTEND Internal Medicine
DX: R07.89 Other chest pain (principal); R00.1 Bradycardia, unspecified; I48.91 Unspecified atrial fibrillation; K21.9 Gastro-esophageal reflux disease without esophagitis; E78.5 Hyperlipidemia, unspecified; I10 Essential (primary) hypertension; E11.42 Type 2 diabetes mellitus with diabetic polyneuropathy; G47.30 Sleep apnea, unspecified; E66.9 Obesity, unspecified; F32.A Depression, unspecified; Z85.3 Personal history of malignant neoplasm of breast; Z79.82 Long term (current) use of aspirin; Z79.899 Other long term (current) drug therapy; Z92.3 Personal history of irradiation; Z86.16 Personal history of COVID-19; Z90.49 Acquired absence of other specified parts of digestive tract; Z90.710 Acquired absence of both cervix and uterus; Z87.891 Personal history of nicotine dependence; Z80.8 Family history of malignant neoplasm of other organs or systems; Z82.3 Family history of stroke; Z68.42 Body mass index [BMI] 45.0-49.9, adult
CPT/HCPCS: 99285; 36415; 93005; 93270; 93351; 83880; 80053; 80048; 84443; 83735; 84484; 85025 ×2; 85610; 85730; 83036; 71046; 93880; G0378 ×2; J1644

== ENCOUNTER 2024-08-12 16:36 | Observation (INO) | payer MEDICARE ==
--- NOTE | 2024-08-12 17:01 | ED ---
General Adult HPI - General Chief complaint: Chest Pain Stated complaint: chest pain Time Seen by Provider: 08/12/24 16:41 Source: EMS Mode of arrival: EMS - History of Present Illness Initial comments: Dictation was produced using DearJane dictation software. please excuse any gramma tical, word or spelling errors. Chief Complaint: 74-year-old female presents to the emergency department for chest pain History of Present Illness: Patient 74-year-old female presents with 1 week of substernal chest pain nonradiating and associate diaphoresis or nausea. She has history of pacemaker. No history of coronary artery disease or coronary artery stent. States that she does not know if she has any family history of heart attacks. States that her dad of a aortic aneurysm. She thinks that her brother may have had a heart attack. Patient has history of diabetes dyslipidem ia hypertension. The ROS documented in this emergency department record has been reviewed and confirmed by me. Those systems with pertinent positive or negative responses have been documented in the HPI. All other systems are other negative and/or noncontributory. - Related Data Home Medications Medication Instructions Recorded Confirmed Aspirin EC [Ecotrin Low Dose] 81 mg PO DAILY 01/27/19 03/13/22 Calcium/Magnesium/Zinc 1 tab PO BID 01/27/19 03/13/22 [Zsfiuco-Ownksghpg-Otod Tablet] Vit C/E/Zn/Coppr/Lutein/Zeaxan 1 cap PO BID 01/27/19 03/13/22 [Preservision Areds 2 Softgel] Gabapentin 600 mg PO BID 09/07/19 03/13/22 lisinopriL 20 mg PO DAILY 03/25/20 03/13/22 Cinnamon Bark [Cinnamon] 500 mg PO BID 08/30/20 03/13/22 Glucos Sul 2Kcl/MSM/Chond/C/Mn 1 cap PO BID 08/30/20 03/13/22 [Glucosamine Chondroitin Cap] Pantoprazole [Protonix] 40 mg PO BID-W/MEALS 08/30/20 03/13/22 Atorvastatin [Lipitor] 20 mg PO DAILY 05/30/21 03/13/22 glipiZIDE [Glucotrol] 10 mg PO BID 05/30/21 03/13/22 lisinopriL [Zestril] 10 mg PO W/SUPPER 05/30/21 03/13/22 sitaGLIPtin [Januvia] 50 mg PO DAILY 02/27/22 03/13/22 Albuterol Inhaler [Ventolin Hfa 2 puff INHALATION RT-Q6H PRN 03/13/22 03/13/22 Inhaler] Albuterol Nebulized [Ventolin 2.5 mg INHALATION RT-Q6H PRN 03/13/22 03/13/22 Nebulized] Cholecalciferol [Vitamin D3 (25 25 mcg PO BID 03/13/22 03/13/22 Mcg = 1000 Iu)] Cranberry Fruit Extract [Cranberry] 500 mg PO BID 03/13/22 03/13/22 Famotidine [Pepcid] 20 mg PO HS 03/13/22 03/13/22 Mag Hydrox/Aluminum Hyd/Simeth 30 ml PO Q6H PRN 03/13/22 03/13/22 [Mylanta Maximum Strength Liq] Allergies Allergy/AdvReac Type Severity Reaction Status Date / Time shellfish derived [Crab] Allergy Rash/Hives Verified 08/12/24 16:42 shrimp Allergy Rash/Hives Verified 08/12/24 16:42 Review of Systems ROS Statement: Those systems with pertinent positive or pertinent negative responses have been documented in the HPI. ROS Other: All systems not noted in ROS Statement are negative. Past Medical History Past Medical History: Cancer, Diabetes Mellitus, GERD/Reflux, Hyperlipidemia, Hypertension, Osteoarthritis (OA), Renal Disease, Sleep Apnea/CPAP/BIPAP Additional Past Medical History / Comment(s): left breast cancer 2016 with suárez rgery & radiation tx., neuropathy legs, hx of covid 2020 and states sob when walking distance., sleep apnea-no machine., states scabs from picking at her skin., back and knee pain., hx of renal failure after a fall and was alone for 32 hrs- states kidney function improved. History of Any Multi-Drug Resistant Organisms: None Reported Past Surgical History: Appendectomy, Cholecystectomy, Hysterectomy, Joint Replacement, Tonsillectomy Additional Past Surgical History / Comment(s): RIGHT rotator cuff surgery, TOTAL RIGHT KNEE ., hernia repair after hysterectomy with mesh. Past Anesthesia/Blood Transfusion Reactions: Previous Problems w/ Anesthesia Additional Past Anesthesia/Blood Transfusion Reaction / Comment(s): SHORTNESS OF BREATH 2006 AFTER SHOULDER SURGERY . Past Psychological History: Depression Smoking Status: Former smoker Past Alcohol Use History: Rare Past Drug Use History: None Reported - Past Family History Father Additional Family Medical History / Comment(s): aortic aneurysm Mother Family Medical History: CVA/TIA Brother(s) Family Medical History: Cancer Additional Family Medical History / Comment(s): melanoma General Exam - General Exam Comments Initial Comments: PHYSICAL EXAM: General Impression: Alert and oriented x3, not in acute distress HEENT: Normocephalic atraumatic, extra-ocular movements intact, pupils equal and reactive to light bilaterally, mucous membranes moist. Cardiovascular: Heart regular rate and rhythm Chest: Able to complete full sentences, no retractions, no tachypnea Abdomen: abdomen soft, non-tender, non-distended, no organomegaly Musculoskeletal: Pulses present and equal in all extremities, no peripheral edema Motor: no focal deficits noted Neurological: CN II-XII grossly intact, no focal motor or sensory deficits noted Skin: Intact with no visualized rashes Psych: Normal affect and mood Course Vital Signs 08/12/24 08/12/24 08/12/24 16:37 17:36 18:13 Temperature 97.2 F L Pulse Rate 58 L 54 L 57 L Respiratory 18 20 18 Rate Blood Pressure 130/89 151/73 95/79 O2 Sat by Pulse 97 100 98 Oximetry EKG Findings - EKG Comments: EKG Findings:: My EKG interpretation: Ventricular rate 62, paced rhythm, OR interval 170, QRS 110, QTc 434. No OR prolongation, no QTC prolongation, no ST or T-wave changes noted. Overall, this EKG is unremarkable Medical Decision Making - Medical Decision Making Was pt. sent in by a medical professional or institution (, PA, BENCH BORING MACHINE OPERATOR, urgent care, hospital, or senior care...) When possible be specific @ -No Did you speak to anyone other than the patient for history (EMS, parent, family, police, friend...)? What history was obtained from this source @ -No Did you review nursing and triage notes (agree or disagree)? Why? @ -I reviewed and agree with nursing and triage notes Were old charts reviewed (outside hosp., previous admission, EMS record, old EKG, old radiological studies, urgent care reports/EKG's, senior care records)? Report findings @ -No old charts were reviewed Differential Diagnosis (chest pain, altered mental status, abdominal pain women, abdominal pain men, vaginal bleeding, musculoskeletal, weakness, fever, dyspnea, syncope, headache, dizziness, GI bleed, back pain, seizure, CVA, palpatations, mental health)? @ -Differential Chest Pain: Stable Angina, Unstable Angina, STEMI, NSTEMI Aortic Dissection, Pneumothorax, Musculoskeletal, Esophageal Spasm GERD, Cholecystitis, Pancreatitis, Zoster, this is not meant to be an all-inclusive list. EKG interpreted by me (3pts min.). @ -See above X-rays interpreted by me (1pt min.). @ -X-ray shows no acute processes CT interpreted by me (1pt min.). @ -None done U/S interpreted by me (1pt. min.). @ -None done What testing was considered but not performed or refused? (CT, X-rays, U/S, labs)? Why? @ -None What meds were considered but not given or refused? Why? @ -None Was smoking cessation discussed for >3mins.? @ -No Were there social determinants of health that impacted care today? How? (Homelessness, low income, unemployed, alcoholism, drug addiction, transportation, low edu. Level, literacy, decrease access to med. care, fci, rehab)? @ -No Was there de-escalation of care discussed even if they declined (Discuss DNR or withdrawal of care, Hospice)? DNR status @ -No What co-morbidities impacted this encounter? (DM, HTN, Smoking, COPD, CAD, Cancer, CVA, ARF, Chemo, Hep., AIDS, mental health diagnosis, sleep apnea, morbid obesity)? @ -Diabetes, dyslipidemia, hypertension, old age Was patient admitted / discharged? Hospital course, mention meds given and route, prescriptions, significant lab abnormalities, going to OR and other pertinent info. @ -74-year-old female presents to the emergency department atypical chest pain typical features vital signs stable. EKG is unremarkable. Patient well- appearing. Laboratory evaluation is unremarkable. Patient given aspirin disposition options were discussed. Patient agreeable for observation admission with consultation to cardiology. Case discussed with hospitalist for admission. Did you discuss the management of the patient with other professionals (professionals i.e. , PA, BENCH BORING MACHINE OPERATOR, lab, RT, psych nurse, social security benefits interviewer, subcontract manager, teacher, planned giving officer, major case detective)? Give summary @ -See above Was critical care preformed (if so, how long)? @ -No Undiagnosed new problem with uncertain prognosis? @ -No Drug Therapy requiring intensive monitoring for toxicity (Heparin, Nitro, Insulin, Cardizem)? @ -No Were any procedures done? @ -No Diagnosis/symptom? Acute, or Chronic, or Acute on Chronic? Uncomplicated (without systemic symptoms) or Complicated (systemic symptoms)? @ -Chest pain Side effects of treatment? @ -No Exacerbation, Progression, or Severe Exacerbation? @ -No Poses a threat to life or bodily function? How? (Chest pain, [place], [place], pneumonia, PE, COPD, DKA, ARF, appy, cholecystitis, CVA, Diverticulitis, Homicidal, Suicidal, threat to staff... and all critical care pts) @ -yes - Lab Data Result diagrams: 08/12/24 17:08/12/24 17:01 Lab Results 08/12/24 08/12/24 08/12/24 Range/Units 17: 17:01 17:01 WBC 7.89 (4.50-10.00) 10*3/uL RBC 4.81 (4.10-5.20) 10*6/uL Hgb 15.4 H (12.0-15.0) g/dL Hct 45.2 (37.2-46.3) % MCV 94.0 (80.0-97.0) fL MCH 32.0 (27.0-32.0) pg MCHC 34.1 (32.0-37.0) g/dL Plt Count 186 (140-440) 10*3/uL MPV 11.2 (9.5-12.2) fL Immature Gran % (Auto) 0.1 % Neutrophils % 52.2 % Lymphocytes % 32.2 % Monocytes % 11.3 % Eosinophils % 3.3 % Basophils % 0.9 % Immature Gran # 0.01 (0.00-0.04) 10*3/uL Neutrophils # 4.12 (1.80-7.70) 10*3/uL Lymphocytes # 2.54 (0.90-5.00) 10*3/uL Monocytes # 0.89 (0.20-1.00) 10*3/uL Eosinophils # 0.26 (0.04-0.35) 10*3/uL Basophils # 0.07 (0.00-0.10) 10*3/uL PT 10.6 (10.0-12.5) sec INR 1.0 (<1.2) APTT 21.2 L (22.0-30.0) sec Sodium 139 (137-145) mmol/L Potassium 4.1 (3.5-5.1) mmol/L Chloride 102 (98-107) mmol/L Carbon Dioxide 28 (22-30) mmol/L Anion Gap 9 mmol/L BUN 26 H (7-17) mg/dL Creatinine 0.95 (0.52-1.04) mg/dL Est GFR (CKD-EPI)AfAm 69 (>60 ml/min/1.73 sqM) Est GFR (CKD-EPI)NonAf 60 (>60 ml/min/1.73 sqM) Glucose 89 (74-99) mg/dL Calcium 10.1 (8.4-10.2) mg/dL Magnesium 2.0 (1.6-2.3) mg/dL Total Bilirubin 0.6 (0.2-1.3) mg/dL AST 42 H (14-36) U/L ALT 34 (4-34) U/L Alkaline Phosphatase 75 (38-126) U/L Troponin I (0.000-0.034) ng/mL Total Protein 6.9 (6.3-8.2) g/dL Albumin 4.3 (3.5-5.0) g/dL /18 Range/Units 17:01 WBC (4.50-10.00) 10*3/uL RBC (4.10-5.20) 10*6/uL Hgb (12.0-15.0) g/dL Hct (37.2-46.3) % MCV (80.0-97.0) fL MCH (27.0-32.0) pg MCHC (32.0-37.0) g/dL Plt Count (140-440) 10*3/uL MPV (9.5-12.2) fL Immature Gran % (Auto) % Neutrophils % % Lymphocytes % % Monocytes % % Eosinophils % % Basophils % % Immature Gran # (0.00-0.04) 10*3/uL Neutrophils # (1.80-7.70) 10*3/uL Lymphocytes # (0.90-5.00) 10*3/uL Monocytes # (0.20-1.00) 10*3/uL Eosinophils # (0.04-0.35) 10*3/uL Basophils # (0.00-0.10) 10*3/uL PT (10.0-12.5) sec INR (<1.2) APTT (22.0-30.0) sec Sodium (137-145) mmol/L Potassium (3.5-5.1) mmol/L Chloride (98-107) mmol/L Carbon Dioxide (22-30) mmol/L Anion Gap mmol/L BUN (7-17) mg/dL Creatinine (0.52-1.04) mg/dL Est GFR (CKD-EPI)AfAm (>60 ml/min/1.73 sqM) Est GFR (CKD-EPI)NonAf (>60 ml/min/1.73 sqM) Glucose (74-99) mg/dL Calcium (8.4-10.2) mg/dL Magnesium (1.6-2.3) mg/dL Total Bilirubin (0.2-1.3) mg/dL AST (14-36) U/L ALT (4-34) U/L Alkaline Phosphatase (38-126) U/L Troponin I <0.012 (0.000-0.034) ng/mL Total Protein (6.3-8.2) g/dL Albumin (3.5-5.0) g/dL Disposition Clinical Impression: Chest pain Disposition: ADMITTED IP TO THIS [facility] Condition: Fair Referrals: Sheila Ba MD [Primary Care Provider] - 1-2 days Decision Time: 18:26
[2024-08-12 17:07] LABS: Basophils # (A) 0.07 10*3/uL (0.00-0.10); Basophils % (A) 0.9 %; Eosinophils # (A) 0.26 10*3/uL (0.04-0.35); Eosinophils % (A) 3.3 %; HCT 45.2 % (37.2-46.3); HGB 15.4 g/dL (12.0-15.0); Lymphocytes # (A) 2.54 10*3/uL (0.90-5.00); Lymphocytes % (A) 32.2 %; MCHC 34.1 g/dL (32.0-37.0); Mean Platelet Volume 11.2 fL (9.5-12.2); Monocytes # (A) 0.89 10*3/uL (0.20-1.00); Monocytes % (A) 11.3 %; Neutrophils # (A) 4.12 10*3/uL (1.80-7.70); Neutrophils % (A) 52.2 %; Platelet Count 186 10*3/uL (140-440); RBC 4.81 10*6/uL (4.10-5.20); RDW 13.2 % (11.5-14.5); WBC 7.89 10*3/uL (4.50-10.00)
--- NOTE | 2024-08-12 17:13 | XR ---
EXAMINATION TYPE: XR chest 2V DATE OF EXAM: 08/12/2024 5:08 PM COMPARISON: 03/13/2022 CLINICAL INDICATION: Female, 74 years old with history of Chest Pain: Shortness of breath TECHNIQUE: XR chest 2V views of the chest are obtained. FINDINGS: Scattered senescent parenchymal changes noted. Hyperinflation compatible with COPD. No evidence for infiltrate. No evidence for atelectasis. Heart size is stable. Mediastinal structures are stable and grossly unremarkable. No evidence for hilar prominence. Degenerative changes dorsal spine. IMPRESSION: 1. No evidence for acute pulmonary disease. [facility], , 08/12/2024 5:10 PM
[2024-08-12 17:20] LABS: ALT 34 U/L (4-34); AST 42 U/L (14-36); African American GFR (CKD) 69 (>60 ml/min/1.73 sqM); Albumin 4.3 g/dL (3.5-5.0); Alkaline Phosphatase 75 U/L (38-126); Anion Gap 9 mmol/L; Blood Urea Nitrogen 26 mg/dL (7-17); Calcium 10.1 mg/dL (8.4-10.2); Carbon Dioxide 28 mmol/L (22-30); Chloride 102 mmol/L (98-107); Glucose 89 mg/dL (74-99); Non-African American GFR(CKD) 60 (>60 ml/min/1.73 sqM); Potassium 4.1 mmol/L (3.5-5.1); Sodium 139 mmol/L (137-145); Total Bilirubin 0.6 mg/dL (0.2-1.3); Total Protein 6.9 g/dL (6.3-8.2)
[2024-08-12 17:35] LABS: Partial Thromboplastin Time 21.2 sec (22.0-30.0); Prothrombin Time 10.6 sec (10.0-12.5)
[2024-08-12] MEDS ORDERED: NITROGLYCERIN SL TABS 0.4 MG TAB SUBLINGUAL PRN (18:20)
[2024-08-12] MEDS: ASPIRIN 81 MG PO STA (18:23)
[2024-08-12] MEDS ORDERED: DEXTROSE 50% SYRINGE 50 ML IVP PRN ×2 (22:47)
[2024-08-12] MEDS ORDERED: ACETAMINOPHEN TAB 325 MG TAB PO PRN (22:48)
[2024-08-13] MEDS: KETOTIFEN 0.025% OPHTH DROPS 5 ML BTL BOTH EYES SCH (00:02)
[2024-08-13 01:12] VITALS: RESP 18
[2024-08-13 05:43] LABS: Glucose,Whole Blood 97 mg/dL (70-110)
[2024-08-13] MEDS: INSULIN LISPRO (HumaLOG) 100 UNIT/ML 10 mL VL SQ SCH (05:47)
[2024-08-13] MEDS: PANTOPRAZOLE 40 MG TABLET PO SCH (06:09)
[2024-08-13 08:03] VITALS: BP 135/89; PULSE 60; TEMP 98
--- NOTE | 2024-08-13 09:57 | P.CRDCN ---
History of Present Illness Consult date: 08/13/24 Consult reason: chest pain History of present illness: This is 74-year-old female patient of Dr. Fitzgerald in the past and is now following in [place] with past medical history of diabetes mellitus type 2, hypertension, hyperlipidemia, sick sinus syndrome with permanent dual-chamber pacemaker, peripheral vascular disease, family history of premature coronary artery disease, remote history of tobacco use and quit in 1988 disease, history of obesity, obstructive sleep apnea without CPAP, left breast cancer in 2016 status post surgery and radiation, lower extremity neuropathy. We have been asked to evaluate the patient for chest pain. Patient states she thinks its anxiety but is having midsternal chest pain. Patient states pain has been intermittently for the past 1 1/2 weeks. She also has some shortness of breath. She denies sweats, no nausea. She denies that activity makes pain worse but states it is worse when she is thinking about her sister. Her sister was admitted to [facility] and discharged to a custodial. When she was trying to leave to go see her sister, she got stuck in the elevator causing her more stress and chest pain. She also states she needs surgery on right shoulder for rotator cuff injury. Blood pressure 135/89, heart rate 60, pulse ox 97% on room air. Patient states she had a recent cardiac catheterization which was normal per patient. -EKG: Atrial paced rhythm with occasional PVC. -Chest x-ray: No acute process. -Laboratory studies: Hemoglobin 15.4, BUN 26, creatinine 0.95, potassium 4.1. Troponins negative x 3. AST 42. -Home cardiac medications: Aspirin 81 mg daily, atorvastatin 20 mg daily, lisinopril 20 mg twice daily. -Lexiscan Cardiolite stress test performed in the office on 12/25/2022 revealed by EKG criteria this is inconclusive Lexiscan stress test. Normal MPI with normal ejection fraction without stress-induced ischemia. -Echocardiogram performed at [facility] on 08/31/2020 revealed EF 55 to 60%, mild concentric left ventricular hypertrophy. Trace amount of aortic regurgitation, mild mitral regurgitation, mild tricuspid regurgitation. -Dual-chamber Medtronic permanent pacemaker implantation 04/08/2022 Review Of Systems: At the time of my exam: CONSTITUTIONAL: Denies fever or chills. HEENT: Denies blurred vision, vision changes, or eye pain. Denies hemoptysis CARDIOVASCULAR: Denies chest pain. Denies orthopnea. Denies PND. Denies palpitations RESPIRATORY: Denies shortness of breath. GASTROINTESTINAL: Denies abdominal pain. Denies nausea or vomiting. HEMATOLOGIC: Denies bleeding disorders. GENITOURINARY: Denies any blood in urine. SKIN: Denies puritis. Denies rash. Physical examination: Gen: This is 74-year-old female in no acute distress VS: reviewed HEENT: Head is atraumatic, normocephalic. Pupils equal, round. Sclerae is anicteric. NECK: Supple. No JVD. LUNGS: Clear to auscultation. No wheezes or rhonchi. No intercostal retractions. HEART: Regular rate and rhythm. No murmur. + chest tenderness. ABDOMEN: Soft No tenderness. EXTREMITIES: No pedal edema. No calf tenderness. NEUROLOGICAL: Patient is awake, alert and oriented x3. Assessment: Atypical chest pain, acute coronary syndrome ruled out Chest pain appears to be stress related with musculoskeletal component as she is tender to to palpation Diabetes mellitus type 2 Hypertension Hyperlipidemia History of sick sinus syndrome status post permanent dual-chamber pacemaker, Medtronic Peripheral vascular disease Family history of premature coronary artery disease Remote history of tobacco use and dependence and quit in 1988 Obstructive sleep apnea without CPAP History of breast cancer in 2016 status post surgery and radiation Lower extremity neuropathy Plan: Resume patient's home cardiac medications Patient is cleared for discharge from cardiology Patient will follow-up with her primary sprue cutting press operator in 1 to 2 weeks. Thank you kindly for this consultation. Nurse practitioner note has been reviewed, I agree with documented findings and plan of care. Patient was seen and examined. Past Medical History Past Medical History: Cancer, Diabetes Mellitus, GERD/Reflux, Hyperlipidemia, Hypertension, Osteoarthritis (OA), Renal Disease, Sleep Apnea/CPAP/BIPAP Additional Past Medical History / Comment(s): left breast cancer 2016 with surgery & radiation tx., neuropathy legs, hx of covid 2020 and states sob when walking distance., sleep apnea-no machine., states scabs from picking at her skin., back and knee pain., hx of renal failure after a fall and was alone for 32 hrs- states kidney function improved. History of Any Multi-Drug Resistant Organisms: None Reported Past Surgical History: Appendectomy, Cholecystectomy, Heart Catheterization, Hysterectomy, Joint Replacement, Pacemaker, Tonsillectomy Additional Past Surgical History / Comment(s): RIGHT rotator cuff surgery, TOTAL RIGHT KNEE, hernia repair after hysterectomy with mesh. Past Anesthesia/Blood Transfusion Reactions: Previous Problems w/ Anesthesia Additional Past Anesthesia/Blood Transfusion Reaction / Comment(s): SHORTNESS OF BREATH 2006 AFTER SHOULDER SURGERY . Type of Cardiac Device: Permanent Pacemaker Device Placement Date:: unknown Past Psychological History: Depression Additional Psychological History / Comment(s): past depression Smoking Status: Former smoker Past Alcohol Use History: Rare Additional Past Alcohol Use History / Comment(s): STARTED SMOKING AT AGE 12 QUIT SMOKING 1988 SMOKED 1PPD Past Drug Use History: None Reported - Past Family History Father Additional Family Medical History / Comment(s): aortic aneurysm Mother Family Medical History: CVA/TIA Brother(s) Family Medical History: Cancer Additional Family Medical History / Comment(s): melanoma Medications and Allergies Home Medications Medication Instructions Recorded Confirmed Type Aspirin EC [Ecotrin Low Dose] 81 mg PO HS 01/27/19 08/12/24 History Calcium/Magnesium/Zinc 1 tab PO BID 01/27/19 08/12/24 History [Mrlurqs-Jqlolhlny-Ugzn Tablet] Vit C/E/Zn/Coppr/Lutein/Zeaxan 1 cap PO BID 01/27/19 08/12/24 History [Preservision Areds 2 Softgel] lisinopriL 20 mg PO AC-BID 03/25/20 08/12/24 History Pantoprazole [Protonix] 40 mg PO DAILY 08/30/20 08/12/24 History Atorvastatin [Lipitor] 20 mg PO DAILY 05/30/21 08/12/24 History glipiZIDE [Glucotrol] 20 mg PO BID-W/MEALS 05/30/21 08/12/24 History Cranberry Fruit Extract [Cranberry] 500 mg PO BID 03/13/22 08/12/24 History Famotidine [Pepcid] 20 mg PO HS 03/13/22 08/12/24 History Azelastine HCl [Optivar 0.05% 1 drop BOTH EYES HS 08/12/24 08/12/24 History Ophth Soln] Cinnamon (Unknown Dose) 2 cap PO DAILY 08/12/24 08/12/24 History Dulaglutide [Trulicity] 0.75 mg SQ MO 08/12/24 08/12/24 History Glucosamine-Chondroitin/Turmeric 1 tab PO BID 08/12/24 08/12/24 History Allergies Allergy/AdvReac Type Severity Reaction Status Date / Time shellfish derived [Crab] Allergy Rash/Hives Verified 08/12/24 18:52 shrimp Allergy Rash/Hives Verified 08/12/24 18:52 Physical Exam Vitals: Vital Signs Temp Pulse Pulse Resp BP BP Pulse Ox 08/13/24 07:17 98.0 F 60 18 135/89 97 08/13/24 00:00 97.5 F L 55 L 18 131/59 95 08/12/24 20:55 97.7 F 61 20 112/67 96 08/12/24 20:25 65 18 124/60 96 08/12/24 18:13 57 L 18 95/79 98 08/12/24 17:36 54 L 20 151/73 100 08/12/24 16:37 97.2 F L 58 L 18 130/89 97 Intake and Output 08/12/24 08/13/24 08/13/24 22:59 06:59 14:59 Other: Voiding Method Toilet Toilet # Voids 1 2 Weight 56.245 kg Results 08/12/24 17:01 08/12/24 17:01 Cardiac Enzymes 08/12/24 08/12/24 08/12/24 Range/Units 17:01 17:01 19:53 AST 42 H (14-36) U/L Troponin I <0.012 <0.012 (0.000-0.034) ng/mL 08/12/24 Range/Units 23:35 AST (14-36) U/L Troponin I <0.012 (0.000-0.034) ng/mL Coagulation 08/12/24 Range/Units 17:01 PT 10.6 (10.0-12.5) sec APTT 21.2 L (22.0-30.0) sec CBC 08/12/24 Range/Units 17:01 WBC 7.89 (4.50-10.00) 10*3/uL RBC 4.81 (4.10-5.20) 10*6/uL Hgb 15.4 H (12.0-15.0) g/dL Hct 45.2 (37.2-46.3) % Plt Count 186 (140-440) 10*3/uL Comprehensive Metabolic Panel 08/12/24 Range/Units 17:01 Sodium 139 (137-145) mmol/L Potassium 4.1 (3.5-5.1) mmol/L Chloride 102 (98-107) mmol/L Carbon Dioxide 28 (22-30) mmol/L BUN 26 H (7-17) mg/dL Creatinine 0.95 (0.52-1.04) mg/dL Glucose 89 (74-99) mg/dL Calcium 10.1 (8.4-10.2) mg/dL AST 42 H (14-36) U/L ALT 34 (4-34) U/L Alkaline Phosphatase 75 (38-126) U/L Total Protein 6.9 (6.3-8.2) g/dL Albumin 4.3 (3.5-5.0) g/dL Current Medications Generic Name Dose Route Start Last Admin Trade Name Freq PRN Reason Stop Dose Admin Acetaminophen 650 mg 08/12/24 22:48 Acetaminophen Tab 325 Mg Tab PO Q6HR PRN Fever and/ or Pain Aspirin 325 mg 08/13/24 09:00 Aspirin 325 Mg Tab PO DAILY [facility] Atorvastatin Calcium 20 mg 08/13/24 09:00 Atorvastatin 20 Mg Tab PO DAILY [facility] Dextrose/Water 25 ml 08/12/24 22:47 Dextrose 50% Syringe 50 Ml IVP PER PROTOCOL PRN Hypoglycemia Protocol Dextrose/Water 50 ml 08/12/24 22:47 Dextrose 50% Syringe 50 Ml IVP PER PROTOCOL PRN Hypoglycemia Protocol Famotidine 20 mg 08/13/24 21:00 Famotidine 20 Mg Tab PO HS [facility] Glipizide 20 mg 08/13/24 07:30 Glipizide 5 Mg Tab PO BID-W/MEALS [facility] Heparin Sodium (Porcine) 5,000 unit 08/13/24 09:00 Heparin Sodium,Porcine 5,000 Unit/Ml 1 Ml Vial SQ Q12HR [facility] Insulin Human Lispro 0 unit 08/13/24 07:30 08/13/24 05:47 Insulin Lispro (Humalog) 100 Unit/Ml 10 Ml Vl SQ Not Given ACHS [facility] Protocol Ketotifen Fumarate 1 drops 08/12/24 23:00 08/13/24 00:02 Ketotifen 0.025% Ophth Drops 5 Ml Btl BOTH EYES 1 drops HS [facility] Administration Multivitamins/Minerals 1 each 08/13/24 09:00 Vit A,C & Y-Dscfua-Bzegrieg 1 Each Tab PO BID [facility] Nitroglycerin 0.4 mg 08/12/24 18:20 Nitroglycerin Sl Tabs 0.4 Mg Tab SUBLINGUAL Q5M PRN Chest Pain Pantoprazole Sodium 40 mg 08/13/24 07:30 08/13/24 06:09 Pantoprazole 40 Mg Tablet PO 40 mg AC-BRKFST [facility] Administration Intake and Output 08/12/24 08/13/24 08/13/24 22:59 06:59 14:59 Other: Voiding Method Toilet Toilet # Voids 1 2 Weight 56.245 kg 08/12/24 17:01 08/12/24 17:01
[2024-08-13] MEDS: HEPARIN SODIUM,PORCINE 5,000 UNIT/ML 1 ML VIAL SQ SCH (10:00)
[2024-08-13] MEDS: VIT A,C & E-LUTEIN-MINERALS 1 EACH TAB PO SCH (10:01)
[2024-08-13] MEDS: ASPIRIN 325 MG TAB PO SCH (10:01)
[2024-08-13] MEDS: glipiZIDE 5 MG TAB PO SCH (10:01)
[2024-08-13] MEDS: ATORVASTATIN 20 MG TAB PO SCH (10:01)
[2024-08-13 10:03] LABS: Chol/HDL Ratio 2.81 Ratio; LDL Cholesterol,Calculated 69.6 mg/dL (0.0-131.0)
[2024-08-13 12:47] LABS: Glucose,Whole Blood 123 mg/dL (70-110)
--- NOTE | 2024-08-13 13:21 | P.HPIM ---
History of Present Illness H&P Date: 08/13/24 History of present illness: 74-year-old male patient with past medical history significant for diabetes mellitus, hypertension, hyperlipidemia, sick sinus syndrome status post permanent dual-chamber pacemaker, peripheral vascular disease, remote history of tobacco use, quit in 1988, history of obesity, obstructive sleep apnea without CPAP, history of left breast cancer in 2016 s/p surgery and radiation, lower extremity neuropathy who presented to ER with a complaint of chest pain, patient reported that she had anxiety and started to have midsternal chest pain, lasted intermittently for last 1-1/2-week, also reported shortness of breath. Patient reported that she got stuck in the elevator while leaving the home which caused her to have stress and chest pain. Patient was afebrile, heart rate 60, respiratory rate 16, blood pressure 135/89, saturating 97% on room air. EKG showed atrial paced rhythm with occasional PVCs Chest x-ray negative improved process Troponin remained negative x 3. Patient reported that she recently had a cardiac catheterization which was normal. Assessment and plan: Atypical chest pain Anxiety/stress: Diabetes mellitus Hypertension Hyperlipidemia History of sick sinus syndrome status post permanent dual-chamber pacemakerMedtronic Peripheral vascular disease Remote history of tobacco use Obstructive sleep apnea without CPAP History of breast cancer in 2016 status post surgery and radiation Lower extremity neuropathy Family history of premature coronary artery disease Chest pain is atypical Monitor with serial troponin and EKG Cardiology consult Continue home meds. DVT prophylaxis Monitor vital signs and labs Labs and medication were reviewed. Continue same treatment. Further recommendations as per clinical course of the patient PHYSICAL EXAMINATION: GENERAL: The patient is A&O x3, NAD HEENT: EOMI, Sclerae anicteric, Moist Mucous membranes Neck: Supple, Non tender, No JVD PULMONARY: Equal breath souds B/L, No wheezing, No crackles. CARDIOVASCULAR: S1, S2 present. No murmurs, rubs, or gallops. ABDOMEN: Soft, nontender, nondistended, normoactive bowel sounds. No guarding or rebound tenderness. MUSCULOSKELETAL: No edema, No cyanosis. No clubbing. Normal ROM. Intact peripheral pulses. NEUROLOGICAL: CN 2-12 grossly intact. No FND REVIEW OF SYSTEMS: CONSTITUTIONAL: No fever, no malaise, no fatigue. HEENT: No recent visual problems or hearing problems. Denied any sore throat. CARDIOVASCULAR: No chest pain, orthopnea, PND, no palpitations, no syncope. PULMONARY: No shortness of breath, no cough, no hemoptysis. GASTROINTESTINAL: No diarrhea, no nausea, no vomiting, no abdominal pain. NEUROLOGICAL: No headaches, no weakness, no numbness. HEMATOLOGICAL: Denies any bleeding or petechiae. GENITOURINARY: Denies any burning micturition, frequency, or urgency. MUSCULOSKELETAL/RHEUMATOLOGICAL: Denies any joint pain, swelling, or any muscle pain. ENDOCRINE: Denies any polyuria or polydipsia. The rest of the 14-point review of systems is negative. Dictation was produced using [email or web address] dictation software. please excuse any grammatical, word or spelling errors. Past Medical History Past Medical History: Cancer, Diabetes Mellitus, GERD/Reflux, Hyperlipidemia, Hypertension, Osteoarthritis (OA), Renal Disease, Sleep Apnea/CPAP/BIPAP Additional Past Medical History / Comment(s): left breast cancer 2016 with surgery & radiation tx., neuropathy legs, hx of covid 2020 and states sob when walking distance., sleep apnea-no machine., states scabs from picking at her skin., back and knee pain., hx of renal failure after a fall and was alone for 3 2 hrs- states kidney function improved. History of Any Multi-Drug Resistant Organisms: None Reported Past Surgical History: Appendectomy, Cholecystectomy, Heart Catheterization, Hysterectomy, Joint Replacement, Pacemaker, Tonsillectomy Additional Past Surgical History / Comment(s): RIGHT rotator cuff surgery, TOTAL RIGHT KNEE, hernia repair after hysterectomy with mesh. Past Anesthesia/Blood Transfusion Reactions: Previous Problems w/ Anesthesia Additional Past Anesthesia/Blood Transfusion Reaction / Comment(s): SHORTNESS OF BREATH 2006 AFTER SHOULDER SURGERY . Type of Cardiac Device: Permanent Pacemaker Device Placement Date:: unknown Past Psychological History: Depression Additional Psychological History / Comment(s): past depression Smoking Status: Former smoker Past Alcohol Use History: Rare Additional Past Alcohol Use History / Comment(s): STARTED SMOKING AT AGE 12 QUIT SMOKING 1988 SMOKED 1PPD Past Drug Use History: None Reported - Past Family History Father Additional Family Medical History / Comment(s): aortic aneurysm Mother Family Medical History: CVA/TIA Brother(s) Family Medical History: Cancer Additional Family Medical History / Comment(s): melanoma Medications and Allergies Home Medications Medication Instructions Recorded Confirmed Type Aspirin EC [Ecotrin Low Dose] 81 mg PO HS 01/27/19 08/12/24 History Calcium/Magnesium/Zinc 1 tab PO BID 01/27/19 08/12/24 History [Wncbvph-Augqgsjuh-Shvl Tablet] Vit C/E/Zn/Coppr/Lutein/Zeaxan 1 cap PO BID 01/27/19 08/12/24 History [Preservision Areds 2 Softgel] lisinopriL 20 mg PO AC-BID 03/25/20 08/12/24 History Pantoprazole [Protonix] 40 mg PO DAILY 08/30/20 08/12/24 History Atorvastatin [Lipitor] 20 mg PO DAILY 05/30/21 08/12/24 History glipiZIDE [Glucotrol] 20 mg PO BID-W/MEALS 05/30/21 08/12/24 History Cranberry Fruit Extract [Cranberry] 500 mg PO BID 03/13/22 08/12/24 History Famotidine [Pepcid] 20 mg PO HS 03/13/22 08/12/24 History Azelastine HCl [Optivar 0.05% 1 drop BOTH EYES HS 08/12/24 08/12/24 History Ophth Soln] Cinnamon (Unknown Dose) 2 cap PO DAILY 08/12/24 08/12/24 History Dulaglutide [Trulicity] 0.75 mg SQ MO 08/12/24 08/12/24 History Glucosamine-Chondroitin/Turmeric 1 tab PO BID 08/12/24 08/12/24 History Allergies Allergy/AdvReac Type Severity Reaction Status Date / Time shellfish derived [Crab] Allergy Rash/Hives Verified 08/12/24 18:52 shrimp Allergy Rash/Hives Verified 08/12/24 18:52 Physical Exam Vitals: Vital Signs Temp Pulse Pulse Resp BP BP Pulse Ox 08/13/24 07:17 98.0 F 60 18 135/89 97 08/13/24 00:00 97.5 F L 55 L 18 131/59 95 08/12/24 20:55 97.7 F 61 20 112/67 96 08/12/24 20:25 65 18 124/60 96 08/12/24 18:13 57 L 18 95/79 98 08/12/24 17:36 54 L 20 151/73 100 08/12/24 16:37 97.2 F L 58 L 18 130/89 97 Intake and Output 08/12/24 08/13/24 08/13/24 22:59 06:59 14:59 Intake Total 118 Balance 118 Intake: Oral 118 Other: Voiding Method Toilet Toilet Toilet # Voids 1 2 Weight 56.245 kg Results CBC & Chem 7: 08/12/24 17:01 08/12/24 17:01 Labs: Abnormal Lab Results - Last 24 Hours (Table) 08/12/24 08/12/24 08/12/24 Range/Units 17:01 17:01 17:01 Hgb 15.4 H (12.0-15.0) g/dL APTT 21.2 L (22.0-30.0) sec BUN 26 H (7-17) mg/dL POC Glucose (mg/dL) (70-110) mg/dL Hemoglobin A1c (<=6.0) % AST 42 H (14-36) U/L 08/12/24 08/13/24 Range/Units 17:01 12:45 Hgb (12.0-15.0) g/dL APTT (22.0-30.0) sec BUN (7-17) mg/dL POC Glucose (mg/dL) 123 H (70-110) mg/dL Hemoglobin A1c 6.7 H (<=6.0) % AST (14-36) U/L Thrombosis Risk Factor Assmnt - Choose All That Apply Each Risk Factor Represents 2 Points: Age 61-74 years Thrombosis Risk Factor Assessment Total Risk Factor Score: 2 Thrombosis Risk Factor Assessment Level: Low Risk
--- NOTE | 2024-08-13 13:24 | P.DS ---
Providers Date of admission: 08/12/24 18:22 Attending physician: Andrew Armas Consults: 08/12/24 18:20 Consult Physician Urgent Consulting Provider: Brandon Cheek Reason/Comments: chest pain Do you want consulting provider notified?: Yes Primary care physician: Sheila Ba Hospital Course: Discharge diagnoses: Atypical chest pain Anxiety/stress: Diabetes mellitus Hypertension Hyperlipidemia History of sick sinus syndrome status post permanent dual-chamber pacemakerMedtronic Peripheral vascular disease Remote history of tobacco use Obstructive sleep apnea without CPAP History of breast cancer in 2016 status post surgery and radiation Lower extremity neuropathy Family history of premature coronary artery disease Chest pain is atypical Monitored with serial troponin and EKG--- unremarkable Cardiology consulted--atypical chest pain, symptoms resolved, okay to discharge per cardiology. Continue home meds. Hospital course: 74-year-old male patient with past medical history significant for diabetes mellitus, hypertension, hyperlipidemia, sick sinus syndrome status post permanent dual-chamber pacemaker, peripheral vascular disease, remote history of tobacco use, quit in 1988, history of obesity, obstructive sleep apnea without CPAP, history of left breast cancer in 2016 s/p surgery and radiation, lower extremity neuropathy who presented to ER with a complaint of chest pain, patient reported that she had anxiety and started to have midsternal chest pain, lasted intermittently for last 1-1/2-week, also reported shortness of breath. Patient reported that she got stuck in the elevator while leaving the home which caused her to have stress and chest pain. Patient was afebrile, heart rate 60, respiratory rate 16, blood pressure 135/89, saturating 97% on room air. EKG showed atrial paced rhythm with occasional PVCs Chest x-ray negative improved process Troponin remained negative x 3. Patient reported that she recently had a cardiac catheterization which was normal. Patient was admitted to hospital for evaluation and management of chest pain. Was monitored with serial troponin and EKG. Cardiology consulted. Serial troponin and EKG remain unremarkable, chest pain atypical likely related to stress/anxiety, remain resolved during hospitalization. Okay to discharge per cardiology and follow-up with outpatient. Patient condition vital stable at discharge. Please refer to medical discharge plan for further details Follow-up with PCP in 1 week Follow-up with cardiology as outpatient. PHYSICAL EXAMINATION: GENERAL: The patient is A&O x3, NAD HEENT: EOMI, Sclerae anicteric, Moist Mucous membranes Neck: Supple, Non tender, No JVD PULMONARY: Equal breath souds B/L, No wheezing, No crackles. CARDIOVASCULAR: S1, S2 present. No murmurs, rubs, or gallops. ABDOMEN: Soft, nontender, nondistended, normoactive bowel sounds. No guarding or rebound tenderness. MUSCULOSKELETAL: No edema, No cyanosis. No clubbing. Normal ROM. Intact peripheral pulses. NEUROLOGICAL: CN 2-12 grossly intact. No FND SKIN: No rashes. Dictation was produced using [employer] dictation software. please excuse any grammatical, word or spelling errors. Patient Condition at Discharge: Stable Plan - Discharge Summary Discharge Rx Participant: Yes New Discharge Prescriptions: Continue Glucosamine-Chondroitin/Turmeric 1 tab PO BID Cinnamon (Unknown Dose) 2 cap PO DAILY Azelastine HCl [Optivar 0.05% Ophth Soln] 1 drop BOTH EYES HS Dulaglutide [Trulicity] 0.75 mg SQ MO No Action Calcium/Magnesium/Zinc [Rmhosxq-Vygyadaip-Eqwo Tablet] 1 tab PO BID Aspirin EC [Ecotrin Low Dose] 81 mg PO HS Vit C/E/Zn/Coppr/Lutein/Zeaxan [Preservision Areds 2 Softgel] 1 cap PO BID lisinopriL 20 mg PO AC-BID glipiZIDE [Glucotrol] 20 mg PO BID-W/MEALS Atorvastatin [Lipitor] 20 mg PO DAILY Pantoprazole [Protonix] 40 mg PO DAILY Cranberry Fruit Extract [Cranberry] 500 mg PO BID Famotidine [Pepcid] 20 mg PO HS Discharge Medication List Aspirin EC [Ecotrin Low Dose] 81 mg PO HS 01/27/19 [History] Calcium/Magnesium/Zinc [Gpplohp-Macuuodns-Zzfk Tablet] 1 tab PO BID 01/27/19 [History] Vit C/E/Zn/Coppr/Lutein/Zeaxan [Preservision Areds 2 Softgel] 1 cap PO BID 01/27/19 [History] lisinopriL 20 mg PO AC-BID 03/25/20 [History] Pantoprazole [Protonix] 40 mg PO DAILY 08/30/20 [History] Atorvastatin [Lipitor] 20 mg PO DAILY 05/30/21 [History] glipiZIDE [Glucotrol] 20 mg PO BID-W/MEALS 05/30/21 [History] Cranberry Fruit Extract [Cranberry] 500 mg PO BID 03/13/22 [History] Famotidine [Pepcid] 20 mg PO HS 03/13/22 [History] Azelastine HCl [Optivar 0.05% Ophth Soln] 1 drop BOTH EYES HS 08/12/24 [History] Cinnamon (Unknown Dose) 2 cap PO DAILY 08/12/24 [History] Dulaglutide [Trulicity] 0.75 mg SQ MO 08/12/24 [History] Glucosamine-Chondroitin/Turmeric 1 tab PO BID 08/12/24 [History] Follow up Appointment(s)/Referral(s): Tal Diaz DO [STAFF PHYSICIAN] - 1 Week Sheila Ba MD [Primary Care Provider] - 1-2 days
[2024-08-13] MEDS ORDERED: FAMOTIDINE 20 MG TAB PO SCH (21:00)
== END 2024-08-13 15:45 | disposition home or self-care (01) ==
LOC: EC 16:36 → 6NMEDSUR 18:22
PROVIDERS: ADMIT Internal Medicine; ATTEND Internal Medicine
DX: R07.89 Other chest pain (principal); F43.9 Reaction to severe stress, unspecified; I11.9 Hypertensive heart disease without heart failure; I49.5 Sick sinus syndrome; E11.51 Type 2 diabetes mellitus with diabetic peripheral angiopathy without gangrene; E11.40 Type 2 diabetes mellitus with diabetic neuropathy, unspecified; I08.3 Combined rheumatic disorders of mitral, aortic and tricuspid valves; E78.5 Hyperlipidemia, unspecified; G47.33 Obstructive sleep apnea (adult) (pediatric); I49.3 Ventricular premature depolarization; F41.9 Anxiety disorder, unspecified; R07.2 Precordial pain; Z79.85 Long-term (current) use of injectable non-insulin antidiabetic drugs; Z79.82 Long term (current) use of aspirin; Z79.84 Long term (current) use of oral hypoglycemic drugs; Z79.899 Other long term (current) drug therapy; Z91.013 Allergy to seafood; Z87.891 Personal history of nicotine dependence; Z95.0 Presence of cardiac pacemaker; Z92.3 Personal history of irradiation; Z85.3 Personal history of malignant neoplasm of breast; Z82.49 Family history of ischemic heart disease and other diseases of the circulatory system
CPT/HCPCS: 99285; 36415; 93005; 80061; 80053; 83735; 84484; 85025; 85610; 85730; 83036; 71046; G0378 ×2